=== PATIENT | female | born 1965 | race Caucasian/White ===

== ENCOUNTER → 2019-12-27 14:09 | Outpatient (BNVA) | payer MEDICAID, SELFPAY | PROVIDERS: Family Provider Nurse Practitioner Family; Visit Provider Surgery | DX: Z11.59 Encounter for screening for other viral diseases (principal); R11.0 Nausea | CPT/HCPCS: 87635 ==

== ENCOUNTER 2020-01-01 08:05 | Day surgery (SDC) | payer MEDICAID, SELFPAY ==
[2019-12-30 09:15] VITALS: BMI 38.9
[2020-01-01 08:18] VITALS: BP 136/70; PULSE 74; RESP 18; TEMP 36.1; O2SAT 96
--- NOTE | 2020-01-01 08:32 | ANES.PREANE2 ---
Pre-Anesthetic Assessment Pre-Anesthetic Assessment: Height/Weight: Height 1.78 m Weight 122.924 kg Temp Pulse Resp BP Pulse Ox 97.0 F L 74 18 136/70 96 01/01/20 08:18 01/01/20 08:18 01/01/20 08:18 01/01/20 08:18 01/01/20 08:18 Preop Diagnosis: Nausea and weight loss Proposed Procedure: Operation Date: 01/01/20 09:00 Proposed Procedures p EGD 37198 R11.0(Not Applicable) - Jamie Lerma MD Familial anesthetic complications: None Was Beta Brittnee taken within 24 hours: N/A Last intake: Intake Last Liquid Date 12/31/19 Last Liquid Time 21:00 Last Solid Date 12/31/19 Last Solid Time 21:00 Social: Social History: No alcohol and No tobacco Exam: Pre-Anes Outpt Exam: alert, oriented x 3, clear to auscultation bilaterally and regular rate & rhythm Airway: Cervical ROM: WNL MP: 3 Dentition: Other (missing) Additional comments: large neck Pulmonary: Pulmonary: Asthma and Sleep apnea (noncompliant w/ cpap) CV/HEM: CV/HEM: Arrythmia, HTN and Murmur GI: GI: GERD Metabolic: Metabolic: DM, Hyperlipidemia and Morbid obesity Musc/skel: Musc/skel: OA/DJD Neuropsych: Neuropsych: TIA (on plavix - last took a month ago (quit filling her perscription)) Anesthetic Plan: ASA status: 3 Anesthesia: MAC Risk of > 500 ml blood loss (7ml/kg in children): No Data Anesthesia Cardiac Studies: No Data to Display
[2020-01-01] MEDS: sodium chloride 0.9% 1,000 ML 30 ML IV (08:43)
[2020-01-01 08:44] LABS: Glucose Point of Care 150 mg/dL (70-110)
--- NOTE | 2020-01-01 09:21 | W.PM.OPSUD ---
Surgery/Procedure H&P Update DATE OF PROCEDURE: January 01, 2020 DATE H&P PERFORMED: 12/18/19 H&P UPDATE INFORMATION: I have reviewed H&P completed within last 30 days, I have examined patient prior to procedure and No changes to prior documentation PREOP DIAGNOSIS: Nausea and weight loss PRIMARY INDICATION FOR PROCEDURE: The same PLANNED PROCEDURE: Operation Date: 01/01/20 09:00 Proposed Procedures p EGD 74288 R11.0(Not Applicable) - Jamie Lerma MD
[2020-01-01 09:34] VITALS: BP 110/58; PULSE 69; RESP 18; TEMP 36.2; O2SAT 98
[2020-01-01 09:50] VITALS: BP 107/69; PULSE 68; RESP 18; O2SAT 98
--- NOTE | 2020-01-01 10:55 | ANE.PACU2 ---
Inpatient post-anesthesia follow up: Airway intact: Yes Vital signs: Temperature 97.2 F Pulse Rate 68 Respiratory Rate 18 Blood Pressure 107/69 Pulse Oximetry 98 Oxygen Delivery Me thod Room Air Oxygen Flow Rate Fraction of Inspir ed Oxygen Hydration adequate: Yes Nausea and vomiting: Yes Pain level: 1 Mental status: Baseline
[2020-01-02 06:09] LABS: H. Pylori / CLO Test Negative
== END 2020-01-01 09:59 | disposition home or self-care (01) ==
PROVIDERS: PCP Family Medicine; Visit Provider Surgery
PROC: 0DJ08ZZ Inspection of Upper Intestinal Tract, Via Natural or Artificial Opening Endoscopic (ICD-10-PCS; CPT 43235; principal; 2020-01-01 09:00)
DX: R11.0 Nausea (principal); R63.4 Abnormal weight loss; K21.00 Gastro-esophageal reflux disease with esophagitis, without bleeding; K29.70 Gastritis, unspecified, without bleeding; I10 Essential (primary) hypertension; G47.30 Sleep apnea, unspecified; E11.9 Type 2 diabetes mellitus without complications; E78.5 Hyperlipidemia, unspecified; E66.01 Morbid (severe) obesity due to excess calories; Z68.38 Body mass index [BMI] 38.0-38.9, adult; Z86.73 Personal history of transient ischemic attack (TIA), and cerebral infarction without residual deficits; Z79.02 Long term (current) use of antithrombotics/antiplatelets
CPT/HCPCS: 12345; 36416; 43239; 82962; 87077; J2704; J7030

== ENCOUNTER → 2021-02-18 14:54 | Outpatient (BNVA) | payer MEDICAID, SELFPAY | PROVIDERS: PCP Family Medicine; Visit Provider Internal Medicine | DX: E11.9 Type 2 diabetes mellitus without complications (principal); E78.5 Hyperlipidemia, unspecified; I63.9 Cerebral infarction, unspecified; G31.84 Mild cognitive impairment of uncertain or unknown etiology; Z98.890 Other specified postprocedural states; Z79.84 Long term (current) use of oral hypoglycemic drugs; Z79.4 Long term (current) use of insulin | CPT/HCPCS: 99214 ==

== ENCOUNTER → 2021-07-15 16:28 | Outpatient (BNVA) | payer MEDICAID, SELFPAY | PROVIDERS: PCP Family Medicine; Visit Provider Dermatology | DX: L43.9 Lichen planus, unspecified (principal) | CPT/HCPCS: 86705; 86706; 86709; 86803; 87340 ==

== ENCOUNTER 2021-07-29 14:35 | Emergency (ER) | payer MEDICAID, SELFPAY ==
[2021-07-29 14:40] VITALS: BP 160/81; PULSE 105; RESP 16; TEMP 36.7; O2SAT 97
--- NOTE | 2021-07-29 14:54 | CT_ITS ---
WS: [id number] CT HEAD TECHNIQUE: Noncontrast CT of the head obtained from the skullbase to the vertex. CLINICAL INFORMATION: Symptoms of Acute Stroke COMPARISON: CT 5 DLP: 851.[address] scans at [facility] use at least one of these dose optimization techniques: automated e xposure control; mA and/or kV adjustment per patient size (includes targeted exams where dose is matc hed to clinical indication); or iterative reconstruction. FINDINGS: No evidence of intracranial hemorrhage or mass effect. Ventricular system and basal cisterns are read nt. No extra-axial fluid collections. No evidence of mass or mass effect. Normal redman-white different iation. Cavernous carotid calcification. Paranasal sinuses and mastoid air cells are well aerated. .Normal visualized soft tissues. CT/CT head wo con* [id number] IMPRESSION: 1. No evidence of intracranial hemorrhage or mass effect. 2. Normal redman-white differentiation. 3. No acute intracranial findings. Notified Demetrio Younger DO at 07/29/2021 3:17 PM.
--- NOTE | 2021-07-29 14:54 | ECG_ITS ---
[facility] Test Date: 2021-07-29 Pat Name: Paradise Samano Department: Room: Gender: Female Medical Coordinator Pesticide Use: : 1965 Requested By: Demetrio Anaya Order Number: [id number] Kris MD: Navneet Vo M.D. Measurements Intervals [place] Rate: 103 P: 44 CT: 137 QRS: 57 QRSD: 87 T: 55 QT: 335 QTc: 441 Interpretive Statements SINUS TACHYCARDIA NONSPECIFIC T-WAVE ABNORMALITY Compared to ECG 07/18/2018 14:43:26 Sinus rhythm no longer present T-wave abnormality still present Electronically Signed On 07-29-2021 17:14:41 CDT by Navneet Vo M.D. [id number]
[2021-07-29 14:55] VITALS: BP 136/83; PULSE 97; RESP 16; O2SAT 95
--- NOTE | 2021-07-29 14:57 | ED_ITS ---
HPI - General Adult General: Chief complaint: General Medical Stated complaint: possible stroke Time Seen by Provider: 07/29/21 14:45 Source: patient Mode of arrival: ambulatory Limitations: no limitations History of Present Illness: 55-year-old female presents to the emergency room withLeft-sided weakness for the last 3 days. Patient reports she has a history of migraines with hemiplegia with migraine resolved her symptoms resolved she has had this multiple times in the past. She was seen at her primary care clinic and referred here. She denies any chest pain no difficulty with vision. She is awake and alert answers questions appropriately. Onset (ago): minute(s) Location: head Relieving factors: none Exacerbating factors: none Associated symptoms: Deny chest pain, confusion, cough, diaphoresis, decreased appetite, dyspnea, fevers/chills, headache(s), malaise, nausea, rash, palpitations, seizures, short of breath, syncope, vomiting or weakness Treatments prior to arrival: none Review of Systems Const: Denies: malaise or diaphoresis ENMT: Denies: throat pain, ear or mastoid pain, nasal discharge or nasal con gestion Card: Denies: chest pain, palpitations or syncope Resp: Denies: dyspnea GI: Denies: nausea or vomiting : Denies: flank pain, difficulty voiding, dysuria, urinary frequency or urinary urgency Skin/Breast: Denies: rash Neuro: Denies: headache(s) or confusion PFS ED PFSH: Medical History Abdominal pain Anemia Asthma Depression Diabetes Duodenitis without bleeding GERD (gastroesophageal reflux disease) Gout Hypertension Morbid obesity with BMI of 40.0-44.9, adult Nausea & vomiting PTSD (post-traumatic stress disorder) RLS (restless legs syndrome) Surgical History History of esophagogastroduodenoscopy (EGD) Family History Other Hypertension Social History Smoking and tobacco status: never smoked Alcohol intake: current Physical Exam Const: COMMON NORMALS: no acute distress GENERAL APPEARANCE: cooperative and comfortable ORIENTATION/CONSCIOUSNESS: Yes awake, Yes oriented to person, Yes oriented to place and Yes oriented to time HENMT: COMMON NORMALS: normocephalic, atraumatic and hearing grossly normal bilaterally HEAD & SCALP: normocephalic and atraumatic Neck/C-Spine: COMMON NORMALS: no JVD Resp: COMMON NORMALS: normal respiratory effort, No retractions, No use of accessory muscles and clear to auscultation bilaterally AUSCULTATION: clear to auscultation bilaterally Cardio: COMMON NORMALS: no JVD, regular rate, regular rhythm and No murmurs present (Cardio) RATE: regular rate RHYTHM: regular rhythm GI: COMMON NORMALS: Soft to palpation and No hepatosplenomegaly present AUSCULTATION: Yes normoactive bowel sounds PALPATION: Yes Soft to palpation, No Tenderness to palpation present (GI), No Guarding due to palpation present (GI) and Yes No hepatosplenomegaly present Extremity: COMMON NORMALS: normal to inspection, capillary refill normal, no clubbing, cyanosis or edema, no calf tenderness and no pedal edema Neuro: SENSORIUM/ORIENTATION: Yes oriented to person, Yes oriented to place and Yes oriented to time OTHER: Weakness on the left side but with encouragement patient is able to perform all tasks Skin: COMMON NORMALS: no rashes or lesions noted GENERAL SKIN EXAM: no rashes or lesions noted Course Vital Signs: Vital signs: Vital Signs Temperature 98.1 F 07/29/21 14:40 Pulse Rate 85 07/29/21 17:40 Respiratory Rate 18 07/29/21 17:40 Blood Pressure 120/83 07/29/21 17:40 Pulse Oximetry 95 07/29/21 17:40 [facility] - General Adult Medical Decision Making For the time work-up was complete patient's symptoms had completely resolved. She preferred to go home. No further deficits. Repeat examination patient has full range of motion full-strength no deficits at all. She reports this is gayla lar to what she has had in the past with her migraine headaches. She has not seen neurology recommend that she does see them in the future. Medical Records I reviewed the patient's medical records. Lab Data I reviewed the patient's lab results. : 07/29/21 15:18 07/29/21 15:[address] 07/29/21 14:54 IMPRESSION: 1. No evidence of intracranial hemorrhage or mass effect. 2. Normal redman-white differentiation. 3. No acute intracranial findings. Notified Demetrio Younger DO at 07/29/2021 3:17 PM. Laboratory Results WBC 10.8 10^3/uL (4.0-10.0) H 07/29/21 15:18 RBC 5.74 10^6/uL (4.1-5.3) H 07/29/21 15:18 Hgb 14.4 g/dL (11.5-15.3) 07/29/21 15:18 Hct 46.4 % (37.0-47.0) 07/29/21 15:18 MCV 80.8 fl (81-99) L 07/29/21 15:18 MCH 25.1 pg (28.0-34.0) L 07/29/21 15:18 MCHC 31.0 g/dL (30.0-36.0) 07/29/21 15:18 RDW 15.7 % (12.1-15.1) H 07/29/21 15:18 Plt Count 204 10^3/cmm (130-400) 07/29/21 15:18 MPV 12.5 fL (7.4-10.4) H 07/29/21 15:18 Neut % (Auto) 73.6 % 07/29/21 15:18 Lymph % (Auto) 20.3 % 07/29/21 15:18 [place] % (Auto) 3.4 % 07/29/21 15:18 Eos % (Auto) 2.0 % 07/29/21 15:18 Baso % (Auto) 0.4 % 07/29/21 15:18 Neut # (Auto) 7.92 10^3/uL (1.8-7.7) H 07/29/21 15:18 Lymph # (Auto) 2.2 10^3/uL (0.8-4.8) 07/29/21 15:18 [place] # (Auto) 0.4 10^3/uL (0.2-0.9) 07/29/21 15:18 Eos # (Auto) 0.2 10^3/uL (0.0-0.8) 07/29/21 15:18 Baso # (Auto) 0.0 10^3/uL (0.0-0.1) 07/29/21 15:18 Nucleated RBC % (auto) 0 % 07/29/21 15:18 Nucleated RBCs # 0.0 /100WBC 07/29/21 15:18 PT 13.60 SECONDS (12.1-14.9) 07/29/21 16:35 INR 1.01 (0.8-1.2) 07/29/21 16:35 APTT 27.1 SECONDS (23.9-36.7) 07/29/21 16:35 Sodium 137 mmol/L (136-145) 07/29/21 15:18 Potassium 3.2 mmol/L (3.5-5.1) L 07/29/21 15:18 Chloride 99 mmol/L (98-107) 07/29/21 15:18 Carbon Dioxide 23 mmol/L (22-29) 07/29/21 15:18 Anion Gap 18.2 (5-19) 07/29/21 15:18 BUN 15 mg/dL (6-20) 07/29/21 15:18 Creatinine 0.8 mg/dL (0.5-0.9) 07/29/21 15:18 GFR Calculation 74.7 mL/min (90-130) L 07/29/21 15:18 Glucose 181 mg/dL (65-115) H 07/29/21 15:18 POC Glucose 180 mg/dL (70-110) H 07/29/21 16:09 Calculated Osmolality 289 mOsm/kg (285-295) 07/29/21 15:18 Calcium 8.9 mg/dL (8.5-10.5) 07/29/21 15:18 Total Bilirubin 0.3 mg/dL (0.15-1.2) 07/29/21 15:18 AST 33 U/L (0-32) H 07/29/21 15:18 ALT 43 U/L (0-33) H 07/29/21 15:18 Alkaline Phosphatase 130 IU/L (35-105) H 07/29/21 15:18 Total Protein 8.4 g/dL (6.6-8.7) 07/29/21 15:18 Albumin 4.4 g/dL (3.5-5.2) 07/29/21 15:18 Globulin 4.0 g/dL (1.3-4.6) 07/29/21 15:18 Urine Color Yellow (Yellow) 07/29/21 14:45 Urine Appearance Clear (CLEAR) 07/29/21 14:45 Urine pH 5 (5-7) 07/29/21 14:45 Ur Specific [place] 1.005 (1.005-1.030) 07/29/21 14:45 Urine Protein Neg (Negative) 07/29/21 14:45 Urine Glucose (UA) Norm (Normal) 07/29/21 14:45 Urine Ketones Negative (Negative) 07/29/21 14:45 Urine Blood Neg (Negative) 07/29/21 14:45 Urine Nitrate Negative (Negative) 07/29/21 14:45 Urine Bilirubin Neg (Negative) 07/29/21 14:45 Urine Urobilinogen Norm mg/dL (Negative) 07/29/21 14:45 Ur Leukocyte Esterase Negative (Negative) 07/29/21 14:45 Urine Opiates Screen Negative ng/mL (Negative) 07/29/21 14:45 Ur Barbiturates Screen Negative ng/mL (Negative) 07/29/21 14:45 Ur Phencyclidine Scrn Negative ng/mL (Negative) 07/29/21 14:45 Ur Amphetamines Screen Negative ng/mL (Negative) 07/29/21 14:45 U Benzodiazepines Scrn Negative ng/mL (Negative) 07/29/21 14:45 Urine Cocaine Screen Negative ng/mL (Negative) 07/29/21 14:45 U Marijuana (THC) Screen Negative ng/mL (Negative) 07/29/21 14:45 Discharge Plan Discharge Patient Disposition: Home Clinical Impression: Hemiplegic migraine Condition: Stable Prescriptions: No Action Dulera 200-5 mcg/actuation HFA aerosol inhaler 2 puff INHALATION BID 0RF furosemide [Lasix] 20 mg tablet 20 mg PO DAILY 0RF ropinirole 2 mg tablet 2 mg PO DAILY 0RF pramipexole [Mirapex] 0.5 mg tablet 0.5 mg PO DAILY 0RF hydrochlorothiazide 25 mg tablet 25 mg PO DAILY 0RF dicyclomine 10 mg capsule 10 mg PO BID 0RF citalopram [Celexa] 40 mg tablet 40 mg PO DAILY 0RF prazosin 1 mg capsule 1 mg PO BID 0RF azelastine 137 mcg (0.1 %) aerosol,spray 1 spray INTRANASAL BID 0RF Rx Instructions: administer into each nostril venlafaxine [Effexor XR] 150 mg capsule,extended release 24hr 150 mg PO DAILY 0RF ipratropium-albuterol 0.5 mg-3 mg(2.5 mg base)/3 mL solution for nebulization 3 ml INHALATION QID PRN (Reason: Dyspnea) 0RF albuterol sulfate [ProAir HFA] 90 mcg/actuation HFA aerosol inhaler 2 puff INHALATION Q6H PRN (Reason: Dyspnea) 0RF sucralfate 1 gram tablet 1 gm PO BID 0RF magnesium oxide 400 mg magnesium capsule 400 mg PO DAILY 0RF gabapentin 400 mg capsule 800 mg PO DAILY 0RF hydroxyzine HCl 25 mg tablet 25 mg PO BID PRN (Reason: Itching) 0RF topiramate 50 mg capsule,extended release 24hr 50 mg PO DAILY 0RF allopurinol 300 mg tablet 300 mg PO DAILY 0RF baclofen 10 mg tablet 10 mg PO DAILY 0RF metformin 1,000 mg tablet 1,000 mg PO DAILY 0RF atorvastatin 20 mg tablet 20 mg PO DAILY 0RF clopidogrel [Plavix] 75 mg tablet 75 mg PO DAILY 0RF Hold Instructions: Resume on 01/06/20. meclizine 25 mg tablet 25 mg PO DAILY 0RF (DME) Dexcom G6 Sensor Device See Rx Instructions .Route Qty: 3 3RF Rx Instructions: As directed (DME) Dexcom G6 Deck[employer] Misc See Rx Instructions .Route Qty: 1 3RF Rx Instructions: Check BS 4 times a day. (DME) Dexcom G6 Transmitter Device See Rx Instructions .Route Qty: 1 3RF Rx Instructions: As directed clobetasol 0.05 % ointment 1 applic topical BID 14 Days Qty: 60 1RF Rx Instructions: Start: to affected areas no more than 2 weeks/mo prn alternating with triamcinolone triamcinolone acetonide 0.1 % ointment 1 applic topical BID Qty: 80 1RF Rx Instructions: Apply to affected areas twice daily for 2 weeks alternating with clobetasol pantoprazole 40 mg tablet,delayed release (DR/EC) See Rx Instructions .ROUTE .COMPLEX Qty: 30 2RF Dose Instruction: Take 1 tablet by mouth once daily for 30 days Rx Instructions: Take 1 tablet by mouth once daily for 30 days (DME) insulin syringe-needle U-100 [BD Veo Insulin Syringe UF] 0.3 mL 31 gauge x 15/64 syringe See Rx Instructions .ROUTE .MEDSUPPLY Qty: 100 3RF Rx Instructions: As directed insulin aspart U-100 [Novolog Flexpen U-100 Insulin] 100 unit/mL (3 mL) insulin pen 10 unit SUBCUT TID Qty: 30 3RF Rx Instructions: Inject 10 units subcut three times a day with meals. Tresiba FlexTouch U-200 200 unit/mL (3 mL) insulin pen 70 unit SUBCUT DAILY Qty: 9 3RF Rx Instructions: Inject 70 units subcut daily. mupirocin 2 % ointment 1 applic topical BID Qty: 22 1RF Rx Instructions: Apply to affected area(s) until healed Discharge Orders: Discharge ED (Routine); Ordered 07/29/21 Ordered By: Demetrio Younger Referrals: Hong Jara [Primary Care Provider] - Discharge Diet: Usual diet Discharge Activity: Increase activity as tolerated Patient Instructions: Opioid Safety Activity Restrictions/Additional Instructions: Follow-up with your primary care doctor as needed. Case management make arrangements for you to follow-up with neurology as well. Coding Level of Care Code ED Roastmaster for Carlos León
[2021-07-29 15:20] VITALS: BP 122/73; PULSE 107; RESP 16; O2SAT 97
[2021-07-29 15:20] LABS: Add Urine Microscopic? NO; Charge for UA Resulting for Rev
[2021-07-29 15:26] LABS: Bilirubin Urine Neg (Negative); Blood Urine Neg (Negative); Glucose Urine UA Norm (Normal); Ketones Urine Negative (Negative); Leukocyte Esterase Urine Negative (Negative); Nitrate Urine Negative (Negative); Protein Urine Neg (Negative); Specific Gravity, Urine 1.005 (1.005-1.030); Urine Appearance Clear (CLEAR); Urine Color Yellow (Yellow); Urobilinogen Urine Norm (Negative); pH Urine 5 (5-7)
[2021-07-29 15:31] LABS: Basophils % 0.4 %; Eosinophils # 0.2 10^3/uL (0.0-0.8); Hematocrit 46.4 % (37.0-47.0); Hemoglobin 14.4 g/dL (11.5-15.3); Lymphocytes # 2.2 10^3/uL (0.8-4.8); Lymphocytes % 20.3 %; Mean Corpuscular Hemoglobin 25.1 pg (28.0-34.0); Mean Corpuscular Volume 80.8 fl (81-99); Mean Platelet Volume 12.5 fL (7.4-10.4); Monocytes # 0.4 10^3/uL (0.2-0.9); Monocytes % 3.4 %; Neutrophils # 7.92 10^3/uL (1.8-7.7); Neutrophils % 73.6 %; Nucleated Red Blood Cells % 0 %; Platelet Count 204 10^3/cmm (130-400); Red Blood Count 5.74 10^6/uL (4.1-5.3); Red Cell Distribution Width 15.7 % (12.1-15.1); White Blood Count 10.8 10^3/uL (4.0-10.0)
[2021-07-29 15:54] LABS: Alanine Aminotransferase 43 U/L (0-33); Albumin Level 4.4 g/dL (3.5-5.2); Alkaline Phosphatase 130 IU/L (35-105); Anion Gap 18.2 (5-19); Aspartate Amino Transferase 33 U/L (0-32); Blood Urea Nitrogen 15 mg/dL (6-20); Calcium 8.9 mg/dL (8.5-10.5); Carbon Dioxide 23 mmol/L (22-29); Chloride 99 mmol/L (98-107); Glomerular Filtration Rate 74.7 mL/min (90-130); Glucose 181 mg/dL (65-115); Osmolality Calculated 289 mOsm/kg (285-295); Potassium 3.2 mmol/L (3.5-5.1); Sodium 137 mmol/L (136-145); Total Bilirubin 0.3 mg/dL (0.15-1.2); Total Protein 8.4 g/dL (6.6-8.7)
[2021-07-29 16:02] LABS: Amphetamines Screen Urine Negative (Negative); Barbiturates Screen Urine Negative (Negative); Benzodiazepines Screen Urine Negative (Negative); Cocaine Screen Urine Negative (Negative); Opiate Screen Urine Negative (Negative); PCP Screen Urine Negative (Negative); THC Screen Urine Negative (Negative)
[2021-07-29 16:04] VITALS: BP 160/100; PULSE 97; RESP 16; O2SAT 95
[2021-07-29] MEDS: ketorolac 30 mg/mL INJ IVP (16:15)
[2021-07-29] MEDS: promethazine 25 mg/mL SDV 1 mL IM (16:15)
[2021-07-29 16:52] LABS: INR 1.01 (0.8-1.2)
[2021-07-29 16:53] LABS: Partial Thromboplastin Time 27.1 SECONDS (23.9-36.7)
[2021-07-29 17:07] VITALS: BP 121/79; PULSE 91; RESP 16; O2SAT 95
[2021-07-29 17:40] VITALS: BP 120/83; PULSE 85; RESP 18; O2SAT 95
[2021-07-30 01:02] LABS: Glucose Point of Care 180 mg/dL (70-110)
--- NOTE | 2021-07-30 09:44 | DCPLANNER ---
Addendum entered by Doretha Esposito 08/05/21 15:26: clerk manager was told that when clinic called patient to schedule an appointment, that patient declined appointment at this time. Original Note: clerk manager had message to schedule a follow up appointment for patient with neurology. clerk manager sent patients information to the front office staff at neurology. Patients information will be printed and reviewed. Clinic will call patient with appointment information.
== END 2021-07-29 17:43 | disposition home or self-care (01) ==
PROVIDERS: Emergency Provider Family Medicine; PCP Nurse Practitioner Family
DX: G43.409 Hemiplegic migraine, not intractable, without status migrainosus (principal); Z79.51 Long term (current) use of inhaled steroids; Z79.84 Long term (current) use of oral hypoglycemic drugs; Z79.4 Long term (current) use of insulin
CPT/HCPCS: 36416; 70450; 80053; 80306; 81003; 82962; 85025; 85610; 85730; 93005; 96372; 96374; 99285; J1885; J2550

== ENCOUNTER 2021-07-30 17:51 | Emergency (ER) | payer MEDICAID, SELFPAY ==
[2021-07-30 18:58] VITALS: BP 139/92; PULSE 100; RESP 18; TEMP 35.6; O2SAT 95; BMI 38.0
[2021-07-30 19:04] VITALS: BP 156/97; PULSE 92; RESP 14; O2SAT 97
--- NOTE | 2021-07-30 21:50 | CTR_ITS ---
PROCEDURE INFORMATION: Exam: CT Head Without Contrast Exam date and time: 07/30/2021 10:15 PM Age: 55 years old Clinical indication: Pain; Headache; Aura effect not specified; Does not respond to medication; Severity not specified; Patient HX: C/O migraine w L sided weakness; Additional info: Migraine w/ left arm and leg weakness TECHNIQUE: Imaging protocol: Computed tomography of the head without contrast. Radiation optimization: All CT scans at this facility use at least one of these dose optimization techniques: automated exposure control; mA and/or kV adjustment per patient size (includes targeted exams where dose is matched to clinical indication); or iterative reconstruction. COMPARISON: 1. CT head wo con* [id number] 07/29/2021 3:03 PM 2. MRI IAC'S w/wo* [id number] 05/19/2016 2:07 PM RADIATION DOSE METRICS: Total DLP (mGy-cm): 893.01 FINDINGS: Brain: The brain is unremarkable. There is no mass effect or significant white matter disease. There is no acute intracranial hemorrhage. Cerebral ventricles: No ventriculomegaly. Paranasal sinuses: The paranasal sinuses are clear. Mastoid air cells: The mastoid air cells are clear. 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 Bones/joints: The calvarium is intact. Soft tissues: The visible extracranial soft tissues are unremarkable. CT/CT head wo con* [id number] IMPRESSION: 1. No acute intracranial abnormality. 2. 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 The lesion is unchanged in size.
--- NOTE | 2021-07-30 21:51 | ED_ITS ---
Documented by User: ISSA Nieves 07/31/21 17:30 HPI - Headache General: Chief Complaint: Headache Stated Complaint: migraine Time Seen by Provider: 07/30/21 21:39 History of Present Illness: Patient is a 55-year-old female who comes to the ED with a migraine and left sided weakness. Patient was seen here in the ED for same symptoms yesterday. Her symptoms improved after meds and head CT showed no acute findings and she was discharged home. Patient says she has a history of hemiplegic migraines. Around mid day today she started feeling a bit off and then she developed her typical migraine that is located in the frontal part of her head. She rates her migraine a 7 out of 10. She also having some left arm and left leg weakness again which is the same as her migraine symptoms yesterday. Endorses having some nausea as well. She says lights make headache worse. Associated symptoms: Deny chest pain, fever(s), nausea, rash or vomiting Review of Systems Const: Denies: fever(s), chills or fatigue Eyes: Denies: change in vision or eye discomfort ENMT: Denies: throat pain, odynophagia, nasal discharge or nasal congestion Card: Denies: chest pain, palpitations, edema, swelling of feet/ankles, dyspnea on exertion or orthopnea Resp: Denies: dyspnea, productive cough or non-productive cough GI: Denies: abdominal pain, nausea, vomiting, diarrhea, constipation or hematochezia : Denies: flank pain, dysuria or hematuria Musc: Denies: neck pain, back pain or extremity swelling Skin/Breast: Denies: rash or new lesions Neuro: Reports: headache(s) and weakness in extremities (Left arm and left leg); Denies: numbness in extremities, sensory changes or seizure-like activity PFS ED PFSH: Medical History Abdominal pain Anemia Asthma Depression Diabetes Duodenitis without bleeding GERD (gastroesophageal reflux disease) Gout Hypertension Morbid obesity with BMI of 40.0-44.9, adult Nausea & vomiting PTSD (post-traumatic stress disorder) RLS (restless legs syndrome) Surgical History History of esophagogastroduodenoscopy (EGD) Family History Other Hypertension Social History Smoking and tobacco status: never smoked Alcohol intake: current Physical Exam Const: COMMON NORMALS: patient oriented x3 and alert GENERAL APPEARANCE: cooperative HENMT: COMMON NORMALS: normocephalic HEAD & SCALP: normocephalic MOUTH: Normal oral and palatal mucosa present THROAT: posterior oropharynx normal and uvula midline Eye: COMMON NORMALS: Equal, round and reactive pupils present, EOMs intact bilaterally and conjunctivae normal CONJUNCTIVA: Yes conjunctivae normal PUPIL: Yes Equal, round and reactive pupils present Neck/C-Spine: COMMON NORMALS: supple GENERAL: Yes normal visual inspection Resp: COMMON NORMALS: normal respiratory effort, No retractions, No use of accessory muscles and clear to auscultation bilaterally AUSCULTATION: clear to auscultation bilaterally Cardio: COMMON NORMALS: regular rate, regular rhythm, S1 normal heart sound present, S2 normal heart sound present, No gallops present (Cardio), No clicks present (Cardio), No murmurs present (Cardio) and Peripheral pulses 2+ throughout RATE: regular rate RHYTHM: regular rhythm HEART SOUNDS: S1 normal heart sound present and S2 normal heart sound present PERIPHERAL PULSES: Peripheral pulses 2+ throughout GI: COMMON NORMALS: Normal to inspection, nondistended, normoactive bowel sounds present, Soft to palpation, non-tender and no masses PALPATION: Yes Soft to palpation : COMMON NORMALS: Yes no CVA tenderness BLADDER/KIDNEY EXAM: Yes no CVA tenderness Back/Pelvis: COMMON NORMALS: no CVA tenderness Extremity: COMMON NORMALS: normal to inspection and no pedal edema Neuro: COMMON NORMALS: patient oriented x3, CN's II-XII intact bilaterally, moves all extremities and no sensory deficits noted SENSORIUM/ORIENTATION: Yes alert MOTOR EXAM: Abnormal motor strength present left distal 4 / 5 flexion and extension and Other motor observations present (Strength to right and left leg were 5/5) Skin: GENERAL SKIN EXAM: dry skin Course ED course: NIHS stroke scale--2 Pt had mild Left arm and left leg drift, but the rest of scale was normal. Reevaluation(s): Reevaluation #1: After patient received migraine cocktail meds here migraine improved. She rates her migraine now a 4 out of 10. She states that her left-sided weakness has improved as well. I reexamined the strength on her left side and it has improved significantly from initial exam. Time: 23:50 Vital Signs: Vital signs: Vital Signs Temperature 96.0 F L 07/30/21 18:58 Pulse Rate 80 07/31/21 00:04 Respiratory Rate 15 07/31/21 00:04 Blood Pressure 132/74 07/31/21 00:04 Pulse Oximetry 96 07/31/21 00:04 [facility] - Headache Medical Decision Making Patient is a 55-year-old female comes to the ED with hemiplegic migraines. She has a history of hemiplegic migraines and was seen here for same complaint yesterday. She is having exact same symptoms from yesterday that started again midday today. She is having some left leg and left arm weakness along with a migraine. Vitals are stable. NIH stroke score of 2. Rest of neuro exam and physical exam was normal. CT of head showed no acute findings. Labs are unremarkable. Patient was given IV migraine cocktail meds and her headache and left-sided weakness improved. She is currently taking a statin and is on Plavix as well. I talked with Dr. Lyman about patient case and agreed that she is stable for discharge home and I put an order with case management for her to be referred to neurologist. Return to ED precautions given. Patient is to agree with plan. Lab Data I reviewed the patient's lab results. : 07/30/21 22:30 07/30/21 22:[address] 07/30/21 21:50 IMPRESSION: 1. No acute intracranial abnormality. 2. 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 The lesion is unchanged in size. Laboratory Results WBC 10.1 10^3/uL (4.0-10.0) H 07/30/21 22:30 RBC 5.43 10^6/uL (4.1-5.3) H 07/30/21 22:30 Hgb 13.5 g/dL (11.5-15.3) 07/30/21 22:30 Hct 42.4 % (37.0-47.0) 07/30/21 22:30 MCV 78.1 fl (81-99) L 07/30/21: MCH 24.9 pg (28.0-34.0) L 07/30/21: MCHC 31.8 g/dL (30.0-36.0) 07/30/21: RDW 15.5 % (12.1-15.1) H 07/30/21: Plt Count 206 10^3/cmm (130-400) 07/30/21: MPV 11.4 fL (7.4-10.4) H 07/30/21: Neut % (Auto) 66.0 % 07/30/21: Lymph % (Auto) 25.9 % 07/30/21: Ross % (Auto) 5.7 % 07/30/21: Eos % (Auto) 1.7 % 07/30/21: Baso % (Auto) 0.4 % 07/30/21: Neut # (Auto) 6.66 10^3/uL (1.8-7.7) 07/30/21: Lymph # (Auto) 2.6 10^3/uL (0.8-4.8) 07/30/21: Ross # (Auto) 0.6 10^3/uL (0.2-0.9) 07/30/21: Eos # (Auto) 0.2 10^3/uL (0.0-0.8) 07/30/21 Baso # (Auto) 0.0 10^3/uL (0.0-0.1) 07/30/21: Nucleated RBC % (auto) 0 % 07/30/21 Nucleated RBCs # 0.0 /100WBC 07/30/21: PT 14.20 SECONDS (12.1-14.9) 07/30/21: INR 1.07 (0.8-1.2) 07/30/21: APTT 25.6 SECONDS (23.9-36.7) 07/30/21: Sodium 140 mmol/L (136-145) 07/30/21: Potassium 3.4 mmol/L (3.5-5.1) L 07/30/21 22:30 Chloride 101 mmol/L (98-107) 07/30/21 22:30 Carbon Dioxide 26 mmol/L (22-29) 07/30/21:30 Anion Gap 16.4 (5-19) 07/30/21 22:30 BUN 17 mg/dL (6-20) 07/30/21 22:30 Creatinine 0.8 mg/dL (0.5-0.9) 07/30/21:30 GFR Calculation 74.7 mL/min (90-130) L 07/30/21:30 Glucose 170 mg/dL (65-115) H 07/30/21 22:30 Calculated Osmolality 296 mOsm/kg (285-295) H 07/30/21:30 Calcium 9.5 mg/dL (8.5-10.5) 07/30/21:30 Total Bilirubin 0.4 mg/dL (0.15-1.2) 07/30/21: AST 29 U/L (0-32) 07/30/21:30 ALT 36 U/L (0-33) H 07/30/21 22:30 Alkaline Phosphatase 127 IU/L (35-105) H 07/30/21:30 Total Protein 9.0 g/dL (6.6-8.7) H 07/30/21:30 Albumin 4.5 g/dL (3.5-5.2) 07/30/21:30 Globulin 4.5 g/dL (1.3-4.6) 07/30/21 22:30 Discharge Plan Discharge Patient Disposition: Home Clinical Impression: Hemiplegic migraine Qualifiers: Status migrainosus presence: without status migrainosus Intractability: not intractable Qualified Code(s): G43.409 - Hemiplegic migraine, not intractable, without status migrainosus Condition: Stable Prescriptions: No Action Dulera 200-5 mcg/actuation HFA aerosol inhaler 2 puff INHALATION BID 0RF furosemide [Lasix] 20 mg tablet 20 mg PO DAILY 0RF ropinirole 2 mg tablet 2 mg PO DAILY 0RF pramipexole [Mirapex] 0.5 mg tablet 0.5 mg PO DAILY 0RF hydrochlorothiazide 25 mg tablet 25 mg PO DAILY 0RF dicyclomine 10 mg capsule 10 mg PO BID 0RF citalopram [Celexa] 40 mg tablet 40 mg PO DAILY 0RF prazosin 1 mg capsule 1 mg PO BID 0RF azelastine 137 mcg (0.1 %) aerosol,spray 1 spray INTRANASAL BID 0RF Rx Instructions: administer into each nostril venlafaxine [Effexor XR] 150 mg capsule,extended release 24hr 150 mg PO DAILY 0RF ipratropium-albuterol 0.5 mg-3 mg(2.5 mg base)/3 mL solution for nebulization 3 ml INHALATION QID PRN (Reason: Dyspnea) 0RF albuterol sulfate [ProAir HFA] 90 mcg/actuation HFA aerosol inhaler 2 puff INHALATION Q6H PRN (Reason: Dyspnea) 0RF sucralfate 1 gram tablet 1 gm PO BID 0RF magnesium oxide 400 mg magnesium capsule 400 mg PO DAILY 0RF gabapentin 400 mg capsule 800 mg PO DAILY 0RF hydroxyzine HCl 25 mg tablet 25 mg PO BID PRN (Reason: Itching) 0RF topiramate 50 mg capsule,extended release 24hr 50 mg PO DAILY 0RF allopurinol 300 mg tablet 300 mg PO DAILY 0RF baclofen 10 mg tablet 10 mg PO DAILY 0RF metformin 1,000 mg tablet 1,000 mg PO DAILY 0RF atorvastatin 20 mg tablet 20 mg PO DAILY 0RF clopidogrel [Plavix] 75 mg tablet 75 mg PO DAILY 0RF Hold Instructions: Resume on 01/06/20. meclizine 25 mg tablet 25 mg PO DAILY 0RF (DME) Dexcom G6 Sensor Device See Rx Instructions .Route Qty: 3 3RF Rx Instructions: As directed (DME) Dexcom G6 Political Aide Misc See Rx Instructions .Route Qty: 1 3RF Rx Instructions: Check BS 4 times a day. (DME) Dexcom G6 Transmitter Device See Rx Instructions .Route Qty: 1 3RF Rx Instructions: As directed clobetasol 0.05 % ointment 1 applic topical BID 14 Days Qty: 60 1RF Rx Instructions: Start: to affected areas no more than 2 weeks/mo prn alternating with triamcinolone triamcinolone acetonide 0.1 % ointment 1 applic topical BID Qty: 80 1RF Rx Instructions: Apply to affected areas twice daily for 2 weeks alternating with clobetasol pantoprazole 40 mg tablet,delayed release (DR/EC) See Rx Instructions .ROUTE .COMPLEX Qty: 30 2RF Dose Instruction: Take 1 tablet by mouth once daily for 30 days Rx Instructions: Take 1 tablet by mouth once daily for 30 days (DME) insulin syringe-needle U-100 [BD Veo Insulin Syringe UF] 0.3 mL 31 gauge x 15/64 syringe See Rx Instructions .ROUTE .MEDSUPPLY Qty: 100 3RF Rx Instructions: As directed insulin aspart U-100 [Novolog Flexpen U-100 Insulin] 100 unit/mL (3 mL) insulin pen 10 unit SUBCUT TID Qty: 30 3RF Rx Instructions: Inject 10 units subcut three times a day with meals. Tresiba FlexTouch U-200 200 unit/mL (3 mL) insulin pen 70 unit SUBCUT DAILY Qty: 9 3RF Rx Instructions: Inject 70 units subcut daily. mupirocin 2 % ointment 1 applic topical BID Qty: 22 1RF Rx Instructions: Apply to affected area(s) until healed Discharge Orders: Discharge ED (Routine); Ordered 07/30/21 Ordered By: Kerwin Calhoun Referrals: Hong Jara [Primary Care Provider] - Discharge Diet: Regular Discharge Activity: Increase activity as tolerated Patient Instructions: Headache - Migraine (Adult) Activity Restrictions/Additional Instructions: Follow-up with your primary care physician at your next scheduled appointment this coming Monday. Case management should be contacting you in the next several days to set up an appointment neurologist. Continue taking all home meds as previously prescribed. Return to the ER or your medical provider if condition worsens. Please read and understand discharge instructions. Thank you for choosing [facility] for your healthcare needs today. Please realize this is an emergency room and that we are providing you with a medical screening exam and this may not be complete and all inclusive of all the testing and or work up that you may need to determine your ailment or severity of your illness. It is very important that you follow up as instructed or that you return to the Emergency Department should you have concerns or if your condition changes or worsens in any way. 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 Documented by User: Gage Lyman MD 08/01/21 05:22 HPI - Headache General: Chief Complaint: Headache Stated Complaint: migraine Time Seen by Provider: 07/30/21 21:39 [facility] ED PFSH: Medical History Abdominal pain Anemia Asthma Depression Diabetes Duodenitis without bleeding GERD (gastroesophageal reflux disease) Gout Hypertension Morbid obesity with BMI of 40.0-44.9, adult Nausea & vomiting PTSD (post-traumatic stress disorder) RLS (restless legs syndrome) Surgical History History of esophagogastroduodenoscopy (EGD) Family History Other Hypertension Social History Smoking and tobacco status: never smoked Alcohol intake: current Course Vital Signs: Vital signs: Vital Signs Temperature 96.0 F L 07/30/21 18:58 Pulse Rate 80 07/31/21 00:04 Respiratory Rate 15 07/31/21 00:04 Blood Pressure 132/74 07/31/21 00:04 Pulse Oximetry 96 07/31/21 00:04 MDM - Headache Medical Decision Making Patient is a 55-year-old female comes to the ED with hemiplegic migraines. She has a history of hemiplegic migraines and was seen here for same complaint yesterday. She is having exact same symptoms from yesterday that started again midday today. She is having some left leg and left arm weakness along with a migraine. Vitals are stable. NIH stroke score of 2. Rest of neuro exam and physical exam was normal. CT of head showed no acute findings. Labs are unremarkable. Patient was given IV migraine cocktail meds and her headache and left-sided weakness improved. She is currently taking a statin and is on Plavix as well. I talked with Dr. Lyman about patient case and agreed that she is stable for discharge home and I put an order with case management for her to be referred to neurologist. Return to ED precautions given. Patient is to agree with plan. Patient care discussed with ISSA Nieves. I have reviewed documentation. Challenging situation, ultimately most likely etiology of symptoms is related to complex migraines. Gage Lyman MD Emergency Medicine Lab Data : 07/30/21 22:30 07/30/21 22:[address] 07/30/21 21:50 IMPRESSION: 1. No acute intracranial abnormality. 2. 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 The lesion is unchanged in size. Laboratory Results WBC 10.1 10^3/uL (4.0-10.0) H 07/30/21 22:30 RBC 5.43 10^6/uL (4.1-5.3) H 07/30/21 22:30 Hgb 13.5 g/dL (11.5-15.3) 07/30/21: Hct 42.4 % (37.0-47.0) 07/30/21: MCV 78.1 fl (81-99) L 07/30/21:30 MCH 24.9 pg (28.0-34.0) L 07/30/21: MCHC 31.8 g/dL (30.0-36.0) 07/30/21: RDW 15.5 % (12.1-15.1) H 07/30/21: Plt Count 206 10^3/cmm (130-400) 07/30/21: MPV 11.4 fL (7.4-10.4) H 07/30/21: Neut % (Auto) 66.0 % 07/30/21: Lymph % (Auto) 25.9 % 07/30/21 22:30 Ross % (Auto) 5.7 % 07/30/21: Eos % (Auto) 1.7 % 07/30/21: Baso % (Auto) 0.4 % 07/30/21:30 Neut # (Auto) 6.66 10^3/uL (1.8-7.7) 07/30/21 22: Lymph # (Auto) 2.6 10^3/uL (0.8-4.8) 07/30/21 22:30 Ross # (Auto) 0.6 10^3/uL (0.2-0.9) 07/30/21 22:30 Eos # (Auto) 0.2 10^3/uL (0.0-0.8) 07/30/21 22:30 Baso # (Auto) 0.0 10^3/uL (0.0-0.1) 07/30/21 22:30 Nucleated RBC % (auto) 0 % 07/30/21: Nucleated RBCs # 0.0 /100WBC 07/30/21: PT 14.20 SECONDS (12.1-14.9) 07/30/21: INR 1.07 (0.8-1.2) 07/30/21: APTT 25.6 SECONDS (23.9-36.7) 07/30/21 22:30 Sodium 140 mmol/L (136-145) 07/30/21: Potassium 3.4 mmol/L (3.5-5.1) L 07/30/21: Chloride 101 mmol/L (98-107) 07/30/21: Carbon Dioxide 26 mmol/L (22-29) 07/30/21: Anion Gap 16.4 (5-19) 07/30/21: BUN 17 mg/dL (6-20) 07/30/21: Creatinine 0.8 mg/dL (0.5-0.9) 07/30/21: GFR Calculation 74.7 mL/min (90-130) L 07/30/21: Glucose 170 mg/dL (65-115) H 07/30/21: Calculated Osmolality 296 mOsm/kg (285-295) H 07/30/21: Calcium 9.5 mg/dL (8.5-10.5) 07/30/21: Total Bilirubin 0.4 mg/dL (0.15-1.2) 07/30/21:30 AST 29 U/L (0-32) 07/30/21 22:30 ALT 36 U/L (0-33) H 07/30/21 22:30 Alkaline Phosphatase 127 IU/L (35-105) H 07/30/21 22:30 Total Protein 9.0 g/dL (6.6-8.7) H 07/30/21 22:30 Albumin 4.5 g/dL (3.5-5.2) 07/30/21 22:30 Globulin 4.5 g/dL (1.3-4.6) 07/30/21 22:30 Discharge Plan Discharge Patient Disposition: Home Clinical Impression: Hemiplegic migraine Qualifiers: Status migrainosus presence: without status migrainosus Intractability: not intractable Qualified Code(s): G43.409 - Hemiplegic migraine, not intractable, without status migrainosus Condition: Stable Prescriptions: No Action Dulera 200-5 mcg/actuation HFA aerosol inhaler 2 puff INHALATION BID 0RF furosemide [Lasix] 20 mg tablet 20 mg PO DAILY 0RF ropinirole 2 mg tablet 2 mg PO DAILY 0RF pramipexole [Mirapex] 0.5 mg tablet 0.5 mg PO DAILY 0RF hydrochlorothiazide 25 mg tablet 25 mg PO DAILY 0RF dicyclomine 10 mg capsule 10 mg PO BID 0RF citalopram [Celexa] 40 mg tablet 40 mg PO DAILY 0RF prazosin 1 mg capsule 1 mg PO BID 0RF azelastine 137 mcg (0.1 %) aerosol,spray 1 spray INTRANASAL BID 0RF Rx Instructions: administer into each nostril venlafaxine [Effexor XR] 150 mg capsule,extended release 24hr 150 mg PO DAILY 0RF ipratropium-albuterol 0.5 mg-3 mg(2.5 mg base)/3 mL solution for nebulization 3 ml INHALATION QID PRN (Reason: Dyspnea) 0RF albuterol sulfate [ProAir HFA] 90 mcg/actuation HFA aerosol inhaler 2 puff INHALATION Q6H PRN (Reason: Dyspnea) 0RF sucralfate 1 gram tablet 1 gm PO BID 0RF magnesium oxide 400 mg magnesium capsule 400 mg PO DAILY 0RF gabapentin 400 mg capsule 800 mg PO DAILY 0RF hydroxyzine HCl 25 mg tablet 25 mg PO BID PRN (Reason: Itching) 0RF topiramate 50 mg capsule,extended release 24hr 50 mg PO DAILY 0RF allopurinol 300 mg tablet 300 mg PO DAILY 0RF baclofen 10 mg tablet 10 mg PO DAILY 0RF metformin 1,000 mg tablet 1,000 mg PO DAILY 0RF atorvastatin 20 mg tablet 20 mg PO DAILY 0RF clopidogrel [Plavix] 75 mg tablet 75 mg PO DAILY 0RF Hold Instructions: Resume on 01/06/20. meclizine 25 mg tablet 25 mg PO DAILY 0RF (DME) Dexcom G6 Sensor Device See Rx Instructions .Route Qty: 3 3RF Rx Instructions: As directed (DME) Dexcom G6 Political Aide Misc See Rx Instructions .Route Qty: 1 3RF Rx Instructions: Check BS 4 times a day. (DME) Dexcom G6 Transmitter Device See Rx Instructions .Route Qty: 1 3RF Rx Instructions: As directed clobetasol 0.05 % ointment 1 applic topical BID 14 Days Qty: 60 1RF Rx Instructions: Start: to affected areas no more than 2 weeks/mo prn alternating with triamcinolone triamcinolone acetonide 0.1 % ointment 1 applic topical BID Qty: 80 1RF Rx Instructions: Apply to affected areas twice daily for 2 weeks alternating with clobetasol pantoprazole 40 mg tablet,delayed release (DR/EC) See Rx Instructions .ROUTE .COMPLEX Qty: 30 2RF Dose Instruction: Take 1 tablet by mouth once daily for 30 days Rx Instructions: Take 1 tablet by mouth once daily for 30 days (DME) insulin syringe-needle U-100 [BD Veo Insulin Syringe UF] 0.3 mL 31 gauge x 15/64 syringe See Rx Instructions .ROUTE .MEDSUPPLY Qty: 100 3RF Rx Instructions: As directed insulin aspart U-100 [Novolog Flexpen U-100 Insulin] 100 unit/mL (3 mL) insulin pen 10 unit SUBCUT TID Qty: 30 3RF Rx Instructions: Inject 10 units subcut three times a day with meals. Tresiba FlexTouch U-200 200 unit/mL (3 mL) insulin pen 70 unit SUBCUT DAILY Qty: 9 3RF Rx Instructions: Inject 70 units subcut daily. mupirocin 2 % ointment 1 applic topical BID Qty: 22 1RF Rx Instructions: Apply to affected area(s) until healed Discharge Orders: Discharge ED (Routine); Ordered 07/30/21 Ordered By: Kerwin Calhoun Referrals: Hong Jara [Primary Care Provider] - Discharge Diet: Regular Discharge Activity: Increase activity as tolerated Patient Instructions: Headache - Migraine (Adult) Activity Restrictions/Additional Instructions: Follow-up with your primary care physician at your next scheduled appointment this coming Monday. Case management should be contacting you in the next several days to set up an appointment neurologist. Continue taking all home meds as previously prescribed. Return to the ER or your medical provider if condition worsens. Please read and understand discharge instructions. Thank you for choosing [facility] for your healthcare needs today. Please realize this is an emergency room and that we are providing you with a medical screening exam and this may not be complete and all inclusive of all the testing and or work up that you may need to determine your ailment or severity of your illness. It is very important that you follow up as instructed or that you return to the Emergency Department should you have concerns or if your condition changes or worsens in any way. 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
[2021-07-30 22:04] VITALS: BP 153/98; PULSE 90; RESP 14; O2SAT 94
--- NOTE | 2021-07-30 22:04 | PC.NURSE ---
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
[2021-07-30] MEDS: ondansetron 2 mg/ML SDV 2 mL 4 MG IM (22:32)
[2021-07-30 22:37] LABS: Basophils % 0.4 %; Eosinophils # 0.2 10^3/uL (0.0-0.8); Eosinophils % 1.7 %; Hematocrit 42.4 % (37.0-47.0); Hemoglobin 13.5 g/dL (11.5-15.3); Lymphocytes # 2.6 10^3/uL (0.8-4.8); Lymphocytes % 25.9 %; Mean Corpuscular HGB Conc 31.8 g/dL (30.0-36.0); Mean Corpuscular Hemoglobin 24.9 pg (28.0-34.0); Mean Corpuscular Volume 78.1 fl (81-99); Mean Platelet Volume 11.4 fL (7.4-10.4); Monocytes # 0.6 10^3/uL (0.2-0.9); Monocytes % 5.7 %; Neutrophils # 6.66 10^3/uL (1.8-7.7); Nucleated Red Blood Cells % 0 %; Platelet Count 206 10^3/cmm (130-400); Red Blood Count 5.43 10^6/uL (4.1-5.3); Red Cell Distribution Width 15.5 % (12.1-15.1); White Blood Count 10.1 10^3/uL (4.0-10.0)
[2021-07-30] MEDS: ketorolac 30 mg/mL INJ IVP (22:40)
[2021-07-30] MEDS: diphenhydrAMINE 50 mg/mL SDV 1mL 25 MG IVP (22:43)
[2021-07-30] MEDS: dexamethasone 10 mg/mL INJ IVP (22:45)
[2021-07-30] MEDS: sodium chloride 0.9% 500 ML 999 ML IV (22:47)
[2021-07-30 22:50] LABS: INR 1.07 (0.8-1.2)
[2021-07-30 22:51] LABS: Partial Thromboplastin Time 25.6 SECONDS (23.9-36.7)
[2021-07-30 22:57] LABS: Anion Gap 16.4 (5-19); Blood Urea Nitrogen 17 mg/dL (6-20); Carbon Dioxide 26 mmol/L (22-29); Chloride 101 mmol/L (98-107); Glomerular Filtration Rate 74.7 mL/min (90-130); Glucose 170 mg/dL (65-115); Potassium 3.4 mmol/L (3.5-5.1); Sodium 140 mmol/L (136-145)
[2021-07-30 22:58] LABS: Alanine Aminotransferase 36 U/L (0-33); Albumin Level 4.5 g/dL (3.5-5.2); Alkaline Phosphatase 127 IU/L (35-105); Aspartate Amino Transferase 29 U/L (0-32); Calcium 9.5 mg/dL (8.5-10.5); Globulin 4.5 g/dL (1.3-4.6); Osmolality Calculated 296 mOsm/kg (285-295); Total Bilirubin 0.4 mg/dL (0.15-1.2)
[2021-07-31 00:04] VITALS: BP 132/74; PULSE 80; RESP 15; O2SAT 96
--- NOTE | 2021-08-02 12:32 | DCPLANNER ---
Addendum entered by Doretha Esposito 02/22/22 13:01: This appointment was cancelled Addendum entered by Doretha Esposito 08/20/21 09:33: Patient has a follow up appointment scheduled for Tuesday, January 18, 2022 at 11:[address] Valentino. Clinic will call patient with appointment information. Original Note: vocational case manager had message to schedule a follow up appointment for patient with neurology. vocational case manager sent patients information to the front office staff at neurology. Patients information will be printed and reviewed. Clinic will call patient with appointment information.
== END 2021-07-31 00:07 | disposition home or self-care (01) ==
PROVIDERS: Emergency Provider Physician Assistant; PCP Nurse Practitioner Family
DX: G43.409 Hemiplegic migraine, not intractable, without status migrainosus (principal); I10 Essential (primary) hypertension; Z79.899 Other long term (current) drug therapy; Z79.02 Long term (current) use of antithrombotics/antiplatelets
CPT/HCPCS: 70450; 80053; 85025; 85610; 85730; 96372; 96374; 96375; 99284; J1100; J1200; J1885; J2405; J7040

== ENCOUNTER 2021-08-01 22:54 | Emergency (ER) | payer MEDICAID, SELFPAY ==
[2021-08-01 23:29] VITALS: BP 129/78; PULSE 95; RESP 18; TEMP 36.2; O2SAT 97; BMI 38.0
[2021-08-02 01:33] LABS: Basophils # 0.1 10^3/uL (0.0-0.1); Basophils % 0.5 %; Eosinophils # 0.3 10^3/uL (0.0-0.8); Hemoglobin 13.3 g/dL (11.5-15.3); Lymphocytes # 4.4 10^3/uL (0.8-4.8); Lymphocytes % 34.5 %; Mean Corpuscular HGB Conc 30.2 g/dL (30.0-36.0); Mean Corpuscular Hemoglobin 24.4 pg (28.0-34.0); Mean Corpuscular Volume 80.9 fl (81-99); Mean Platelet Volume 12.4 fL (7.4-10.4); Monocytes # 0.5 10^3/uL (0.2-0.9); Monocytes % 4.2 %; Neutrophils # 7.49 10^3/uL (1.8-7.7); Neutrophils % 58.5 %; Nucleated Red Blood Cells % 0 %; Platelet Count 202 10^3/cmm (130-400); Red Blood Count 5.44 10^6/uL (4.1-5.3); Red Cell Distribution Width 15.7 % (12.1-15.1); White Blood Count 12.8 10^3/uL (4.0-10.0)
[2021-08-02 01:48] LABS: Glucose Urine UA Norm (Normal); Ketones Urine 1+ (Negative); Protein Urine Neg (Negative); Specific Gravity, Urine 1.015 (1.005-1.030); Urine Appearance Clear (CLEAR); Urine Color Yellow (Yellow); pH Urine 5 (5-7)
[2021-08-02 01:49] LABS: Add Urine Microscopic? YES; Bilirubin Urine 1+ (Negative); Blood Urine Neg (Negative); Leukocyte Esterase Urine Trace (Negative); Nitrate Urine Negative (Negative); Urobilinogen Urine 1 mg/dL (Negative)
[2021-08-02 01:50] LABS: Add Urine Culture? No; Bacteria Urine TRACE /hpf; RBC Urine 0-4 /hpf (0-2); Squamous Epithelial Cell Urine 0-4 /hpf (0-5); WBC Urine 0-4 /hpf (0-5)
--- NOTE | 2021-08-02 02:04 | ED_ITS ---
HPI - Abdominal Pain General: Chief Complaint: Abdominal Pain Stated Complaint: ABD/Rib Pain Time Seen by Provider: 08/02/21 02:04 History of Present Illness: Ms. Samano is a 55-year-old lady with complex past medical history including hypertension, hyperlipidemia, obesity, diabetes, history of complex migraines presenting to the emergency department due to abdominal pain. She reports onset of symptoms while she was getting ready for bed. She denies specific known provoking event however since that time has had a sharp pain which radiates across her upper abdomen. This does have some radiation into the chest. Symptoms are worse with movement but do not go with rest. No associated fevers, change in bowel movement, or urinary symptoms. No vomiting. Overall intensity symptoms is moderate. Course has persisted. Denies frequent similar episodes in past. No other specific changes in health, exacerbating, or alleviating factors identified. Onset (ago): hour(s) Pain Consistency: constant Location: Epigastric, LUQ and RUQ Severity: moderate Radiation: epigastric Exacerbating factors: movement Review of Systems General: Reports: 10 or more systems reviewed and unremarkable except in HPI and below PFSH ED PFSH: Medical History Abdominal pain Anemia Asthma Depression Diabetes Duodenitis without bleeding GERD (gastroesophageal reflux disease) Gout Hypertension Morbid obesity with BMI of 40.0-44.9, adult Nausea & vomiting PTSD (post-traumatic stress disorder) RLS (restless legs syndrome) Surgical History History of esophagogastroduodenoscopy (EGD) Family History Other Hypertension Social History Smoking and tobacco status: never smoked Alcohol intake: current Physical Exam Const: COMMON NORMALS: alert GENERAL APPEARANCE: cooperative and well developed HENMT: COMMON NORMALS: normocephalic and atraumatic HEAD & SCALP: normocephalic and atraumatic Eye: COMMON NORMALS: conjunctivae normal CONJUNCTIVA: Yes conjunctivae normal SCLERA: sclerae normal Neck/C-Spine: COMMON NORMALS: supple GENERAL: Yes trachea midline Resp: COMMON NORMALS: normal respiratory effort and clear to auscultation bilaterally EFFORT & INSPECTION: Yes able to speak in complete sentences AUSCULTATION: clear to auscultation bilaterally Cardio: COMMON NORMALS: regular rate and regular rhythm RATE: regular rate RHYTHM: regular rhythm GI: COMMON NORMALS: Soft to palpation PALPATION: Yes Soft to palpation, Yes Tenderness to palpation present (GI), No Guarding due to palpation present (GI) and No Rigid due to palpation PERCUSSION: normal to percussion Extremity: GENERAL: Yes normal exam except as noted and No edema Neuro: COMMON NORMALS: moves all extremities SENSORIUM/ORIENTATION: Yes alert and No Orientation impaired Psych: COMMON NORMALS: mental status grossly normal and Normal thought process present THOUGHT PROCESS: Normal thought process present Course ED course: - Patient was seen and evaluated by me at bedside - Patient placed on cardiac monitors, IV access obtained - Initial evaluation notable for exam as above. - Labs personally interpreted by me. EKGs notable for sinus rhythm with no STEMI. -Analgesia given - Labs notable for mild leukocytosis. Normal hemoglobin. Metabolic panel without acute derangement to explain symptoms. Urinalysis not concerning for urinary tract infection. - Imaging notable for thickening of the stomach which is question - Upon serial reexamination after treatment the patient was improved - Based on patient history, evaluation, and testing as interpreted the most likely cause of the patient's condition is gastritis - The results of ED evaluation were discussed with the patient including prescriptions and/or symptomatic cares (if applicable) including appropriate and responsible use, followup plan, and return precautions. The patient verbalized understanding and felt safe for discharge. - Patient discharged in satisfactory condition. Note: Click bubbles or prepopulated brewer in note writing are used for assistance with data collection and billing and are inherently more limited than narrative and other text portions of this note. Please use narrative for additional clinical history and defer to narrative/free test for any case of contradictory information. If information appears in only free text or click bubble it nela uld be considered present or absent as reported. Please contact note writer technical publications for clarifications of clinical information or contradictory information. MDM is a brief summary, contradictory or erroneous seeming information should be clarified and full note should be reviewed. Vital Signs: Vital signs: Vital Signs Temperature 97.9 F 08/02/21 04:20 Pulse Rate 74 08/02/21 04:20 Respiratory Rate 18 08/02/21 04:20 Blood Pressure 121/69 08/02/21 04:20 Pulse Oximetry 97 08/02/21 04:20 MDM - Abdominal Pain Medical Decision Making 55-year-old lady presenting with abdominal pain. Most likely gastritis as ident ified on CT scan. Patient improved with symptom treatment. Satisfactory for outpatient management. Medical Records I reviewed the patient's medical records. Lab Data I reviewed the patient's lab results. : 08/02/21 01:27 08/02/21 02:22 Labs/Radiology: Radiology Impressions Abdomen/Pelvis CT 08/02/21 02:10 IMPRESSION: 1. Normal appendix. 2. No hydronephrosis of either kidney. No visible renal or ureteral calculus. 3. Mild perinephric stranding bilaterally, see above discussion. 4. Possible diffuse mucosa/wall thickening involving the stomach, although this could be due to poor gastric distention. See above discussion. 5. No free air or bowel distention. 6. No visible gallstones by CT. 7. Other findings discussed above. Laboratory Results WBC 12.8 10^3/uL (4.0-10.0) H 08/02/21 01:27 RBC 5.44 10^6/uL (4.1-5.3) H 08/02/21 01:27 Hgb 13.3 g/dL (11.5-15.3) 08/02/21 01:27 Hct 44.0 % (37.0-47.0) 08/02/21 01:27 MCV 80.9 fl (81-99) L 08/02/21 01:27 MCH 24.4 pg (28.0-34.0) L 08/02/21 01:27 MCHC 30.2 g/dL (30.0-36.0) 08/02/21 01:27 RDW 15.7 % (12.1-15.1) H 08/02/21 01:27 Plt Count 202 10^3/cmm (130-400) 08/02/21 01:27 MPV 12.4 fL (7.4-10.4) H 08/02/21 01:27 Neut % (Auto) 58.5 % 08/02/21 01:27 Lymph % (Auto) 34.5 % 08/02/21 01:27 [place] % (Auto) 4.2 % 08/02/21: Eos % (Auto) 2.0 % 08/02/21 01: Baso % (Auto) 0.5 % 08/02/21 01: Neut # (Auto) 7.49 10^3/uL (1.8-7.7) 08/02/21 01: Lymph # (Auto) 4.4 10^3/uL (0.8-4.8) 08/02/21 01: [place] # (Auto) 0.5 10^3/uL (0.2-0.9) 08/02/21 01: Eos # (Auto) 0.3 10^3/uL (0.0-0.8) 08/02/21 01: Baso # (Auto) 0.1 10^3/uL (0.0-0.1) 08/02/21 01: Nucleated RBC % (auto) 0 % 08/02/21 01: Nucleated RBCs # 0.0 /100WBC 08/02/21 01: Sodium 139 mmol/L (136-145) 08/02/21 02:22 Potassium 3.6 mmol/L (3.5-5.1) 08/02/21 02: Chloride 101 mmol/L (98-107) 08/02/21 02:22 Carbon Dioxide 27 mmol/L (22-29) 08/02/21 02:22 Anion Gap 14.6 (5-19) 08/02/21 02:22 BUN 20 mg/dL (6-20) 08/02/21 02:22 Creatinine 0.9 mg/dL (0.5-0.9) 08/02/21 02:22 GFR Calculation 65.2 mL/min (90-130) L 08/02/21 02:22 Glucose 155 mg/dL (65-115) H 08/02/21 02:22 Calculated Osmolality 294 mOsm/kg (285-295) 08/02/21 02:22 Calcium 9.5 mg/dL (8.5-10.5) 08/02/21 02:22 Total Bilirubin 0.2 mg/dL (0.15-1.2) 08/02/21 02:22 AST 20 U/L (0-32) 08/02/21 02:22 ALT 28 U/L (0-33) 08/02/21 02:22 Alkaline Phosphatase 119 IU/L (35-105) H 08/02/21 02:22 Troponin T Baseline 8 ng/L (0-10) 08/02/21 02:22 Total Protein 8.3 g/dL (6.6-8.7) 08/02/21 02:22 Albumin 4.0 g/dL (3.5-5.2) 08/02/21 02: Globulin 4.3 g/dL (1.3-4.6) 08/02/21 02:22 Lipase 59 U/L (13-60) 08/02/21 02:22 Urine Color Yellow (Yellow) 08/02/21 01:00 Urine Appearance Clear (CLEAR) 08/02/21 01:00 Urine pH 5 (5-7) 08/02/21 01:00 Ur Specific [place] 1.015 (1.005-1.030) 08/02/21 01:00 Urine Protein Neg (Negative) 08/02/21 01:00 Urine Glucose (UA) Norm (Normal) 08/02/21 01:00 Urine Ketones 1+ (Negative) H 08/02/21 01:00 Urine Blood Neg (Negative) 08/02/21 01:00 Urine Nitrate Negative (Negative) 08/02/21 01:00 Urine Bilirubin 1+ (Negative) H 08/02/21 01:00 Urine Urobilinogen 1 mg/dL (Negative) H 08/02/21 01:00 Ur Leukocyte Esterase Trace (Negative) H 08/02/21 01:00 Urine RBC 0-4 /hpf (0-2) H 08/02/21 01:00 Urine WBC 0-4 /hpf (0-5) H 08/02/21 01:00 Ur Squamous Epith Cells 0-4 /hpf (0-5) H 08/02/21 01:00 Amorphous Sediment Not Reportable 08/02/21 01:00 Urine Bacteria Trace /hpf (NONE) 08/02/21 01:00 Discharge Plan Discharge Patient Disposition: Home Clinical Impression: Abdominal pain, Gastritis Condition: Stable Prescriptions: New pantoprazole [Protonix] 40 mg tablet,delayed release (DR/EC) 40 mg PO BID 14 Days Qty: 28 0RF ondansetron 4 mg tablet,disintegrating 4 mg PO Q8H PRN (Reason: nausea and vomiting) Qty: 15 0RF No Action Dulera 200-5 mcg/actuation HFA aerosol inhaler 2 puff INHALATION BID 0RF furosemide [Lasix] 20 mg tablet 20 mg PO DAILY 0RF ropinirole 2 mg tablet 2 mg PO DAILY 0RF pramipexole [Mirapex] 0.5 mg tablet 0.5 mg PO DAILY 0RF hydrochlorothiazide 25 mg tablet 25 mg PO DAILY 0RF dicyclomine 10 mg capsule 10 mg PO BID PRN (Reason: Stomach Cramps) 0RF citalopram [Celexa] 40 mg tablet 40 mg PO DAILY 0RF prazosin 1 mg capsule 1 mg PO BID 0RF azelastine 137 mcg (0.1 %) aerosol,spray 1 spray INTRANASAL BID 0RF Rx Instructions: administer into each nostril venlafaxine [Effexor XR] 150 mg capsule,extended release 24hr 150 mg PO DAILY 0RF ipratropium-albuterol 0.5 mg-3 mg(2.5 mg base)/3 mL solution for nebulization 3 ml INHALATION QID PRN (Reason: Dyspnea) 0RF albuterol sulfate [ProAir HFA] 90 mcg/actuation HFA aerosol inhaler 2 puff INHALATION Q6H PRN (Reason: Dyspnea) 0RF sucralfate 1 gram tablet 1 gm PO BID 0RF magnesium oxide 400 mg magnesium capsule 400 mg PO DAILY 0RF gabapentin 400 mg capsule 800 mg PO QID 0RF hydroxyzine HCl 25 mg tablet 25 mg PO BID PRN (Reason: Itching) 0RF topiramate 50 mg capsule,extended release 24hr 50 mg PO DAILY 0RF allopurinol 300 mg tablet 300 mg PO DAILY 0RF baclofen 10 mg tablet 10 mg PO DAILY PRN (Reason: Pain) 0RF metformin 1,000 mg tablet 1,000 mg PO BID 0RF atorvastatin 20 mg tablet 20 mg PO DAILY 0RF meclizine 25 mg tablet 25 mg PO DAILY PRN (Reason: Dizziness) 0RF (DME) Dexcom G6 Sensor Device See Rx Instructions .Route Qty: 3 3RF Rx Instructions: As directed (DME) Dexcom G6 Board Saw Runner Misc See Rx Instructions .Route Qty: 1 3RF Rx Instructions: Check BS 4 times a day. (DME) Dexcom G6 Transmitter Device See Rx Instructions .Route Qty: 1 3RF Rx Instructions: As directed clobetasol 0.05 % ointment 1 applic topical BID 14 Days Qty: 60 1RF Rx Instructions: Start: to affected areas no more than 2 weeks/mo prn alternating with triamcinolone triamcinolone acetonide 0.1 % ointment 1 applic topical BID Qty: 80 1RF Rx Instructions: Apply to affected areas twice daily for 2 weeks alternating with clobetasol (DME) insulin syringe-needle U-100 [BD Veo Insulin Syringe UF] 0.3 mL 31 gauge x 15/64 syringe See Rx Instructions .ROUTE .MEDSUPPLY Qty: 100 3RF Rx Instructions: As directed mupirocin 2 % ointment 1 applic topical BID Qty: 22 1RF Rx Instructions: Apply to affected area(s) until healed Novolog Flexpen U-100 Insulin 100 unit/mL (3 mL) insulin pen See Rx Instructions .ROUTE .COMPLEX 0RF Rx Instructions: PER SLIDING SCALE Tresiba FlexTouch U-200 200 unit/mL (3 mL) insulin pen 70 unit SUBCUT BID 0RF Rx Instructions: Inject 70 units subcut daily. Ajovy Autoinjector 225 mg/1.5 mL auto-injector 225 mg SUBCUT Q30D 0RF Discharge Orders: Discharge ED (Routine); Ordered 08/02/21 Ordered By: Gage Lyman Referrals: Hong Jara [Primary Care Provider] - Discharge Diet: Advance as tolerated and Clear Liquid Discharge Activity: Increase activity as tolerated Patient Instructions: Gastritis (ED), Abdominal Pain (ED), Opioid Safety Activity Restrictions/Additional Instructions: Thank you for visiting the emergency department. You were seen and evaluated for abdominal pain. The exact cause of your symptoms is unclear though likely related to gastritis. I will treat you with prescriptions for nausea and acid suppression. Please stick to a bland diet and avoid acidic or spicy foods. If symptoms fail to improve I recommend follow-up with your primary care provider for consideration of EGD as some other rare conditions such as lymphoma or other cancer can appear similar on imaging. Return to the emergency department for worsening symptoms, inability tolerate oral intake, or anything else that you are concerned about a feel needs emergency department evaluation. Coding Level of Care Code ED Yarn Washer for Carlos León
--- NOTE | 2021-08-02 02:10 | CTR_ITS ---
PROCEDURE INFORMATION: Exam: CT Abdomen And Pelvis Without Contrast Exam date and time: 08/02/2021 2:38 AM Age: 55 years old Clinical indication: Nausea; Abdominal pain; Epigastric; Additional info: Epigastric abd pain TECHNIQUE: Imaging protocol: Computed tomography of the abdomen and pelvis without contrast. Radiation optimization: All CT scans at this facility use at least one of these dose optimization techniques: automated exposure control; mA and/or kV adjustment per patient size (includes targeted exams where dose is matched to clinical indication); or iterative reconstruction. COMPARISON: No relevant prior studies available. RADIATION DOSE METRICS: Total DLP (mGy-cm): 1447.83 FINDINGS: Lungs: The lung bases are clear. Liver: Unremarkable. Gallbladder and bile ducts: No visible gallstones or other definite gallbladder abnormality by CT. Ultrasound would be more sensitive for detecting gallstones, if clinically needed. No biliary tree dilation. Pancreas: Unremarkable. Spleen: Unremarkable. Adrenal glands: Unremarkable. Kidneys and ureters: No hydronephrosis of either kidney. No visible renal or ureteral calculus. Mild perinephric stranding bilaterally. This is a nonspecific appearance and could well be chronic. Possibility of pyelonephritis is not entirely excluded, please correlate clinically. Stomach and bowel: Possibility of diffuse mucosa/wall thickening involving the stomach. This is a nonspecific appearance, and could well be transient on CT due to poor gastric distention. This might also represent evidence for some form of gastritis. Neoplasm such as lymphoma would be significantly less common. Please correlate clinically. No significant bowel distention. There are no CT findings to strongly suggest diverticulitis. Appendix: The appendix is visualized and appears normal. Intraperitoneal space: No free intraperitoneal air, or ascites. Vasculature: No evidence for abdominal aortic aneurysm. Lymph nodes: No retroperitoneal adenopathy. Urinary bladder: Unremarkable as visualized. Reproductive: Essentially unremarkable for age. Bones/joints: Moderate degenerative disc changes at L3-L4, and L5-S1. Soft tissues: No significant acute finding. CT/CT abdomen pelvis wo con [id number] IMPRESSION: 1. Normal appendix. 2. No hydronephrosis of either kidney. No visible renal or ureteral calculus. 3. Mild perinephric stranding bilaterally, see above discussion. 4. Possible diffuse mucosa/wall thickening involving the stomach, although this could be due to poor gastric distention. See above discussion. 5. No free air or bowel distention. 6. No visible gallstones by CT. 7. Other findings discussed above.
[2021-08-02 02:13] LABS: Slide Review Slide Review Perform
[2021-08-02 02:45] LABS: Alanine Aminotransferase 28 U/L (0-33); Alkaline Phosphatase 119 IU/L (35-105); Anion Gap 14.6 (5-19); Aspartate Amino Transferase 20 U/L (0-32); Blood Urea Nitrogen 20 mg/dL (6-20); Calcium 9.5 mg/dL (8.5-10.5); Carbon Dioxide 27 mmol/L (22-29); Chloride 101 mmol/L (98-107); Globulin 4.3 g/dL (1.3-4.6); Glomerular Filtration Rate 65.2 mL/min (90-130); Glucose 155 mg/dL (65-115); Lipase 59 U/L (13-60); Osmolality Calculated 294 mOsm/kg (285-295); Potassium 3.6 mmol/L (3.5-5.1); Sodium 139 mmol/L (136-145); Total Bilirubin 0.2 mg/dL (0.15-1.2); Total Protein 8.3 g/dL (6.6-8.7); Troponin(5th) Baseline 8 ng/L (0-10)
[2021-08-02] MEDS: lidocaine 2% viscous 15 ML, aluminum-mag hydrox-simethicon 30 ML, sucralfate oral liq 1 GM PO (03:30)
[2021-08-02 03:31] VITALS: RESP 16
[2021-08-02] MEDS: morphine 4 mg/mL SDV 1 mL IVP (03:31)
--- NOTE | 2021-08-02 04:11 | ECG_ITS ---
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 Measurements Intervals [place] Rate: 73 P: 56 NM: 133 QRS: 68 QRSD: 90 T: 93 QT: 375 QTc: 414 Interpretive Statements SINUS RHYTHM NONSPECIFIC T-WAVE ABNORMALITY Compared to ECG 07/29/2021 15:16:38 Sinus tachycardia no longer present T-wave abnormality still present Electronically Signed On 08-02-2021 8:05:41 CDT by Navneet Vo M.D. [id number]
[2021-08-02 04:20] VITALS: BP 121/69; PULSE 74; RESP 18; TEMP 36.6; O2SAT 97
== END 2021-08-02 04:22 | disposition home or self-care (01) ==
PROVIDERS: Physician Assistant; Emergency Provider Emergency Medicine; PCP Nurse Practitioner Family
DX: K29.70 Gastritis, unspecified, without bleeding (principal); E11.9 Type 2 diabetes mellitus without complications; I10 Essential (primary) hypertension; K21.9 Gastro-esophageal reflux disease without esophagitis; E66.01 Morbid (severe) obesity due to excess calories; Z68.38 Body mass index [BMI] 38.0-38.9, adult; Z79.4 Long term (current) use of insulin; Z79.84 Long term (current) use of oral hypoglycemic drugs
CPT/HCPCS: 74176; 80053; 81001; 83690; 84484; 85025; 93005; 96374; 99284; J2270

== ENCOUNTER 2021-08-15 16:40 | Inpatient (IN) | payer MEDICAID, SELFPAY ==
[2021-08-15] VITALS (25 sets, daily range): BP systolic 132–161; BP diastolic 80–103; PULSE 71–98; RESP 10–26; TEMP 36.6–37.1; O2SAT 80–99; BMI 38.0
--- NOTE | 2021-08-15 17:05 | CTR_ITS ---
PROCEDURE INFORMATION: Exam: CT Head Without Contrast Exam date and time: 08/15/2021 5:16 PM Age: 55 years old Clinical indication: Pain; Weakness, extremity; Left; Headache not specified; Additional info: JARA TECHNIQUE: Imaging protocol: Computed tomography of the head without contrast. Radiation optimization: All CT scans at this facility use at least one of these dose optimization techniques: automated exposure control; mA and/or kV adjustment per patient size (includes targeted exams where dose is matched to clinical indication); or iterative reconstruction. Other technique: STROKE PROTOCOL was implemented. COMPARISON: CT head wo con* [id number] 07/30/2021 10:15 PM RADIATION DOSE METRICS: Total DLP (mGy-cm): 874.31 FINDINGS: Brain: Normal. No hemorrhage. Unremarkable white matter. No mass effect. Cerebral ventricles: No ventriculomegaly. Paranasal sinuses: Visualized sinuses are unremarkable. No fluid levels. Mastoid air cells: Visualized mastoid air cells are well aerated. Orbital cavities: Bilateral cataract surgery. Bones/joints: Unremarkable. No acute fracture. Soft tissues: Unremarkable. CT/CT head wo con* [id number] IMPRESSION: No acute intracranial abnormality. ASSESSMENT: ASPECTS ([place] Stroke Program Early CT Score) is 10.
--- NOTE | 2021-08-15 17:10 | XRR_ITS ---
PROCEDURE INFORMATION: Exam: XR Chest Exam date and time: 08/15/2021 5:17 PM Age: 55 years old Clinical indication: Dyspnea; Additional info: Weakness TECHNIQUE: Imaging protocol: XR of the chest. Views: 1 view. COMPARISON: CR Chest 1 [place] [id number] 08/26/2017 12:49 PM FINDINGS: Lungs: Unremarkable. No consolidation. Pleural spaces: Unremarkable. No pleural effusion. No pneumothorax. Heart/Mediastinum: Unremarkable. No cardiomegaly. Bones/joints: Unremarkable. XR/XR chest 1V portable [id number] IMPRESSION: No acute findings.
--- NOTE | 2021-08-15 17:11 | ECG_ITS ---
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 Measurements Intervals [place] Rate: 95 P: 29 MS: 128 QRS: 37 QRSD: 90 T: 75 QT: 317 QTc: 400 Interpretive Statements SINUS RHYTHM NONSPECIFIC ST & T-WAVE ABNORMALITY Compared to ECG 08/02/2021 04:13:00 No significant changes Electronically Signed On 08-16-2021 16:20:33 CDT by Felix Turner M.D. [email or web address], [id number]
--- NOTE | 2021-08-15 17:12 | ED_ITS ---
HPI - Weakness General: Chief complaint: Weakness Stated complaint: [place] a sharp pain in her head, left side numb Time Seen by Provider: 08/15/21 17:06 Source: patient Mode of arrival: ambulatory Limitations: no limitations History of Present Illness: 55-year-old female states that she had a pop in her ear 1 hour ago at roughly 1545. She states that she had had numbness down her left side and left-sided weakness. Patient states she is having a very hard time walking cannot walk without exist and is having hard time moving her left arm. States she has numbness down her left side as well no facial droop no slurred speech here. Denies any headache currently denies any worsening proving factors. Associated symptoms: Denies chest pain, chills, dysuria, easy bruising, fever(s), nausea or vomiting Review of Systems Const: Denies: fever(s), chills, body aches or change in appetite Eyes: Denies: blurry vision or eye discomfort ENMT: Denies: throat pain or dental pain Card: Denies: chest pain Resp: Denies: dyspnea GI: Denies: abdominal pain, nausea, vomiting or diarrhea : Denies: dysuria Musc: Denies: neck pain or back pain Skin/Breast: Denies: rash Neuro: Reports: numbness in extremities and weakness in extremities Psych: Denies: depression Андрей/Lymph: Denies: easy bruising All/Imm: Denies: urticaria PFSH ED PFSH: Medical History Abdominal pain Anemia Asthma Depression Diabetes Duodenitis without bleeding GERD (gastroesophageal reflux disease) Gout Hypertension Morbid obesity with BMI of 40.0-44.9, adult Nausea & vomiting PTSD (post-traumatic stress disorder) RLS (restless legs syndrome) Surgical History History of esophagogastroduodenoscopy (EGD) Family History Other Hypertension Social History Smoking and tobacco status: never smoked Alcohol intake: current Physical Exam Const: COMMON NORMALS: patient oriented x3 and healthy appearing HENMT: COMMON NORMALS: normocephalic and atraumatic HEAD & SCALP: normoceph alic and atraumatic Eye: COMMON NORMALS: Equal, round and reactive pupils present and EOMs intact bilaterally PUPIL: Yes Equal, round and reactive pupils present Neck/C-Spine: COMMON NORMALS: full ROM and supple Chest: COMMONS NORMALS: normal inspection of the chest and normal palpation of entire chest wall Resp: COMMON NORMALS: normal respiratory effort, No retractions, No use of accessory muscles and clear to auscultation bilaterally AUSCULTATION: clear to auscultation bilaterally Cardio: COMMON NORMALS: regular rate, regular rhythm and No murmurs present (Cardio) RATE: regular rate RHYTHM: regular rhythm GI: COMMON NORMALS: Normal to inspection, nondistended, normoactive bowel sounds present, Soft to palpation, non-tender and no masses PALPATION: Yes Soft to palpation Extremity: COMMON NORMALS: normal to inspection and full ROM Neuro: COMMON NORMALS: patient oriented x3 CRANIAL NERVES: Yes CN normal except as noted COORDINATION/BALANCE: [id number] test normal GAIT: Yes Unable to assess gait MOTOR EXAM: No 5/5 motor strength present throughout COORDINATION: iigzok-zw-infp test normal Psych: COMMON NORMALS: mental status grossly normal, Normal thought process present and cooperative THOUGHT PROCESS: Normal thought process present Skin: COMMON NORMALS: no rashes or lesions noted and no wounds GENERAL SKIN EXAM: no rashes or lesions noted Course Vital Signs: Vital signs: Vital Signs Temperature 98.7 F 08/15/21 16:55 Pulse Rate 96 08/15/21 16:55 Respiratory Rate 18 08/15/21 16:55 Blood Pressure 149/87 08/15/21 16:55 Pulse Oximetry 97 08/15/21 16:55 MDM - Weakness Medical Decision Making Patient presents here with strokelike symptoms she does have left-sided weakness on exam. I did have Dr. Valentino consult and patient is a tPA candidate was given tPA I did consent her and explained her the risk tPA was given at 1733 patient's blood pressure here is within norms. Lab Data : 08/15/21 17:27 08/15/21 17:[address] 08/15/21 17:05 IMPRESSION: No acute intracranial abnormality. ASSESSMENT: ASPECTS ([place] Stroke Program Early CT Score) is 10. Laboratory Results POC Glucose 354 mg/dL (70-110) H 08/15/21 17:27 EKG Data EKG 1: I personally reviewed and interpreted this EKG as follows: EKG interpretation date: 08/15/21 EKG interpretation time: 17:31 Interpretation: nsr hr [address] or t wave abnormalities qrs 90 qtc 370 Critical Care Time Critical Care Time: Critical Care Time: Yes Total Critical Care Time: 40 Attestation: The high probability of a clinically significant, sudden or life threatening deterioration of the patient's neuro system(s) required my full and direct attention, intervention and personal management. The critical care time is as shown. This time is in addition to time spent performing any reported procedures but includes the following: [x] Data and vital sign review and interpretation [x] Patient assessment, examination and intervention [x] Documentation [x] Medication orders and management Discharge Plan Discharge Patient Disposition: Admitted As Inpatient Clinical Impression: Acute CVA (cerebrovascular accident) Condition: Stable Coding Level of Care Code ED Assemblies And Installations Inspector for Carlos León NIH stroke score NIHSS Level Of Consciousness - 1a: 0 Level Of Consciousness Questions - 1b: Both Correct Level Of Consciousness Commands - 1c: Both Correct Best Gaze - 2: Normal Visual Solorzano - 3: No Visual Loss Facial Palsy - 4: Normal Motor Arm Right - 5: No Drift Motor Arm Left - 5: Effort Against [place] Motor Leg Right - 6: No Drift Motor Leg Left - 6: Effort Against [place] Limb Ataxia - 7: Absent Sensory - 8: Mild To Moderate Loss Best Language - 9: No Aphasia Dysarthia - 10: Normal Extinction And Inattention - 11: 0 Score Total Score: 5
[2021-08-15 17:40] LABS: Glucose Point of Care 354 mg/dL (70-110)
[2021-08-15 17:46] LABS: Basophils % 0.3 %; Eosinophils # 0.1 10^3/uL (0.0-0.8); Eosinophils % 0.9 %; Hematocrit 42.3 % (37.0-47.0); Hemoglobin 13.1 g/dL (11.5-15.3); Lymphocytes # 2.8 10^3/uL (0.8-4.8); Mean Corpuscular Hemoglobin 25.1 pg (28.0-34.0); Mean Platelet Volume 11.9 fL (7.4-10.4); Monocytes # 0.5 10^3/uL (0.2-0.9); Monocytes % 3.8 %; Neutrophils # 8.53 10^3/uL (1.8-7.7); Neutrophils % 71.5 %; Nucleated Red Blood Cells % 0 %; Platelet Count 211 10^3/cmm (130-400); Red Blood Count 5.22 10^6/uL (4.1-5.3); Red Cell Distribution Width 15.9 % (12.1-15.1)
[2021-08-15 18:02] LABS: INR 1.03 (0.8-1.2)
[2021-08-15 18:15] LABS: Alanine Aminotransferase 35 U/L (0-33); Albumin Level 4.4 g/dL (3.5-5.2); Alkaline Phosphatase 121 IU/L (35-105); Anion Gap 16.6 (5-19); Aspartate Amino Transferase 20 U/L (0-32); Blood Urea Nitrogen 18 mg/dL (6-20); Calcium 9.5 mg/dL (8.5-10.5); Carbon Dioxide 24 mmol/L (22-29); Chloride 100 mmol/L (98-107); Globulin 4.4 g/dL (1.3-4.6); Glomerular Filtration Rate 74.7 mL/min (90-130); Glucose 376 mg/dL (65-115); Osmolality Calculated 301 mOsm/kg (285-295); Potassium 3.6 mmol/L (3.5-5.1); Sodium 137 mmol/L (136-145); Total Bilirubin 0.2 mg/dL (0.15-1.2); Total Protein 8.8 g/dL (6.6-8.7)
--- NOTE | 2021-08-15 18:18 | PC.NURSE ---
Pt began bleeding from top left molar. Dr. Schmidt spoke with Dr. Valentino and tPA infusion was stopped. Pt received a 9mg bolus and a total of 52 mg of the infusion. 10 mg was initially wasted prior to the bolus and 29 mg remained in bottle after infusion was stopped. These numbers = 100 mg in total. Surgicel was applied to left jaw and pt was told to bite down. Bleeding has stopped at this point.
--- NOTE | 2021-08-15 19:34 | PM.HP ---
Providers/Chief Complaint Admitting Physician: Ramón Sherman MD Primary Care Provider: Hong Jara Chief Complaint: [place] a sharp pain in her head, left side numb History of Present Illness Paradise Samano is a 55 year old female with past medical history of hypertension diabetes asthma, migraine, morbid obesity, was brought in with chief complaint of acute onset of left-sided ear pain as well as Left-sided numbness and weakness. Upon arrival in the ER she was managed for acute CVA s/p tPA. When I examined the patient she she had no gross neurological deficit, she was having scant amount of Blood-tinged sputum. Pertinent imaging studies done in the ER: Included CT head without contrast:No hemorrhage. EKG: Sinus rhythm with nonspecific ST-T wave abnormalities. Pertinent labs: WBC 12 H&H 13.1/ 42 PLT : 211, serum sodium 137 serum potassium 3.6, BUN/SCR: 18/0.8 , RBS: 376 Review of Systems General: Reports: 10 or more systems reviewed and unremarkable except in HPI and below Const: Denies: fever(s), chills, body aches, change in appetite or diaphoresis Card: Denies: palpitations, edema, swelling of feet/ankles, dyspnea on exertion, orthopnea or leg pain with exertion Resp: Denies: dyspnea, productive cough, wheezing or pain on inspiration GI: Denies: abdominal pain, nausea, vomiting, diarrhea or constipation : Denies: flank pain Musc: Denies: back pain, extremity pain or extremity swelling Neuro: Denies: headache(s), difficulty walking or confusion Medications/Allergies Home Medications Medication Instructions Recorded Confirmed Last Taken Type albuterol sulfate 90 mcg/actuation 2 puff INHALATION Q6H PRN 12/18/19 08/15/21 12/31/19 History aerosol inhaler (ProAir HFA) allopurinol 300 mg tablet 300 mg PO DAILY 12/18/19 08/15/21 08/15/21 History atorvastatin 20 mg tablet 20 mg PO DAILY 12/18/19 08/15/21 08/14/21 History azelastine 137 mcg (0.1 %) nasal 1 spray INTRANASAL BID 12/18/19 08/15/21 12/31/19 History spray aerosol baclofen 10 mg tablet 10 mg PO DAILY PRN 12/18/19 08/15/21 12/31/19 History citalopram 40 mg tablet (Celexa) 40 mg PO DAILY 12/18/19 08/15/21 08/15/21 History dicyclomine 10 mg capsule 10 mg PO BID PRN 12/18/19 08/15/21 12/31/19 History furosemide 20 mg tablet (Lasix) 20 mg PO DAILY 12/18/19 08/15/21 08/15/21 History gabapentin 400 mg capsule 800 mg PO QID cap 12/18/19 08/15/21 08/15/21 History hydrochlorothiazide 25 mg tablet 25 mg PO DAILY 12/18/19 08/15/21 08/15/21 History hydroxyzine HCl 25 mg tablet 25 mg PO BID PRN 12/18/19 08/15/21 12/31/19 History ipratropium 0.5 mg-albuterol 3 mg 3 ml INHALATION QID PRN 12/18/19 08/15/21 12/31/19 History (2.5 mg base)/3 mL nebulization soln magnesium oxide 400 mg PO DAILY 12/18/19 08/15/21 08/15/21 History meclizine 25 mg tablet 25 mg PO DAILY PRN 12/18/19 08/15/21 12/31/19 History metformin 1,000 mg tablet 1,000 mg PO BID 12/18/19 08/15/21 08/15/21 History mometasone-formoterol HFA 200 2 puff INHALATION BID 12/18/19 08/15/21 08/15/21 History mcg-5 mcg/actuation aerosol inhaler (Dulera) pramipexole 0.5 mg tablet (Mirapex) 0.5 mg PO DAILY 12/18/19 08/15/21 08/15/21 History prazosin 1 mg capsule 1 mg PO BID 12/18/19 08/15/21 08/15/21 History ropinirole 2 mg tablet 2 mg PO DAILY 12/18/19 08/15/21 08/15/21 History sucralfate 1 gram tablet 1 gm PO BID 12/18/19 08/15/21 08/15/21 History topiramate 50 mg capsule,extended 50 mg PO DAILY 12/18/19 08/15/21 08/15/21 History release 24 hr venlafaxine 150 mg 150 mg PO DAILY 12/18/19 08/15/21 08/15/21 History capsule,extended release 24 hr (Effexor XR) blood-glucose meter,continuous #1 ea 12/23/20 08/15/21 Unknown Rx (Dexcom G6 Dividend Deposit Voucher Clerk) blood-glucose sensor (Dexcom G6 #3 ea 12/23/20 08/15/21 Unknown Rx Sensor) blood-glucose transmitter (Dexcom #1 ea 12/23/20 08/15/21 Unknown Rx G6 Transmitter) insulin syringe-needle U-100 0.3 #100 ea 03/16/21 08/15/21 Unknown Rx mL 31 gauge x 15/64 (BD Veo Insulin Syringe Ultra-Fine) mupirocin 2 % topical ointment 1 applic TOPICAL BID #22 g 07/07/21 08/15/21 Unknown Rx clobetasol 0.05 % topical ointment 1 applic TOPICAL BID 14 Days #60 g 07/15/21 08/15/21 Unknown Rx triamcinolone acetonide 0.1 % 1 applic TOPICAL BID #80 g 07/15/21 08/15/21 Unknown Rx topical ointment ondansetron 4 mg disintegrating 4 mg PO Q8H PRN #15 tab 08/02/21 08/15/21 Unknown Rx tablet pantoprazole 40 mg tablet,delayed 40 mg PO BID 14 Days #28 tab 08/02/21 08/15/21 08/15/21 Rx release (Protonix) fremanezumab-vfrm 225 mg/1.5 mL 225 mg SUBCUT Q30D 08/15/21 08/15/21 Unknown History subcutaneous auto-injector (Ajovy) insulin aspart U-100 100 unit/mL See Rx Instructions .ROUTE .COMPLEX 08/15/21 08/15/21 Unknown History (3 mL) subcutaneous pen (Novolog Flexpen U-100 Insulin aspart) insulin degludec 200 unit/mL (3 70 unit SUBCUT BID 08/15/21 08/15/21 08/15/21 History mL) subcutaneous pen (Tresiba FlexTouch U-200 insulin) Allergies Allergy/AdvReac Type Severity Reaction Status Date / Time adhesive tape Allergy Severe ALGY-Hives Verified 07/29/21 14:42 amitriptyline Allergy Severe ALGY-Hives Verified 07/29/21 14:42 ciprofloxacin Allergy Severe ADR-Nausea Verified 07/29/21 14:42 exenatide [From Bydureon] Allergy Severe ALGY-Hives Verified 07/29/21 14:42 sumatriptan [From Imitrex] Allergy Severe ADR-Vomitin Verified 07/29/21 14:42 g PFSH Acute PFSH: Medical History (Updated 08/15/21 @ 19:37 by Soy Beauchamp MD) Abdominal pain Anemia Asthma Depression Diabetes Duodenitis without bleeding GERD (gastroesophageal reflux disease) Gout Hypertension Morbid obesity with BMI of 40.0-44.9, adult Nausea & vomiting PTSD (post-traumatic stress disorder) RLS (restless legs syndrome) Surgical History History of esophagogastroduodenoscopy (EGD) Family History Other Hypertension Social History Smoking and tobacco status: never smoked Alcohol intake: current Female Reproductive History: Date of last menstrual period: 03/13/15 Vitals/I&O/Wt Last Vital Signs Temp 98.7 F 08/15/21 16:55 Pulse 91 08/15/21 18:24 Resp 21 H 08/15/21 18:24 BP 153/98 08/15/21 18:24 Pulse Ox 96 08/15/21 18:24 08/15/21 08/15/21 08/15/21 06:59 14:59 22:59 Intake Total 42 / 42 Balance 42 / 42 Weight last 48 hrs Weight 110.767 kg Weight 113.398 kg Physical Exam Const: COMMON NORMALS: patient oriented x3 HENMT: COMMON NORMALS: normocephalic and atraumatic HEAD & SCALP: normocephalic and atraumatic Chest: CHEST: Yes Symmetrical chest wall rise Resp: COMMON NORMALS: normal respiratory effort, No retractions, No use of accessory muscles and clear to auscultation bilaterally EFFORT & INSPECTION: Yes symmetric chest movement AUSCULTATION: clear to auscultation bilaterally Cardio: COMMON NORMALS: regular rate, regular rhythm, S1 normal heart sound present, S2 normal heart sound present, No gallops present (Cardio), No murmurs present (Cardio), No rub (Cardio) and Peripheral pulses 2+ throughout RATE: regular rate RHYTHM: regular rhythm HEART SOUNDS: S1 normal heart sound present and S2 normal heart sound present PERIPHERAL PULSES: Peripheral pulses 2+ throughout GI: COMMON NORMALS: Normal to inspection, nondistended, normoactive bowel sounds present, Soft to palpation, non-tender, No hepatosplenomegaly present and no masses AUSCULTATION: Yes normoactive bowel sounds PALPATION: Yes Soft to palpation and Yes No hepatosplenomegaly present RECTAL EXAM: deferred Extremity: COMMON NORMALS: no clubbing, cyanosis or edema and no pedal edema Neuro: COMMON NORMALS: patient oriented x3 Data : 08/15/21 17:27 08/15/21 17:27 A&P Assessment and plan (1) Acute CVA (cerebrovascular accident): Status: Acute (2) Diabetes: Status: Acute (3) Obesity: Status: Acute (4) Hypertension: Status: Acute (5) Gout: Status: Acute (6) Asthma: Status: Acute Plan 55 year old female with past medical history of hypertension diabetes asthma, migraine, morbid obesity, was brought in with chief complaint of acute onset of left-sided ear pain as well as Left-sided numbness and weakness. Assessment: Acute CVA: Currently on stroke protocol Follow 2D echo Repeat CT head without contrast in the next 24 hours Telemetry monitoring PT Evaluation SPL Eval Aspirin 81 mg p.o. daily Lipitor 40 mg p.o. daily Current blood pressure goal is SBP < 180 AND DBP < 105 for Next 24 hours. Continue neurology follow-up as an outpatient #History of diabetes: Continue Lantus sliding scale insulin, carb consistent diet, monitor fingerstick glucose #History of hypertension: On hydrochlorothiazide at home #History of migraine: #History of asthma: Continue home inhalers #CODE STATUS: Full code #DVT prophylaxis: On SCDs Attestations Medical Necessity Statement*: Patient is to be in hospital for management of acute CVA. Anticipated length of stay greater than 2 midnights Time Spent in Patient Care: Greater than 35 minutes (>than 50% of time spent in counselling and/or direct pt care on unit). Critical Care Time: The high probability of a clinically significant, sudden or life threatening deterioration of the patient's [] system(s) required my full and direct attention, intervention and personal management. The critical care time is as shown. This time is in addition to time spent performing any reported procedures but includes the following: [x] Data and vital sign review and interpretation [x] Patient assessment, examination and intervention [x] Documentation [x] Medication orders and management Critical Care Time (min): 30 Coding Level of Care Code Acute Electrolog Operator for [facility] Fwd Exam Detailed Diagnoses Acute CVA (cerebrovascular accident) I63.9 Diabetes E11.9 Obesity E66.9 Hypertension I10 Gout M10.9 Asthma J45.909
[2021-08-15 19:49] LABS: Add Urine Microscopic? NO; Charge for UA Resulting for Rev
[2021-08-15 20:04] LABS: Bilirubin Urine Neg (Negative); Blood Urine Neg (Negative); Glucose Urine UA 4+ (Normal); Ketones Urine Negative (Negative); Leukocyte Esterase Urine Negative (Negative); Nitrate Urine Negative (Negative); Protein Urine Neg (Negative); Specific Gravity, Urine 1.015 (1.005-1.030); Urine Appearance Clear (CLEAR); Urine Color Yellow (Yellow); Urobilinogen Urine Norm (Negative); pH Urine 5 (5-7)
--- NOTE | 2021-08-15 20:24 | USCV_ITS ---
Paradise Samano Age: 55 Gender: F : 1965 Exam Date: 08/15/2021 22:25 Ordering Phys: Soy Beauchamp MD Technologist: Rodri Moyer [place] [facility] [place]: Cerebrovascular accident BP: 135 / 97 HR: 77 Rhythm: Sinus Technical Quality: Adequate MEASUREMENTS (Male / Female) Normal Values 2D ECHO LV Diastolic Diameter PLAX 3.8 cm 4.2 - 5.9 / 3.9 - 5.3 cm LV Systolic Diameter PLAX 2.9 cm IVS Diastolic Thickness 1.1 cm 0.6 - 1.0 / 0.6 - 0.9 cm IVS Systolic Thickness 1.3 cm LVPW Diastolic Thickness 1.8 cm 0.6 - 1.0 / 0.6 - 0.9 cm LVPW Systolic Thickness 2.4 cm LVOT Diameter 2.0 cm LV Ejection Fraction 2D Teich 47.1 % LV Ejection Fraction MOD 2C 57.1 % LV Ejection Fraction 2C AL 56.2 % LA Diameter 2.8 cm LA Width 4.9 cm LA Height 5.6 cm Aorta at Sinotubular Diameter 2.5 cm IVC Diameter 1.9 cm M-MODE Aortic Annulus Diameter 2.0 cm LA Ao Ratio MM 1.5 MV E Point Septal Separation 0.5 cm DOPPLER AV Peak Velocity 119.2 cm/s LVOT Peak Velocity 59.0 cm/s AV Area Cont Eq vti 2.3 cm squared AV Area Cont Eq pk 1.5 cm squared MV Area PHT 3.1 cm squared Mitral E to A Ratio 1.0 MV E' Velocity 49.5 cm/s Mitral E to MV E' Ratio 7.7 Mitral E to LV E' Lateral Ratio 6.7 Mitral E to LV E' Septal Ratio 9.2 Right Atrial Pressure 3.0 mmHg PV Peak Velocity 101.0 cm/s FINDINGS Left Ventricle Normal left ventricular size. LV systolic function is normal with EF of 55-60%. No regional wall motion abnormalities. Right Ventricle The right ventricle is normal in size and function. Right Atrium The right atrium is normal in size. Left Atrium The left atrium is normal in size. Mitral Valve Grossly normal. There is trace mitral regurgitation. Aortic Valve Grossly normal without significant stenosis. There is no aortic regurgitation. Tricuspid Valve Grossly normal Pulmonic Valve Not well visualized Pericardium Normal pericardium without effusion. Aorta Normal ascending aorta dimension. IVC CONCLUSIONS Technically limited quality echocardiogram because of poor ultrasonic windows. LV systolic function is normal with EF 55 to 60%. Trace mitral regurgitation seen. Compared to prior echocardiogram from 06/12/2014, no significant changes are seen Navneet Vo MD (Electronically Signed) Final Date: 16 August 2021 11:05 S
[2021-08-15 20:32] LABS: Glucose Point of Care 311 mg/dL (70-110)
[2021-08-15] MEDS: insulin lispro 100 unit/1 mL SUBCUT (20:58)
[2021-08-15] MEDS: insulin glargine 100 units/1 mL 40 UNIT SUBCUT (21:10)
[2021-08-15] MEDS: acetaminophen 325 mg Tablet 650 MG PO (22:02)
[2021-08-15] MEDS: ibuprofen 200 mg Tablet 400 MG PO (23:40)
[2021-08-16] VITALS (40 sets, daily range): BP systolic 120–163; BP diastolic 67–116; PULSE 56–91; RESP 10–24; TEMP 36.6–36.9; O2SAT 77–100
[2021-08-16 05:17] LABS: Basophils # 0.1 10^3/uL (0.0-0.1); Basophils % 0.5 %; Eosinophils # 0.2 10^3/uL (0.0-0.8); Eosinophils % 2.1 %; Hematocrit 40.9 % (37.0-47.0); Hemoglobin 12.8 g/dL (11.5-15.3); Lymphocytes # 4.4 10^3/uL (0.8-4.8); Lymphocytes % 39.9 %; Mean Corpuscular HGB Conc 31.3 g/dL (30.0-36.0); Mean Corpuscular Hemoglobin 24.8 pg (28.0-34.0); Mean Corpuscular Volume 79.3 fl (81-99); Mean Platelet Volume 11.9 fL (7.4-10.4); Monocytes # 0.6 10^3/uL (0.2-0.9); Monocytes % 5.3 %; Neutrophils # 5.67 10^3/uL (1.8-7.7); Neutrophils % 51.8 %; Nucleated Red Blood Cells % 0 %; Platelet Count 220 10^3/cmm (130-400); Red Blood Count 5.16 10^6/uL (4.1-5.3); White Blood Count 10.9 10^3/uL (4.0-10.0)
[2021-08-16 05:33] LABS: Alanine Aminotransferase 36 U/L (0-33); Albumin Level 3.9 g/dL (3.5-5.2); Alkaline Phosphatase 104 IU/L (35-105); Anion Gap 13.2 (5-19); Aspartate Amino Transferase 30 U/L (0-32); Blood Urea Nitrogen 25 mg/dL (6-20); Calcium 9.5 mg/dL (8.5-10.5); Carbon Dioxide 28 mmol/L (22-29); Chloride 105 mmol/L (98-107); Chol HDL Ratio 3.37 mg/dL (0.0-4.40); Cholesterol 138 mg/dL (0-200); Glomerular Filtration Rate 87.2 mL/min (90-130); Glucose 103 mg/dL (65-115); HDL Cholesterol 41 mg/dL (60-100); LDL Cholesterol Calculated 64 mg/dL (50-129); LDL HDL Ratio 1.56 RATIO (0.00-3.22); Osmolality Calculated 301 mOsm/kg (285-295); Potassium 3.2 mmol/L (3.5-5.1); Sodium 143 mmol/L (136-145); Total Bilirubin 0.3 mg/dL (0.15-1.2); Total Protein 7.9 g/dL (6.6-8.7); Triglycerides 166 mg/dL (0-150)
[2021-08-16 07:56] LABS: Glucose Point of Care 109 mg/dL (70-110)
--- NOTE | 2021-08-16 08:16 | PM.SAN ---
Stroke Alert Activation ED Arrival Date: 08/15/21 ED Arrival Time: 16:55 ED Physican at Bedside: 17:05 Other Last Known Well Infomation: She presented to triage complaining of hearing a pop in her left ear followed by numbness of her left side an hour prior to arrival at triage. She told the triage nurse that she already had numbness on her left side and for that she has an MRI scheduled this week in [place]. She was complaining of a headache 8 out of 10 that was already there. She was seen by Dr. Maik Gabriel as a possible stroke and on his exam she had a gross neurologic deficit with NIH stroke scale score of 5 because of motor weakness on her left side to the point that she could not move her left leg and had weakness in the left arm. He activated the stroke team. I looked at her CAT scan on the monitor with Dr. Gabriel and there was no abnormality. Telestroke was activated and I examined the patient on telemetry. She was not moving her left leg and she had drift of the left arm, although the left arm drifted below the right and did not drift below that level which is atypical. Hand movements were very slow on the left side. Her blood pressure was stable. Her uuqhs-fr-fpic glucose was normal. After timeout with Dr. Gabriel and the nurse we agreed to initiate tPA. She was placed in ICU and routine stroke orders were initiated. Stroke Alert Activated by: Dr. Gabriel Stroke Alert Activation Time: 17:13 Stroke MD @ Bedside Time: 17:13 NIH Stroke Scale Time: 17:13 NIH stroke score NIHSS: Level Of Consciousness - 1a: 0 Level Of Consciousness Questions - 1b: Both Correct Level Of Consciousness Commands - 1c: Both Correct Best Gaze - 2: Normal Visual Solorzano - 3: No Visual Loss Facial Palsy - 4: Normal Motor Arm Right - 5: No Drift Motor Arm Left - 5: Drift Motor Leg Right - 6: No Drift Motor Leg Left - 6: No Effort Against [place] Limb Ataxia - 7: Absent Sensory - 8: Mild To Moderate Loss Best Language - 9: No Aphasia Dysarthia - 10: Normal Extinction And Inattention - 11: 0 Score: Total Score: 5 Stroke Alert Data/Treatment Time to CT of Head: 17:00 CT Impression: Normal CT of the head Stroke Risk Factors: hypertension, obesity and diabetes mellitus tPA Started Time: tPA Started - Time: 17:33 tPA Admin Prior to Arrival: No Patient & Family Educated on: Treament Plan Standardized Stroke Orders Used: Yes Critical Care Time Critical Care Time: less than 30 mins A&P Assessment and plan (1) Acute CVA (cerebrovascular accident): Status: Acute Plan 55-year-old woman with acute onset of left hemiparesis with atypical findings. No cortical signs. There were some features of her exam that suggested nonphysiologic findings but Dr. Gabriel and I agreed that based upon [place] [employer] recommendations the patient should be treated with tPA. I was called later because the patient had bleeding into the oral cavity. Dr. Schmidt called me and we agreed that there was very little tPA still to be administered but we would stop the drip at that time. She had a loose molar that was the cause of bleeding. Coding Level of Care Code Acute Diagnostics Sales Developer for Carlos León Medical Decision Making High Complexity Diagnoses Acute CVA (cerebrovascular accident) I63.9 Time Spent (min) 30
--- NOTE | 2021-08-16 08:24 | PC.NURSE ---
this nurse clarified Lovenox on may, Dr. Letitia mcclellan v.o to hold dose, head ct will be ordered for this evening
[2021-08-16] MEDS: atorvastatin 40 mg Tablet PO (09:08)
[2021-08-16] MEDS: allopurinol 300 mg Tablet PO (09:08)
[2021-08-16] MEDS: venlafaxine ER (24HR) 150 mg Capsule PO (09:08)
[2021-08-16] MEDS: citalopram 20 mg Tablet 40 MG PO (09:08)
[2021-08-16] MEDS: gabapentin 400 mg Capsule 800 MG PO ×4 (09:08→20:42)
[2021-08-16] MEDS: insulin glargine 100 units/1 mL 40 UNIT SUBCUT ×2 (09:09→17:02)
--- NOTE | 2021-08-16 10:10 | PC.CHAP ---
Pastoral Care Encounter/Spiritual Assessment Type of Contact [] Declined envelope folding machine adjuster visit [] Patient/Family/Request visit [] Outpatient visit [] Follow-up visit [] Physician referral [] Code/Alert [x] Routine visit [] Staff referral [] Actively dying [] Patient sleeping [x] Family support [] [] Out of room [] Palliative care [] [] Receiving care in room [] Pre-surgical visit [] Trauma [] Long length of stay [x] ICU visit [] Other: Relational/Emotional Strength [] Patient feels connected with others/family/visitors/staff [] Distress [] Loneliness/isolation [] Abandonment Spirituality of Patient [] Person of Ariana [] Attends [employer]ybeterian of their Ariana [] Believes in Prayer [] Reads Bible or Mormon materials [] There are Spiritual issues to be addressed Talent Acquisition Specialist Interventions [x] Prayer [x] Active listening [x] Non-anxious presence [x] Spiritual/emotional support [] Crisis/trauma care [] Spiritual counseling [] Bereavement support [] Provided bereavement packet [] Provided Bible/devotional materials [] Provided toy/stuffed animal, coloring book to patient or family member [] Provided Communion [] Anointing/[place] [] Salvation [x] Completed spiritual assessment [] Other: Impact on Illness or Injury [] Angry [] Fearful [] Anxious [] Often cries [] Exhaustion [] Unable to work [] Unable to attend nondenominational [] Unable to walk/stand [] Unable to read [] Unable to drive [] Unable to eat/drink [] Unable to sleep [] Unable to be with family [] Patient intubated [] Other: Summary feeling so much better... stayed with her in the evening... felt safe Time spent with patient 10 min
[2021-08-16 11:26] LABS: Glucose Point of Care 255 mg/dL (70-110)
[2021-08-16 11:26] LABS: Glucose Point of Care 233 mg/dL (70-110)
[2021-08-16] MEDS: insulin lispro 100 unit/1 mL SUBCUT ×3 (11:30→20:41)
--- NOTE | 2021-08-16 15:06 | P.PN_ITS ---
Subjective Subjective: Seen this morning. Patient has no neurological deficits at this time. She states she feels better but does feel a little bit weak when she stands up. She will have her head CT today. Vitals/I&O/Wt Last Vital Signs Temp 98 F 08/16/21 04:00 Pulse 80 08/16/21 12:00 Resp 19 H 08/16/21 12:00 BP 127/88 08/16/21 12:00 Pulse Ox 95 08/16/21 12:00 08/16/21 08/16/21 08/16/21 06:59 14:59 22:59 Intake Total 450 / 450 Output Total 300 / 800 Balance -300 / 162 450 / 450 Weight last 48 hrs Weight 110.767 kg Weight 113.398 kg Physical Exam Narrative: General: Alert oriented x3, patient seen sitting up in bed with family member present at bedside. HEENT: Normocephalic, atraumatic, EOMI, breathing normally on room air Cardio: Regular rate rhythm, normal S1-S2, no murmurs rubs gallops, Respiratory: Good bilateral air entry, no wheezes no rhonchi appreciated, clear to auscultation bilaterally GI: Abdomen soft, nontender, nondistended, bowel sounds + Behavior: Appropriate and cooperative Extremities: Pulses 2+, no edema, no cyanosis Neuro: Cranial nerves II to XII intact, strength upper extremity 5 out of 5, lower extremity 5 out of 5, eldeij-fu-zarj normal, fvoa-oa-hakh normal, no dysd iadochokinesia, right upper and left upper quadrantanopsia present bilaterally. Rest of peripheral vision intact. No word finding difficulty. Generally normal neuro exam. Gait not tested Data : 08/16/21 04:18 08/16/21 04:18 A&P Assessment and plan (1) Asthma: Status: Acute (2) Gout: Status: Acute (3) Hypertension: Status: Acute (4) Acute CVA (cerebrovascular accident): Status: Acute (5) Stroke: Status: Acute (6) Hyperlipidemia: Status: Acute (7) Diabetes: Status: Acute Plan 55 year old female with past medical history of hypertension diabetes asthma, migraine, morbid obesity, was brought in with chief complaint of acute onset of left-sided ear pain as well as Left-sided numbness and weakness. #Acute CVA: Currently on stroke protocol #History of migraines with symptoms of neurological deficits Echo reviewed. Repeat head CT pending Continue to monitor on telemetry Aspirin 81, Lipitor 80, PT eval pending Patient does not have any swallowing issues. Continue neurology follow-up as an outpatient Will need event monitor at id. #History of diabetes: Continue Lantus sliding scale insulin, carb consistent diet, monitor fingerstick glucose #History of hypertension: On hydrochlorothiazide at home #History of asthma: Continue home inhalers #CODE STATUS: Full code #DVT prophylaxis: On SCDs Attestations Medical Necessity Statement*: Pending CT head. Coding Level of Care Code Acute Steward/Stewardess Second for g Fwd Diagnoses Asthma J45.909 Gout M10.9 Hypertension I10 Acute CVA (cerebrovascular accident) I63.9 Stroke I63.9 Hyperlipidemia E78.5 Diabetes E11.9
--- NOTE | 2021-08-16 15:10 | CTR_ITS ---
PROCEDURE INFORMATION: Exam: CT Head Without Contrast Exam date and time: 08/16/2021 4:27 PM Age: 55 years old Clinical indication: Other: S/P tpa; Patient HX: PT had CT head yesterday; Additional info: Rule out bleed. S/P tpa TECHNIQUE: Imaging protocol: Computed tomography of the head without contrast. Radiation optimization: All CT scans at this facility use at least one of these dose optimization techniques: automated exposure control; mA and/or kV adjustment per patient size (includes targeted exams where dose is matched to clinical indication); or iterative reconstruction. COMPARISON: CT head wo con* [id number] 08/15/2021 5:16 PM RADIATION DOSE METRICS: Total DLP (mGy-cm): 914.55 FINDINGS: Brain: Normal. No hemorrhage. Unremarkable white matter. No mass effect. Cerebral ventricles: No ventriculomegaly. Paranasal sinuses: Visualized sinuses are unremarkable. No fluid levels. Mastoid air cells: Visualized mastoid air cells are well aerated. Bones/joints: Unremarkable. No acute fracture. Soft tissues: Unremarkable. CT/CT head wo con* [id number] IMPRESSION: No acute intracranial abnormality.
[2021-08-16] MEDS: potassium chloride ER 20 mEq Tablet 40 MEQ PO (16:48)
[2021-08-16] MEDS: aspirin 81 mg EC Tablet PO (17:01)
[2021-08-16] MEDS: ropinirole 2 mg Tablet 4 MG PO (17:02)
[2021-08-16 20:08] LABS: Glucose Point of Care 254 mg/dL (70-110)
[2021-08-17] VITALS (9 sets, daily range): BP systolic 114–152; BP diastolic 77–92; PULSE 64–83; RESP 11–25; TEMP 36.9; O2SAT 93–98
[2021-08-17 04:12] LABS: Basophils # 0.1 10^3/uL (0.0-0.1); Basophils % 0.7 %; Eosinophils # 0.2 10^3/uL (0.0-0.8); Eosinophils % 2.5 %; Hematocrit 42.4 % (37.0-47.0); Hemoglobin 13.2 g/dL (11.5-15.3); Lymphocytes # 3.3 10^3/uL (0.8-4.8); Lymphocytes % 34.2 %; Mean Corpuscular HGB Conc 31.1 g/dL (30.0-36.0); Mean Corpuscular Hemoglobin 25.1 pg (28.0-34.0); Mean Corpuscular Volume 80.8 fl (81-99); Mean Platelet Volume 11.8 fL (7.4-10.4); Monocytes # 0.5 10^3/uL (0.2-0.9); Monocytes % 5.7 %; Neutrophils # 5.37 10^3/uL (1.8-7.7); Neutrophils % 56.6 %; Nucleated Red Blood Cells % 0 %; Platelet Count 204 10^3/cmm (130-400); Red Blood Count 5.25 10^6/uL (4.1-5.3); Red Cell Distribution Width 16.4 % (12.1-15.1); White Blood Count 9.5 10^3/uL (4.0-10.0)
[2021-08-17 04:37] LABS: Alanine Aminotransferase 45 U/L (0-33); Albumin Level 3.7 g/dL (3.5-5.2); Alkaline Phosphatase 106 IU/L (35-105); Anion Gap 13.8 (5-19); Aspartate Amino Transferase 40 U/L (0-32); Blood Urea Nitrogen 20 mg/dL (6-20); Calcium 9.2 mg/dL (8.5-10.5); Carbon Dioxide 25 mmol/L (22-29); Chloride 103 mmol/L (98-107); Globulin 3.8 g/dL (1.3-4.6); Glomerular Filtration Rate 104.2 mL/min (90-130); Glucose 243 mg/dL (65-115); Osmolality Calculated 297 mOsm/kg (285-295); Potassium 3.8 mmol/L (3.5-5.1); Sodium 138 mmol/L (136-145); Total Bilirubin 0.3 mg/dL (0.15-1.2); Total Protein 7.5 g/dL (6.6-8.7)
[2021-08-17] MEDS: acetaminophen 325 mg Tablet 650 MG PO (06:14)
[2021-08-17 08:12] LABS: Glucose Point of Care 206 mg/dL (70-110)
[2021-08-17] MEDS: atorvastatin 40 mg Tablet 80 MG PO (08:21)
[2021-08-17] MEDS: allopurinol 300 mg Tablet PO (08:21)
[2021-08-17] MEDS: enoxaparin 40 mg/0.4 mL Syringe SUBCUT (08:21)
[2021-08-17] MEDS: aspirin 81 mg EC Tablet PO (08:21)
[2021-08-17] MEDS: ropinirole 2 mg Tablet 4 MG PO (08:22)
[2021-08-17] MEDS: gabapentin 400 mg Capsule 800 MG PO (08:22)
[2021-08-17] MEDS: insulin lispro 100 unit/1 mL SUBCUT (08:22)
[2021-08-17] MEDS: citalopram 20 mg Tablet 40 MG PO (08:22)
[2021-08-17] MEDS: insulin glargine 100 units/1 mL 40 UNIT SUBCUT (08:22)
[2021-08-17] MEDS: venlafaxine ER (24HR) 150 mg Capsule PO (08:22)
--- NOTE | 2021-08-17 09:55 | PC.CHAP ---
Pastoral Care Encounter/Spiritual Assessment Type of Contact [] Declined hitcher visit [] Patient/Family/Request visit [] Outpatient visit [] Follow-up visit [] Physician referral [] Code/Alert [x] Routine visit [] Staff referral [] Actively dying [] Patient sleeping [x] Family support [] [x] Out of room [] Palliative care [] [] Receiving care in room [] Pre-surgical visit [] Trauma [] Long length of stay [x] ICU visit [] Other: Relational/Emotional Strength [] Patient feels connected with others/family/visitors/staff [] Distress [] Loneliness/isolation [] Abandonment Spirituality of Patient [] Person of Ariana [] Attends Moravian of their Ariana [] Believes in Prayer [] Reads Bible or Adventism materials [] There are Spiritual issues to be addressed Train Attendant Interventions [x] Prayer [] Active listening [] Non-anxious presence [] Spiritual/emotional support [] Crisis/trauma care [] Spiritual counseling [] Bereavement support [] Provided bereavement packet [] Provided Bible/devotional materials [] Provided toy/stuffed animal, coloring book to patient or family member [] Provided Communion [] Anointing/[place] [] Salvation [x] Completed spiritual assessment [] Other: Impact on Illness or Injury [] Angry [] Fearful [] Anxious [] Often cries [] Exhaustion [] Unable to work [] Unable to attend church [] Unable to walk/stand [] Unable to read [] Unable to drive [] Unable to eat/drink [] Unable to sleep [] Unable to be with family [] Patient intubated [] Other: Summary Time spent with patient
--- NOTE | 2021-08-17 10:52 | PM.DCS ---
Discharge Providers Date of Admission: 08/15/21 19:16 Date of Discharge: August 17, 2021 Attending Provider at Admission: Ramón Sherman MD Attending Provider at Discharge: Celeste Dong MD Primary Care Provider: Hong Jara Diagnoses at Discharge Discharge Diagnosis (1) Asthma: Status: Acute (2) Gout: Status: Acute (3) Hypertension: Status: Acute (4) Acute CVA (cerebrovascular accident): Status: Resolved (5) Stroke: Status: Resolved (6) Hyperlipidemia: Status: Acute (7) Diabetes: Status: Acute Reason for Visit Reason for Visit: [place] a sharp pain in her head, left side numb Brief History: Paradise Samano is a 55 year old female with past medical history of hypertension diabetes asthma, migraine, morbid obesity, was brought in with chief complaint of acute onset of left-sided ear pain as well as Left-sided numbness and weakness.? Upon arrival in the ER she was managed for acute CVA s/p tPA. When I examined the patient she she had no gross neurological deficit, she was having scant amount of Blood-tinged sputum. Pertinent imaging studies done in the ER: Included CT head without contrast:No hemorrhage. EKG: Sinus rhythm with nonspecific ST-T wave abnormalities. Pertinent labs: WBC 12 H&H 13.1/ 42? PLT : 211, serum sodium 137 serum potassium 3.6, BUN/SCR: 18/0.8 , RBS: 376 Hospital Course Hospital Course Patient was admitted for left-sided numbness and weakness. She was given tPA in the ER. She was seen by neurology. Echo completed. She was transferred to ICU for post tPA care. Repeat head CT was negative. He was placed on aspirin statin Plavix and discharged to follow-up with her neurologist as an outpatient in [place]. He was supposed to have an MRI done upcoming Monday which she will go for. I have also ordered event monitor for her for 21 days. Day of discharge she felt really well and had no neurological deficits. 08/20: I called the patient's phone number and left a message with her son for her to give us a call back regarding her heart monitor. Unfortunately could not be ordered at discharge and it was ordered today. I just wanted to notify the patient about it. I let her son know. We will have it set up to [facility] and we will give her a call when it is ready. I let the ICU clerk secretary know to fax over the monitor requisition to [facility] to have it setup. Physical Exam Narrative: General: Alert oriented x3, patient seen sitting up in bed with family member present at bedside. HEENT: Normocephalic, atraumatic, EOMI, breathing normally on room air Cardio: Regular rate rhythm, normal S1-S2, no murmurs rubs gallops, Respiratory: Good bilateral air entry, no wheezes no rhonchi appreciated, clear to auscultation bilaterally GI: Abdomen soft, nontender, nondistended, bowel sounds + Behavior: Appropriate and cooperative Extremities: Pulses 2+, no edema, no cyanosis Neuro: Cranial nerves II to XII intact, strength upper extremity 5 out of 5, lower extremity 5 out of 5, jqndfx-pj-jqsz normal, tzac-bc-fgzh normal, no dysdiadochokinesia, right upper and left upper quadrantanopsia present bilaterally.? Rest of peripheral vision intact.? No word finding difficulty.? Generally normal neuro exam.? Gait not tested Discharge Data Studies Completed and Pending Completed Studies During Hospitalization Category Date Time Status CT head wo con* [id number] Routine Cat Scan 08/16/21 15:[address] head wo con* [id number] Urgent Cat Scan 08/15/21 17:05 Completed XR chest 1V portable [id number] Urgent Exams 08/15/21 17:10 Completed US echo complete [CV. echo complete* [id number]] Routine Ultrasound 08/15/21 20:24 Completed Pending at discharge Category Date Time Status Complete Blood Count w/Auto AM LABS Lab 08/18/21 04:00 Ordered Comprehensive Metabolic Panel AM LABS Lab 08/18/21 04:00 Ordered Radiology Impressions Chest X-Ray 08/15/21 17:10 IMPRESSION: No acute findings. Head CT 08/16/21 15:10 IMPRESSION: No acute intracranial abnormality. Laboratory Results WBC 9.5 10^3/uL (4.0-10.0) 08/17/21 02:59 RBC 5.25 10^6/uL (4.1-5.3) 08/17/21 02:59 Hgb 13.2 g/dL (11.5-15.3) 08/17/21 02:59 Hct 42.4 % (37.0-47.0) 08/17/21 02:59 MCV 80.8 fl (81-99) L 08/17/21 02:59 MCH 25.1 pg (28.0-34.0) L 08/17/21 02:59 MCHC 31.1 g/dL (30.0-36.0) 08/17/21 02:59 RDW 16.4 % (12.1-15.1) H 08/17/21 02:59 Plt Count 204 10^3/cmm (130-400) 08/17/21 02:59 MPV 11.8 fL (7.4-10.4) H 08/17/21 02:59 Neut % (Auto) 56.6 % 08/17/21 02:59 Lymph % (Auto) 34.2 % 08/17/21 02:59 [place] % (Auto) 5.7 % 08/17/21 02:59 Eos % (Auto) 2.5 % 08/17/21 02:59 Baso % (Auto) 0.7 % 08/17/21 02:59 Neut # (Auto) 5.37 10^3/uL (1.8-7.7) 08/17/21 02:59 Lymph # (Auto) 3.3 10^3/uL (0.8-4.8) 08/17/21 02:59 [place] # (Auto) 0.5 10^3/uL (0.2-0.9) 08/17/21 02:59 Eos # (Auto) 0.2 10^3/uL (0.0-0.8) 08/17/21 02:59 Baso # (Auto) 0.1 10^3/uL (0.0-0.1) 08/17/21 02:59 Nucleated RBC % (auto) 0 % 08/17/21 02:59 Nucleated RBCs # 0.0 /100WBC 08/17/21 02:59 PT 13.80 SECONDS (12.1-14.9) 08/15/21 17:27 INR 1.03 (0.8-1.2) 08/15/21 17:27 Sodium 138 mmol/L (136-145) 08/17/21 02:59 Potassium 3.8 mmol/L (3.5-5.1) 08/17/21 02:59 Chloride 103 mmol/L (98-107) 08/17/21 02:59 Carbon Dioxide 25 mmol/L (22-29) 08/17/21 02:59 Anion Gap 13.8 (5-19) 08/17/21 02:59 BUN 20 mg/dL (6-20) 08/17/21 02:59 Creatinine 0.6 mg/dL (0.5-0.9) 08/17/21 02:59 GFR Calculation 104.2 mL/min (90-130) 08/17/21 02:59 Glucose 243 mg/dL (65-115) H 08/17/21 02:59 POC Glucose 206 mg/dL (70-110) H 08/17/21 08:01 Calculated Osmolality 297 mOsm/kg (285-295) H 08/17/21 02:59 Calcium 9.2 mg/dL (8.5-10.5) 08/17/21 02:59 Total Bilirubin 0.3 mg/dL (0.15-1.2) 08/17/21 02:59 AST 40 U/L (0-32) H 08/17/21 02:59 ALT 45 U/L (0-33) H 08/17/21 02:59 Alkaline Phosphatase 106 IU/L (35-105) H 08/17/21 02:59 Total Protein 7.5 g/dL (6.6-8.7) 08/17/21 02:59 Albumin 3.7 g/dL (3.5-5.2) 08/17/21 02:59 Globulin 3.8 g/dL (1.3-4.6) 08/17/21 02:59 Triglycerides 166 mg/dL (0-150) H 08/16/21 04:18 Cholesterol 138 mg/dL (0-200) 08/16/21 04:18 LDL Cholesterol, Calc 64 mg/dL (50-129) 08/16/21 04:18 HDL Cholesterol 41 mg/dL (60-100) L 08/16/21 04:18 LDL/HDL Ratio 1.56 RATIO (0.00-3.22) 08/16/21 04:18 Cholesterol/HDL Ratio 3.37 mg/dL (0.0-4.40) 08/16/21 04:18 Urine Color Yellow (Yellow) 08/15/21 19:30 Urine Appearance Clear (CLEAR) 08/15/21 19:30 Urine pH 5 (5-7) 08/15/21 19:30 Ur Specific [place] 1.015 (1.005-1.030) 08/15/21 19:30 Urine Protein Neg (Negative) 08/15/21 19:30 Urine Glucose (UA) 4+ (Normal) H 08/15/21 19:30 Urine Ketones Negative (Negative) 08/15/21 19:30 Urine Blood Neg (Negative) 08/15/21 19:30 Urine Nitrate Negative (Negative) 08/15/21 19:30 Urine Bilirubin Neg (Negative) 08/15/21 19:30 Urine Urobilinogen Norm mg/dL (Negative) 08/15/21 19:30 Ur Leukocyte Esterase Negative (Negative) 08/15/21 19:30 Vitals Last Vital Signs Temp 98.5 F 08/17/21 00:00 Pulse 83 08/17/21 09:00 Resp 17 08/17/21 09:00 BP 114/90 08/17/21 09:00 Pulse Ox 94 08/17/21 09:00 Discharge Plan Discharge Patient Disposition: Home Condition: Stable Prescriptions: New atorvastatin 40 mg Tablet 80 mg PO DAILY 30 Days Qty: 30 0RF aspirin 81 mg Tablet,Delayed Release (Dr/Ec) 81 mg PO DAILY 30 Days Qty: 30 0RF Plavix 75 mg tablet 75 mg PO DAILY 21 Days Qty: 21 0RF Continued Dulera 200-5 mcg/actuation HFA aerosol inhaler 2 puff INHALATION BID 0RF furosemide [Lasix] 20 mg tablet 20 mg PO DAILY 0RF ropinirole 2 mg tablet 2 mg PO DAILY 0RF pramipexole [Mirapex] 0.5 mg tablet 0.5 mg PO DAILY 0RF hydrochlorothiazide 25 mg tablet 25 mg PO DAILY 0RF dicyclomine 10 mg capsule 10 mg PO BID PRN (Reason: Stomach Cramps) 0RF citalopram [Celexa] 40 mg tablet 40 mg PO DAILY 0RF prazosin 1 mg capsule 1 mg PO BID 0RF azelastine 137 mcg (0.1 %) aerosol,spray 1 spray INTRANASAL BID 0RF Rx Instructions: administer into each nostril venlafaxine [Effexor XR] 150 mg capsule,extended release 24hr 150 mg PO DAILY 0RF ipratropium-albuterol 0.5 mg-3 mg(2.5 mg base)/3 mL solution for nebulization 3 ml INHALATION QID PRN (Reason: Dyspnea) 0RF albuterol sulfate [ProAir HFA] 90 mcg/actuation HFA aerosol inhaler 2 puff INHALATION Q6H PRN (Reason: Dyspnea) 0RF sucralfate 1 gram tablet 1 gm PO BID 0RF magnesium oxide 400 mg magnesium capsule 400 mg PO DAILY 0RF gabapentin 400 mg capsule 800 mg PO QID 0RF hydroxyzine HCl 25 mg tablet 25 mg PO BID PRN (Reason: Itching) 0RF topiramate 50 mg capsule,extended release 24hr 50 mg PO DAILY 0RF allopurinol 300 mg tablet 300 mg PO DAILY 0RF baclofen 10 mg tablet 10 mg PO DAILY PRN (Reason: Pain) 0RF metformin 1,000 mg tablet 1,000 mg PO BID 0RF meclizine 25 mg tablet 25 mg PO DAILY PRN (Reason: Dizziness) 0RF clobetasol 0.05 % ointment 1 applic topical BID 14 Days Qty: 60 1RF Rx Instructions: Start: to affected areas no more than 2 weeks/mo prn alternating with triamcinolone triamcinolone acetonide 0.1 % ointment 1 applic topical BID Qty: 80 1RF Rx Instructions: Apply to affected areas twice daily for 2 weeks alternating with clobetasol mupirocin 2 % ointment 1 applic topical BID Qty: 22 1RF Rx Instructions: Apply to affected area(s) until healed ondansetron 4 mg tablet,disintegrating 4 mg PO Q8H PRN (Reason: nausea and vomiting) Qty: 15 0RF Novolog Flexpen U-100 Insulin 100 unit/mL (3 mL) insulin pen See Rx Instructions .ROUTE .COMPLEX 0RF Rx Instructions: PER SLIDING SCALE Tresiba FlexTouch U-200 200 unit/mL (3 mL) insulin pen 70 unit SUBCUT BID 0RF Rx Instructions: Inject 70 units subcut daily. Ajovy Autoinjector 225 mg/1.5 mL auto-injector 225 mg SUBCUT Q30D 0RF Discontinued atorvastatin 20 mg tablet 20 mg PO DAILY 0RF No Action (DME) Dexcom G6 Sensor Device See Rx Instructions .Route Qty: 3 3RF Rx Instructions: As directed (DME) Dexcom G6 Child Protective Investigator Misc See Rx Instructions .Route Qty: 1 3RF Rx Instructions: Check BS 4 times a day. (DME) Dexcom G6 Transmitter Device See Rx Instructions .Route Qty: 1 3RF Rx Instructions: As directed (DME) insulin syringe-needle U-100 [BD Veo Insulin Syringe UF] 0.3 mL 31 gauge x 15/64 syringe See Rx Instructions .ROUTE .MEDSUPPLY Qty: 100 3RF Rx Instructions: As directed Discharge Orders: Discharge Order (Routine); Ordered 08/17/21 Ordered By: Celeste Dong Other Ambulatory Orders: MCT/Event Monitor 21 Days (Routine) Timeframe: 1 Day Facility: [facility] - Location: Radiology Ordered By: Celeste Dong Referrals: Hong Jara [Primary Care Provider] - 08/19/21 10:20 am Discharge Diet: Cardiac and Diabetic Discharge Activity: Resume usual activity and Increase activity as tolerated Patient Instructions: Aspirin (By mouth), Atorvastatin (By mouth) (Lipitor), Clopidogrel (By mouth) (Plavix), Heart Healthy Diet, Basic Carbohydrate Counting (DC), Opioid Safety Activity Restrictions/Additional Instructions: Please follow up with Dr. Soto in [place] for neurology. Please go for your scheduled MRI this upcoming Friday August 20, 2021. Please see neurology for deciding on further medication changes. Follow up with PCP within 4-7 days of discharge. Discharge Attestations Time Spent in Discharge Care*: less than 30 min Quality Metrics Clinical Quality Measures [ No reported AMI, CVA or VTE this stay] Coding Level of Care Code Acute Chg FW DC note Diagnoses Asthma J45.909 Gout M10.9 Hypertension I10 Acute CVA (cerebrovascular accident) I63.9 Stroke I63.9 Hyperlipidemia E78.5 Diabetes E11.9
--- NOTE | 2021-08-17 12:16 | PC.NURSE ---
all d/c info educated to patient and , patient signed d/c paperwork, INDY approximately 1120 transported by
[2021-08-21 07:42] LABS: Glucose Point of Care 195 mg/dL (70-110)
== END 2021-08-17 11:30 | disposition home or self-care (01) | DRG 62 ==
LOC: ER 17:37 → ICU 22:23
PROVIDERS: Internal Medicine; Admitting Provider Student in an Organized Health Care Education/Training Program; Emergency Provider Emergency Medicine; PCP Nurse Practitioner Family; Visit Provider Internal Medicine
DX: I63.9 Cerebral infarction, unspecified (principal); G81.94 Hemiplegia, unspecified affecting left nondominant side; R29.705 NIHSS score 5; J45.909 Unspecified asthma, uncomplicated; F32.A Depression, unspecified; E11.9 Type 2 diabetes mellitus without complications; K21.9 Gastro-esophageal reflux disease without esophagitis; M10.9 Gout, unspecified; I10 Essential (primary) hypertension; E66.9 Obesity, unspecified; Z68.37 Body mass index [BMI] 37.0-37.9, adult; F43.10 Post-traumatic stress disorder, unspecified; G25.81 Restless legs syndrome; H92.02 Otalgia, left ear; Z79.4 Long term (current) use of insulin
CPT/HCPCS: 36415; 36416; 70450; 71045; 80053; 80061; 81003; 82962; 85025; 85610; 93005; 93306; 94640; 96372; 96374; 97116; 97161; 99285; J1650; J1815 ×2; J2997

== ENCOUNTER → 2021-08-24 13:06 | Outpatient (BNVA) | payer MEDICAID, SELFPAY | PROVIDERS: PCP Nurse Practitioner Family; Visit Provider Internal Medicine | DX: I63.9 Cerebral infarction, unspecified (principal); I49.1 Atrial premature depolarization; I49.3 Ventricular premature depolarization | CPT/HCPCS: 93229 ==

== ENCOUNTER 2021-08-26 18:51 | Emergency (ER) | payer MEDICAID, SELFPAY ==
[2021-08-26 18:57] VITALS: BP 103/69; PULSE 96; RESP 12; TEMP 36.6; O2SAT 97; BMI 39.2
--- NOTE | 2021-08-26 19:04 | CTR_ITS ---
PROCEDURE INFORMATION: Exam: CT Head Without Contrast Exam date and time: 08/26/2021 9:16 PM Age: 55 years old Clinical indication: Pain; Headache; Other: Posterior, base of skull; Additional info: Headache, stroke like symptoms TECHNIQUE: Imaging protocol: Computed tomography of the head without contrast. Radiation optimization: All CT scans at this facility use at least one of these dose optimization techniques: automated exposure control; mA and/or kV adjustment per patient size (includes targeted exams where dose is matched to clinical indication); or iterative reconstruction. COMPARISON: CT head wo con* [id number] 08/16/2021 4:27 PM RADIATION DOSE METRICS: Total DLP (mGy-cm): 924.73 FINDINGS: Brain: Normal. No hemorrhage. Unremarkable white matter. No mass effect. Cerebral ventricles: No ventriculomegaly. Paranasal sinuses: Visualized sinuses are unremarkable. No fluid levels. Mastoid air cells: Visualized mastoid air cells are well aerated. Orbital cavities: Prior cataract surgery. Bones/joints: Unremarkable. No acute fracture. Soft tissues: Unremarkable. CT/CT head wo con* [id number] IMPRESSION: No acute intracranial finding.
--- NOTE | 2021-08-26 20:25 | XRR_ITS ---
PROCEDURE INFORMATION: Exam: XR Chest Exam date and time: 08/26/2021 9:06 PM Age: 55 years old Clinical indication: Chest pressure; Patient HX: Chest pain with left arm numbness. Wearing 21 day heart monitor. ; Additional info: Shoulder pain TECHNIQUE: Imaging protocol: Radiologic exam of the chest. Views: 1 view. COMPARISON: CR (CHEST, ) 08/15/2021 5:17 PM FINDINGS: Tubes, catheters and devices: Electronic recording device projects over the mid chest. Lungs: Minimal atelectasis in the left lung base. The lungs are otherwise clear. No consolidation. Pleural spaces: Unremarkable. No pleural effusion. No pneumothorax. Heart/Mediastinum: Unremarkable. No cardiomegaly. Bones/joints: Unremarkable. XR/XR chest 1V portable [id number] IMPRESSION: No acute findings.
--- NOTE | 2021-08-26 20:25 | W.ED.HA ---
HPI - Headache General: Chief Complaint: Headache Stated Complaint: poissible stroke Time Seen by Provider: 08/26/21 20:24 History of Present Illness: Ms. Samano is a 55-year-old lady with history of hypertension, hyperlipidemia, diabetes and history of stroke who presents to the emergency department due to concerns over strokelike symptoms. The patient reports earlier today being startled by a snake which caused her to tense and jump twisting her neck. This caused pain to left arm and shoulder radiated to the chest. Aching in quality and worse with palpation and movement. She subsequently decided to take a shower and noted right-sided headache which was sharp in nature. This feels similar to prior stroke, she did receive tPA /. Overall course of symptoms has persisted. Moderate in intensity. No other specific changes in health, exacerbating, or alleviating factors identified. Onset (ago): hour(s) Location: right and temporal Severity: moderate Quality & Timing: sharp Context: other Review of Systems General: Reports: 10 or more systems reviewed and unremarkable except in HPI and below PFSH ED PFSH: Medical History Abdominal pain Anemia Asthma Depression Diabetes Duodenitis without bleeding GERD (gastroesophageal reflux disease) Gout Hypertension Morbid obesity with BMI of 40.0-44.9, adult Nausea & vomiting PTSD (post-traumatic stress disorder) RLS (restless legs syndrome) Surgical History History of esophagogastroduodenoscopy (EGD) Family History Other Hypertension Social History Smoking and tobacco status: never smoked Alcohol intake: current Female Reproductive History: Date of last menstrual period: 03/13/15 Physical Exam Const: COMMON NORMALS: patient oriented x3 and alert GENERAL APPEARANCE: cooperative and well developed HENMT: COMMON NORMALS: normocephalic and atraumatic HEAD & SCALP: normocephalic and atraumatic THROAT: posterior oropharynx normal Eye: COMMON NORMALS: conjunctivae normal CONJUNCTIVA: Yes conjunctivae normal SCLERA: sclerae normal Neck/C-Spine: COMMON NORMALS: supple GENERAL: Yes trachea midline Resp: COMMON NORMALS: normal respiratory effort and clear to auscultation bilaterally EFFORT & INSPECTION: Yes able to speak in complete sentences AUSCULTATION: clear to auscultation bilaterally Cardio: COMMON NORMALS: regular rate and regular rhythm RATE: regular rate RHYTHM: regular rhythm GI: COMMON NORMALS: Soft to palpation PALPATION: Yes Soft to palpation and No Tenderness to palpation present (GI) PERCUSSION: normal to percussion Extremity: NARRATIVE EXTREMITY EXAM: L shoulder TTP anteriorly. Distal CMS intact. No rayna abnormality. ROM preserved GENERAL: Yes normal exam except as noted and No edema Neuro: COMMON NORMALS: patient oriented x3, CN's II-XII intact bilaterally, moves all extremities, no focal motor deficits, no sensory deficits noted and gait normal SENSORIUM/ORIENTATION: Yes alert and No Orientation impaired Psych: COMMON NORMALS: mental status grossly normal and Normal thought process present THOUGHT PROCESS: Normal thought process present Course ED course: - Patient was seen and evaluated by me at bedside - Patient placed on cardiac monitors, IV access obtained - Initial evaluation notable for exam as above. Nonfocal neurologic exam. Patient contraindicated regardless for tPA given prior use/stroke within 2 weeks. - Labs and xrays personally interpreted by me. EKG with sinus rhythm with no STEMI. -Fluids and analgesia given - Labs notable for no leukocytosis, normal hemoglobin. No acute metabolic abnormality to explain his symptoms. No evidence of UTI. - Imaging notable for no lobar consolidation or pneumothorax on chest x-ray. CT head negative for acute intracranial pathology. - Upon serial reexamination after treatment the patient was improved - Based on patient history, evaluation, and testing as interpreted the most likely cause of the patient's condition is musculoskeletal pain and symptoms of unclear etiology. - The results of ED evaluation were discussed with the patient including prescriptions and/or symptomatic cares (if applicable) including appropriate and responsible use, followup plan, and return precautions. The patient verbalized understanding and felt safe for discharge. - Patient discharged in satisfactory condition. Note: Click bubbles or prepopulated brewer in note writing are used for assistance with data collection and billing and are inherently more limited than narrative and other text portions of this note. Please use narrative for additional clinical history and defer to narrative/free test for any case of contradictory information. If information appears in only free text or click bubble it should be considered present or absent as reported. Please contact note technical proposal writer for clarifications of clinical information or contradictory information. MDM is a brief summary, contradictory or erroneous seeming information should be clarified and full note should be reviewed. Vital Signs: Vital signs: Vital Signs Temperature 97.9 F 08/26/21 18:57 Pulse Rate 89 08/27/21 00:21 Respiratory Rate 18 08/27/21 00:21 Blood Pressure 139/85 08/27/21 00:21 Pulse Oximetry 95 08/27/21 00:21 MDM - Headache Medical Decision Making 55-year-old lady with history of recent stroke/tPA presenting due to arm pain and headache. Arm pain precipitated by startle and headache was spontaneous. Patient concerned that this feels similar to prior stroke. NIHSS 0. Negative ED evaluation. Satisfactory for outpatient management. Medical Records I reviewed the patient's medical records. Lab Data I reviewed the patient's lab results. : 08/26/21 20:35 08/26/21 20:[address] 08/26/21 19:04 IMPRESSION: No acute intracranial finding. Chest X-Ray 08/26/21 20:25 IMPRESSION: No acute findings. Laboratory Results WBC 9.0 10^3/uL (4.0-10.0) 08/26/21 20:35 RBC 4.83 10^6/uL (4.1-5.3) 08/26/21 20:35 Hgb 12.4 g/dL (11.5-15.3) 08/26/21 20:35 Hct 38.0 % (37.0-47.0) 08/26/21 20:35 MCV 78.7 fl (81-99) L 08/26/21 20:35 MCH 25.7 pg (28.0-34.0) L 08/26/21 20:35 MCHC 32.6 g/dL (30.0-36.0) 08/26/21 20:35 RDW 16.2 % (12.1-15.1) H 08/26/21 20:35 Plt Count 217 10^3/cmm (130-400) 08/26/21 20:35 MPV 12.1 fL (7.4-10.4) H 08/26/21 20:35 Neut % (Auto) 63.0 % 08/26/21 20:35 Lymph % (Auto) 28.9 % 08/26/21 20:35 [place] % (Auto) 5.3 % 08/26/21 20:35 Eos % (Auto) 2.1 % 08/26/21 20:35 Baso % (Auto) 0.6 % 08/26/21 20:35 Neut # (Auto) 5.69 10^3/uL (1.8-7.7) 08/26/21 20:35 Lymph # (Auto) 2.6 10^3/uL (0.8-4.8) 08/26/21 20:35 [place] # (Auto) 0.5 10^3/uL (0.2-0.9) 08/26/21 20:35 Eos # (Auto) 0.2 10^3/uL (0.0-0.8) 08/26/21 20:35 Baso # (Auto) 0.1 10^3/uL (0.0-0.1) 08/26/21 20:35 Nucleated RBC % (auto) 0 % 08/26/21 20:35 Nucleated RBCs # 0.0 /100WBC 08/26/21 20:35 Sodium 136 mmol/L (136-145) 08/26/21 20:35 Potassium 3.7 mmol/L (3.5-5.1) 08/26/21 20:35 Chloride 100 mmol/L (98-107) 08/26/21 20:35 Carbon Dioxide 25 mmol/L (22-29) 08/26/21 20:35 Anion Gap 14.7 (5-19) 08/26/21 20:35 BUN 16 mg/dL (6-20) 08/26/21 20:35 Creatinine 0.8 mg/dL (0.5-0.9) 08/26/21 20:35 GFR Calculation 74.7 mL/min (90-130) L 08/26/21 20:35 Glucose 196 mg/dL (65-115) H 08/26/21 20:35 POC Glucose 200 mg/dL (70-110) H 08/26/21 20:33 Calculated Osmolality 289 mOsm/kg (285-295) 08/26/21 20:35 Calcium 9.5 mg/dL (8.5-10.5) 08/26/21 20:35 Total Bilirubin 0.4 mg/dL (0.15-1.2) 08/26/21 20:35 AST 25 U/L (0-32) 08/26/21 20:35 ALT 31 U/L (0-33) 08/26/21 20:35 Alkaline Phosphatase 127 IU/L (35-105) H 08/26/21 20:35 Troponin T Baseline 8 ng/L (0-10) 08/26/21 20:35 Troponin T 120 Minute 8.99 ng/L (0-10) 08/26/21 22:25 Delta Troponin T 0.99 ABS# (0-10) 08/26/21 22:25 NT-Pro-B Natriuret Pep 90 pg/mL (0-125) 08/26/21 20:35 Total Protein 8.5 g/dL (6.6-8.7) 08/26/21 20:35 Albumin 4.1 g/dL (3.5-5.2) 08/26/21 20:35 Globulin 4.4 g/dL (1.3-4.6) 08/26/21 20:35 Lipase 50 U/L (13-60) 08/26/21 20:35 TSH 2.91 uIU/mL (0.27-4.20) 08/26/21 20:35 Urine Color Yellow (Yellow) 08/26/21 21:05 Urine Appearance Clear (CLEAR) 08/26/21 21:05 Urine pH 5 (5-7) 08/26/21 21:05 Ur Specific [place] 1.015 (1.005-1.030) 08/26/21 21:05 Urine Protein Neg (Negative) 08/26/21 21:05 Urine Glucose (UA) Norm (Normal) 08/26/21 21:05 Urine Ketones Negative (Negative) 08/26/21 21:05 Urine Blood Neg (Negative) 08/26/21 21:05 Urine Nitrate Negative (Negative) 08/26/21 21:05 Urine Bilirubin Neg (Negative) 08/26/21 21:05 Urine Urobilinogen Norm mg/dL (Negative) 08/26/21 21:05 Ur Leukocyte Esterase Negative (Negative) 08/26/21 21:05 Critical Care Time Critical Care Time: Critical Care Time: Yes Total Critical Care Time: 35 Attestation: Due to a high probability of clinically significant, possibly life threatening deterioration, the patient required my highest level of attention and preparedness to intervene emergently and I personally spent this critical care time directly and personally managing the patient. This critical care time included obtaining a history; examining the patient; pulse oximetry; ordering and review of laboratory and imaging studies; arranging urgent treatment with development of a management plan; evaluation of patient's response to treatment; frequent reassessment; and, discussions with other providers as applicable. It was exclusive of separately billable procedures. Discharge Plan Discharge Patient Disposition: Home Clinical Impression: Headache, Acute shoulder pain, Chest pain Condition: Stable Prescriptions: No Action furosemide [Lasix] 20 mg tablet 20 mg PO DAILY 0RF ropinirole 2 mg tablet 2 mg PO DAILY 0RF pramipexole [Mirapex] 0.5 mg tablet 0.5 mg PO DAILY 0RF hydrochlorothiazide 25 mg tablet 25 mg PO DAILY 0RF dicyclomine 10 mg capsule 10 mg PO BID PRN (Reason: Stomach Cramps) 0RF prazosin 1 mg capsule 1 mg PO BID 0RF azelastine 137 mcg (0.1 %) aerosol,spray 1 spray INTRANASAL BID 0RF Rx Instructions: administer into each nostril venlafaxine [Effexor XR] 150 mg capsule,extended release 24hr 150 mg PO DAILY 0RF ipratropium-albuterol 0.5 mg-3 mg(2.5 mg base)/3 mL solution for nebulization 3 ml INHALATION QID PRN (Reason: Dyspnea) 0RF albuterol sulfate [ProAir HFA] 90 mcg/actuation HFA aerosol inhaler 2 puff INHALATION Q6H PRN (Reason: Dyspnea) 0RF sucralfate 1 gram tablet 1 gm PO BID 0RF magnesium oxide 400 mg magnesium capsule 400 mg PO DAILY 0RF gabapentin 400 mg capsule 800 mg PO QID 0RF hydroxyzine HCl 25 mg tablet 25 mg PO BID PRN (Reason: Itching) 0RF topiramate 50 mg capsule,extended release 24hr 50 mg PO DAILY 0RF allopurinol 300 mg tablet 300 mg PO DAILY 0RF baclofen 10 mg tablet 10 mg PO DAILY PRN (Reason: Pain) 0RF metformin 1,000 mg tablet 1,000 mg PO BID 0RF meclizine 25 mg tablet 25 mg PO DAILY PRN (Reason: Dizziness) 0RF (DME) Dexcom G6 Sensor Device See Rx Instructions .Route Qty: 3 3RF Rx Instructions: As directed (DME) Dexcom G6 Locomotive Engineer Electric Misc See Rx Instructions .Route Qty: 1 3RF Rx Instructions: Check BS 4 times a day. (DME) Dexcom G6 Transmitter Device See Rx Instructions .Route Qty: 1 3RF Rx Instructions: As directed clobetasol 0.05 % ointment 1 applic topical BID 14 Days Qty: 60 1RF Rx Instructions: Start: to affected areas no more than 2 weeks/mo prn alternating with triamcinolone triamcinolone acetonide 0.1 % ointment 1 applic topical BID Qty: 80 1RF Rx Instructions: Apply to affected areas twice daily for 2 weeks alternating with clobetasol (DME) insulin syringe-needle U-100 [BD Veo Insulin Syringe UF] 0.3 mL 31 gauge x 15/64 syringe See Rx Instructions .ROUTE .MEDSUPPLY Qty: 100 3RF Rx Instructions: As directed mupirocin 2 % ointment 1 applic topical BID Qty: 22 1RF Rx Instructions: Apply to affected area(s) until healed ondansetron 4 mg tablet,disintegrating 4 mg PO Q8H PRN (Reason: nausea and vomiting) Qty: 15 0RF insulin aspart U-100 [Novolog Flexpen U-100 Insulin] 100 unit/mL (3 mL) insulin pen See Rx Instructions .ROUTE .COMPLEX 0RF Rx Instructions: PER SLIDING SCALE Tresiba FlexTouch U-200 200 unit/mL (3 mL) insulin pen 70 unit SUBCUT BID 0RF Rx Instructions: Inject 70 units subcut daily. Ajovy Autoinjector 225 mg/1.5 mL auto-injector 225 mg SUBCUT Q30D 0RF atorvastatin 40 mg Tablet 80 mg PO DAILY 30 Days Qty: 30 0RF aspirin 81 mg Tablet,Delayed Release (Dr/Ec) 81 mg PO DAILY 30 Days Qty: 30 0RF potassium chloride 10 mEq Capsule, Extended Release 10 meq PO DAILY 0RF losartan 100 mg Tablet 100 mg PO DAILY 0RF bupropion HCl 150 mg Tablet Extended Release 24 Hr 150 mg PO QPM 0RF Vitamin D3 50 mcg (2,000 unit) Capsule 50 mcg PO DAILY 0RF Discharge Orders: Discharge ED (Routine); Ordered 08/26/21 Ordered By: Gage Lyman Referrals: Hong Jara [Primary Care Provider] - Discharge Diet: Usual diet Discharge Activity: Resume usual activity Patient Instructions: Chest Pain (ED), Acute Headache (ED), Shoulder Pain (ED) Activity Restrictions/Additional Instructions: Thank you for visiting the emergency department. You were seen and evaluated for shoulder/chest has had pain. The exact cause of your symptoms is unclear as discussed may be related to see 2 separate issues of musculoskeletal pain and headache. Please follow-up with your primary care provider. Please return to the emergency department for worsening symptoms or anything else that you are concerned about and feel needs emergency department evaluation. Coding Level of Care Code ED Sap Project Manager for Carlos León
--- NOTE | 2021-08-26 20:26 | ECG_ITS ---
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 Measurements Intervals [place] Rate: 83 P: -3 MN: 131 QRS: 42 QRSD: 86 T: 83 QT: 354 QTc: 416 Interpretive Statements SINUS RHYTHM NONSPECIFIC T-WAVE ABNORMALITY Compared to ECG 08/15/2021 17:31:42 No significant changes Electronically Signed On 08-27-2021 5:50:32 CDT by Cony Germain M.D. [id number]
[2021-08-26 20:37] LABS: Glucose Point of Care 200 mg/dL (70-110)
[2021-08-26 20:49] LABS: Basophils # 0.1 10^3/uL (0.0-0.1); Basophils % 0.6 %; Eosinophils # 0.2 10^3/uL (0.0-0.8); Eosinophils % 2.1 %; Hemoglobin 12.4 g/dL (11.5-15.3); Lymphocytes # 2.6 10^3/uL (0.8-4.8); Lymphocytes % 28.9 %; Mean Corpuscular HGB Conc 32.6 g/dL (30.0-36.0); Mean Corpuscular Hemoglobin 25.7 pg (28.0-34.0); Mean Corpuscular Volume 78.7 fl (81-99); Mean Platelet Volume 12.1 fL (7.4-10.4); Monocytes # 0.5 10^3/uL (0.2-0.9); Monocytes % 5.3 %; Neutrophils # 5.69 10^3/uL (1.8-7.7); Nucleated Red Blood Cells % 0 %; Platelet Count 217 10^3/cmm (130-400); Red Blood Count 4.83 10^6/uL (4.1-5.3); Red Cell Distribution Width 16.2 % (12.1-15.1)
[2021-08-26 21:06] LABS: Add Urine Microscopic? NO; Charge for UA Resulting for Rev
[2021-08-26 21:12] LABS: Urine Appearance Clear (CLEAR); Urine Color Yellow (Yellow)
[2021-08-26 21:13] LABS: Bilirubin Urine Neg (Negative); Blood Urine Neg (Negative); Glucose Urine UA Norm (Normal); Ketones Urine Negative (Negative); Leukocyte Esterase Urine Negative (Negative); Nitrate Urine Negative (Negative); Protein Urine Neg (Negative); Specific Gravity, Urine 1.015 (1.005-1.030); Urobilinogen Urine Norm (Negative); pH Urine 5 (5-7)
[2021-08-26 21:18] LABS: Troponin(5th) Baseline 8 ng/L (0-10)
[2021-08-26 21:25] LABS: Alanine Aminotransferase 31 U/L (0-33); Albumin Level 4.1 g/dL (3.5-5.2); Alkaline Phosphatase 127 IU/L (35-105); Anion Gap 14.7 (5-19); Aspartate Amino Transferase 25 U/L (0-32); Blood Urea Nitrogen 16 mg/dL (6-20); Calcium 9.5 mg/dL (8.5-10.5); Carbon Dioxide 25 mmol/L (22-29); Chloride 100 mmol/L (98-107); Globulin 4.4 g/dL (1.3-4.6); Glomerular Filtration Rate 74.7 mL/min (90-130); Glucose 196 mg/dL (65-115); Lipase 50 U/L (13-60); NT Pro B Type Natriuretic Pept 90 pg/mL (0-125); Osmolality Calculated 289 mOsm/kg (285-295); Potassium 3.7 mmol/L (3.5-5.1); Sodium 136 mmol/L (136-145); Thyroid Stimulating Hormone 2.91 uIU/mL (0.27-4.20); Total Bilirubin 0.4 mg/dL (0.15-1.2); Total Protein 8.5 g/dL (6.6-8.7)
[2021-08-26] MEDS: diphenhydrAMINE 50 mg/mL SDV 1mL 25 MG IVP (22:20)
[2021-08-26] MEDS: sodium chloride 0.9% 1,000 ML 999 ML IV (22:20)
[2021-08-26] MEDS: acetaminophen 500 mg Tablet 1000 MG PO (22:21)
[2021-08-26] MEDS: metoclopramide 5 mg/mL SDV 2 mL 10 MG IVP (22:21)
--- NOTE | 2021-08-26 22:26 | ECG_ITS ---
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 Measurements Intervals [place] Rate: 97 P: -5 ME: 145 QRS: 55 QRSD: 90 T: 76 QT: 357 QTc: 454 Interpretive Statements SINUS RHYTHM WITH OCCASIONAL SUPRAVENTRICULAR PREMATURE COMPLEXES NONSPECIFIC ST & T-WAVE ABNORMALITY Compared to ECG 08/26/2021 20:42:08 No significant changes Electronically Signed On 08-27-2021 20:48:47 CDT by Navneet Vo M.D. [id number]
[2021-08-26 22:53] LABS: Troponin 5 2HR 8.99 ng/L (0-10)
[2021-08-26 23:16] LABS: Troponin 5 2HR Delta 0.99 ABS# (0-10)
[2021-08-27 00:21] VITALS: BP 139/85; PULSE 89; RESP 18; O2SAT 95
== END 2021-08-27 00:20 | disposition home or self-care (01) ==
PROVIDERS: Emergency Provider Emergency Medicine; PCP Nurse Practitioner Family
DX: R51.9 Headache, unspecified (principal); M25.512 Pain in left shoulder; R07.9 Chest pain, unspecified; Z86.73 Personal history of transient ischemic attack (TIA), and cerebral infarction without residual deficits; I10 Essential (primary) hypertension; E11.9 Type 2 diabetes mellitus without complications; E78.5 Hyperlipidemia, unspecified; Z79.4 Long term (current) use of insulin
CPT/HCPCS: 36416; 70450; 71045; 80053; 81003; 82962; 83690; 83880; 84443; 84484; 85025; 93005; 96361; 96374; 96375; 99285; J1200; J2765; J7030

== ENCOUNTER → 2021-10-22 09:37 | Outpatient (BNVA) | payer MEDICAID, SELFPAY | PROVIDERS: PCP Nurse Practitioner Family; Referring Provider Dermatology; Visit Provider Podiatrist Foot & Ankle Surgery | DX: E11.8 Type 2 diabetes mellitus with unspecified complications (principal); B35.1 Tinea unguium; G62.9 Polyneuropathy, unspecified; L85.3 Xerosis cutis; M20.12 Hallux valgus (acquired), left foot; Z79.4 Long term (current) use of insulin; Z79.84 Long term (current) use of oral hypoglycemic drugs; L60.3 Nail dystrophy | CPT/HCPCS: 11055; 11721 ==

== ENCOUNTER → 2022-04-22 08:41 | Outpatient (BNVA) | payer MEDICAID, SELFPAY | PROVIDERS: PCP Nurse Practitioner Family; Visit Provider Podiatrist Foot & Ankle Surgery | DX: S90.851A Superficial foreign body, right foot, initial encounter (principal); B35.1 Tinea unguium; G62.9 Polyneuropathy, unspecified; L85.3 Xerosis cutis; M20.12 Hallux valgus (acquired), left foot; E11.9 Type 2 diabetes mellitus without complications; Z79.84 Long term (current) use of oral hypoglycemic drugs; Z79.4 Long term (current) use of insulin; X58.XXXA Exposure to other specified factors, initial encounter | CPT/HCPCS: 10120; 99213 ==

== ENCOUNTER → 2022-06-28 15:12 | Outpatient (BNVA) | payer MEDICAID, SELFPAY | PROVIDERS: PCP Nurse Practitioner Family; Visit Provider Podiatrist Foot & Ankle Surgery | DX: E11.9 Type 2 diabetes mellitus without complications (principal); G62.9 Polyneuropathy, unspecified; L85.3 Xerosis cutis; L84 Corns and callosities | CPT/HCPCS: 11056 ==

== ENCOUNTER → 2022-06-28 15:39 | Outpatient (BNVA) | payer MEDICAID, SELFPAY | PROVIDERS: PCP Nurse Practitioner Family; Visit Provider Nurse Practitioner Family | DX: B07.8 Other viral warts (principal); L85.3 Xerosis cutis; D18.01 Hemangioma of skin and subcutaneous tissue; L81.4 Other melanin hyperpigmentation | CPT/HCPCS: 17110; 99213 ==

== ENCOUNTER → 2022-07-27 14:11 | Outpatient (BNVA) | payer MEDICAID, SELFPAY | PROVIDERS: PCP Nurse Practitioner Family; Visit Provider Nurse Practitioner Family | DX: B07.8 Other viral warts (principal); L85.3 Xerosis cutis; D22.5 Melanocytic nevi of trunk; L81.4 Other melanin hyperpigmentation; L30.8 Other specified dermatitis | CPT/HCPCS: 17110; 99213 ==

== ENCOUNTER → 2022-07-29 11:28 | Outpatient (BNVA) | payer MEDICAID, SELFPAY | PROVIDERS: PCP Nurse Practitioner Family; Visit Provider Podiatrist Foot & Ankle Surgery | DX: E11.42 Type 2 diabetes mellitus with diabetic polyneuropathy (principal); Z79.84 Long term (current) use of oral hypoglycemic drugs; Z79.4 Long term (current) use of insulin; G62.9 Polyneuropathy, unspecified; L85.3 Xerosis cutis; L84 Corns and callosities | CPT/HCPCS: 11056; 99213 ==

== ENCOUNTER → 2022-08-18 13:59 | Outpatient (BNVA) | payer MEDICAID, SELFPAY | PROVIDERS: PCP Nurse Practitioner Family; Visit Provider Podiatrist Foot & Ankle Surgery | DX: L03.116 Cellulitis of left lower limb (principal); M79.5 Residual foreign body in soft tissue | CPT/HCPCS: 73630; 99214 ==

== ENCOUNTER 2022-08-22 05:42 | Day surgery (SDC) | payer MEDICAID, SELFPAY ==
[2022-08-19 11:23] VITALS: BMI 38.7
[2022-08-22] VITALS (7 sets, daily range): BP systolic 138–158; BP diastolic 72–93; PULSE 73–78; RESP 16–18; TEMP 36.1–36.8; O2SAT 94–97
--- NOTE | 2022-08-22 | XR_ITS ---
WS: [id number] XR foot LT 2V 09283 REASON FOR EXAM: OR PIC, Deep foreign body removal FINDINGS: The previously demonstrated needlelike metallic foreign body overlying the lateral aspect of the seco nd MP joint is no longer identifiable. XR/XR foot LT 2V 04371 IMPRESSION: Soft tissue foreign body removal as above.
[2022-08-22 06:22] LABS: Glucose Point of Care 127 mg/dL (70-110)
[2022-08-22] MEDS: acetaminophen 1,000 MG/100 ML PIGGYBACK 400 MG IV (06:24)
[2022-08-22] MEDS: gabapentin 300 mg Capsule PO (06:24)
[2022-08-22] MEDS: sodium chloride 0.9% 1,000 ML 30 ML IV (06:25)
--- NOTE | 2022-08-22 06:44 | W.PM.OPSUD ---
Surgery/Procedure H&P Update DATE OF PROCEDURE: August 22, 2022 DATE H&P PERFORMED: 08/18/22 CHANGES TO PREVIOUS DOCUMENTATION: No changes PLANNED PROCEDURE: Operation Date: 08/22/22 07:00 Proposed Procedures p Deep foreign body removal left foot CPT 92859, M79.5(Left) - Brandon Benjamin DPM
[2022-08-22 06:57] LABS: Blood Urea Nitrogen 12 mg/dL (6-20); Carbon Dioxide 25 mmol/L (22-29); Chloride 107 mmol/L (98-107); Glomerular Filtration Rate 86.9 mL/min (90-130); Glucose 116 mg/dL (65-115); Osmolality Calculated 293 mOsm/kg (285-295); Sodium 141 mmol/L (136-145)
[2022-08-22 06:58] LABS: Anion Gap 13.1 (5-19); Potassium 4.1 mmol/L (3.5-5.1)
[2022-08-22] MEDS: ceFAZolin 2,000 MG in sodium chloride 0.9% (plus) 50 ML 100 MG IV (06:58)
--- NOTE | 2022-08-22 07:14 | ANES.PREANE2 ---
Pre-Anesthetic Assessment Height/Weight: Height 1.73 m Weight 115.666 kg Temp Pulse Resp BP Pulse Ox O2 Del Method 98.3 F 78 18 145/78 97 Room Air 08/22/22 06:08 08/22/22 06:08 08/22/22 06:08 08/22/22 06:08 08/22/22 06:08 08/22/22 06:12 Operation Date: 08/22/22 07:00 Proposed Procedures p Deep foreign body removal left foot CPT 20492, M79.5(Left) - Brandon Benjamin DPM Familial anesthetic complications: none Was Beta Brittnee taken within 24 hours: N/A Was Clonidine taken within 24 hours: N/A Last intake: Intake Last Liquid Date 08/21/22 Last Liquid Time 19:00 Last Solid Date 08/21/22 Last Solid Time 18:00 Social No alcohol and No tobacco Exam alert, oriented x 3, clear to auscultation bilaterally and regular rate & rhythm Airway Submandibular: within normal limits Cervical ROM: within normal limits Mallampati: Class II Dentition: full Pulmonary Asthma CV/HEM Hypertension Metabolic Diabetes Mellitus, Hyperlipidemia and Morbid Obesity Neuropsych Cerebrovascular Accident and Neuropathy Anesthetic Plan ASA status: 3 Anesthesia: MAC Medications/Allergies Home Medications Medication Instructions Recorded Confirmed Last Taken Type albuterol sulfate 90 mcg/actuation 2 puff inhalation Q6H PRN Dyspnea 12/18/19 08/19/22 12/31/19 History aerosol inhaler (ProAir HFA) allopurinol 300 mg tablet 300 mg PO DAILY 12/18/19 08/22/22 08/17/22 History baclofen 10 mg tablet 10 mg PO DAILY PRN Pain 12/18/19 08/22/22 08/21/22 History dicyclomine 10 mg capsule 10 mg PO BID PRN Stomach Cramps 12/18/19 08/22/22 08/21/22 History furosemide 20 mg tablet (Lasix) 20 mg PO DAILY 12/18/19 08/22/22 08/21/22 History gabapentin 400 mg capsule 800 mg PO QID 12/18/19 08/22/22 08/21/22 History hydrochlorothiazide 25 mg tablet 25 mg PO DAILY 12/18/19 08/22/22 08/21/22 History ipratropium 0.5 mg-albuterol 3 mg 3 ml inhalation QID PRN Dyspnea 12/18/19 08/19/22 12/31/19 History (2.5 mg base)/3 mL nebulization soln magnesium oxide 400 mg PO DAILY 12/18/19 08/22/22 08/21/22 History meclizine 25 mg tablet 25 mg PO DAILY PRN Dizziness 12/18/19 08/19/22 12/31/19 History metformin 1,000 mg tablet 1,000 mg PO BID 12/18/19 08/22/22 08/21/22 History prazosin 1 mg capsule 1 mg PO BID 12/18/19 08/22/22 08/21/22 History ropinirole 2 mg tablet 4 mg PO BID 12/18/19 08/22/22 08/21/22 History sucralfate 1 gram tablet 1 gm PO BID 12/18/19 08/22/22 08/21/22 History topiramate 50 mg capsule,extended 50 mg PO DAILY 12/18/19 08/22/22 08/21/22 History release 24 hr venlafaxine 150 mg 150 mg PO DAILY 12/18/19 08/22/22 08/21/22 History capsule,extended release 24 hr (Effexor XR) blood-glucose meter,continuous #1 ea 12/23/20 08/18/22 Unknown Rx (Dexcom G6 Slitter Scorer Cut Off Operator) blood-glucose sensor (Dexcom G6 #3 ea 12/23/20 08/18/22 Unknown Rx Sensor device) blood-glucose transmitter (Dexcom #1 ea 12/23/20 08/18/22 Unknown Rx G6 Transmitter device) insulin syringe-needle U-100 0.3 #100 ea 03/16/21 08/18/22 Unknown Rx mL 31 gauge x 15/64 (BD Veo Insulin Syringe Ultra-Fine) triamcinolone acetonide 0.1 % 1 applic topical BID #80 grams 07/15/21 08/19/22 Unknown Rx topical ointment insulin aspart U-100 100 unit/mL See Rx Instructions .Route .COMPLEX 08/15/21 08/22/22 08/21/22 History (3 mL) subcutaneous pen (Novolog FlexPen U-100 Insulin aspart) insulin degludec 200 unit/mL (3 70 unit SUBCUT BID 08/15/21 08/22/22 08/22/22 History mL) subcutaneous pen (Tresiba FlexTouch U-200 insulin) bupropion HCl 150 mg 24 hr tablet, 150 mg PO QPM 08/26/21 08/22/22 08/21/22 History extended release cholecalciferol (vitamin D3) 50 50 mcg PO DAILY 08/26/21 08/22/22 08/21/22 History mcg (2,000 unit) capsule (Vitamin D3) losartan 100 mg tablet 100 mg PO DAILY 08/26/21 08/22/22 08/21/22 History diabetic shoes #1 ea 10/22/21 08/18/22 Unknown Rx Diabetic Shoes #1 ea 11/01/21 08/18/22 Unknown Rx Diabetic Shoes #1 ea 11/17/21 08/18/22 Unknown Rx clindamycin phosphate 1 % topical 1 applic topical BID #30 grams 02/08/22 08/19/22 Unknown Rx gel fremanezumab-vfrm 225 mg/1.5 mL 225 mg SUBCUT 08/19/22 08/11/22 History subcutaneous auto-injector (Ajovy) tramadol 50 mg tablet 50 mg PO Q6H #12 tabs 08/22/22 Unknown Rx Allergies Allergy/AdvReac Type Severity Reaction Status Date / Time adhesive tape Allergy Severe ALGY-Hives Verified 08/19/22 11:13 amitriptyline Allergy Severe ALGY-Hives Verified 08/19/22 11:13 ciprofloxacin Allergy Severe ADR-Nausea Verified 08/19/22 11:13 exenatide [From Bydureon] Allergy Severe ALGY-Hives Verified 08/19/22 11:13 sumatriptan [From Imitrex] Allergy Severe ADR-Vomitin Verified 08/19/22 11:13 g metoclopramide [From Reglan] Allergy Unknown Verified 08/22/22 06:55 Current Medications Generic Name Dose Route Start Last Admin Trade Name Freq PRN Reason Stop Dose Admin Sodium Chloride 1,000 mls @ 30 mls/hr 08/22/22 06:00 08/22/22 06:25 Sodium Chloride 0.9% IV 08/23/22 05:59 30 mls/hr .Q24H HEIDY Administration PFSH Anesthesia Medical History Abdominal pain Anemia Asthma Depression Diabetes Duodenitis without bleeding GERD (gastroesophageal reflux disease) Gout Hypertension Morbid obesity with BMI of 40.0-44.9, adult Nausea & vomiting PTSD (post-traumatic stress disorder) RLS (restless legs syndrome) Surgical History History of esophagogastroduodenoscopy (EGD) Family History Other Hypertension Social History Smoking and tobacco status: never smoked Alcohol intake: current Data Anesthesia 08/22/22 06:18 BMP 08/22/22 06:18 Sodium 141 Potassium 4.1 Chloride 107 Carbon Dioxide 25 BUN 12 Creatinine 0.7 Glucose 116 H Calcium 9.0 Cardiac Studies: Echocardiogram 08/15/21 Cardiac Event Monitor 08/24/21
--- NOTE | 2022-08-22 07:39 | PM.OP ---
Operative Report Date of procedure: August 22, 2022 Pre-op diagnosis: Deep foreign body left foot Post-op diagnosis: Same Post-op findings: Sewing needle removed from left foot to have migrated to dorsum of foot from plantar puncture Procedure done: Left foot deep foreign body removal CPT 00712 Specimens removed/disposition: Aerobic and anaerobic swabs of deep tissue taken and sent to micro for ID and sensitivity -Needle removed Surgeon: Dr. Brandon Benjamin, D.P.M. Estimated blood loss: Less than 5 cc No tourniquet used Complications: None Procedure: Patient is a 56-year-old female that has a history of foreign body left foot. The patient has had this needle in her foot for less than 1 week and has noted increasing erythema, warmth and pain. The extent of the foreign body necessitates removal. A lengthy discussion regarding the procedure, including risks and complications has been had with the patient and is noted in the recent clinic note. Written and verbal consent have been obtained. All patient questions have been answered to the patient?s satisfaction. No written or verbal guarantees have been given or implied. The patient has been NPO since midnight. The history has been reviewed and the history and physical is current. The signed consent was confirmed and placed in the patient chart. Patient imaging has been reviewed and is consistent with the diagnosis. Under mild sedation, the patient was brought into the operating room and placed on the table in the supine position. IV antibiotics were given by the anesthesia team as preoperative surgical prophylaxis. IV sedation was then performed by the anesthesiateam. A pneumatic tourniquet was then placed about the left ankle. The operative area was localized using 0.5% Marcaine plain. The operative extremity was then prepped and draped in the usual fashion. After prep, the following procedure was then performed. Attention was directed to the left foot where under C-arm fluoroscopy the foreign body was triangulated. The foreign body had noted migrate from the plantar aspect of the foot to the dorsal aspect of the foot. A #15 blade was used to make a percutaneous stab incision over the dorsum of the left foot just medial to the second metatarsal head. Blunt dissection Was carried down through subcutaneous and superficial fascia using a mosquito hemostat. No purulence or abscess formation was noted. The tissues appeared healthy and viable in nature. Under C-arm fluoroscopy mosquito hemostat was used to grasp the foreign body which measured approximately 3 cm in length with the appearance of a needle. After the needle was grasped under direct visualization using sterile fluoroscopy it was removed from the operative field. Again, was noted to be a portion of what appears to be a sewing needle. The site was then irrigated with copious amounts of sterile saline. C-arm images were taken to ensure complete removal of the foreign body and this was confirmed. After irrigation, cultures both aerobic and anaerobic were taken of the deep tissue and sent to micro for ID and sensitivity. The incision site was then closed with 3-0 nylon in horizontal mattress fashion. The incision site was dressed with Xeroform, 4 x 4 gauze, Kerlix and 4 inch Checo. The patient tolerated the procedure and anesthesia well and without complication. The patient was transported from the operating room to the recovery room with vital signs stable and vascular status intact to all digits of the left foot. The patient was given both written and verbal instructions to remain weightbearing as tolerated to the operative extremity, to keep dressings/splint clean, dry and intact and to take pain medication as directed. The patient will follow-up in the outpatient setting at their scheduled appointment. The patient was discharged with my personal number and was instructed to call if any questions or issues should arise. They were discharged home once anesthesia criteria was met.
--- NOTE | 2022-08-22 13:35 | ANE.PACU2 ---
Inpatient post-anesthesia follow up: Airway intact: Yes Vital signs: Temperature 97.1 F Pulse Rate 76 Respiratory Rate 18 Blood Pressure 140/72 Pulse Oximetry 96 Oxygen Delivery Me thod Room Air Oxygen Flow Rate Fraction of Inspir ed Oxygen Hydration adequate: Yes Nausea and vomiting: No Pain level: 2 Mental status: Baseline
== END 2022-08-22 08:29 | disposition home or self-care (01) ==
PROVIDERS: Anesthesiology; PCP Registered Nurse; Visit Provider Podiatrist Foot & Ankle Surgery
PROC: (CPT 28192; principal; 2022-08-22 07:00)
DX: S91.342A Puncture wound with foreign body, left foot, initial encounter (principal); I10 Essential (primary) hypertension; J45.909 Unspecified asthma, uncomplicated; E11.9 Type 2 diabetes mellitus without complications; E78.5 Hyperlipidemia, unspecified; E66.01 Morbid (severe) obesity due to excess calories; Z68.38 Body mass index [BMI] 38.0-38.9, adult; Z79.4 Long term (current) use of insulin; Z79.84 Long term (current) use of oral hypoglycemic drugs; W45.8XXA Other foreign body or object entering through skin, initial encounter
CPT/HCPCS: 28192; 36415; 36416; 73620; 76000; 80048; 82962; 87070; 87075; 87205; J0131; J0690; J2704; J3010; J3490; J7030

== ENCOUNTER → 2022-08-30 14:37 | Outpatient (BNVA) | payer MEDICAID, SELFPAY | PROVIDERS: PCP Registered Nurse; Visit Provider Nurse Practitioner Family | DX: B07.8 Other viral warts (principal); D22.5 Melanocytic nevi of trunk; L81.4 Other melanin hyperpigmentation; L85.3 Xerosis cutis; L30.8 Other specified dermatitis | CPT/HCPCS: 11900; 17110; 99213 ==

== ENCOUNTER → 2022-08-31 13:23 | Outpatient (BNVA) | payer MEDICAID, SELFPAY | PROVIDERS: PCP Registered Nurse; Visit Provider Podiatrist Foot & Ankle Surgery | DX: Z98.890 Other specified postprocedural states (principal) | CPT/HCPCS: 99024 ==

== ENCOUNTER → 2022-10-04 10:47 | Outpatient (BNVA) | payer MEDICAID, SELFPAY | PROVIDERS: PCP Registered Nurse; Visit Provider Surgery | DX: R22.41 Localized swelling, mass and lump, right lower limb (principal) | CPT/HCPCS: 99203 ==

== ENCOUNTER → 2022-10-17 10:51 | Outpatient (BNVA) | payer MEDICAID, SELFPAY | PROVIDERS: PCP Registered Nurse; Visit Provider Podiatrist Foot & Ankle Surgery | DX: B35.1 Tinea unguium (principal); G62.9 Polyneuropathy, unspecified; L85.3 Xerosis cutis; L84 Corns and callosities; E11.42 Type 2 diabetes mellitus with diabetic polyneuropathy; Z79.84 Long term (current) use of oral hypoglycemic drugs; Z79.4 Long term (current) use of insulin | CPT/HCPCS: 11721 ==

== ENCOUNTER 2022-10-27 08:35 | Day surgery (SDC) | payer MEDICAID, SELFPAY ==
[2022-10-26 12:00] VITALS: BMI 38.7
[2022-10-27] VITALS (9 sets, daily range): BP systolic 106–143; BP diastolic 69–82; PULSE 80–89; RESP 6–17; TEMP 36.3–36.9; O2SAT 95–99
[2022-10-27] MEDS: sodium chloride 0.9% 1,000 ML 30 ML IV (09:28)
--- NOTE | 2022-10-27 09:28 | W.PM.OPSUD ---
Surgery/Procedure H&P Update DATE OF PROCEDURE: October 27, 2022 DATE H&P PERFORMED: 10/04/22 H&P UPDATE INFORMATION: I have reviewed H&P completed within last 30 days, I have examined patient prior to procedure and No changes to prior documentation PLANNED PROCEDURE: Operation Date: 10/27/22 13:35 Proposed Procedures p 81500- excision of subcutaneous mass right hip R22.41(Right) - James Ely DO
--- NOTE | 2022-10-27 10:03 | ANES.PREANE2 ---
Pre-Anesthetic Assessment Height/Weight: Height 1.73 m Weight 115.666 kg O2 Del Method Room Air 10/27/22 09:06 Operation Date: 10/27/22 13:35 Proposed Procedures p 77940- excision of subcutaneous mass right hip R22.41(Right) - James Ely DO Familial anesthetic complications: none Was Beta Brittnee taken within 24 hours: N/A Was Clonidine taken within 24 hours: N/A Last intake: Intake Last Liquid Date 10/26/22 Last Liquid Time 20:00 Last Solid Date 10/26/22 Last Solid Time 20:00 Social No alcohol and No tobacco Exam alert, oriented x 3, clear to auscultation bilaterally and regular rate & rhythm Airway Submandibular: within normal limits Cervical ROM: within normal limits Mallampati: Class II Dentition: full Pulmonary Asthma CV/HEM Hypertension Metabolic Diabetes Mellitus, Hyperlipidemia and Morbid Obesity Neuropsych Cerebrovascular Accident and Neuropathy Anesthetic Plan ASA status: 3 Anesthesia: General Medications/Allergies Home Medications Medication Instructions Recorded Confirmed Last Taken Type albuterol sulfate 90 mcg/actuation 2 puff inhalation Q6H PRN Dyspnea 12/18/19 10/26/22 10/19/22 History aerosol inhaler (ProAir HFA) allopurinol 300 mg tablet 300 mg PO DAILY 12/18/19 10/26/22 10/26/22 History baclofen 10 mg tablet 10 mg PO DAILY PRN Pain 12/18/19 10/26/22 08/21/22 History dicyclomine 10 mg capsule 10 mg PO BID PRN Stomach Cramps 12/18/19 10/26/22 10/26/22 History furosemide 20 mg tablet (Lasix) 20 mg PO DAILY 12/18/19 10/26/22 10/26/22 History gabapentin 400 mg capsule 800 mg PO QID 12/18/19 10/26/22 10/26/22 History hydrochlorothiazide 25 mg tablet 25 mg PO DAILY 12/18/19 10/26/22 10/26/22 History ipratropium 0.5 mg-albuterol 3 mg 3 ml inhalation QID PRN Dyspnea 12/18/19 10/26/22 12/31/19 History (2.5 mg base)/3 mL nebulization soln magnesium oxide 400 mg PO DAILY 12/18/19 10/27/22 10/26/22 History meclizine 25 mg tablet 25 mg PO DAILY PRN Dizziness 12/18/19 10/26/22 12/31/19 History metformin 1,000 mg tablet 1,000 mg PO BID 12/18/19 10/27/22 10/24/22 History prazosin 1 mg capsule 1 mg PO BID 12/18/19 10/26/22 10/26/22 History ropinirole 2 mg tablet 4 mg PO BID 12/18/19 10/27/22 10/27/22 07:00 History sucralfate 1 gram tablet 1 gm PO BID 12/18/19 10/26/22 10/26/22 History topiramate 50 mg capsule,extended 50 mg PO DAILY 12/18/19 10/27/22 10/26/22 History release 24 hr venlafaxine 150 mg 150 mg PO DAILY 12/18/19 10/26/22 10/26/22 History capsule,extended release 24 hr (Effexor XR) insulin syringe-needle U-100 0.3 #100 ea 03/16/21 10/17/22 Unknown Rx mL 31 gauge x 15/64 (BD Veo Insulin Syringe Ultra-Fine) insulin aspart U-100 100 unit/mL See Rx Instructions .Route .COMPLEX 08/15/21 10/26/22 10/26/22 History (3 mL) subcutaneous pen (Novolog FlexPen U-100 Insulin aspart) insulin degludec 200 unit/mL (3 70 unit SUBCUT BID 08/15/21 10/26/22 10/26/22 History mL) subcutaneous pen (Tresiba FlexTouch U-200 insulin) bupropion HCl 150 mg 24 hr tablet, 150 mg PO QPM 08/26/21 10/27/22 10/26/22 History extended release cholecalciferol (vitamin D3) 50 50 mcg PO DAILY 08/26/21 10/26/22 09/26/22 History mcg (2,000 unit) capsule (Vitamin D3) losartan 100 mg tablet 100 mg PO DAILY 08/26/21 10/26/22 10/26/22 History diabetic shoes #1 ea 10/22/21 10/17/22 Unknown Rx Diabetic Shoes #1 ea 11/01/21 10/17/22 Unknown Rx Diabetic Shoes #1 ea 11/17/21 10/17/22 Unknown Rx clindamycin phosphate 1 % topical 1 applic topical BID #30 grams 02/08/22 10/26/22 Unknown Rx gel tramadol 50 mg tablet 50 mg PO Q6H #12 tabs 08/22/22 10/26/22 10/25/22 Rx dapagliflozin 10 mg tablet 10 mg PO DAILY 10/26/22 10/26/22 10/26/22 History (Farxiwi) Allergies Allergy/AdvReac Type Severity Reaction Status Date / Time adhesive tape Allergy Severe ALGY-Hives Verified 10/17/22 11:12 amitriptyline Allergy Severe ALGY-Hives Verified 10/17/22 11:12 ciprofloxacin Allergy Severe ADR-Nausea Verified 10/17/22 11:12 exenatide [From Bydureon] Allergy Severe ALGY-Hives Verified 10/17/22 11:12 sumatriptan [From Imitrex] Allergy Severe ADR-Vomitin Verified 10/17/22 11:12 g metoclopramide [From Reglan] Allergy Unknown Verified 10/17/22 11:12 shrimp Allergy ALGY-Rash Verified 10/26/22 11:51 Current Medications Generic Name Dose Route Start Last Admin Trade Name Freq PRN Reason Stop Dose Admin Sodium Chloride 1,000 mls @ 30 mls/hr 10/27/22 09:00 10/27/22 09:28 Sodium Chloride 0.9% IV 10/28/22 08:59 30 mls/hr .Q24H HEIDY Administration PFSH Anesthesia Medical History (Updated 10/23/22 @ 17:06 by James Ely DO) Abdominal pain Anemia Asthma Depression Diabetes Duodenitis without bleeding GERD (gastroesophageal reflux disease) Gout HX: benign breast biopsy off tongue Dr. Adan Hypertension Morbid obesity with BMI of 40.0-44.9, adult Nausea & vomiting PTSD (post-traumatic stress disorder) RLS (restless legs syndrome) Surgical History (Updated 10/23/22 @ 17:06 by James Ely DO) History of esophagogastroduodenoscopy (EGD) Hx of dilation and curettage x3 Family History Other Hypertension Social History Smoking and tobacco status: never smoked Alcohol intake: current Data Anesthesia Cardiac Studies: Echocardiogram 08/15/21 Cardiac Event Monitor 08/24/21
[2022-10-27] MEDS: ceFAZolin 2,000 MG in sodium chloride 0.9% (plus) 50 ML 100 MG IV (11:18)
--- NOTE | 2022-10-27 11:39 | P.OP_ITS ---
Operative Report Date of procedure: October 27, 2022 Pre-op diagnosis: Subcutaneous mass right lower extremity Post-op diagnosis: same Procedure done: Excision subcutaneous mass right lower extremity Specimens removed/disposition: Subcutaneous mass right lower extremity Surgeon: Dr. James Ely DO Anesthesia: General Estimated blood loss (mL): 2 Complications: None apparent Brief History: This very pleasant 56-year-old female came my office with a growing subcutaneous mass on her right hip/lower extremity. She desired excision. The risk benefits were explained and documented. Procedure: Patient is well in operative room placed on the OR table in supine position. General trach intubation was achieved by department anesthesia. Patient was then placed into the left lateral decubitus position. Right hip was inspected prepped and draped in usual sterile fashion. Timeout was performed. All present were in agreement. 2% lidocaine with epinephrine was used to anesthetize the area over the subcutaneous mass. A 15 blade scalpel was then used to make an S shaped incision, and effort to keep the incision small, using blunt manipulation and electrocautery to cut alveolar tissue a large subcutaneous mass consistent with a lipoma was expelled. Mass measured approximately 12 cm x 10 cm x 9 cm. Specimen was passed off. Hemostasis was achieved with electrocautery. The wound was then irrigated with normal saline. Dermis was closed with 3-0 Vicryl in a subcuticular fashion. Skin was closed w ith 4-0 Monocryl in a running subcuticular fashion. Dermabond was applied. Patient tolerated the procedure well
--- NOTE | 2022-10-27 13:44 | ANE.PACU2 ---
Inpatient post-anesthesia follow up: Airway intact: Yes Vital signs: Temperature 97.3 F Pulse Rate 85 Respiratory Rate 16 Blood Pressure 122/75 Pulse Oximetry 99 Oxygen Delivery Me thod Room Air Oxygen Flow Rate 6 Fraction of Inspir ed Oxygen Hydration adequate: Yes Nausea and vomiting: No Pain level: 1 Mental status: Baseline
[2022-10-28 06:40] LABS: Glucose Point of Care 156 mg/dL (70-110)
== END 2022-10-27 14:30 | disposition home or self-care (01) ==
PROVIDERS: PCP Registered Nurse; Visit Provider Surgery
PROC: (CPT 11406; principal; 2022-10-27 13:25)
DX: D17.23 Benign lipomatous neoplasm of skin and subcutaneous tissue of right leg (principal); I10 Essential (primary) hypertension; E11.9 Type 2 diabetes mellitus without complications; E78.5 Hyperlipidemia, unspecified; E66.01 Morbid (severe) obesity due to excess calories; Z68.38 Body mass index [BMI] 38.0-38.9, adult; Z86.73 Personal history of transient ischemic attack (TIA), and cerebral infarction without residual deficits; Z79.4 Long term (current) use of insulin
CPT/HCPCS: 11406; 12034; 36416; 82962; 88304; J0690; J2704; J3010; J7030

== ENCOUNTER 2022-10-31 06:15 | Emergency (ER) | payer MEDICAID, SELFPAY ==
[2022-10-31 06:16] VITALS: BP 146/82; PULSE 89; RESP 18; TEMP 36.8; O2SAT 95; BMI 38.7
--- NOTE | 2022-10-31 06:55 | XRR_ITS ---
PROCEDURE INFORMATION: Exam: XR Chest Exam date and time: 10/31/2022 7:28 AM Age: 56 years old Clinical indication: Cough and dyspnea; Additional info: Dyspnea/cough TECHNIQUE: Imaging protocol: Radiologic exam of the chest. Views: 1 view. Total images: 1 COMPARISON: CR XR chest 1V portable [id number] 08/26/2021 9:06 PM FINDINGS: Lungs: Benign granulomatous disease of the lung is noted. Pleural spaces: Unremarkable. No pleural effusion. No pneumothorax. Heart/Mediastinum: Unremarkable. No cardiomegaly. Bones/joints: Unremarkable. XR/XR chest 1V portable [id number] IMPRESSION: No acute cardiopulmonary process.
--- NOTE | 2022-10-31 06:55 | ECG_ITS ---
[facility] Test Date: 2022-10-31 Pat Name: Paradise Samano Department: Room: Gender: Female Platform Stapler: : 1965 Requested By: Demetrio Anaya Order Number: [id number] Kris MD: Rasheeda Mcguire M.D. Measurements Intervals [place] Rate: 82 P: 4 IA: 143 QRS: 52 QRSD: 91 T: 85 QT: 389 QTc: 455 Interpretive Statements SINUS RHYTHM Compared to ECG 08/26/2021 21:27:52 T-wave abnormality no longer present Electronically Signed On 10-31-2022 11:08:18 CDT by Rasheeda Mcguire M.D. [email or web address] [id number]
[2022-10-31 07:01] LABS: Basophils % 0.3 %; Eosinophils # 0.3 10^3/uL (0.0-0.8); Eosinophils % 2.7 %; Hematocrit 37.7 % (37.0-47.0); Hemoglobin 11.6 g/dL (11.5-15.3); Lymphocytes # 3.1 10^3/uL (0.8-4.8); Lymphocytes % 28.8 %; Mean Corpuscular HGB Conc 30.8 g/dL (30.0-36.0); Mean Corpuscular Hemoglobin 25.6 pg (28.0-34.0); Mean Platelet Volume 11.8 fL (7.4-10.4); Monocytes # 0.6 10^3/uL (0.2-0.9); Monocytes % 5.2 %; Neutrophils # 6.83 10^3/uL (1.8-7.7); Neutrophils % 62.7 %; Nucleated Red Blood Cells % 0 %; Platelet Count 225 10^3/cmm (130-400); Red Blood Count 4.54 10^6/uL (4.1-5.3); White Blood Count 10.9 10^3/uL (4.0-10.0)
[2022-10-31] MEDS: sodium chloride 0.9% 1,000 ML 999 ML IV (07:10)
[2022-10-31 07:11] VITALS: BP 146/82; PULSE 83; RESP 18; O2SAT 94
--- NOTE | 2022-10-31 07:13 | ED_ITS ---
HPI - Seizure General: Chief Complaint: Seizure Stated Complaint: Confusion/Seizure Time Seen by Provider: 10/31/22 06:19 Source: patient Mode of arrival: EMS History of Present Illness: HPI Narrative: 56-year-old female presents to the emergency room with a complaint of generally not feeling well. Patient is 4 days postop excision of a hip lipoma from her right hip. She denies chest pain or shortness of breath. She does have some mild dysuria. No nausea vomiting or diarrhea. She had an episode this morning where she thought she was having a headache then became slightly confused she described as foggy. This lasted very briefly in the order of minutes and then resolved. On arrival here she is emotional but does not have any focal complaints. Her strength is symmetrical no facial asymmetry or weakness noted. MD complaint: possible seizure Onset (ago): minute(s) Trauma: No Seizure History: No Place: Home Possible Precipitating Event: none Associated symptoms: Deny chest pain, chills, confusion, cough, diaphoresis, fever(s), anorexia, malaise, rash, short of breath, syncope or weakness Treatments prior to arrival: none Review of Systems Const: Denies: fever(s), chills, malaise or diaphoresis Card: Denies: chest pain or syncope Neuro: Denies: confusion PFSH ED PFSH: Medical History Abdominal pain Anemia Asthma Depression Diabetes Duodenitis without bleeding GERD (gastroesophageal reflux disease) Gout HX: benign breast biopsy off tongue Dr. Adan Hypertension Morbid obesity with BMI of 40.0-44.9, adult Nausea & vomiting PTSD (post-traumatic stress disorder) RLS (restless legs syndrome) Surgical History History of esophagogastroduodenoscopy (EGD) Hx of dilation and curettage x3 S/P excision of lipoma Right hip 12 x 10 x 9 cm Family History Other Hypertension Social History Smoking and tobacco status: never smoked Alcohol intake: current Physical Exam Const: GENERAL APPEARANCE: cooperative and comfortable ORIENTATION/CONSCIOUSNESS: Yes awake, Yes oriented to person, Yes oriented to place and Yes oriented to time HENMT: COMMON NORMALS: normocephalic, atraumatic and hearing grossly normal bilaterally HEAD & SCALP: normocephalic and atraumatic Resp: COMMON NORMALS: normal respiratory effort, No retractions, No use of accessory muscles and clear to auscultation bilaterally AUSCULTATION: clear to auscultation bilaterally Cardio: COMMON NORMALS: regular rate, regular rhythm and No murmurs present (Cardio) RATE: regular rate RHYTHM: regular rhythm GI: COMMON NORMALS: Soft to palpation and No hepatosplenomegaly present AUSCULTATION: Yes normoactive bowel sounds PALPATION: Yes Soft to palpation, No Tenderness to palpation present (GI), No Guarding due to palpation present (GI) and Yes No hepatosplenomegaly present OTHER: Ecchymosis over the right hip at the site of the recent lipoma excision no drainage no erythema no induration no sign of infection Extremity: COMMON NORMALS: normal to inspection, capillary refill normal, no clubbing, cyanosis or edema, no calf tenderness and no pedal edema Neuro: SENSORIUM/ORIENTATION: Yes oriented to person, Yes oriented to place and Yes oriented to time Skin: COMMON NORMALS: no rashes or lesions noted GENERAL SKIN EXAM: no rashes or lesions noted Course Vital Signs: Vital signs: Vital Signs Temperature 98.3 F 10/31/22 06:16 Pulse Rate 83 10/31/22 08:15 Respiratory Rate 20 H 10/31/22 08:15 Blood Pressure 123/55 10/31/22 08:15 Pulse Oximetry 96 10/31/22 08:15 Oxygen Delivery Me thod Room Air 10/31/22 08:14 MDM - Seizure MDM Narrative Medical decision making narrative: Patient has mild cystitis given Rocephin in the emergency room and will discharge patient home with Macrobid for 7 days. No focal neurologic deficits no postictal state. She was concerned she may have had a seizure clinically does not appear so CPK and lactic were normal. We will schedule outpatient EEG and neurology follow-up. Medical Records Attestation: I reviewed the patient's medical records. Lab Data Attestation: I reviewed the patient's lab results. 10/31/22 05:25 10/31/22 05:25 Labs: Radiology Impressions Chest X-Ray 10/31/22 06:55 IMPRESSION: No acute cardiopulmonary process. Laboratory Results WBC 10.9 10^3/uL (4.0-10.0) H 10/31/22 05:25 RBC 4.54 10^6/uL (4.1-5.3) 10/31/22 05:25 Hgb 11.6 g/dL (11.5-15.3) 10/31/22 05:25 Hct 37.7 % (37.0-47.0) 10/31/22 05:25 MCV 83.0 fl (81-99) 10/31/22 05:25 MCH 25.6 pg (28.0-34.0) L 10/31/22 05:25 MCHC 30.8 g/dL (30.0-36.0) 10/31/22 05:25 RDW 15.0 % (12.1-15.1) 10/31/22 05:25 Plt Count 225 10^3/cmm (130-400) 10/31/22 05:25 MPV 11.8 fL (7.4-10.4) H 10/31/22 05:25 Neut % (Auto) 62.7 % 10/31/22 05:25 Lymph % (Auto) 28.8 % 10/31/22 05:25 Clay % (Auto) 5.2 % 10/31/22 05:25 Eos % (Auto) 2.7 % 10/31/22 05:25 Baso % (Auto) 0.3 % 10/31/22 05:25 Neut # (Auto) 6.83 10^3/uL (1.8-7.7) 10/31/22 05:25 Lymph # (Auto) 3.1 10^3/uL (0.8-4.8) 10/31/22 05:25 Clay # (Auto) 0.6 10^3/uL (0.2-0.9) 10/31/22 05:25 Eos # (Auto) 0.3 10^3/uL (0.0-0.8) 10/31/22 05:25 Baso # (Auto) 0.0 10^3/uL (0.0-0.1) 10/31/22 05:25 Nucleated RBC % (auto) 0 % 10/31/22 05:25 Nucleated RBCs # 0.0 /100WBC 10/31/22 05:25 Sodium 137 mmol/L (136-145) 10/31/22 05:25 Potassium 3.5 mmol/L (3.5-5.1) 10/31/22 05:25 Chloride 99 mmol/L (98-107) 10/31/22 05:25 Carbon Dioxide 28 mmol/L (22-29) 10/31/22 05:25 Anion Gap 13.5 (5-19) 10/31/22 05:25 BUN 14 mg/dL (6-20) 10/31/22 05:25 Creatinine 0.8 mg/dL (0.5-0.9) 10/31/22 05:25 GFR Calculation 74.5 mL/min (90-130) L 10/31/22 05:25 Glucose 153 mg/dL (65-115) H 10/31/22 05:25 Calculated Osmolality 288 mOsm/kg (285-295) 10/31/22 05:25 Lactic Acid 2.0 mmol/L (0.5-2.2) 10/31/22 05:25 Calcium 8.8 mg/dL (8.5-10.5) 10/31/22 05:25 Total Bilirubin 0.5 mg/dL (0.15-1.2) 10/31/22 05:25 AST 17 U/L (0-32) 10/31/22 05:25 ALT 21 U/L (0-33) 10/31/22 05:25 Alkaline Phosphatase 122 U/L (35-105) H 10/31/22 05:25 Creatine Kinase 60 U/L (26-192) 10/31/22 05:25 Total Protein 8.0 g/dL (6.6-8.7) 10/31/22 05:25 Albumin 4.0 g/dL (3.5-5.2) 10/31/22 05:25 Globulin 4.0 g/dL (1.3-4.6) 10/31/22 05:25 Lipase 44 U/L (13-60) 10/31/22 05:25 Urine Color Yellow (Yellow) 10/31/22 06:31 Urine Appearance Clear (CLEAR) 10/31/22 06:31 Urine pH 7 (5-7) 10/31/22 06:31 Ur Specific [place] 1.010 (1.005-1.030) 10/31/22 06:31 Urine Protein Neg (Negative) 10/31/22 06:31 Urine Glucose (UA) 4+ (Normal) H 10/31/22 06:31 Urine Ketones Negative (Negative) 10/31/22 06:31 Urine Blood Neg (Negative) 10/31/22 06:31 Urine Nitrate Negative (Negative) 10/31/22 06:31 Urine Bilirubin Neg (Negative) 10/31/22 06:31 Urine Urobilinogen Norm mg/dL (Negative) 10/31/22 06:31 Ur Leukocyte Esterase 2+ (Negative) H 10/31/22 06:31 Urine RBC 0-4 /hpf (0-2) H 10/31/22 06:31 Urine WBC 15-25 /hpf (0-5) H 10/31/22 06:31 Ur Squamous Epith Cells 5-10 /hpf (0-5) H 10/31/22 06:31 Amorphous Sediment Not Reportable 10/31/22 06:31 Urine Bacteria 1+ /hpf (NONE) H 10/31/22 06:31 Discharge Plan Discharge Patient Disposition: Home Clinical Impression: Cystitis, Seizure Condition: Stable Prescriptions: New Macrobid 100 mg capsule 100 mg PO BID 7 Days Qty: 14 0RF Rx Instructions: must administer with a meal/food No Action furosemide [Lasix] 20 mg tablet 20 mg PO DAILY ropinirole 2 mg tablet 4 mg PO BID hydrochlorothiazide 25 mg tablet 25 mg PO DAILY dicyclomine 10 mg capsule 10 mg PO BID PRN (Reason: Stomach Cramps) prazosin 1 mg capsule 1 mg PO BID venlafaxine [Effexor XR] 150 mg capsule,extended release 24hr 150 mg PO DAILY ipratropium-albuterol 0.5 mg-3 mg(2.5 mg base)/3 mL solution for nebulization 3 ml INHALATION QID PRN (Reason: Dyspnea) albuterol sulfate [ProAir HFA] 90 mcg/actuation HFA aerosol inhaler 2 puff INHALATION Q6H PRN (Reason: Dyspnea) sucralfate 1 gram tablet 1 gm PO BID magnesium oxide 400 mg magnesium capsule 400 mg PO DAILY gabapentin 400 mg capsule 800 mg PO QID topiramate 50 mg capsule,extended release 24hr 50 mg PO DAILY allopurinol 300 mg tablet 300 mg PO DAILY baclofen 10 mg tablet 10 mg PO DAILY PRN (Reason: Pain) metformin 1,000 mg tablet 1,000 mg PO BID meclizine 25 mg tablet 25 mg PO DAILY PRN (Reason: Dizziness) (DME) diabetic shoes See Rx Instructions .Route .MEDSUPPLY Qty: 1 0RF Rx Instructions: As directed clindamycin phosphate 1 % gel 1 applic topical BID Qty: 30 2RF (DME) insulin syringe-needle U-100 [BD Veo Insulin Syringe UF] 0.3 mL 31 gauge x 15/64 syringe See Rx Instructions .ROUTE .MEDSUPPLY Qty: 100 3RF Rx Instructions: As directed (DME) Diabetic Shoes See Rx Instructions .Route .MEDSUPPLY Qty: 1 0RF Rx Instructions: As directed (DME) Diabetic Shoes See Rx Instructions .Route .MEDSUPPLY Qty: 1 0RF Rx Instructions: As directed insulin aspart U-100 [Novolog FlexPen U-100 Insulin] 100 unit/mL (3 mL) insulin pen See Rx Instructions .ROUTE .COMPLEX Rx Instructions: PER SLIDING SCALE insulin degludec [Tresiba FlexTouch U-200] 200 unit/mL (3 mL) insulin pen 70 unit SUBCUT BID Rx Instructions: Inject 70 units subcut daily. losartan 100 mg Tablet 100 mg PO DAILY bupropion HCl 150 mg Tablet Extended Release 24 Hr 150 mg PO QPM cholecalciferol (vitamin D3) [Vitamin D3] 50 mcg (2,000 unit) Capsule 50 mcg PO DAILY Farxiga 10 mg tablet 10 mg PO DAILY hydrocodone-acetaminophen 10-325 mg tablet 1 tab PO Q6H PRN (Reason: pain) Qty: 15 0RF Rx Instructions: May take half of a tab at a time Colace 100 mg capsule 100 mg PO BID Qty: 14 0RF tramadol 50 mg tablet 50 mg PO Q6H Qty: 12 0RF Hold Instructions: Resume on 11/01/22. Discharge Orders: Discharge ED (Routine); Ordered 10/31/22 Ordered By: Demetrio Younegr Referrals: Cheryl Purcell [Primary Care Provider] - Discharge Diet: As Directed Discharge Activity: Increase activity as tolerated Patient Instructions: Opioid Safety, Pain Management Activity Restrictions/Additional Instructions: You are seen in the emergency room for possible seizure and generally not feeling well. You did have a UTI which you were given IV antibiotics start the oral antibiotics tomorrow. We will set you up for an outpatient EEG and follow- up with neurology to evaluate further for seizure do not recommend initiating any antiseizure medicines at this time. Return if you have further problems. Coding Level of Care Code ED [employer] Designer for Carlos León
[2022-10-31 07:17] LABS: Alanine Aminotransferase 21 U/L (0-33); Alkaline Phosphatase 122 U/L (35-105); Anion Gap 13.5 (5-19); Aspartate Amino Transferase 17 U/L (0-32); Blood Urea Nitrogen 14 mg/dL (6-20); Calcium 8.8 mg/dL (8.5-10.5); Carbon Dioxide 28 mmol/L (22-29); Chloride 99 mmol/L (98-107); Creatine Phosphokinase 60 U/L (26-192); Glomerular Filtration Rate 74.5 mL/min (90-130); Glucose 153 mg/dL (65-115); Lipase 44 U/L (13-60); Osmolality Calculated 288 mOsm/kg (285-295); Potassium 3.5 mmol/L (3.5-5.1); Sodium 137 mmol/L (136-145); Total Bilirubin 0.5 mg/dL (0.15-1.2)
[2022-10-31 07:18] LABS: Blood Urine Neg (Negative); Glucose Urine UA 4+ (Normal); Ketones Urine Negative (Negative); Nitrate Urine Negative (Negative); Protein Urine Neg (Negative); Urine Appearance Clear (CLEAR); Urine Color Yellow (Yellow); pH Urine 7 (5-7)
[2022-10-31 07:19] LABS: Add Urine Culture? Yes; Add Urine Microscopic? YES; Bacteria Urine 1+ /hpf; Bilirubin Urine Neg (Negative); Leukocyte Esterase Urine 2+ (Negative); RBC Urine 0-4 /hpf (0-2); Urobilinogen Urine Norm (Negative); WBC Urine 15-25 /hpf (0-5)
[2022-10-31] MEDS: acetaminophen 500 mg Tablet 1000 MG PO (07:34)
[2022-10-31] MEDS: cefTRIAXone 1,000 MG in sodium chloride 0.9% (plus) 50 ML 100 MG IV (07:34)
[2022-10-31 07:37] VITALS: BP 123/55; PULSE 86; RESP 13; O2SAT 95
[2022-10-31 08:14] VITALS: BP 123/55; PULSE 83; RESP 20; O2SAT 96
[2022-10-31 08:15] VITALS: BP 123/55; PULSE 83; RESP 20; O2SAT 96
--- NOTE | 2022-10-31 10:51 | DCPLANNER ---
food safety manager had message to schedule an outpatient EEG for patient and a follow up appointment with neurology. food safety manager sent patients information to the front office staff at neurology, and faxed the signed order to neurology. Patients information will be reviewed, clinic will call patient with appointment information.
== END 2022-10-31 08:16 | disposition home or self-care (01) ==
PROVIDERS: Emergency Provider Family Medicine; PCP Registered Nurse
DX: R56.9 Unspecified convulsions (principal); N30.90 Cystitis, unspecified without hematuria; Z79.4 Long term (current) use of insulin; Z79.84 Long term (current) use of oral hypoglycemic drugs; E11.9 Type 2 diabetes mellitus without complications; I10 Essential (primary) hypertension
CPT/HCPCS: 36415; 71045; 80053; 81001; 82550; 83605; 83690; 85025; 87040; 87086; 93005; 99285; J0696; J7030

== ENCOUNTER → 2022-11-09 14:21 | Outpatient (BNVA) | payer MEDICAID, SELFPAY | PROVIDERS: PCP Registered Nurse; Visit Provider Surgery | DX: Z98.890 Other specified postprocedural states (principal); Z86.018 Personal history of other benign neoplasm | CPT/HCPCS: 99213 ==

== ENCOUNTER → 2022-11-17 11:02 | Outpatient (BNVA) | payer MEDICAID, SELFPAY | PROVIDERS: PCP Registered Nurse; Visit Provider Surgery | DX: T81.31XA Disruption of external operation (surgical) wound, not elsewhere classified, initial encounter (principal); T14.8XXA Other injury of unspecified body region, initial encounter; X58.XXXA Exposure to other specified factors, initial encounter | CPT/HCPCS: 99213 ==

== ENCOUNTER 2022-11-19 22:58 | Emergency (ER) | payer MEDICAID, SELFPAY ==
[2022-11-19 23:02] VITALS: BP 148/84; PULSE 83; RESP 18; TEMP 36.6; O2SAT 97; BMI 38.7
[2022-11-20 01:06] LABS: Basophils % 0.4 %; Eosinophils # 0.2 10^3/uL (0.0-0.8); Hematocrit 40.3 % (36-47); Lymphocytes % 13.9 %; Mean Corpuscular HGB Conc 30.8 g/dL (30-55); Mean Corpuscular Hemoglobin 25.5 pg (27-33); Mean Corpuscular Volume 82.8 fl (85-98); Mean Platelet Volume 10.6 fL (7.4-10.4); Monocytes # 0.5 10^3/uL (0.2-0.9); Monocytes % 6.8 %; Neutrophils # 5.65 10^3/uL (1.8-7.7); Neutrophils % 76.5 %; Nucleated Red Blood Cells % 0 %; Platelet Count 211 10^3/cmm (157-399); Red Blood Count 4.87 10^6/uL (3.85-5.65); Red Cell Distribution Width 15.1 % (12.1-15.1); White Blood Count 7.39 10^3/uL (3.29-11.43)
[2022-11-20 01:24] LABS: Blood Urea Nitrogen 26 mg/dL (6-20); Calcium 9.4 mg/dL (8.5-10.5); Carbon Dioxide 27 mmol/L (22-29); Chloride 102 mmol/L (98-107); Glomerular Filtration Rate 42.5 mL/min (90-130); Glucose 121 mg/dL (65-115); Lactic Sepsis W/Reflex 1.2 mmol/L (0.5-2.2); Osmolality Calculated 294 mOsm/kg (285-295); Sodium 139 mmol/L (136-145)
[2022-11-20 02:05] LABS: Bilirubin Urine Neg (Negative); Blood Urine Neg (Negative); Glucose Urine UA 4+ (Normal); Ketones Urine Negative (Negative); Leukocyte Esterase Urine 1+ (Negative); Nitrate Urine Negative (Negative); Protein Urine Neg (Negative); Specific Gravity, Urine 1.005 (1.005-1.030); Urine Appearance Clear (CLEAR); Urine Color Yellow (Yellow); Urobilinogen Urine Neg (Negative); pH Urine 7 (5-7)
[2022-11-20 02:06] LABS: Add Urine Culture? No; Add Urine Microscopic? YES; Squamous Epithelial Cell Urine RARE /hpf (0-5); WBC Urine 0-4 /hpf (0-5)
[2022-11-20] MEDS: clindamycin 150 mg Capsule 300 MG PO (02:59)
--- NOTE | 2022-11-20 03:00 | ECG_ITS ---
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 Measurements Intervals [place] Rate: 80 P: -5 MI: 127 QRS: 56 QRSD: 86 T: 61 QT: 340 QTc: 392 Interpretive Statements SINUS RHYTHM Compared to ECG 10/31/2022 07:08:44 No significant changes Electronically Signed On 11-20-2022 10:54:23 CDT by Felix Turner M.D. [id number]
[2022-11-20 04:15] VITALS: BP 122/61; PULSE 92; O2SAT 98
--- NOTE | 2022-11-20 17:21 | ED_ITS ---
HPI - Skin/Abscess/Foreign Bdy General: Chief complaint: Skin/Abscess/Foreign Body Stated complaint: surgery, possible infection Time Seen by Provider: 11/20/22 01:07 Source: patient History of Present Illness: 56 year old female who had a lipoma removed from her right posterior hip. Surgical incision dehisced, and was left open. She was placed on cephalexin first, but it caused throat tightness, and then switched to bactrim. She has had four doses of bactrim. She has some pungent drainage from the wound she says. Mild increased redness. She is afraid it is getting infected. Associated symptoms: Deny chills, fever(s) or vomiting Review of Systems Const: Denies: fever(s) or chills Resp: Denies: dyspnea GI: Denies: abdominal pain or vomiting PFSH ED PFSH: Medical History Abdominal pain Anemia Asthma Depression Diabetes Duodenitis without bleeding GERD (gastroesophageal reflux disease) Gout HX: benign breast biopsy off tongue Dr. Adan Hypertension Morbid obesity with BMI of 40.0-44.9, adult Nausea & vomiting PTSD (post-traumatic stress disorder) RLS (restless legs syndrome) Surgical History History of esophagogastroduodenoscopy (EGD) Hx of dilation and curettage x3 S/P excision of lipoma Right hip 12 x 10 x 9 cm Family History Other Hypertension Social History Smoking and tobacco status: never smoked Alcohol intake: current Physical Exam Const: COMMON NORMALS: no acute distress GENERAL APPEARANCE: cooperative; not ill appearing and not frail appearing HENMT: COMMON NORMALS: normocephalic, atraumatic and Normal external nose present HEAD & SCALP: normocephalic and atraumatic FACE & SINUS: normal facial exam and face symmetric NOSE: Normal external nose present Eye: COMMON NORMALS: Equal, round and reactive pupils present and EOMs intact bilaterally PUPIL: Yes Equal, round and reactive pupils present Neck/C-Spine: GENERAL: Yes trachea midline Chest: CHEST: Yes Symmetrical chest wall rise Resp: COMMON NORMALS: normal respiratory effort, No retractions, No use of accessory muscles and clear to auscultation bilaterally AUSCULTATION: clear to auscultation bilaterally Cardio: COMMON NORMALS: regular rate and regular rhythm RATE: regular rate RHYTHM: regular rhythm GI: COMMON NORMALS: Normal to inspection, nondistended, normoactive bowel sounds present Extremity: COMMON NORMALS: no pedal edema Neuro: ELIA COMA SCALE: document GCS findings Elia coma scale eye opening: Spontaneous Elia coma scale verbal response: Orientated [place] coma scale motor response: Obey commands [place] coma scale total score: 15 SENSORY EXAM: Yes extremities (intact) Psych: COMMON NORMALS: speech normal SPEECH: Yes normal speech Skin: NARRATIVE SKIN EXAM: 6 centimeter clean bordered incision to the right posterior hip is open. Minimal redness surrounding incision. Serosanguinus drainage present. No streaking. The floor of the incision is in subcutaneous tissue. Course Vital Signs: Vital signs: Vital Signs Temperature 97.8 F 11/19/22 23:02 Pulse Rate 92 11/20/22 04:15 Respiratory Rate 18 11/19/22 23:02 Blood Pressure 122/61 11/20/22 04:15 Pulse Oximetry 98 11/20/22 04:15 MDM - Skin/Abscess/Foreign Bdy Medicial Decision Making Minimal drainage. She is not overly cellulitic. Wound will be packed with iodoform gauze, telfa pad placed over it. Supplies sent home with her to change dressing daily. Follow up for wound check in two to three days. We will switch her from bactrim to Clindamycin. Lab Data 11/20/22 00:55 11/20/22 00:55 Laboratory Results WBC 7.39 10^3/uL (3.29-11.43) 11/20/22 00:55 RBC 4.87 10^6/uL (3.85-5.65) 11/20/22 00:55 Hgb 12.40 g/dL (11.27-16.99) 11/20/22 00:55 Hct 40.3 % (36-47) 11/20/22 00:55 MCV 82.8 fl (85-98) L 11/20/22 00:55 MCH 25.5 pg (27-33) L 11/20/22 00:55 MCHC 30.8 g/dL (30-55) 11/20/22 00:55 RDW 15.1 % (12.1-15.1) 11/20/22 00:55 Plt Count 211 10^3/cmm (157-399) 11/20/22 00:55 MPV 10.6 fL (7.4-10.4) H 11/20/22 00:55 Neut % (Auto) 76.5 % 11/20/22 00:55 Lymph % (Auto) 13.9 % 11/20/22 00:55 [place] % (Auto) 6.8 % 11/20/22 00:55 Eos % (Auto) 2.0 % 11/20/22 00:55 Baso % (Auto) 0.4 % 11/20/22 00:55 Neut # (Auto) 5.65 10^3/uL (1.8-7.7) 11/20/22 00:55 Lymph # (Auto) 1.0 10^3/uL (0.8-4.8) 11/20/22 00:55 [place] # (Auto) 0.5 10^3/uL (0.2-0.9) 11/20/22 00:55 Eos # (Auto) 0.2 10^3/uL (0.0-0.8) 11/20/22 00:55 Baso # (Auto) 0.0 10^3/uL (0.0-0.1) 11/20/22 00:55 Nucleated RBC % (auto) 0 % 11/20/22 00:55 Nucleated RBCs # 0.0 /100WBC 11/20/22 00:55 Sodium 139 mmol/L (136-145) 11/20/22 00:55 Potassium 4.0 mmol/L (3.5-5.1) 11/20/22 00:55 Chloride 102 mmol/L (98-107) 11/20/22 00:55 Carbon Dioxide 27 mmol/L (22-29) 11/20/22 00:55 Anion Gap 14.0 (5-19) 11/20/22 00:55 BUN 26 mg/dL (6-20) H 11/20/22 00:55 Creatinine 1.3 mg/dL (0.5-0.9) H 11/20/22 00:55 GFR Calculation 42.5 mL/min (90-130) L 11/20/22 00:55 Glucose 121 mg/dL (65-115) H 11/20/22 00:55 Calculated Osmolality 294 mOsm/kg (285-295) 11/20/22 00:55 Lactic Acid 1.2 mmol/L (0.5-2.2) 11/20/22 00:55 Calcium 9.4 mg/dL (8.5-10.5) 11/20/22 00:55 Urine Color Yellow (Yellow) 11/20/22 Unknown Urine Appearance Clear (CLEAR) 11/20/22 Unknown Urine pH 7 (5-7) 11/20/22 Unknown Ur Specific [place] 1.005 (1.005-1.030) 11/20/22 Unknown Urine Protein Neg (Negative) 11/20/22 Unknown Urine Glucose (UA) 4+ (Normal) H 11/20/22 Unknown Urine Ketones Negative (Negative) 11/20/22 Unknown Urine Blood Neg (Negative) 11/20/22 Unknown Urine Nitrate Negative (Negative) 11/20/22 Unknown Urine Bilirubin Neg (Negative) 11/20/22 Unknown Urine Urobilinogen Neg mg/dL (Negative) 11/20/22 Unknown Ur Leukocyte Esterase 1+ (Negative) H 11/20/22 Unknown Urine RBC None /hpf (0-2) 11/20/22 Unknown Urine WBC 0-4 /hpf (0-5) H 11/20/22 Unknown Ur Squamous Epith Cells Rare /hpf (0-5) 11/20/22 Unknown Amorphous Sediment Not Reportable 11/20/22 Unknown Urine Bacteria None /hpf (NONE) 11/20/22 Unknown Discharge Plan Discharge Patient Disposition: Home Clinical Impression: Postoperative dehiscence of skin wound Condition: Stable Prescriptions: New clindamycin HCl 300 mg capsule 300 mg PO Q6H 10 Days Qty: 40 0RF No Action furosemide [Lasix] 20 mg tablet 20 mg PO DAILY ropinirole 2 mg tablet 4 mg PO BID hydrochlorothiazide 25 mg tablet 25 mg PO DAILY dicyclomine 10 mg capsule 10 mg PO BID PRN (Reason: Stomach Cramps) prazosin 1 mg capsule 1 mg PO BID venlafaxine [Effexor XR] 150 mg capsule,extended release 24hr 150 mg PO DAILY ipratropium-albuterol 0.5 mg-3 mg(2.5 mg base)/3 mL solution for nebulization 3 ml INHALATION QID PRN (Reason: Dyspnea) albuterol sulfate [ProAir HFA] 90 mcg/actuation HFA aerosol inhaler 2 puff INHALATION Q6H PRN (Reason: Dyspnea) sucralfate 1 gram tablet 1 gm PO BID magnesium oxide 400 mg magnesium capsule 400 mg PO DAILY gabapentin 400 mg capsule 800 mg PO QID topiramate 50 mg capsule,extended release 24hr 50 mg PO DAILY allopurinol 300 mg tablet 300 mg PO DAILY baclofen 10 mg tablet 10 mg PO DAILY PRN (Reason: Pain) metformin 1,000 mg tablet 1,000 mg PO BID meclizine 25 mg tablet 25 mg PO DAILY PRN (Reason: Dizziness) sulfamethoxazole-trimethoprim [Bactrim DS] 800-160 mg tablet 1 tab PO BID 14 Days Qty: 28 0RF (DME) diabetic shoes See Rx Instructions .Route .MEDSUPPLY Qty: 1 0RF Rx Instructions: As directed clindamycin phosphate 1 % gel 1 applic topical BID Qty: 30 2RF (DME) insulin syringe-needle U-100 [BD Veo Insulin Syringe UF] 0.3 mL 31 gauge x 15/64 syringe See Rx Instructions .ROUTE .MEDSUPPLY Qty: 100 3RF Rx Instructions: As directed (DME) Diabetic Shoes See Rx Instructions .Route .MEDSUPPLY Qty: 1 0RF Rx Instructions: As directed (DME) Diabetic Shoes See Rx Instructions .Route .MEDSUPPLY Qty: 1 0RF Rx Instructions: As directed insulin aspart U-100 [Novolog FlexPen U-100 Insulin] 100 unit/mL (3 mL) insulin pen See Rx Instructions .ROUTE .COMPLEX Rx Instructions: PER SLIDING SCALE insulin degludec [Tresiba FlexTouch U-200] 200 unit/mL (3 mL) insulin pen 70 unit SUBCUT BID Rx Instructions: Inject 70 units subcut daily. losartan 100 mg Tablet 100 mg PO DAILY bupropion HCl 150 mg Tablet Extended Release 24 Hr 150 mg PO QPM cholecalciferol (vitamin D3) [Vitamin D3] 50 mcg (2,000 unit) Capsule 50 mcg PO DAILY Farxiga 10 mg tablet 10 mg PO DAILY hydrocodone-acetaminophen 10-325 mg tablet 1 tab PO Q6H PRN (Reason: pain) Qty: 15 0RF Rx Instructions: May take half of a tab at a time Colace 100 mg capsule 100 mg PO BID Qty: 14 0RF tramadol 50 mg tablet 50 mg PO Q6H Qty: 12 0RF Hold Instructions: Resume on 11/01/22. Discharge Orders: Discharge ED (Routine); Ordered 11/20/22 Ordered By: Sd Schmidt Referrals: Cheryl Purcell [Primary Care Provider] - 1-3 days Patient Instructions: Wound Dehiscence (ED), Opioid Safety, Pain Management Activity Restrictions/Additional Instructions: Stop your Bactrim in favor of the antibiotic you were prescribed this morning. Pack your wound once daily as shown in the emergency department. Do this until the wound is closed. See your doctor in 2 days time for a wound check. Return for fever, vomiting, worsening redness, any other concerning symptoms. Coding Level of Care Code ED Dust Puller for Carlos León
== END 2022-11-20 04:12 | disposition home or self-care (01) ==
PROVIDERS: Emergency Provider Emergency Medicine; PCP Registered Nurse
DX: T81.31XA Disruption of external operation (surgical) wound, not elsewhere classified, initial encounter (principal); Y83.8 Other surgical procedures as the cause of abnormal reaction of the patient, or of later complication, without mention of misadventure at the time of the procedure
CPT/HCPCS: 36415; 80048; 81001; 83605; 85025; 93005; 99284

== ENCOUNTER → 2022-11-23 13:08 | Outpatient (BNVA) | payer MEDICAID, SELFPAY | PROVIDERS: PCP Registered Nurse; Visit Provider Surgery | DX: T81.31XA Disruption of external operation (surgical) wound, not elsewhere classified, initial encounter (principal); X58.XXXA Exposure to other specified factors, initial encounter | CPT/HCPCS: 99213 ==

== ENCOUNTER → 2022-12-09 12:17 | Outpatient (BNVA) | payer MEDICAID, SELFPAY | PROVIDERS: PCP Registered Nurse; Visit Provider Surgery | DX: Z09 Encounter for follow-up examination after completed treatment for conditions other than malignant neoplasm (principal) | CPT/HCPCS: 99213 ==

== ENCOUNTER → 2023-01-09 10:22 | Outpatient (BNVA) | payer MEDICAID, SELFPAY | PROVIDERS: PCP Registered Nurse; Visit Provider Podiatrist Foot & Ankle Surgery | DX: B35.1 Tinea unguium (principal); L85.3 Xerosis cutis; E11.9 Type 2 diabetes mellitus without complications; L84 Corns and callosities; Z79.4 Long term (current) use of insulin; Z79.84 Long term (current) use of oral hypoglycemic drugs | CPT/HCPCS: 99213 ==

== ENCOUNTER 2023-03-10 13:10 | Observation (INO) | payer MEDICAID, SELFPAY ==
[2023-03-10] VITALS (9 sets, daily range): BP systolic 114–165; BP diastolic 76–96; PULSE 79–102; RESP 16–18; TEMP 36.5–37.1; O2SAT 94–100; BMI 36.5; BMI 39.7
--- NOTE | 2023-03-10 13:59 | CTR_ITS ---
PROCEDURE INFORMATION: Exam: CT Head Without Contrast Exam date and time: 03/10/2023 2:17 PM Age: 57 years old Clinical indication: Weakness, extremity; Left; Additional info: JARA TECHNIQUE: Imaging protocol: Computed tomography of the head without contrast. REPORTING DATA: Count of CT and Cardiac NM exams in prior 12 months: This patient has received 0 known CTs and 0 known cardiac nuclear medicine studies in the 12 months prior to the current study. COMPARISON: CT head wo con* [id number] 08/26/2021 9:16 PM RADIATION DOSE METRICS: Total DLP (mGy-cm): 1078.38 FINDINGS: Brain: No midline shift. Ventricles, cisterns, and sulci are normal. No mass, acute infarct, hemorrhage, or extraaxial fluid collection. Cerebral ventricles: No ventriculomegaly. Paranasal sinuses: Visualized sinuses are unremarkable. No fluid levels. Mastoid air cells: Visualized mastoid air cells are well aerated. Bones/joints: Unremarkable. No acute fracture. Soft tissues: Unremarkable. CT/CT head wo con* [id number] IMPRESSION: No acute intracranial abnormality.
--- NOTE | 2023-03-10 13:59 | XRR_ITS ---
PROCEDURE INFORMATION: Exam: XR Chest Exam date and time: 03/10/2023 2:13 PM Age: 57 years old Clinical indication: Pain; Other: Headache; Additional info: JARA TECHNIQUE: Imaging protocol: Radiologic exam of the chest. Views: 1 view. COMPARISON: CR XR chest 1V portable [id number] 10/31/2022 7:28 AM FINDINGS: Lungs: Unremarkable. No consolidation. Lobe nodule is not changed in comparison to 08/26/2017. Pleural spaces: Unremarkable. No pleural effusion. No pneumothorax. Heart/Mediastinum: Unremarkable. No cardiomegaly. Bones/joints: Unremarkable. XR/XR chest 1V portable [id number] IMPRESSION: No acute findings.
--- NOTE | 2023-03-10 14:02 | ED_ITS ---
HPI - Headache 2 General: Chief Complaint: Headache Stated Complaint: head numbness Time Seen by Provider: 03/10/23 13:58 Source: patient Mode of arrival: ambulatory Limitations: no limitations History of Present Illness: 57-year-old female states she has had a history of hemiplegic migraines in the past she is also had a history of an intracranial hemorrhage. States that on the she was hit in the left side of her head by a bookshelf states since then she has had a headache along with left-sided weakness. She states her headaches currently 6 out of 10 states she has limited motion of her left arm is unable to move her left leg this been going on for 4 to 5 days. Denies any vision changes denies any vomiting Associated symptoms: Deny chest pain, fever(s), nausea, rash or vomiting Review of Systems 2 Const: Denies: fever(s), chills, body aches or change in appetite Eyes: Denies: blurry vision or eye discomfort ENMT: Denies: throat pain or dental pain Card: Denies: chest pain Resp: Denies: dyspnea GI: Denies: abdominal pain, nausea, vomiting or diarrhea Musc: Denies: neck pain or back pain Skin/Breast: Denies: rash Neuro: Reports: headache(s) and weakness in extremities PFSH ED 2 PFSH: Medical History HX: benign breast biopsy off tongue Dr. Adan Abdominal pain Nausea & vomiting GERD (gastroesophageal reflux disease) Hypertension Diabetes Anemia Duodenitis without bleeding Morbid obesity with BMI of 40.0-44.9, adult Depression PTSD (post-traumatic stress disorder) RLS (restless legs syndrome) Gout Asthma Surgical History History of esophagogastroduodenoscopy (EGD) Hx of dilation and curettage x3 S/P excision of lipoma Right hip 12 x 10 x 9 cm Family History Other Hypertension Social History Smoking and tobacco/nicotine status: never used tobacco/nicotine Alcohol intake: current Physical Exam 2 Const: COMMON NORMALS: no acute distress, patient oriented x3 and healthy appearing HENMT: COMMON NORMALS: normocephalic HEAD & SCALP: normocephalic Eye: COMMON NORMALS: Equal, round and reactive pupils present and EOMs intact bilaterally PUPIL: Yes Equal, round and reactive pupils present Neck/C-Spine: COMMON NORMALS: full ROM and supple Chest: COMMONS NORMALS: normal inspection of the chest and normal palpation of entire chest wall Resp: COMMON NORMALS: normal respiratory effort, No retractions, No use of accessory muscles and clear to auscultation bilaterally AUSCULTATION: clear to auscultation bilaterally Cardio: COMMON NORMALS: regular rate, regular rhythm and No murmurs present (Cardio) RATE: regular rate RHYTHM: regular rhythm GI: COMMON NORMALS: Normal to inspection, nondistended, normoactive bowel sounds present, Soft to palpation, non-tender and no masses PALPATION: Yes Soft to palpation Extremity: COMMON NORMALS: normal to inspection Neuro: COMMON NORMALS: patient oriented x3, moves all extremities and no focal motor deficits OTHER: Weakness noted to left arm and leg Psych: COMMON NORMALS: mental status grossly normal, Normal thought process present and cooperative THOUGHT PROCESS: Normal thought process present Skin: COMMON NORMALS: no rashes or lesions noted and no wounds GENERAL SKIN EXAM: no rashes or lesions noted Course 2 Vital Signs: Vital signs: Vital Signs Temperature 98.7 F 03/10/23 14:02 Pulse Rate 90 03/10/23 15:49 Respiratory Rate 18 03/10/23 13:51 Blood Pressure 138/77 03/10/23 15:49 Pulse Oximetry 100 03/10/23 15:49 Oxygen Delivery Me thod Room Air 03/10/23 15:49 MDM - Headache Medical Decision Making Patient presents here with migraine headache along with left-sided weakness. Weakness is likely a migraine variant still is having a hard time walking headache here is resolved head CT was normal with her symptoms going on for 3 days she is not a lytic candidate. I spoke to the hospitalist will admit at this time. Medical Records I reviewed the patient's medical records. Lab Data I reviewed the patient's lab results. 03/10/23 14:02 03/10/23 14:02 Radiology Impressions Chest X-Ray 03/10/23 13:59 IMPRESSION: No acute findings. ADDENDUM: 03/10/23 1437 Under the findings within the lungs section final sentence refers to a nodule in the left upper lung zone. Head CT 03/10/23 13:59 IMPRESSION: No acute intracranial abnormality. Laboratory Results WBC 8.86 10^3/uL (3.29-11.43) 03/10/23 14:02 RBC 6.14 10^6/uL (3.85-5.65) H 03/10/23 14:02 Hgb 15.00 g/dL (11.27-16.99) 03/10/23 14:02 Hct 48.5 % (36-47) H 03/10/23 14:02 MCV 79.0 fl (85-98) L 03/10/23 14:02 MCH 24.4 pg (27-33) L 03/10/23 14:02 MCHC 30.9 g/dL (30-55) 03/10/23 14:02 RDW 15.2 % (12.1-15.1) H 03/10/23 14:02 Plt Count 227 10^3/cmm (157-399) 03/10/23 14:02 MPV 11.2 fL (7.4-10.4) H 03/10/23 14:02 Neut % (Auto) 67.1 % 03/10/23 14:02 Lymph % (Auto) 25.7 % 03/10/23 14:02 [place] % (Auto) 4.7 % 03/10/23 14:02 Eos % (Auto) 1.9 % 03/10/23 14:02 Baso % (Auto) 0.5 % 03/10/23 14:02 Neut # (Auto) 5.94 10^3/uL (1.8-7.7) 03/10/23 14:02 Lymph # (Auto) 2.3 10^3/uL (0.8-4.8) 03/10/23 14:02 [place] # (Auto) 0.4 10^3/uL (0.2-0.9) 03/10/23 14:02 Eos # (Auto) 0.2 10^3/uL (0.0-0.8) 03/10/23 14:02 Baso # (Auto) 0.0 10^3/uL (0.0-0.1) 03/10/23 14:02 Nucleated RBC % (auto) 0 % 03/10/23 14:02 Nucleated RBCs # 0.0 /100WBC 03/10/23 14:02 PT 14.00 SECONDS (12.1-14.9) 03/10/23 14:02 INR 1.05 (0.8-1.2) 03/10/23 14:02 Sodium 137 mmol/L (136-145) 03/10/23 14:02 Potassium 4.0 mmol/L (3.5-5.1) 03/10/23 14:02 Chloride 101 mmol/L (98-107) 03/10/23 14:02 Carbon Dioxide 27 mmol/L (22-29) 03/10/23 14:02 Anion Gap 13.0 (5-19) 03/10/23 14:02 BUN 19 mg/dL (6-20) 03/10/23 14:02 Creatinine 0.9 mg/dL (0.5-0.9) 03/10/23 14:02 GFR Calculation 64.8 mL/min (90-130) L 03/10/23 14:02 Glucose 166 mg/dL (65-115) H 03/10/23 14:02 POC Glucose 196 mg/dL (70-110) H 03/10/23 14:11 Calculated Osmolality 290 mOsm/kg (285-295) 03/10/23 14:02 Calcium 9.9 mg/dL (8.5-10.5) 03/10/23 14:02 Total Bilirubin 0.3 mg/dL (0.15-1.2) 03/10/23 14:02 AST 20 U/L (0-32) 03/10/23 14:02 ALT 24 U/L (0-33) 03/10/23 14:02 Alkaline Phosphatase 131 U/L (35-105) H 03/10/23 14:02 Total Protein 9.0 g/dL (6.6-8.7) H 03/10/23 14:02 Albumin 4.1 g/dL (3.5-5.2) 03/10/23 14:02 Globulin 4.9 g/dL (1.3-4.6) H 03/10/23 14:02 Urine Color Yellow (Yellow) 03/10/23 15:03 Urine Appearance Clear (CLEAR) 03/10/23 15:03 Urine pH 6 (5-7) 03/10/23 15:03 Ur Specific [place] 1.010 (1.005-1.030) 03/10/23 15:03 Urine Protein Neg (Negative) 03/10/23 15:03 Urine Glucose (UA) 4+ (Normal) H 03/10/23 15:03 Urine Ketones Negative (Negative) 03/10/23 15:03 Urine Blood Neg (Negative) 03/10/23 15:03 Urine Nitrate Negative (Negative) 03/10/23 15:03 Urine Bilirubin Neg (Negative) 03/10/23 15:03 Urine Urobilinogen Norm mg/dL (Negative) 03/10/23 15:03 Ur Leukocyte Esterase Trace (Negative) H 03/10/23 15:03 Urine RBC 0-4 /hpf (0-2) H 03/10/23 15:03 Urine WBC 5-10 /hpf (0-5) H 03/10/23 15:03 Ur Squamous Epith Cells 0-4 /hpf (0-5) H 03/10/23 15:03 Amorphous Sediment Not Reportable 03/10/23 15:03 Urine Bacteria Trace /hpf (NONE) 03/10/23 15:03 All radiology interpretation(s) finalized by discharge EKG Data EKG 1: I personally reviewed and interpreted this EKG as follows: EKG interpretation date: 03/10/23 EKG interpretation time: 14:12 Interpretation: nsr hr [address] or t wave abnrmalities qrs 82 qtc 393 Discharge Plan Discharge Condition: Stable Prescriptions: No Action furosemide [Lasix] 20 mg tablet 20 mg PO DAILY hydrochlorothiazide 25 mg tablet 25 mg PO DAILY dicyclomine 10 mg capsule 10 mg PO BID PRN (Reason: Stomach Cramps) prazosin 1 mg capsule 1 mg PO BID venlafaxine [Effexor XR] 150 mg capsule,extended release 24hr 150 mg PO DAILY ipratropium-albuterol 0.5 mg-3 mg(2.5 mg base)/3 mL solution for nebulization 3 ml INHALATION QID PRN (Reason: Dyspnea) albuterol sulfate [ProAir HFA] 90 mcg/actuation HFA aerosol inhaler 2 puff INHALATION Q6H PRN (Reason: Dyspnea) sucralfate 1 gram tablet 1 gm PO BID magnesium oxide 400 mg magnesium capsule 400 mg PO DAILY topiramate 50 mg capsule,extended release 24hr 50 mg PO DAILY allopurinol 300 mg tablet 300 mg PO DAILY baclofen 10 mg tablet 10 mg PO DAILY PRN (Reason: Pain) metformin 1,000 mg tablet 1,000 mg PO BID (DME) diabetic shoes See Rx Instructions .Route .MEDSUPPLY Qty: 1 0RF Rx Instructions: As directed (DME) insulin syringe-needle U-100 [BD Veo Insulin Syringe UF] 0.3 mL 31 gauge x 15/64 syringe See Rx Instructions .ROUTE .MEDSUPPLY Qty: 100 3RF Rx Instructions: As directed (DME) Diabetic Shoes See Rx Instructions .Route .MEDSUPPLY Qty: 1 0RF Rx Instructions: As directed (DME) Diabetic Shoes See Rx Instructions .Route .MEDSUPPLY Qty: 1 0RF Rx Instructions: As directed insulin aspart U-100 [Novolog FlexPen U-100 Insulin] 100 unit/mL (3 mL) insulin pen See Rx Instructions .ROUTE .COMPLEX Rx Instructions: PER SLIDING SCALE insulin degludec [Tresiba FlexTouch U-200] 200 unit/mL (3 mL) insulin pen 70 unit SUBCUT BID bupropion HCl 150 mg Tablet Extended Release 24 Hr 150 mg PO QPM Farxiga 10 mg tablet 10 mg PO DAILY hydrocodone-acetaminophen 10-325 mg tablet 1 tab PO Q6H PRN (Reason: pain) Qty: 15 0RF losartan 25 mg tablet 25 mg PO DAILY atorvastatin 80 mg tablet 80 mg PO QPM venlafaxine 75 mg capsule,extended release 24hr 75 mg PO DAILY albuterol sulfate 2.5 mg /3 mL (0.083 %) solution for nebulization 2.5 mg inhalation Q6H PRN (Reason: Shortness Of Breath Or Wheezing) pramipexole 0.5 mg tablet 0.5 mg PO BEDTIME famotidine 20 mg tablet 20 mg PO BEDTIME gabapentin 800 mg Tablet 800 mg PO TID Miralax 17 gram/dose Powder 4 g PO DAILY ropinirole 4 mg Tablet 4 mg PO BID Symbicort 160-4.5 mcg/actuation HFA aerosol inhaler 2 puff INHALATION BID Trulicity 0.75 mg/0.5 mL pen injector 0.5 mg SUBCUT Q7D Rx Instructions: ON MONDAY Qulipta 60 mg tablet 60 mg PO DAILY tramadol 50 mg tablet 50 mg PO Q6H Qty: 12 0RF Hold Instructions: Resume on 11/01/22. Referrals: Cheryl Purcell [Primary Care Provider] - Coding Level of Care Code ED Blunger Loader for Carlos León NIH stroke score NIHSS Level Of Consciousness - 1a: 0 Level Of Consciousness Questions - 1b: Both Correct Level Of Consciousness Commands - 1c: Both Correct Best Gaze - 2: Normal Visual [place] - 3: No Visual Loss Facial Palsy - 4: Normal Motor Arm Right - 5: No Drift Motor Arm Left - 5: Drift Motor Leg Right - 6: No Drift Motor Leg Left - 6: Effort Against [place] Limb Ataxia - 7: Absent Sensory - 8: Mild To Moderate Loss Best Language - 9: No Aphasia Dysarthia - 10: Normal Extinction And Inattention - 11: 0 Score Total Score: 4
--- NOTE | 2023-03-10 14:12 | ECG_ITS ---
[facility] Test Date: 2023-03-10 Pat Name: Paradise Samano Department: Room: Gender: Female Pillowcase Folder: : 1965 Requested By: Jazzmine Gabriel Order Number: [id number] Kris MD: Navneet Vo M.D. Measurements Intervals [place] Rate: 91 P: 34 WV: 135 QRS: 46 QRSD: 82 T: 82 QT: 344 QTc: 425 Interpretive Statements SINUS RHYTHM NONSPECIFIC T-WAVE ABNORMALITY Compared to ECG 11/20/2022 00:49:12 T-wave abnormality now present Electronically Signed On 03-10-2023 14:55:09 MANPOWER DEVELOPMENT ADVISOR by Navneet Vo M.D. [email or web address]
[2023-03-10 14:14] LABS: Glucose Point of Care 196 mg/dL (70-110)
[2023-03-10 14:21] LABS: Basophils % 0.5 %; Eosinophils # 0.2 10^3/uL (0.0-0.8); Eosinophils % 1.9 %; Hematocrit 48.5 % (36-47); Lymphocytes # 2.3 10^3/uL (0.8-4.8); Lymphocytes % 25.7 %; Mean Corpuscular HGB Conc 30.9 g/dL (30-55); Mean Corpuscular Hemoglobin 24.4 pg (27-33); Mean Platelet Volume 11.2 fL (7.4-10.4); Monocytes # 0.4 10^3/uL (0.2-0.9); Monocytes % 4.7 %; Neutrophils # 5.94 10^3/uL (1.8-7.7); Neutrophils % 67.1 %; Nucleated Red Blood Cells % 0 %; Platelet Count 227 10^3/cmm (157-399); Red Blood Count 6.14 10^6/uL (3.85-5.65); Red Cell Distribution Width 15.2 % (12.1-15.1); White Blood Count 8.86 10^3/uL (3.29-11.43)
[2023-03-10 14:32] LABS: INR 1.05 (0.8-1.2)
[2023-03-10 14:35] LABS: Alanine Aminotransferase 24 U/L (0-33); Albumin Level 4.1 g/dL (3.5-5.2); Alkaline Phosphatase 131 U/L (35-105); Aspartate Amino Transferase 20 U/L (0-32); Blood Urea Nitrogen 19 mg/dL (6-20); Calcium 9.9 mg/dL (8.5-10.5); Carbon Dioxide 27 mmol/L (22-29); Chloride 101 mmol/L (98-107); Globulin 4.9 g/dL (1.3-4.6); Glomerular Filtration Rate 64.8 mL/min (90-130); Glucose 166 mg/dL (65-115); Osmolality Calculated 290 mOsm/kg (285-295); Sodium 137 mmol/L (136-145); Total Bilirubin 0.3 mg/dL (0.15-1.2)
[2023-03-10] MEDS: promethazine 25 mg/mL SDV 1 mL IM (15:02)
[2023-03-10] MEDS: ketorolac 30 mg/mL INJ 15 MG IVP (15:02)
[2023-03-10 15:30] LABS: Add Urine Microscopic? YES; Bilirubin Urine Neg (Negative); Blood Urine Neg (Negative); Glucose Urine UA 4+ (Normal); Ketones Urine Negative (Negative); Leukocyte Esterase Urine Trace (Negative); Nitrate Urine Negative (Negative); Protein Urine Neg (Negative); Urine Appearance Clear (CLEAR); Urine Color Yellow (Yellow); Urobilinogen Urine Norm (Negative); pH Urine 6 (5-7)
[2023-03-10 15:31] LABS: Add Urine Culture? No; Bacteria Urine TRACE /hpf; RBC Urine 0-4 /hpf (0-2); Squamous Epithelial Cell Urine 0-4 /hpf (0-5)
[2023-03-10 16:37] LABS: Procalcitonin 0.06 ng/mL (0-0.5)
--- NOTE | 2023-03-10 16:53 | P.HP_ITS ---
Providers/Chief Complaint 2 Primary Care Provider: Cheryl Purcell Chief Complaint: head numbness History of Present Illness Paradise Samano is a 57 year old female with past medical history of hypertension, type 2 diabetes mellitus, asthma, morbid obesity, vasogenic migraine, stroke for which she received tPA in August 2021 presents to the hospital today because of on and off numbness on the left side of her body including with lightheadedness for the last 3 to 4 days. She came to the ER today because the frequency of the episodes have been increasing for last 24 hours. Associated with headache. Episode started after she bumped her head on [place]. Review of Systems 2 General: Reports: 10 or more systems reviewed and unremarkable except in HPI and below Const: Denies: fever(s), chills, body aches, change in appetite, change in weight, malaise, night sweats, diaphoresis, change in sleep pattern, daytime sleepiness or snoring Eyes: Denies: change in vision, blurry vision, photophobia, eye discomfort or eye discharge ENMT: Denies: throat pain, enlarged tonsils, hoarseness, mouth pain, oral sores, dry mouth, tinnitus, nasal congestion or post nasal drip Card: Denies: chest pain, palpitations, irregular heart rhythm, edema, swelling of feet/ankles, lightheadedness, syncope, pre-syncope, dyspnea on exertion, orthopnea, leg pain with exertion or acrocyanosis Resp: Denies: dyspnea, productive cough, non-productive cough, wheezing, stridor, pain on inspiration, change in phlegm color, hemoptysis or chest congestion GI: Denies: abdominal pain, nausea, vomiting, hematemesis, coffee ground emesis, dysphagia, heartburn, diarrhea, constipation, bloating, GI cramping, change in bowel habits, pain on defecation, hematochezia or melena : Denies: flank pain, dysuria, urinary frequency, urinary urgency, urinary hesitancy, nocturia or hematuria Musc: Denies: neck pain, back pain, extremity pain, joint pain, joint swelling, joint redness, joint stiffness or limited range of motion Neuro: Denies: headache(s), numbness in extremities, weakness in extremities, sensory changes, lack of coordination, difficulty walking, frequent falls, dizziness, vertigo, confusion, Slurred speech present, difficulty communicating thoughts or seizure-like activity Psych: Denies: anxiety, depression, mood swings, panic attacks, hopelessness or irritability Endo: Denies: polyuria, polydipsia, tired all the time, cold intolerance, excessive sweating, flushing or heat intolerance Андрей/Lymph: Denies: easy bruising or easy bleeding All/Imm: Denies: tongue swelling, facial swelling or acute wheezing Medications/Allergies Home Medications Medication Instructions Recorded Confirmed Last Taken Type albuterol sulfate 90 mcg/actuation 2 puff inhalation Q6H PRN Dyspnea 12/18/19 03/10/23 03/10/23 History aerosol inhaler (ProAir HFA) allopurinol 300 mg tablet 300 mg PO DAILY 12/18/19 03/10/23 03/10/23 History baclofen 10 mg tablet 10 mg PO DAILY PRN Pain 12/18/19 03/10/23 08/21/22 History dicyclomine 10 mg capsule 10 mg PO BID PRN Stomach Cramps 12/18/19 03/10/23 03/10/23 History furosemide 20 mg tablet (Lasix) 20 mg PO DAILY 12/18/19 03/10/23 03/09/23 History hydrochlorothiazide 25 mg tablet 25 mg PO DAILY 12/18/19 03/10/23 03/10/23 History ipratropium 0.5 mg-albuterol 3 mg 3 ml inhalation QID PRN Dyspnea 12/18/19 03/10/23 12/31/19 History (2.5 mg base)/3 mL nebulization soln magnesium oxide 400 mg PO DAILY 12/18/19 03/10/23 03/10/23 History metformin 1,000 mg tablet 1,000 mg PO BID 12/18/19 03/10/23 03/10/23 History prazosin 1 mg capsule 1 mg PO BID 12/18/19 03/10/23 03/10/23 History sucralfate 1 gram tablet 1 gm PO BID 12/18/19 03/10/23 03/10/23 History topiramate 50 mg capsule,extended 50 mg PO DAILY 12/18/19 03/10/23 03/10/23 History release 24 hr venlafaxine 150 mg 150 mg PO DAILY 12/18/19 03/10/23 03/10/23 History capsule,extended release 24 hr (Effexor XR) insulin syringe-needle U-100 0.3 #100 ea 03/16/21 03/10/23 Unknown Rx mL 31 gauge x 15/64 (BD Veo Insulin Syringe Ultra-Fine) insulin aspart U-100 100 unit/mL See Rx Instructions .Route .COMPLEX 08/15/21 03/10/23 10/26/22 History (3 mL) subcutaneous pen (Novolog FlexPen U-100 Insulin aspart) insulin degludec 200 unit/mL (3 70 unit SUBCUT BID 08/15/21 03/10/23 03/10/23 History mL) subcutaneous pen (Tresiba FlexTouch U-200 insulin) bupropion HCl 150 mg 24 hr tablet, 150 mg PO QPM 08/26/21 03/10/23 03/09/23 History extended release diabetic shoes #1 ea 10/22/21 03/10/23 Unknown Rx Diabetic Shoes #1 ea 11/01/21 03/10/23 Unknown Rx Diabetic Shoes #1 ea 11/17/21 03/10/23 Unknown Rx tramadol 50 mg tablet 50 mg PO Q6H #12 tabs 08/22/22 03/10/23 10/25/22 Rx dapagliflozin propanediol 10 mg 10 mg PO DAILY 10/26/22 03/10/23 03/10/23 History tablet (Farxiga) hydrocodone 10 mg-acetaminophen 1 tab PO Q6H PRN pain #15 tabs 10/27/22 03/10/23 Unknown Rx 325 mg tablet albuterol sulfate 2.5 mg/3 mL 2.5 mg inhalation Q6H PRN 03/10/23 03/10/23 Unknown History (0.083 %) solution for nebulization Shortness Of Breath Or Wheezing atogepant 60 mg tablet (Qulipta) 60 mg PO DAILY 03/10/23 03/10/23 03/10/23 History atorvastatin 80 mg tablet 80 mg PO QPM 03/10/23 03/10/23 03/09/23 History budesonide-formoterol HFA 160 2 puff inhalation BID 03/10/23 03/10/23 Unknown History mcg-4.5 mcg/actuation aerosol inhaler (Symbicort) dulaglutide 0.75 mg/0.5 mL 0.5 mg SUBCUT Q7D 03/10/23 03/10/23 03/08/23 History subcutaneous pen injector (Trulicity) famotidine 20 mg tablet 20 mg PO BEDTIME 03/10/23 03/10/23 03/09/23 History gabapentin 800 mg tablet 800 mg PO TID 03/10/23 03/10/23 03/10/23 History losartan 25 mg tablet 25 mg PO DAILY 03/10/23 03/10/23 03/10/23 History polyethylene glycol 3350 17 4 g PO DAILY 03/10/23 03/10/23 03/10/23 History gram/dose oral powder (Miralax) pramipexole 0.5 mg tablet 0.5 mg PO BEDTIME 03/10/23 03/10/23 03/09/23 History ropinirole 4 mg tablet 4 mg PO BID 03/10/23 03/10/23 03/10/23 History venlafaxine 75 mg capsule,extended 75 mg PO DAILY 03/10/23 03/10/23 03/10/23 History release 24 hr Allergies Allergy/AdvReac Type Severity Reaction Status Date / Time adhesive tape Allergy Severe ALGY-Hives Verified 03/10/23 15:10 amitriptyline Allergy Severe ALGY-Hives Verified 03/10/23 15:10 ciprofloxacin Allergy Severe ADR-Nausea Verified 03/10/23 15:10 exenatide [From Bydureon] Allergy Severe ALGY-Hives Verified 03/10/23 15:10 sumatriptan [From Imitrex] Allergy Severe ADR-Vomitin Verified 03/10/23 15:10 g cephalexin Allergy ALGY-Swell Verified 03/10/23 15:10 Lip/Tongue/Throat metoclopramide [From Reglan] Allergy Unknown Verified 03/10/23 15:10 shrimp Allergy ALGY-Rash Verified 03/10/23 15:10 PFSH Acute 2 PFSH: Medical History (Updated 03/10/23 @ 17:02 by Ramón Sherman MD) 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 August 2021 MCI (mild cognitive impairment) HX: benign breast biopsy off tongue Dr. Adan Abdominal pain Nausea & vomiting GERD (gastroesophageal reflux disease) Hypertension Diabetes Anemia Duodenitis without bleeding Morbid obesity with BMI of 40.0-44.9, adult Depression PTSD (post-traumatic stress disorder) RLS (restless legs syndrome) Gout Asthma Surgical History S/P excision of lipoma Right hip 12 x 10 x 9 cm Hx of dilation and curettage x3 History of esophagogastroduodenoscopy (EGD) Family History Other Hypertension Social History Smoking and tobacco/nicotine status: never used tobacco/nicotine Alcohol intake: current Vitals/I&O/Wt Last Vital Signs Temp 98.7 F 03/10/23 14:02 Pulse 90 03/10/23 15:49 Resp 18 03/10/23 13:51 BP 138/77 03/10/23 15:49 Pulse Ox 100 03/10/23 15:49 O2 Del Method Room Air 03/10/23 15:49 Weight last 48 hrs Weight 108.862 kg Physical Exam 2 Narrative: General: No acute distress, AO x3, morbidly obese HEENT: PERRLA, pupils bilaterally equal and reactive Chest: Normal vesicular breath sounds, no added sounds, equal good air entry bilaterally CVS: S1-S2 regular, no murmurs, no tachycardia, no gallops, no rubs Abdomen: Soft, nontender, no organomegaly, bowel sounds present Neuro: No focal deficits, no facial deformity, AO x3, power 5/5 in all limbs Data 03/10/23 14:02 03/10/23 14:02 A&P Assessment and plan (1) Numbness: Most likely in setting of complex migraine. Patient has history of vasogenic migraine in the past. Does have history of stroke post tPA last year in August. MRI brain, MR angio brain. Check lipid panel, A1c. Seizure precaution. Continue home dose of statin. Start on baby aspirin. (2) Migraine aura occurring with and without headache: (3) Hypertension: Goal blood pressure less than 140/90 mmHg. Continue home antihypertensive. (4) Hyperlipidemia: (5) Diabetes: Check A1c. Continue home dose of Lantus. Add insulin sliding scale low-dose protocol. Plan Continue other chronic home medications. Full code Carb consistent diet Heparin 5000 every 12 hourly for DVT prophylaxis Famotidine for PUD prophylaxis Attestations 2 Medical Necessity Statement*: Admit under observation for further evaluation and management of numbness of left side of body with concerns for vasogenic migraine while stroke is ruled out Diagnoses Numbness R20.0 Migraine aura occurring with and without headache G43.109 Hypertension I10 Hyperlipidemia E78.5 Diabetes E11.9
[2023-03-10 17:59] LABS: Iron 34 ug/dL (37-145); Percent Saturation 9.6 % (20-50); Thyroid Stimulating Hormone 2.08 uIU/mL (0.27-4.20); Total Iron Binding Capacity 353 mcg/dl; Unsaturated Iron Binding 319 ug/dL (112-347); Vitamin B12 419 pg/mL (232-1245)
--- NOTE | 2023-03-10 18:22 | PC.NURSE ---
Report was called to [facility] on [place]. All questions and concerns addressed at time of report.
[2023-03-10] MEDS: ropinirole 2 mg Tablet 4 MG PO (20:57)
[2023-03-10] MEDS: atorvastatin 40 mg Tablet 80 MG PO (20:57)
[2023-03-10] MEDS: gabapentin 400 mg Capsule 800 MG PO (20:57)
[2023-03-10] MEDS: prazosin 1 mg Capsule PO (20:58)
[2023-03-10] MEDS: famotidine 20 mg Tablet PO (20:59)
[2023-03-10] MEDS: pramipexole 0.25 mg Tablet 0.5 MG PO (20:59)
[2023-03-10] MEDS: sucralfate 1 gm Tablet PO (20:59)
[2023-03-10] MEDS: buPROPion XL (24 HR) 150 mg Tablet PO (21:04)
[2023-03-10 21:16] LABS: Glucose Point of Care 147 mg/dL (70-110)
[2023-03-10] MEDS: heparin 5,000 unit/mL INJ 1 mL 5000 UNIT SUBCUT (21:55)
[2023-03-10] MEDS: insulin glargine 100 units/1 mL 70 UNIT SUBCUT (21:55)
--- NOTE | 2023-03-10 22:32 | CTR_ITS ---
PROCEDURE INFORMATION: Exam: CT Head Without Contrast Exam date and time: 03/10/2023 10:44 PM Age: 57 years old Clinical indication: Numbness / parasthesia and speech disturbance; Patient HX: New onset of slurred speech. States head feels numb. ; Additional info: Numbness all over, slurred speech TECHNIQUE: Imaging protocol: Computed tomography of the head without contrast. Radiation optimization: All CT scans at this facility use at least one of these dose optimization techniques: automated exposure control; mA and/or kV adjustment per patient size (includes targeted exams where dose is matched to clinical indication); or iterative reconstruction. REPORTING DATA: Count of CT and Cardiac NM exams in prior 12 months: This patient has received 0 known CTs and 0 known cardiac nuclear medicine studies in the 12 months prior to the current study. COMPARISON: CT head wo con* [id number] 03/10/2023 2:17 PM RADIATION DOSE METRICS: Other radiation dose metrics: Total DLP of mGy-cm): 1074.68 FINDINGS: Brain: No acute intra- or extra axial fluid collections are identified. The basal cisterns are patent. No mass effect or midline shift is seen. The redman-white matter differentiation is normal. Periventricular hypoattenuation are nonspecific but likely the sequela of chronic small vessel ischemic disease. There is a partially empty sella. Cerebral ventricles: The ventricles are of stable size, shape, and morphology. Paranasal sinuses: The paranasal sinuses appear grossly clear. Mastoid air cells: The mastoid air cells appear grossly clear. Orbital cavities: The patient is status post cataract extraction. Bones/joints: No acute calvarial fracture is identified. Soft tissues: No soft tissue abnormalities identified. Vasculature: There are atherosclerotic calcifications of the carotid siphons and the V4 segments of the vertebral arteries. CT/CT head wo con* [id number] IMPRESSION: 1. No evidence of acute intracranial hemorrhage, mass effect, or midline shift. 2. There is a partially empty sella. 3. Fundus examination is recommended to exclude papilledema and the possibility of idiopathic intracranial hypertension (IIH).
[2023-03-10] MEDS: sodium chloride 0.9% 1,000 ML 75 ML IV (23:43)
[2023-03-11] VITALS (11 sets, daily range): BP systolic 117–129; BP diastolic 71–74; PULSE 73–83; RESP 16–18; TEMP 36.6; O2SAT 94–96; BMI 39.2
[2023-03-11] MEDS: morphine 4 mg/mL SDV 1 mL 2 MG IVP ×2 (00:10→08:15)
[2023-03-11 04:15] LABS: Basophils % 0.4 %; Eosinophils # 0.2 10^3/uL (0.0-0.8); Hematocrit 43.8 % (36-47); Lymphocytes % 31.9 %; Mean Corpuscular HGB Conc 30.1 g/dL (30-55); Mean Corpuscular Hemoglobin 24.1 pg (27-33); Mean Corpuscular Volume 80.1 fl (85-98); Mean Platelet Volume 11.6 fL (7.4-10.4); Monocytes # 0.5 10^3/uL (0.2-0.9); Monocytes % 5.6 %; Neutrophils # 5.65 10^3/uL (1.8-7.7); Neutrophils % 59.9 %; Nucleated Red Blood Cells % 0 %; Platelet Count 200 10^3/cmm (157-399); Red Blood Count 5.47 10^6/uL (3.85-5.65); Red Cell Distribution Width 15.2 % (12.1-15.1); White Blood Count 9.44 10^3/uL (3.29-11.43)
[2023-03-11 04:33] LABS: Estmated Average Glucose 180; Hemoglobin A1C 7.9 % (4.0-6.0)
[2023-03-11 04:35] LABS: Chol HDL Ratio 2.65 mg/dL (0.0-4.40); Cholesterol 90 mg/dL (0-200); HDL Cholesterol 34 mg/dL (60-100); LDL Cholesterol Calculated 25 mg/dL (50-129); LDL HDL Ratio 0.74 RATIO (0.00-3.22); Triglycerides 156 mg/dL (0-150)
[2023-03-11 04:42] LABS: Alanine Aminotransferase 22 U/L (0-33); Albumin Level 3.7 g/dL (3.5-5.2); Alkaline Phosphatase 105 U/L (35-105); Anion Gap 12.6 (5-19); Aspartate Amino Transferase 19 U/L (0-32); Blood Urea Nitrogen 23 mg/dL (6-20); Calcium 8.9 mg/dL (8.5-10.5); Carbon Dioxide 26 mmol/L (22-29); Chloride 106 mmol/L (98-107); Globulin 4.1 g/dL (1.3-4.6); Glomerular Filtration Rate 57.4 mL/min (90-130); Glucose 104 mg/dL (65-115); Magnesium 2.1 mg/dL (1.7-2.3); Osmolality Calculated 296 mOsm/kg (285-295); Potassium 3.6 mmol/L (3.5-5.1); Sodium 141 mmol/L (136-145); Total Bilirubin 0.5 mg/dL (0.15-1.2); Total Protein 7.8 g/dL (6.6-8.7)
[2023-03-11 04:50] LABS: Folate Level 13.6 ng/mL (4.8-37.3)
[2023-03-11 06:28] LABS: Glucose Point of Care 101 mg/dL (70-110)
[2023-03-11] MEDS: venlafaxine ER (24HR) 75 mg Capsule PO (09:02)
[2023-03-11] MEDS: insulin glargine 100 units/1 mL 70 UNIT SUBCUT (09:02)
[2023-03-11] MEDS: ropinirole 2 mg Tablet 4 MG PO (09:03)
[2023-03-11] MEDS: venlafaxine ER (24HR) 150 mg Capsule PO (09:03)
[2023-03-11] MEDS: sucralfate 1 gm Tablet PO (09:03)
[2023-03-11] MEDS: allopurinol 300 mg Tablet PO (09:03)
[2023-03-11] MEDS: gabapentin 400 mg Capsule 800 MG PO (09:03)
[2023-03-11] MEDS: prazosin 1 mg Capsule PO (09:03)
[2023-03-11] MEDS: losartan 50 mg Tablet 25 MG PO (09:03)
[2023-03-11] MEDS: heparin 5,000 unit/mL INJ 1 mL 5000 UNIT SUBCUT (09:04)
--- NOTE | 2023-03-11 11:00 | MRR_ITS ---
PROCEDURE INFORMATION: Exam: MRA Head Without Contrast; Arteriography Exam date and time: 03/11/2023 12:31 PM Age: 57 years old Clinical indication: Pain; Headache; Additional info: Vasogenic migraine TECHNIQUE: Imaging protocol: Magnetic resonance angiography head without contrast. Qpma-uw-cwlkss (TOF) technique was utilized for this exam. Exam focused on the arteries. COMPARISON: MR head wo con* [id number] 03/11/2023 12:02 PM FINDINGS: ANTERIOR CIRCULATION: Right internal carotid artery: Intracranial segment is patent with no significant stenosis. No aneurysm. Right middle cerebral artery: No occlusion or significant stenosis. No aneurysm. Right anterior cerebral artery: No occlusion or significant stenosis. No aneurysm. Left internal carotid artery: Intracranial segment is patent with no significant stenosis. No aneurysm. Left middle cerebral artery: No occlusion or significant stenosis. No aneurysm. Left anterior cerebral artery: No occlusion or significant stenosis. No aneurysm. POSTERIOR CIRCULATION: Right vertebral artery: No occlusion or significant stenosis. No aneurysm. Left vertebral artery: No occlusion or significant stenosis. No aneurysm. Basilar artery: No occlusion or significant stenosis. No aneurysm. Right posterior cerebral artery: No occlusion or significant stenosis. No aneurysm. Left posterior cerebral artery: No occlusion or significant stenosis. No aneurysm. MR/MR angio head wo con [id number] IMPRESSION: No stenosis or occlusion.
--- NOTE | 2023-03-11 11:00 | MRR_ITS ---
PROCEDURE INFORMATION: Exam: MR Head Without Contrast Exam date and time: 03/11/2023 12:02 PM Age: 57 years old Clinical indication: Pain; Headache; Vascular; Patient HX: Facial and head numbness; Additional info: Stroke TECHNIQUE: Imaging protocol: Magnetic resonance imaging of the head without contrast. COMPARISON: CT head wo con* [id number] 03/10/2023 10:44 PM FINDINGS: Brain: No midline shift. Ventricles, cisterns, and sulci are normal. No mass, acute infarct, hemorrhage, or extraxial fluid collection. Cerebral ventricles: Normal. No ventriculomegaly. Bones/joints: Unremarkable. Paranasal sinuses: Normal as visualized. No acute sinusitis. Mastoid air cells: Normal as visualized. No mastoid effusion. Orbital cavities: Unremarkable. Soft tissues: Unremarkable. MR/MR head wo con* [id number] IMPRESSION: No acute findings.
[2023-03-11 11:04] LABS: Glucose Point of Care 139 mg/dL (70-110)
--- NOTE | 2023-03-11 13:18 | P.DS_ITS ---
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 She came to the ER today because the frequency of the episodes have been increasing for last 24 hours. Associated with headache. Episode started after she bumped her head on [place]. Patient was admitted to the hospital further evaluation and management. Patient underwent CT head which were negative for stroke. During hospitalization patient continued to have occasional episodes of numbness all over her body not associated with altered mental status, weakness or slurred speech. Patient complained of mild headache which was treated with pain medications. She underwent MRI and MRI of brain which were again negative for any acute stroke or acute abnormality. It is believed patient's symptoms are most likely in setting of complex vasogenic migraine. She has been discharged hemodynamic stable condition advised to follow-up with her outpatient neurologist. Physical Exam Narrative: General: No acute distress, AO x3, morbidly obese HEENT: PERRLA, pupils bilaterally equal and reactive Chest: Normal vesicular breath sounds, no added sounds, equal good air entry bilaterally CVS: S1-S2 regular, no murmurs, no tachycardia, no gallops, no rubs Abdomen: Soft, nontender, no organomegaly, bowel sounds present Neuro: No focal deficits, no facial deformity, AO x3, power 5/5 in all limbs Discharge Data Studies Completed and Pending Completed Studies During Hospitalization Category Date Time Status CT head wo con* [id number] Stat Cat Scan 03/10/23 13:[address] head wo con* [id number] Stat Cat Scan 03/10/23 22:32 Completed XR chest 1V portable [id number] Stat Exams 03/10/23 13:59 Completed MR angio head wo con [id number] Stat MRI 03/11/23 11:00 Completed MR head wo con* [id number] Stat MRI 03/11/23 11:00 Completed Radiology Impressions Chest X-Ray 03/10/23 13:59 IMPRESSION: No acute findings. ADDENDUM: 03/10/23 1437 Under the findings within the lungs section final sentence refers to a nodule in the left upper lung zone. Head CT 03/10/23 22:32 IMPRESSION: 1. No evidence of acute intracranial hemorrhage, mass effect, or midline shift. 2. There is a partially empty sella. 3. Fundus examination is recommended to exclude papilledema and the possibility of idiopathic intracranial hypertension (IIH). Head MRI 03/11/23 11:00 IMPRESSION: No acute findings. Head MRA 03/11/23 11:00 IMPRESSION: No stenosis or occlusion. Laboratory Results WBC 9.44 10^3/uL (3.29-11.43) 03/11/23 03:57 RBC 5.47 10^6/uL (3.85-5.65) 03/11/23 03:57 Hgb 13.20 g/dL (11.27-16.99) 03/11/23 03:57 Hct 43.8 % (36-47) 03/11/23 03:57 MCV 80.1 fl (85-98) L 03/11/23 03:57 MCH 24.1 pg (27-33) L 03/11/23 03:57 MCHC 30.1 g/dL (30-55) 03/11/23 03:57 RDW 15.2 % (12.1-15.1) H 03/11/23 03:57 Plt Count 200 10^3/cmm (157-399) 03/11/23 03:57 MPV 11.6 fL (7.4-10.4) H 03/11/23 03:57 Neut % (Auto) 59.9 % 03/11/23 03:57 Lymph % (Auto) 31.9 % 03/11/23 03:57 [place] % (Auto) 5.6 % 03/11/23 03:57 Eos % (Auto) 2.0 % 03/11/23 03:57 Baso % (Auto) 0.4 % 03/11/23 03:57 Neut # (Auto) 5.65 10^3/uL (1.8-7.7) 03/11/23 03:57 Lymph # (Auto) 3.0 10^3/uL (0.8-4.8) 03/11/23 03:57 [place] # (Auto) 0.5 10^3/uL (0.2-0.9) 03/11/23 03:57 Eos # (Auto) 0.2 10^3/uL (0.0-0.8) 03/11/23 03:57 Baso # (Auto) 0.0 10^3/uL (0.0-0.1) 03/11/23 03:57 Nucleated RBC % (auto) 0 % 03/11/23 03:57 Nucleated RBCs # 0.0 /100WBC 03/11/23 03:57 PT 14.00 SECONDS (12.1-14.9) 03/10/23 14:02 INR 1.05 (0.8-1.2) 03/10/23 14:02 Sodium 141 mmol/L (136-145) 03/11/23 03:57 Potassium 3.6 mmol/L (3.5-5.1) 03/11/23 03:57 Chloride 106 mmol/L (98-107) 03/11/23 03:57 Carbon Dioxide 26 mmol/L (22-29) 03/11/23 03:57 Anion Gap 12.6 (5-19) 03/11/23 03:57 BUN 23 mg/dL (6-20) H 03/11/23 03:57 Creatinine 1.0 mg/dL (0.5-0.9) H 03/11/23 03:57 GFR Calculation 57.4 mL/min (90-130) L 03/11/23 03:57 Glucose 104 mg/dL (65-115) 03/11/23 03:57 POC Glucose 139 mg/dL (70-110) H 03/11/23 10:47 Estimat Average Glucose 180 03/11/23 03:57 Hemoglobin A1c 7.9 % (4.0-6.0) H 03/11/23 03:57 Calculated Osmolality 296 mOsm/kg (285-295) H 03/11/23 03:57 Calcium 8.9 mg/dL (8.5-10.5) 03/11/23 03:57 Phosphorus 4.0 mg/dL (2.5-4.5) 03/11/23 03:57 Magnesium 2.1 mg/dL (1.7-2.3) 03/11/23 03:57 Iron 34 ug/dL (37-145) L 03/10/23 14:02 TIBC 353 mcg/dl 03/10/23 14:02 % Saturation 9.6 % (20-50) L 03/10/23 14:02 Unsat Iron Binding 319 ug/dL (112-347) 03/10/23 14:02 Total Bilirubin 0.5 mg/dL (0.15-1.2) 03/11/23 03:57 AST 19 U/L (0-32) 03/11/23 03:57 ALT 22 U/L (0-33) 03/11/23 03:57 Alkaline Phosphatase 105 U/L (35-105) 03/11/23 03:57 Total Protein 7.8 g/dL (6.6-8.7) 03/11/23 03:57 Albumin 3.7 g/dL (3.5-5.2) 03/11/23 03:57 Globulin 4.1 g/dL (1.3-4.6) 03/11/23 03:57 Triglycerides 156 mg/dL (0-150) H 03/11/23 03:57 Cholesterol 90 mg/dL (0-200) 03/11/23 03:57 LDL Cholesterol, Calc 25 mg/dL (50-129) L 03/11/23 03:57 HDL Cholesterol 34 mg/dL (60-100) L 03/11/23 03:57 LDL/HDL Ratio 0.74 RATIO (0.00-3.22) 03/11/23 03:57 Cholesterol/HDL Ratio 2.65 mg/dL (0.0-4.40) 03/11/23 03:57 Vitamin B12 419 pg/mL (232-1245) 03/10/23 14:02 Folate 13.6 ng/mL (4.8-37.3) 03/11/23 03:57 Procalcitonin 0.06 ng/mL (0-0.5) 03/10/23 14:02 TSH 2.08 uIU/mL (0.27-4.20) 03/10/23 14:02 Urine Color Yellow (Yellow) 03/10/23 15:03 Urine Appearance Clear (CLEAR) 03/10/23 15:03 Urine pH 6 (5-7) 03/10/23 15:03 Ur Specific [place] 1.010 (1.005-1.030) 03/10/23 15:03 Urine Protein Neg (Negative) 03/10/23 15:03 Urine Glucose (UA) 4+ (Normal) H 03/10/23 15:03 Urine Ketones Negative (Negative) 03/10/23 15:03 Urine Blood Neg (Negative) 03/10/23 15:03 Urine Nitrate Negative (Negative) 03/10/23 15:03 Urine Bilirubin Neg (Negative) 03/10/23 15:03 Urine Urobilinogen Norm mg/dL (Negative) 03/10/23 15:03 Ur Leukocyte Esterase Trace (Negative) H 03/10/23 15:03 Urine RBC 0-4 /hpf (0-2) H 03/10/23 15:03 Urine WBC 5-10 /hpf (0-5) H 03/10/23 15:03 Ur Squamous Epith Cells 0-4 /hpf (0-5) H 03/10/23 15:03 Amorphous Sediment Not Reportable 03/10/23 15:03 Urine Bacteria Trace /hpf (NONE) 03/10/23 15:03 Vitals Last Vital Signs Temp 97.8 F 03/11/23 07:09 Pulse 73 03/11/23 08:40 Resp 16 03/11/23 08:40 BP 123/71 03/11/23 12:00 Pulse Ox 96 03/11/23 08:40 O2 Del Method Room Air 03/11/23 08:40 Discharge Plan Discharge Patient Disposition: Home Condition: Stable Prescriptions: No Action furosemide [Lasix] 20 mg tablet 20 mg PO DAILY hydrochlorothiazide 25 mg tablet 25 mg PO DAILY dicyclomine 10 mg capsule 10 mg PO BID PRN (Reason: Stomach Cramps) prazosin 1 mg capsule 1 mg PO BID venlafaxine [Effexor XR] 150 mg capsule,extended release 24hr 150 mg PO DAILY ipratropium-albuterol 0.5 mg-3 mg(2.5 mg base)/3 mL solution for nebulization 3 ml INHALATION QID PRN (Reason: Dyspnea) albuterol sulfate [ProAir HFA] 90 mcg/actuation HFA aerosol inhaler 2 puff INHALATION Q6H PRN (Reason: Dyspnea) sucralfate 1 gram tablet 1 gm PO BID magnesium oxide 400 mg magnesium capsule 400 mg PO DAILY topiramate 50 mg capsule,extended release 24hr 50 mg PO DAILY allopurinol 300 mg tablet 300 mg PO DAILY baclofen 10 mg tablet 10 mg PO DAILY PRN (Reason: Pain) metformin 1,000 mg tablet 1,000 mg PO BID (DME) diabetic shoes See Rx Instructions .Route .MEDSUPPLY Qty: 1 0RF Rx Instructions: As directed (DME) insulin syringe-needle U-100 [BD Veo Insulin Syringe UF] 0.3 mL 31 gauge x 15/64 syringe See Rx Instructions .ROUTE .MEDSUPPLY Qty: 100 3RF Rx Instructions: As directed (DME) Diabetic Shoes See Rx Instructions .Route .MEDSUPPLY Qty: 1 0RF Rx Instructions: As directed (DME) Diabetic Shoes See Rx Instructions .Route .MEDSUPPLY Qty: 1 0RF Rx Instructions: As directed insulin aspart U-100 [Novolog FlexPen U-100 Insulin] 100 unit/mL (3 mL) insulin pen See Rx Instructions .ROUTE .COMPLEX Rx Instructions: PER SLIDING SCALE insulin degludec [Tresiba FlexTouch U-200] 200 unit/mL (3 mL) insulin pen 70 unit SUBCUT BID bupropion HCl 150 mg Tablet Extended Release 24 Hr 150 mg PO QPM Farxiga 10 mg tablet 10 mg PO DAILY hydrocodone-acetaminophen 10-325 mg tablet 1 tab PO Q6H PRN (Reason: pain) Qty: 15 0RF losartan 25 mg tablet 25 mg PO DAILY atorvastatin 80 mg tablet 80 mg PO QPM venlafaxine 75 mg capsule,extended release 24hr 75 mg PO DAILY albuterol sulfate 2.5 mg /3 mL (0.083 %) solution for nebulization 2.5 mg inhalation Q6H PRN (Reason: Shortness Of Breath Or Wheezing) pramipexole 0.5 mg tablet 0.5 mg PO BEDTIME famotidine 20 mg tablet 20 mg PO BEDTIME gabapentin 800 mg Tablet 800 mg PO TID Miralax 17 gram/dose Powder 4 g PO DAILY ropinirole 4 mg Tablet 4 mg PO BID Symbicort 160-4.5 mcg/actuation HFA aerosol inhaler 2 puff INHALATION BID Trulicity 0.75 mg/0.5 mL pen injector 0.5 mg SUBCUT Q7D Rx Instructions: ON MONDAY Qulipta 60 mg tablet 60 mg PO DAILY tramadol 50 mg tablet 50 mg PO Q6H Qty: 12 0RF Hold Instructions: Resume on 11/01/22. Discharge Orders: Discharge Order (Routine); Ordered 03/11/23 Ordered By: Ramón Sherman Referrals: Cheryl Purcell [Primary Care Provider] - Discharge Diet: Usual diet Discharge Activity: Resume usual activity and Increase activity as tolerated Patient Instructions: Opioid Safety Activity Restrictions/Additional Instructions: Follow-up with your outpatient neurologist. Discharge Attestations Time Spent in Discharge Care*: greater than 30 min Specific Discharge Activities: educating patient, educating and/or supporting family/caregiver, discussing with pcp/other providers, discussing with case leobardo tamez/social workers/dc planners, documenting/other paperwork and evaluating patient/reviewing data Status at Discharge: Cognitive status at discharge: cognitively intact , Behavioral status at discharge: cooperative , Functional status at discharge: independent ambulation , Overall status at discharge: patient is back to baseline Quality Metrics Clinical Quality Measures [ No reported AMI, CVA or VTE this stay] Coding Level of Care Code 24004 Total time (in minutes) for Discharge: 50 Diagnoses Numbness R20.0 Migraine aura occurring with and without headache G43.109 Hypertension I10 Hyperlipidemia E78.5 Diabetes E11.9
== END 2023-03-11 14:45 | disposition home or self-care (01) ==
LOC: ER 15:02 → MEDSURG 03-11 09:51
PROVIDERS: Admitting Provider Student in an Organized Health Care Education/Training Program; Emergency Provider Emergency Medicine; PCP Registered Nurse; Visit Provider Student in an Organized Health Care Education/Training Program
DX: R20.0 Anesthesia of skin (principal); G43.109 Migraine with aura, not intractable, without status migrainosus; I10 Essential (primary) hypertension; E78.5 Hyperlipidemia, unspecified; J45.909 Unspecified asthma, uncomplicated; E66.01 Morbid (severe) obesity due to excess calories; Z68.39 Body mass index [BMI] 39.0-39.9, adult; G43.809 Other migraine, not intractable, without status migrainosus; Z86.73 Personal history of transient ischemic attack (TIA), and cerebral infarction without residual deficits; K21.9 Gastro-esophageal reflux disease without esophagitis; E11.42 Type 2 diabetes mellitus with diabetic polyneuropathy; F32.A Depression, unspecified
CPT/HCPCS: 36415; 36416; 70450; 70544; 70551; 71045; 80053; 80061; 81001; 82607; 82746; 82962; 83036; 83540; 83550; 83735; 84100; 84145; 84443; 85025; 85610; 93005; 94664; 96372; 96374; 96375; 99285; G0378; J1644; J1815; J1885; J2270; J2550; J7030

== ENCOUNTER 2023-03-12 21:26 | Emergency (ER) | payer MEDICAID, SELFPAY ==
[2023-03-12 21:31] VITALS: BP 166/82; PULSE 94; RESP 16; TEMP 36.3; O2SAT 97; BMI 38.5
--- NOTE | 2023-03-12 21:52 | W.ED.NEUROSD ---
HPI - Neuro Symptoms/Deficit General: Chief Complaint: Neuro Symptoms/Deficit Stated Complaint: left numbness, possible stroke Time Seen by Provider: 03/12/23 21:40 Source: patient Mode of arrival: ambulatory Limitations: no limitations History of Present Illness: 57-year-old female has a history of complex migraines had seen her 2 nights ago for migraine she had had some left-sided weakness as well patient had been admitted she had an MRI along with MRA were both negative she states that she has had the same migraine and now numbness to the left side that has not really resolved and she was concerned. States the headaches are episodic she does see a neurologist and she has an appointment on March 15 she has no weakness or slurred speech here Associated symptoms: Reports headache(s); Deny chest pain, nausea or vomiting Review of Systems Const: Denies: fever(s) or chills Eyes: Denies: blurry vision or eye discomfort ENMT: Denies: throat pain or dental pain Card: Denies: chest pain Resp: Denies: dyspnea GI: Denies: abdominal pain, nausea, vomiting or diarrhea Musc: Denies: neck pain or back pain Skin/Breast: Denies: rash Neuro: Reports: headache(s) and numbness in extremities PFSH ED PFSH: Medical History 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 August 2021 MCI (mild cognitive impairment) HX: benign breast biopsy off tongue Dr. Adan Abdominal pain Nausea & vomiting GERD (gastroesophageal reflux disease) Hypertension Diabetes Anemia Duodenitis without bleeding Morbid obesity with BMI of 40.0-44.9, adult Depression PTSD (post-traumatic stress disorder) RLS (restless legs syndrome) Gout Asthma Surgical History S/P excision of lipoma Right hip 12 x 10 x 9 cm Hx of dilation and curettage x3 History of esophagogastroduodenoscopy (EGD) Family History Other Hypertension Social History Smoking and tobacco/nicotine status: never used tobacco/nicotine Alcohol intake: current Physical Exam Const: COMMON NORMALS: no acute distress, patient oriented x3 and healthy appearing HENMT: COMMON NORMALS: normocephalic and atraumatic HEAD & SCALP: normocephalic and atraumatic Eye: COMMON NORMALS: Equal, round and reactive pupils present and EOMs intact bilaterally PUPIL: Yes Equal, round and reactive pupils present Neck/C-Spine: COMMON NORMALS: full ROM and supple Chest: COMMONS NORMALS: normal inspection of the chest Resp: COMMON NORMALS: normal respiratory effort Cardio: COMMON NORMALS: regular rate, regular rhythm and No murmurs present (Cardio) RATE: regular rate RHYTHM: regular rhythm Extremity: COMMON NORMALS: normal to inspection and full ROM Neuro: COMMON NORMALS: patient oriented x3, moves all extremities and no focal motor deficits Psych: COMMON NORMALS: mental status grossly normal, Normal thought process present and cooperative THOUGHT PROCESS: Normal thought process present Skin: COMMON NORMALS: no rashes or lesions noted and no wounds GENERAL SKIN EXAM: no rashes or lesions noted Course Vital Signs: Vital signs: Vital Signs Temperature 97.4 F L 03/12/23 21:31 Pulse Rate 94 03/12/23 21:31 Respiratory Rate 16 03/12/23 21:31 Blood Pressure 166/82 03/12/23 21:31 Pulse Oximetry 97 03/12/23 21:31 Oxygen Delivery Me thod Room Air 03/12/23 21:31 MDM - Neuro Symptoms/Deficit Medical Decision Making Patient presents with a migraine headache with paresthesias she has no weakness here she is ambulatory she just had an MRI and an MRI that are negative she had no signs of stroke this is likely her migraine headache we will treat her migraine she is to follow-up with her neurologist as scheduled March 15 return if worsening. No radiology studies performed this visit Discharge Plan Discharge Patient Disposition: Home Clinical Impression: Numbness, Migraine Condition: Stable Prescriptions: No Action furosemide [Lasix] 20 mg tablet 20 mg PO DAILY hydrochlorothiazide 25 mg tablet 25 mg PO DAILY dicyclomine 10 mg capsule 10 mg PO BID PRN (Reason: Stomach Cramps) prazosin 1 mg capsule 1 mg PO BID venlafaxine [Effexor XR] 150 mg capsule,extended release 24hr 150 mg PO DAILY ipratropium-albuterol 0.5 mg-3 mg(2.5 mg base)/3 mL solution for nebulization 3 ml INHALATION QID PRN (Reason: Dyspnea) albuterol sulfate [ProAir HFA] 90 mcg/actuation HFA aerosol inhaler 2 puff INHALATION Q6H PRN (Reason: Dyspnea) sucralfate 1 gram tablet 1 gm PO BID magnesium oxide 400 mg magnesium capsule 400 mg PO DAILY topiramate 50 mg capsule,extended release 24hr 50 mg PO DAILY allopurinol 300 mg tablet 300 mg PO DAILY baclofen 10 mg tablet 10 mg PO DAILY PRN (Reason: Pain) metformin 1,000 mg tablet 1,000 mg PO BID (DME) diabetic shoes See Rx Instructions .Route .MEDSUPPLY Qty: 1 0RF Rx Instructions: As directed (DME) insulin syringe-needle U-100 [BD Veo Insulin Syringe UF] 0.3 mL 31 gauge x 15/64 syringe See Rx Instructions .ROUTE .MEDSUPPLY Qty: 100 3RF Rx Instructions: As directed (DME) Diabetic Shoes See Rx Instructions .Route .MEDSUPPLY Qty: 1 0RF Rx Instructions: As directed (DME) Diabetic Shoes See Rx Instructions .Route .MEDSUPPLY Qty: 1 0RF Rx Instructions: As directed insulin aspart U-100 [Novolog FlexPen U-100 Insulin] 100 unit/mL (3 mL) insulin pen See Rx Instructions .ROUTE .COMPLEX Rx Instructions: PER SLIDING SCALE insulin degludec [Tresiba FlexTouch U-200] 200 unit/mL (3 mL) insulin pen 70 unit SUBCUT BID bupropion HCl 150 mg Tablet Extended Release 24 Hr 150 mg PO QPM Farxiga 10 mg tablet 10 mg PO DAILY hydrocodone-acetaminophen 10-325 mg tablet 1 tab PO Q6H PRN (Reason: pain) Qty: 15 0RF losartan 25 mg tablet 25 mg PO DAILY atorvastatin 80 mg tablet 80 mg PO QPM venlafaxine 75 mg capsule,extended release 24hr 75 mg PO DAILY albuterol sulfate 2.5 mg /3 mL (0.083 %) solution for nebulization 2.5 mg inhalation Q6H PRN (Reason: Shortness Of Breath Or Wheezing) pramipexole 0.5 mg tablet 0.5 mg PO BEDTIME famotidine 20 mg tablet 20 mg PO BEDTIME gabapentin 800 mg Tablet 800 mg PO TID Miralax 17 gram/dose Powder 4 g PO DAILY ropinirole 4 mg Tablet 4 mg PO BID Symbicort 160-4.5 mcg/actuation HFA aerosol inhaler 2 puff INHALATION BID Trulicity 0.75 mg/0.5 mL pen injector 0.5 mg SUBCUT Q7D Rx Instructions: ON MONDAY Qulipta 60 mg tablet 60 mg PO DAILY tramadol 50 mg tablet 50 mg PO Q6H Qty: 12 0RF Hold Instructions: Resume on 11/01/22. Discharge Orders: Discharge ED (Routine); Ordered 03/12/23 Ordered By: Jazzmine Gabriel Referrals: Cheryl Purcell [Primary Care Provider] - Discharge Diet: Advance as tolerated Discharge Activity: Resume usual activity Patient Instructions: Migraine Headache (ED), Paresthesia (ED) Coding Level of Care Code ED Software Tools Build Engineer for Carlos León
[2023-03-12 22:04] VITALS: RESP 18; O2SAT 98
[2023-03-12] MEDS: morphine 4 mg/mL SDV 1 mL IM (22:04)
[2023-03-12] MEDS: ketorolac 30 mg/mL INJ IM (22:04)
[2023-03-12] MEDS: promethazine 25 mg/mL SDV 1 mL IM (22:05)
[2023-03-12 22:34] VITALS: BP 154/99; PULSE 82; RESP 18; O2SAT 98
== END 2023-03-12 22:35 | disposition home or self-care (01) ==
PROVIDERS: Emergency Provider Emergency Medicine; PCP Registered Nurse
DX: R20.0 Anesthesia of skin (principal); G43.909 Migraine, unspecified, not intractable, without status migrainosus; Z79.84 Long term (current) use of oral hypoglycemic drugs; Z79.4 Long term (current) use of insulin; Z86.73 Personal history of transient ischemic attack (TIA), and cerebral infarction without residual deficits; I10 Essential (primary) hypertension; E11.42 Type 2 diabetes mellitus with diabetic polyneuropathy
CPT/HCPCS: 96372; 99284; J1885; J2270; J2550

== ENCOUNTER → 2023-04-04 12:27 | Outpatient (BNVA) | payer MEDICAID, SELFPAY | PROVIDERS: PCP Registered Nurse; Visit Provider Podiatrist Foot & Ankle Surgery | DX: L60.0 Ingrowing nail (principal); Z51.89 Encounter for other specified aftercare; B35.1 Tinea unguium; L85.3 Xerosis cutis; L84 Corns and callosities; Z79.4 Long term (current) use of insulin; Z79.84 Long term (current) use of oral hypoglycemic drugs; E11.69 Type 2 diabetes mellitus with other specified complication | CPT/HCPCS: 11721; 99213 ==

== ENCOUNTER 2023-07-10 23:20 | Emergency (ER) | payer MEDICAID, SELFPAY ==
[2023-07-10 23:37] VITALS: BP 139/85; PULSE 81; TEMP 36.6; O2SAT 96
[2023-07-10 23:40] LABS: Glucose Point of Care 215 mg/dL (70-110)
--- NOTE | 2023-07-10 23:41 | CTR_ITS ---
PROCEDURE INFORMATION: Exam: CT Head Without Contrast Exam date and time: 07/10/2023 11:48 PM Age: 57 years old Clinical indication: Stroke-like symptoms; Left upper extremity numbness/paresthesia; Additional info: Symptoms of acute stroke TECHNIQUE: Imaging protocol: Computed tomography of the head without contrast. Radiation optimization: All CT scans at this facility use at least one of these dose optimization techniques: automated exposure control; mA and/or kV adjustment per patient size (includes targeted exams where dose is matched to clinical indication); or iterative reconstruction. Other technique: STROKE PROTOCOL was implemented. COMPARISON: 1. MR angio head wo con [id number] 03/11/2023 12:[address] head wo con* [id number] 08/16/2021 4:27 PM RADIATION DOSE METRICS: Total DLP (mGy-cm): 1141.6 FINDINGS: Brain: Normal. No hemorrhage. Unremarkable white matter. No mass effect. Cerebral ventricles: No ventriculomegaly. Paranasal sinuses: Visualized sinuses are unremarkable. No fluid levels. Mastoid air cells: Visualized mastoid air cells are well aerated. Bones/joints: Unremarkable. No acute fracture. Soft tissues: Unremarkable. CT/CT head thrombolytic [id number] IMPRESSION: No acute intracranial abnormality. ASSESSMENT: ASPECTS ([facility] Stroke Program Early CT Score) is 10.
--- NOTE | 2023-07-10 23:41 | ECG_ITS ---
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 Measurements Intervals [place] Rate: 76 P: 55 KS: 140 QRS: 73 QRSD: 88 T: 91 QT: 348 QTc: 392 Interpretive Statements SINUS RHYTHM NONSPECIFIC T-WAVE ABNORMALITY Compared to ECG 03/10/2023 14:12:24 No significant changes Electronically Signed On 07-11-2023 17:19:49 CDT by Navneet Vo M.D. [id number]
--- NOTE | 2023-07-10 23:46 | ED_ITS ---
HPI - Neuro Symptoms/Deficit 2 General: Chief Complaint: Neuro Symptoms/Deficit Stated Complaint: left sided weakness Time Seen by Provider: 07/10/23 23:51 History of Present Illness: Patient presents to the ER with complaints of left-sided weakness of her upper and lower extremities. Patient states she began to have these approximately 10 PM and has not been able to move her left side since then. Patient is unable to pick her left arm and leg up on her own but when picked up for her she holds up for a fraction of a second and then drop some. Upon further talking to her patient has had multiple mini strokes in the past. Patient is not on any type anticoagulation. states that patient was flown to [facility] on Monday with strokelike symptoms and diagnosed with mini strokes. He says they gave her no medicine at these just resolve on their own after a head CT and head MRI. Past records show patient had tPA at this facility back in 2021 Review of Systems 2 General: Reports: 10 or more systems reviewed and unremarkable except in HPI and below PFSH ED 2 PFSH: Medical History 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 August 2021 MCI (mild cognitive impairment) HX: benign breast biopsy off tongue Dr. Adan Abdominal pain Nausea & vomiting GERD (gastroesophageal reflux disease) Hypertension Diabetes Anemia Duodenitis without bleeding Morbid obesity with BMI of 40.0-44.9, adult Depression PTSD (post-traumatic stress disorder) RLS (restless legs syndrome) Gout Asthma Surgical History S/P excision of lipoma Right hip 12 x 10 x 9 cm Hx of dilation and curettage x3 History of esophagogastroduodenoscopy (EGD) Family History Other Hypertension Social History Smoking and tobacco/nicotine status: never used tobacco/nicotine Alcohol intake: current NIH stroke score 2 NIHSS: Level Of Consciousness - 1a: 0 Level Of Consciousness Questions - 1b: Both Correct Level Of Consciousness Commands - 1c: Both Correct Best Gaze - 2: Normal Visual Solorzano - 3: No Visual Loss Facial Palsy - 4: N ormal Motor Arm Right - 5: No Drift Motor Arm Left - 5: Drift Motor Leg Right - 6: No Drift Motor Leg Left - 6: Drift Limb Ataxia - 7: Absent S ensory - 8: Normal Best Language - 9: No Aphasia Dysarthia - 10: Normal Extinction And Inattention - 11: 0 Score: Total Score: 2 Physical Exam 2 Const: COMMON NORMALS: no acute distress, average body habitus, patient oriented x3, no limitations, healthy appearing, alert and well nourished HENMT: COMMON NORMALS: normocephalic, atraumatic, hearing grossly normal bilaterally, external ears normal, Normal external nose present, moist oral mucous membranes and oropharynx normal HEAD & SCALP: normocephalic and atraumatic NOSE: Normal external nose present EXTERNAL EAR: Yes external ears normal Eye: COMMON NORMALS: Equal, round and reactive pupils present, EOMs intact bilaterally, conjunctivae normal, no scleral icterus and normal visual solorzano by confrontation CONJUNCTIVA: Yes conjunctivae normal PUPIL: Yes Equal, round and reactive pupils present Neck/C-Spine: COMMON NORMALS: full ROM, no lymphadenopathy, supple, no meningeal signs, no JVD and Thyroid normal THYROID: Thyroid normal Chest: COMMONS NORMALS: normal inspection of the chest and normal palpation of entire chest wall Resp: COMMON NORMALS: normal respiratory effort, No retractions, No use of accessory muscles and clear to auscultation bilaterally AUSCULTATION: clear to auscultation bilaterally Cardio: COMMON NORMALS: no JVD, regular rate, regular rhythm, S1 normal heart sound present, S2 normal heart sound present, No gallops present (Cardio), No clicks present (Cardio), No murmurs present (Cardio) and No rub (Cardio) R ATE: regular rate RHYTHM: regular rhythm HEART SOUNDS: S1 normal heart sound present and S2 normal heart sound present GI: COMMON NORMALS: Normal to inspection, nondistended, normoactive bowel sounds present, Soft to palpation, non-tender, No hepatosplenomegaly present and no masses PALPATION: Yes Soft to palpation and Yes No hepatosplenomegaly present Extremity: OTHER: Full strength and range of motion in right upper and lower extremities, patient can move left upper and lower extremities against gravity and hold them in position when not directly asked to such as rotating and turning positions. However when she is asked to she will will not do this. And she will just drop them immediately. Neuro: COMMON NORMALS: patient oriented x3 SENSORIUM/ORIENTATION: Yes alert MENINGEAL SIGNS: Yes no meningeal signs Course 2 Vital Signs: Vital signs: Vital Signs Temperature 97.8 F 07/11/23 02:39 Pulse Rate 70 07/11/23 02:39 Respiratory Rate 16 07/11/23 02:39 Blood Pressure 147/101 07/11/23 02:39 Pulse Oximetry 95 07/11/23 02:39 Oxygen Delivery Me thod Room Air 07/10/23 23:37 MDM - Neuro Symptoms/Deficit Medical Decision Making Discussed case with Dr. Valentino after CT scan preliminary report was negative. When she wanted us to sit the patient up and observe her left side during the process. While patient was sitting up patient was able to move her left arm and hold it out against gravity but when he asked her about this she would drop it instantaneously when we lifted up she would not be able to hold it up. While returning to lay down she was able to lift her left leg up off the bed and hold it there for over 10 seconds while she repositioned the rest of her body. These findings are not suggestive of CVA or of at least an quickly improving CVA. Therefore is my in Dr. Valentino's opinion that the patient should not receive TNKase at this time. Once all lab work and imaging came back and talk with Dr. Haas who said since patient's rapidly improving and is possibly not cooperating with the tests and already has had a full workup over at [facility] we should just be able to send her home for further workup on an outpatient basis. Patient was seen ambulating to the bathroom in no acute distress and with no obvious weakness of her left upper or lower extremity. Patient will be discharged home to follow-up with PCP. Differential Diagnosis Unlikely carpal tunnel syndrome, convulsions, delirium, subarachnoid hemorrhage, peripheral neuropathy, cerebrovascular accident, multiple sclerosis or transient cerebral ischemia Medical Records I reviewed the patient's medical records. Lab Data I reviewed the patient's lab results. 07/10/23 23:39 07/10/23 23:[address] 07/10/23 23:41 IMPRESSION: No acute intracranial abnormality. ASSESSMENT: ASPECTS ([place] Stroke Program Early CT Score) is 10. Laboratory Results WBC 9.80 10^3/uL (3.29-11.43) 07/10/23 23:39 RBC 5.12 10^6/uL (3.85-5.65) 07/10/23 23:39 Hgb 12.80 g/dL (11.27-16.99) 07/10/23 23:39 Hct 42.2 % (36-47) 07/10/23 23:39 MCV 82.4 fl (85-98) L 07/10/23 23:39 MCH 25.0 pg (27-33) L 07/10/23 23:39 MCHC 30.3 g/dL (30-55) 07/10/23 23:39 RDW 15.8 % (12.1-15.1) H 07/10/23 23:39 Plt Count 202 10^3/cmm (157-399) 07/10/23 23:39 MPV 11.1 fL (7.4-10.4) H 07/10/23 23:39 Neut % (Auto) 65.2 % 07/10/23 23:39 Lymph % (Auto) 27.3 % 07/10/23 23:39 [place] % (Auto) 5.9 % 07/10/23 23:39 Eos % (Auto) 0.9 % 07/10/23 23:39 Baso % (Auto) 0.4 % 07/10/23 23:39 Neut # (Auto) 6.38 10^3/uL (1.8-7.7) 07/10/23 23:39 Lymph # (Auto) 2.7 10^3/uL (0.8-4.8) 07/10/23 23:39 [place] # (Auto) 0.6 10^3/uL (0.2-0.9) 07/10/23 23:39 Eos # (Auto) 0.1 10^3/uL (0.0-0.8) 07/10/23 23:39 Baso # (Auto) 0.0 10^3/uL (0.0-0.1) 07/10/23 23:39 Nucleated RBC % (auto) 0 % 07/10/23 23:39 Nucleated RBCs # 0.0 /100WBC 07/10/23 23:39 PT 12.70 SECONDS (12.1-14.9) 07/10/23 23:39 INR 0.92 (0.8-1.2) 07/10/23 23:39 APTT 25.2 SECONDS (23.9-36.7) 07/10/23 23:39 Sodium 137 mmol/L (136-145) 07/10/23 23:39 Potassium 3.9 mmol/L (3.5-5.1) 07/10/23 23:39 Chloride 103 mmol/L (98-107) 07/10/23 23:39 Carbon Dioxide 26 mmol/L (22-29) 07/10/23 23:39 Anion Gap 11.9 (5-19) 07/10/23 23:39 BUN 24 mg/dL (6-20) H 07/10/23 23:39 Creatinine 0.9 mg/dL (0.5-0.9) 07/10/23 23:39 GFR Calculation 64.8 mL/min (90-130) L 07/10/23 23:39 Glucose 237 mg/dL (65-115) H 07/10/23 23:39 POC Glucose 215 mg/dL (70-110) H 07/10/23 23:37 Calculated Osmolality 296 mOsm/kg (285-295) H 07/10/23 23:39 Calcium 9.4 mg/dL (8.5-10.5) 07/10/23 23:39 Magnesium 2.1 mg/dL (1.7-2.3) 07/10/23 23:39 Total Bilirubin 0.2 mg/dL (0.15-1.2) 07/10/23 23:39 AST 24 U/L (0-32) 07/10/23 23:39 ALT 42 U/L (0-33) H 07/10/23 23:39 Alkaline Phosphatase 109 U/L (35-105) H 07/10/23 23:39 C-Reactive Protein 5.3 mg/L (0.0-4.9) H 07/10/23 23:39 Total Protein 8.2 g/dL (6.6-8.7) 07/10/23 23:39 Albumin 3.9 g/dL (3.5-5.2) 07/10/23 23:39 Globulin 4.3 g/dL (1.3-4.6) 07/10/23 23:39 Urine Color Light yellow (Yellow) 07/11/23 00:02 Urine Appearance Clear (CLEAR) 07/11/23 00:02 Urine pH 6 (5-7) 07/11/23 00:02 Ur Specific [place] 1.010 (1.005-1.030) 07/11/23 00:02 Urine Protein Neg (Negative) 07/11/23 00:02 Urine Glucose (UA) 4+ (Normal) H 07/11/23 00:02 Urine Ketones Negative (Negative) 07/11/23 00:02 Urine Blood Neg (Negative) 07/11/23 00:02 Urine Nitrate Negative (Negative) 07/11/23 00:02 Urine Bilirubin Neg (Negative) 07/11/23 00:02 Urine Urobilinogen Neg mg/dL (Negative) 07/11/23 00:02 Ur Leukocyte Esterase Negative (Negative) 07/11/23 00:02 Urine Opiates Screen Negative ng/mL (Negative) 07/11/23 00:02 Ur Barbiturates Screen Negative ng/mL (Negative) 07/11/23 00:02 Ur Phencyclidine Scrn Negative ng/mL (Negative) 07/11/23 00:02 Ur Amphetamines Screen Negative ng/mL (Negative) 07/11/23 00:02 U Benzodiazepines Scrn Negative ng/mL (Negative) 07/11/23 00:02 Urine Cocaine Screen Negative ng/mL (Negative) 07/11/23 00:02 U Marijuana (THC) Screen Negative ng/mL (Negative) 07/11/23 00:02 All radiology interpretation(s) finalized by discharge Discharge Plan Discharge Patient Disposition: Home Clinical Impression: Transient weakness of lower extremity, Left arm weakness Condition: Stable Prescriptions: No Action furosemide [Lasix] 20 mg tablet 20 mg PO DAILY hydrochlorothiazide 25 mg tablet 25 mg PO DAILY dicyclomine 10 mg capsule 10 mg PO BID PRN (Reason: Stomach Cramps) prazosin 1 mg capsule 1 mg PO BID venlafaxine [Effexor XR] 150 mg capsule,extended release 24hr 150 mg PO DAILY ipratropium-albuterol 0.5 mg-3 mg(2.5 mg base)/3 mL solution for nebulization 3 ml INHALATION QID PRN (Reason: Dyspnea) albuterol sulfate [ProAir HFA] 90 mcg/actuation HFA aerosol inhaler 2 puff INHALATION Q6H PRN (Reason: Dyspnea) sucralfate 1 gram tablet 1 gm PO BID magnesium oxide 400 mg magnesium capsule 400 mg PO DAILY topiramate 50 mg capsule,extended release 24hr 50 mg PO DAILY allopurinol 300 mg tablet 300 mg PO DAILY baclofen 10 mg tablet 10 mg PO DAILY PRN (Reason: Pain) metformin 1,000 mg tablet 1,000 mg PO BID (DME) diabetic shoes See Rx Instructions .Route .MEDSUPPLY Qty: 1 0RF Rx Instructions: As directed clindamycin HCl 300 mg capsule 300 mg PO TID Qty: 21 0RF (DME) insulin syringe-needle U-100 [BD Veo Insulin Syringe UF] 0.3 mL 31 gauge x 15/64 syringe See Rx Instructions .ROUTE .MEDSUPPLY Qty: 100 3RF Rx Instructions: As directed (DME) Diabetic Shoes See Rx Instructions .Route .MEDSUPPLY Qty: 1 0RF Rx Instructions: As directed (DME) Diabetic Shoes See Rx Instructions .Route .MEDSUPPLY Qty: 1 0RF Rx Instructions: As directed insulin aspart U-100 [Novolog FlexPen U-100 Insulin] 100 unit/mL (3 mL) insulin pen See Rx Instructions .ROUTE .COMPLEX Rx Instructions: PER SLIDING SCALE insulin degludec [Tresiba FlexTouch U-200] 200 unit/mL (3 mL) insulin pen 70 unit SUBCUT BID bupropion HCl 150 mg Tablet Extended Release 24 Hr 150 mg PO QPM Farxiga 10 mg tablet 10 mg PO DAILY hydrocodone-acetaminophen 10-325 mg tablet 1 tab PO Q6H PRN (Reason: pain) Qty: 15 0RF losartan 25 mg tablet 25 mg PO DAILY atorvastatin 80 mg tablet 80 mg PO QPM venlafaxine 75 mg capsule,extended release 24hr 75 mg PO DAILY albuterol sulfate 2.5 mg /3 mL (0.083 %) solution for nebulization 2.5 mg inhalation Q6H PRN (Reason: Shortness Of Breath Or Wheezing) pramipexole 0.5 mg tablet 0.5 mg PO BEDTIME famotidine 20 mg tablet 20 mg PO BEDTIME gabapentin 800 mg Tablet 800 mg PO TID Miralax 17 gram/dose Powder 4 g PO DAILY ropinirole 4 mg Tablet 4 mg PO BID Symbicort 160-4.5 mcg/actuation HFA aerosol inhaler 2 puff INHALATION BID Trulicity 0.75 mg/0.5 mL pen injector 0.5 mg SUBCUT Q7D Rx Instructions: ON MONDAY Qulipta 60 mg tablet 60 mg PO DAILY tramadol 50 mg tablet 50 mg PO Q6H Qty: 12 0RF Hold Instructions: Resume on 11/01/22. Discharge Orders: Discharge ED (Routine); Ordered 07/11/23 Ordered By: Dioni Spence Referrals: Cheryl Purcell [Primary Care Provider] - 1 week Patient Instructions: Weakness (Generalized) Activity Restrictions/Additional Instructions: Your evaluation in your lab work showed that he had transient weakness of the left upper and lower extremities. Your strength came back quickly. It was not felt you are having a stroke. That is why you did not get TNKase. Please follow-up with your family practice physician for further evaluation and testing. Please get the results of all the testing you had done at [facility] approximately 3 days ago and take them with you to your family practice follow- up. Coding Level of Care Code ED Integration Software Engineer for Carlos León
[2023-07-10 23:47] LABS: Basophils % 0.4 %; Eosinophils # 0.1 10^3/uL (0.0-0.8); Eosinophils % 0.9 %; Hematocrit 42.2 % (36-47); Lymphocytes # 2.7 10^3/uL (0.8-4.8); Lymphocytes % 27.3 %; Mean Corpuscular HGB Conc 30.3 g/dL (30-55); Mean Corpuscular Volume 82.4 fl (85-98); Mean Platelet Volume 11.1 fL (7.4-10.4); Monocytes # 0.6 10^3/uL (0.2-0.9); Monocytes % 5.9 %; Neutrophils # 6.38 10^3/uL (1.8-7.7); Neutrophils % 65.2 %; Nucleated Red Blood Cells % 0 %; Platelet Count 202 10^3/cmm (157-399); Red Blood Count 5.12 10^6/uL (3.85-5.65); Red Cell Distribution Width 15.8 % (12.1-15.1)
[2023-07-10 23:57] LABS: INR 0.92 (0.8-1.2); Partial Thromboplastin Time 25.2 SECONDS (23.9-36.7)
[2023-07-11 00:04] VITALS: BP 167/111; PULSE 78; RESP 16; O2SAT 97
[2023-07-11 00:05] LABS: Alanine Aminotransferase 42 U/L (0-33); Albumin Level 3.9 g/dL (3.5-5.2); Alkaline Phosphatase 109 U/L (35-105); Anion Gap 11.9 (5-19); Aspartate Amino Transferase 24 U/L (0-32); Blood Urea Nitrogen 24 mg/dL (6-20); C Reactive Protein 5.3 mg/L (0.0-4.9); Calcium 9.4 mg/dL (8.5-10.5); Carbon Dioxide 26 mmol/L (22-29); Chloride 103 mmol/L (98-107); Globulin 4.3 g/dL (1.3-4.6); Glomerular Filtration Rate 64.8 mL/min (90-130); Glucose 237 mg/dL (65-115); Magnesium 2.1 mg/dL (1.7-2.3); Osmolality Calculated 296 mOsm/kg (285-295); Potassium 3.9 mmol/L (3.5-5.1); Sodium 137 mmol/L (136-145); Total Bilirubin 0.2 mg/dL (0.15-1.2); Total Protein 8.2 g/dL (6.6-8.7)
[2023-07-11 00:07] LABS: Add Urine Microscopic? NO; Charge for UA Resulting for Rev
[2023-07-11 00:10] LABS: Bilirubin Urine Neg (Negative); Blood Urine Neg (Negative); Glucose Urine UA 4+ (Normal); Ketones Urine Negative (Negative); Leukocyte Esterase Urine Negative (Negative); Nitrate Urine Negative (Negative); Protein Urine Neg (Negative); Urine Appearance Clear (CLEAR); Urine Color Light yellow (Yellow); Urobilinogen Urine Neg (Negative); pH Urine 6 (5-7)
[2023-07-11 00:18] LABS: Amphetamines Screen Urine Negative (Negative); Barbiturates Screen Urine Negative (Negative); Benzodiazepines Screen Urine Negative (Negative); Cocaine Screen Urine Negative (Negative); Opiate Screen Urine Negative (Negative); PCP Screen Urine Negative (Negative); THC Screen Urine Negative (Negative)
[2023-07-11 00:33] VITALS: BP 165/89; PULSE 75; RESP 16; O2SAT 98
[2023-07-11 02:39] VITALS: BP 147/101; PULSE 70; RESP 16; TEMP 36.6; O2SAT 95
== END 2023-07-11 02:57 | disposition home or self-care (01) ==
PROVIDERS: Emergency Provider Emergency Medicine; PCP Registered Nurse
DX: R53.1 Weakness (principal); Z79.84 Long term (current) use of oral hypoglycemic drugs; Z79.4 Long term (current) use of insulin; Z86.73 Personal history of transient ischemic attack (TIA), and cerebral infarction without residual deficits; I10 Essential (primary) hypertension
CPT/HCPCS: 36416; 70450; 80053; 80306; 81003; 82962; 83735; 85025; 85610; 85730; 86140; 93005; 99284

== ENCOUNTER 2023-07-21 04:07 | Emergency (ER) | payer MEDICAID, SELFPAY ==
[2023-07-21 04:21] VITALS: BP 146/90; PULSE 82; RESP 20; TEMP 36.6; O2SAT 96; BMI 30.4
--- NOTE | 2023-07-21 04:29 | XRR_ITS ---
PROCEDURE INFORMATION: Exam: XR Cervical Spine Exam date and time: 07/21/2023 4:38 AM Age: 57 years old Clinical indication: Neck pain; Additional info: Pain no trauma TECHNIQUE: Imaging protocol: Radiologic exam of the cervical spine. Views: 2 or 3 views. COMPARISON: CT angio headneck* [id number] 07/18/2018 3:08 PM FINDINGS: Bones/joints: Moderate to severe degenerative change of the cervical spine. Soft tissues: Unremarkable. XR/XR cervical spine 3V* [id number] IMPRESSION: Moderate to severe degenerative change of the cervical spine. No evidence for acute or aggressive osseous abnormality.
--- NOTE | 2023-07-21 04:30 | ED_ITS ---
HPI - Neck Pain/Injury General: Chief Complaint: Neck Pain/Injury Stated Complaint: Back of Neck Pain Time Seen by Provider: 07/21/23 04:20 History of Present Illness: Patient presents to the ER with complaints of neck pain. Patient says about an hour ago when she sat down in her chair her neck started hurting and continue to hurt more and more until she was unable to turn it left and right without pain. Patient says she does have arthritis in the neck and has had a shot in the neck earlier this year which seemed to help patient says she is not not traumatize her neck any this time nor has she tried any of her medicine. Patient denies any fever chills cough cold sore throats etc. Review of Systems General: Reports: 10 or more systems reviewed and unremarkable except in HPI and below PFSH ED PFSH: Medical History 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 August 2021 MCI (mild cognitive impairment) HX: benign breast biopsy off tongue Dr. Adan Abdominal pain Nausea & vomiting GERD (gastroesophageal reflux disease) Hypertension Diabetes Anemia Duodenitis without bleeding Morbid obesity with BMI of 40.0-44.9, adult Depression PTSD (post-traumatic stress disorder) RLS (restless legs syndrome) Gout Asthma Surgical History S/P excision of lipoma Right hip 12 x 10 x 9 cm Hx of dilation and curettage x3 History of esophagogastroduodenoscopy (EGD) Family History Other Hypertension Social History Smoking and tobacco/nicotine status: never used tobacco/nicotine Alcohol intake: current Physical Exam Const: COMMON NORMALS: no acute distress, average body habitus, patient oriented x3, no limitations, healthy appearing, alert and well nourished HENMT: COMMON NORMALS: normocephalic, atraumatic, hearing grossly normal bilaterally, external ears normal, Normal external nose present, moist oral mucous membranes and oropharynx normal HEAD & SCALP: normocephalic and atraumatic NOSE: Normal external nose present EXTERNAL EAR: Yes external ears normal Neck/C-Spine: COMMON NORMALS: no lymphadenopathy, supple, no meningeal signs and no JVD OTHER: Positive paraspinal muscular tenderness, limited range of motion secondary to pain Chest: COMMONS NORMALS: normal inspection of the chest and normal palpation of entire chest wall Resp: COMMON NORMALS: normal respiratory effort, No retractions, No use of accessory muscles and clear to auscultation bilaterally AUSCULTATION: clear to auscultation bilaterally Cardio: COMMON NORMALS: no JVD, regular rate, regular rhythm, S1 normal heart sound present, S2 normal heart sound present, No gallops present (Cardio), No clicks present (Cardio), No murmurs present (Cardio) and No rub (Cardio) RATE: regular rate RHYTHM: regular rhythm HEART SOUNDS: S1 normal heart sound present and S2 normal heart sound present GI: COMMON NORMALS: Normal to inspection, nondistended, normoactive bowel sounds present, Soft to palpation, non-tender, No hepatosplenomegaly present and no masses PALPATION: Yes Soft to palpation and Yes No hepatosplenomegaly present Neuro: COMMON NORMALS: patient oriented x3 SENSORIUM/ORIENTATION: Yes alert MENINGEAL SIGNS: Yes no meningeal signs Course Vital Signs: Vital signs: Vital Signs Temperature 97.8 F 07/21/23 04:21 Pulse Rate 82 07/21/23 04:21 Respiratory Rate 20 H 07/21/23 04:21 Blood Pressure 146/90 07/21/23 04:21 Pulse Oximetry 96 07/21/23 04:21 MDM - Neck Pain/Injury Medical Decision Making X-rays of the cervical spine was taken and preliminary reading by myself only showed significant arthritis no acute changes. Patient was given 60 mg Toradol IM and this helped with the pain. Patient be discharged home to follow-up with her PCP. Once the radiologist reads the x-rays if he sees anything different we will call her. Differential Diagnosis Likely cervical spondylosis Medical Records I reviewed the patient's medical records. Lab Data I reviewed the patient's lab results. All radiology interpretation(s) finalized by discharge Discharge Plan Discharge Patient Disposition: Home Clinical Impression: Cervical spondylosis Condition: Stable Prescriptions: No Action furosemide [Lasix] 20 mg tablet 20 mg PO DAILY hydrochlorothiazide 25 mg tablet 25 mg PO DAILY dicyclomine 10 mg capsule 10 mg PO BID PRN (Reason: Stomach Cramps) prazosin 1 mg capsule 1 mg PO BID venlafaxine [Effexor XR] 150 mg capsule,extended release 24hr 150 mg PO DAILY ipratropium-albuterol 0.5 mg-3 mg(2.5 mg base)/3 mL solution for nebulization 3 ml INHALATION QID PRN (Reason: Dyspnea) albuterol sulfate [ProAir HFA] 90 mcg/actuation HFA aerosol inhaler 2 puff INHALATION Q6H PRN (Reason: Dyspnea) sucralfate 1 gram tablet 1 gm PO BID magnesium oxide 400 mg magnesium capsule 400 mg PO DAILY topiramate 50 mg capsule,extended release 24hr 50 mg PO DAILY allopurinol 300 mg tablet 300 mg PO DAILY baclofen 10 mg tablet 10 mg PO DAILY PRN (Reason: Pain) metformin 1,000 mg tablet 1,000 mg PO BID (DME) diabetic shoes See Rx Instructions .Route .MEDSUPPLY Qty: 1 0RF Rx Instructions: As directed clindamycin HCl 300 mg capsule 300 mg PO TID Qty: 21 0RF (DME) insulin syringe-needle U-100 [BD Veo Insulin Syringe UF] 0.3 mL 31 gauge x 15/64 syringe See Rx Instructions .ROUTE .MEDSUPPLY Qty: 100 3RF Rx Instructions: As directed (DME) Diabetic Shoes See Rx Instructions .Route .MEDSUPPLY Qty: 1 0RF Rx Instructions: As directed (DME) Diabetic Shoes See Rx Instructions .Route .MEDSUPPLY Qty: 1 0RF Rx Instructions: As directed insulin aspart U-100 [Novolog FlexPen U-100 Insulin] 100 unit/mL (3 mL) insulin pen See Rx Instructions .ROUTE .COMPLEX Rx Instructions: PER SLIDING SCALE insulin degludec [Tresiba FlexTouch U-200] 200 unit/mL (3 mL) insulin pen 70 unit SUBCUT BID bupropion HCl 150 mg Tablet Extended Release 24 Hr 150 mg PO QPM Farxiga 10 mg tablet 10 mg PO DAILY hydrocodone-acetaminophen 10-325 mg tablet 1 tab PO Q6H PRN (Reason: pain) Qty: 15 0RF losartan 25 mg tablet 25 mg PO DAILY atorvastatin 80 mg tablet 80 mg PO QPM venlafaxine 75 mg capsule,extended release 24hr 75 mg PO DAILY albuterol sulfate 2.5 mg /3 mL (0.083 %) solution for nebulization 2.5 mg inhalation Q6H PRN (Reason: Shortness Of Breath Or Wheezing) pramipexole 0.5 mg tablet 0.5 mg PO BEDTIME famotidine 20 mg tablet 20 mg PO BEDTIME gabapentin 800 mg Tablet 800 mg PO TID Miralax 17 gram/dose Powder 4 g PO DAILY ropinirole 4 mg Tablet 4 mg PO BID Symbicort 160-4.5 mcg/actuation HFA aerosol inhaler 2 puff INHALATION BID Trulicity 0.75 mg/0.5 mL pen injector 0.5 mg SUBCUT Q7D Rx Instructions: ON MONDAY Qulipta 60 mg tablet 60 mg PO DAILY tramadol 50 mg tablet 50 mg PO Q6H Qty: 12 0RF Hold Instructions: Resume on 11/01/22. Discharge Orders: Discharge ED (Routine); Ordered 07/21/23 Ordered By: Dioni Spence Referrals: Cheryl Purcell [Primary Care Provider] - 1 week Patient Instructions: Neck Pain (ED) Activity Restrictions/Additional Instructions: The preliminary report of your x-rays of your neck did not show any acute cause of your pain other than significant arthritis when the radiologist looks at them if he sees anything different than this we will be giving you a call.. Please follow-up with your family practice doctor for further evaluation and treatment. 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
[2023-07-21] MEDS: ketorolac 60 mg/2 mL INJ IM (05:23)
[2023-07-21 05:44] VITALS: BP 156/81; PULSE 68; O2SAT 96
== END 2023-07-21 05:40 | disposition home or self-care (01) ==
PROVIDERS: Emergency Provider Emergency Medicine; PCP Registered Nurse
DX: M47.812 Spondylosis without myelopathy or radiculopathy, cervical region (principal); Z79.4 Long term (current) use of insulin; Z79.84 Long term (current) use of oral hypoglycemic drugs; Z86.73 Personal history of transient ischemic attack (TIA), and cerebral infarction without residual deficits; I10 Essential (primary) hypertension; E11.9 Type 2 diabetes mellitus without complications
CPT/HCPCS: 72040; 96372; 99284; J1885

== ENCOUNTER 2023-07-28 20:30 | Emergency (ER) | payer MEDICAID, SELFPAY ==
--- NOTE | 2023-07-28 20:34 | CTR_ITS ---
PROCEDURE INFORMATION: Exam: CT Head Without Contrast Exam date and time: 07/28/2023 8:41 PM Age: 57 years old Clinical indication: Stroke-like symptoms; Lt upper extremity and lt lower extremity weakness; Additional info: Sudden onset of left upper and lower ext weakness. History of prior CVA. Last known well time of 1930 hours. TECHNIQUE: Imaging protocol: Computed tomography of the head without contrast. Radiation optimization: All CT scans at this facility use at least one of these dose optimization techniques: automated exposure control; mA and/or kV adjustment per patient size (includes targeted exams where dose is matched to clinical indication); or iterative reconstruction. Other technique: STROKE PROTOCOL was implemented. COMPARISON: 1. CT head thrombolytic [id number] 07/10/2023 11:48 PM 2. MR head wo con* [id number] 03/11/2023 12:02 PM RADIATION DOSE METRICS: Total DLP (mGy-cm): 1081.48 FINDINGS: Brain: Normal. No hemorrhage. Unremarkable white matter. No mass effect. Cerebral ventricles: No ventriculomegaly. Paranasal sinuses: Visualized sinuses are unremarkable. No fluid levels. Mastoid air cells: Visualized mastoid air cells are well aerated. Bones: Unremarkable. No acute fracture. Soft tissues: Unremarkable. CT/CT head thrombolytic [id number] IMPRESSION: No acute intracranial abnormality. ASSESSMENT: ASPECTS ([place] Stroke Program Early CT Score) is 10.
[2023-07-28 20:37] VITALS: BP 171/97; PULSE 93; RESP 18; TEMP 36.7; O2SAT 93
--- NOTE | 2023-07-28 20:47 | ED_ITS ---
HPI - Neuro Symptoms/Deficit 2 General: Chief Complaint: Neuro Symptoms/Deficit Stated Complaint: Possible Stroke Time Seen by Provider: 07/28/23 20:34 Source: patient Mode of arrival: ambulatory Limitations: no limitations History of Present Illness: 57-year-old female who is very well-know n to the ER she states she is having strokelike symptoms starting at 730 send she had left-sided weakness along with slurred speech she has been seen here multiple times for possible strokes. Patient was able to ambulate to the room and she is able lift her arm she has some mild slurred speech at times no other deficits noted. She states she is also had a headache throughout the day as well and has had headaches with the symptoms in the past Associated symptoms: Deny chest pain, headache(s), nausea or vomiting Review of Systems 2 Const: Denies: fever(s), chills, body aches or change in appetite Eyes: Denies: blurry vision or eye discomfort ENMT: Denies: throat pain or dental pain Card: Denies: chest pain Resp: Denies: dyspnea GI: Denies: abdominal pain, nausea, vomiting or diarrhea Musc: Denies: neck pain or back pain Skin/Breast: Denies: rash Neuro: Reports: weakness in extremities and Slurred speech present; Denies: headache(s) PFSH ED 2 PFSH: Medical History 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 August 2021 MCI (mild cognitive impairment) HX: benign breast biopsy off tongue Dr. Adan Abdominal pain Nausea & vomiting GERD (gastroesophageal reflux disease) Hypertension Diabetes Anemia Duodenitis without bleeding Morbid obesity with BMI of 40.0-44.9, adult Depression PTSD (post-traumatic stress disorder) RLS (restless legs syndrome) Gout Asthma Surgical History S/P excision of lipoma Right hip 12 x 10 x 9 cm Hx of dilation and curettage x3 History of esophagogastroduodenoscopy (EGD) Family History Other Hypertension Social History Smoking and tobacco/nicotine status: never used tobacco/nicotine Alcohol intake: current NIH stroke score 2 NIHSS: Level Of Consciousness - 1a: 0 Level Of Consciousness Questions - 1b: Both Correct Level Of Consciousness Commands - 1c: Both Correct Best Gaze - 2: Normal Visual Solorzano - 3: No Visual Loss Facial Palsy - 4: N ormal Motor Arm Right - 5: No Drift Motor Arm Left - 5: No Drift Motor Leg Right - 6: No Drift Motor Leg Left - 6: No Drift Limb Ataxia - 7: A bsent Sensory - 8: Normal Best Language - 9: No Aphasia Dysarthia - 10: Mild/Moderate Dysarthia Extinction And Inattention - 11: 0 Score: Total Score: 1 Physical Exam 2 Const: COMMON NORMALS: no acute distress, patient oriented x3 and healthy appearing HENMT: COMMON NORMALS: normocephalic and atraumatic HEAD & SCALP: n ormocephalic and atraumatic Eye: COMMON NORMALS: Equal, round and reactive pupils present and EOMs intact bilaterally PUPIL: Yes Equal, round and reactive pupils present Neck/C-Spine: COMMON NORMALS: full ROM and supple Chest: COMMONS NORMALS: normal inspection of the chest Resp: COMMON NORMALS: normal respiratory effort Cardio: COMMON NORMALS: regular rate, regular rhythm and No murmurs present (Cardio) RATE: regular rate RHYTHM: regular rhythm Extremity: COMMON NORMALS: normal to inspection and full ROM Neuro: COMMON NORMALS: patient oriented x3 and moves all extremities C RANIAL NERVES: Yes CN normal except as noted GAIT: Yes Normal gait present MOTOR EXAM: 5/5 motor strength present throughout Psych: COMMON NORMALS: mental status grossly normal, Normal thought process present and cooperative THOUGHT PROCESS: Normal thought process present Skin: COMMON NORMALS: no rashes or lesions noted and no wounds GENERAL SKIN EXAM: no rashes or lesions noted Course 2 Vital Signs: Vital signs: Vital Signs Temperature 98.0 F 07/28/23 20:37 Pulse Rate 80 07/28/23 21:30 Respiratory Rate 20 H 07/28/23 21:30 Blood Pressure 136/83 07/28/23 21:30 Pulse Oximetry 97 07/28/23 21:30 Oxygen Delivery Me thod Room Air 07/28/23 20:37 MDM - Neuro Symptoms/Deficit Medical Decision Making Patient presents here with concern to having a stroke she also has a headache she likely is a migraine with aura her symptoms of completely resolved here with her headache resolving she is ambulatory not slurring her words her head CT is normal she stable for discharge she is to follow-up with neurology return if worsening she understands agrees to plan Medical Records I reviewed the patient's medical records. Lab Data I reviewed the patient's lab results. 07/28/23 20:50 07/28/23 20:[address] 07/28/23 20:34 IMPRESSION: No acute intracranial abnormality. ASSESSMENT: ASPECTS ([place] Stroke Program Early CT Score) is 10. Laboratory Results WBC 8.25 10^3/uL (3.29-11.43) 07/28/23 20:50 RBC 5.37 10^6/uL (3.85-5.65) 07/28/23 20:50 Hgb 13.70 g/dL (11.27-16.99) 07/28/23 20:50 Hct 44.2 % (36-47) 07/28/23 20:50 MCV 82.3 fl (85-98) L 07/28/23 20:50 MCH 25.5 pg (27-33) L 07/28/23 20:50 MCHC 31.0 g/dL (30-55) 07/28/23 20:50 RDW 15.6 % (12.1-15.1) H 07/28/23 20:50 Plt Count 190 10^3/cmm (157-399) 07/28/23 20:50 MPV 11.6 fL (7.4-10.4) H 07/28/23 20:50 Neut % (Auto) 66.4 % 07/28/23 20:50 Lymph % (Auto) 26.2 % 07/28/23 20:50 [place] % (Auto) 5.5 % 07/28/23 20:50 Eos % (Auto) 1.3 % 07/28/23 20:50 Baso % (Auto) 0.4 % 07/28/23 20:50 Neut # (Auto) 5.48 10^3/uL (1.8-7.7) 07/28/23 20:50 Lymph # (Auto) 2.2 10^3/uL (0.8-4.8) 07/28/23 20:50 [place] # (Auto) 0.5 10^3/uL (0.2-0.9) 07/28/23 20:50 Eos # (Auto) 0.1 10^3/uL (0.0-0.8) 07/28/23 20:50 Baso # (Auto) 0.0 10^3/uL (0.0-0.1) 07/28/23 20:50 Nucleated RBC % (auto) 0 % 07/28/23 20:50 Nucleated RBCs # 0.0 /100WBC 07/28/23 20:50 PT 13.40 SECONDS (12.1-14.9) 07/28/23 20:50 INR 0.99 (0.8-1.2) 07/28/23 20:50 APTT 25.8 SECONDS (23.9-36.7) 07/28/23 20:50 Sodium 137 mmol/L (136-145) 07/28/23 20:50 Potassium 4.5 mmol/L (3.5-5.1) 07/28/23 20:50 Chloride 99 mmol/L (98-107) 07/28/23 20:50 Carbon Dioxide 26 mmol/L (22-29) 07/28/23 20:50 Anion Gap 16.5 (5-19) 07/28/23 20:50 BUN 22 mg/dL (6-20) H 07/28/23 20:50 Creatinine 0.9 mg/dL (0.5-0.9) 07/28/23 20:50 GFR Calculation 64.8 mL/min (90-130) L 07/28/23 20:50 Glucose 186 mg/dL (65-115) H 07/28/23 20:50 Calculated Osmolality 292 mOsm/kg (285-295) 07/28/23 20:50 Calcium 10.0 mg/dL (8.5-10.5) 07/28/23 20:50 Total Bilirubin 0.3 mg/dL (0.15-1.2) 07/28/23 20:50 AST 32 U/L (0-32) 07/28/23 20:50 ALT 36 U/L (0-33) H 07/28/23 20:50 Alkaline Phosphatase 113 U/L (35-105) H 07/28/23 20:50 Total Protein 8.5 g/dL (6.6-8.7) 07/28/23 20:50 Albumin 3.9 g/dL (3.5-5.2) 07/28/23 20:50 Globulin 4.6 g/dL (1.3-4.6) 07/28/23 20:50 All radiology interpretation(s) finalized by discharge EKG Data EKG 1: I personally reviewed and interpreted this EKG as follows: EKG interpretation date: 07/28/23 EKG interpretation time: 20:54 Interpretation: nsr hr [address] or t wave abnormalities qrs 90 qtc 389 Discharge Plan Discharge Patient Disposition: Home Clinical Impression: Headache Condition: Stable Prescriptions: No Action furosemide [Lasix] 20 mg tablet 20 mg PO DAILY hydrochlorothiazide 25 mg tablet 25 mg PO DAILY dicyclomine 10 mg capsule 10 mg PO BID PRN (Reason: Stomach Cramps) prazosin 1 mg capsule 1 mg PO BID venlafaxine [Effexor XR] 150 mg capsule,extended release 24hr 150 mg PO DAILY ipratropium-albuterol 0.5 mg-3 mg(2.5 mg base)/3 mL solution for nebulization 3 ml INHALATION QID PRN (Reason: Dyspnea) albuterol sulfate [ProAir HFA] 90 mcg/actuation HFA aerosol inhaler 2 puff INHALATION Q6H PRN (Reason: Dyspnea) sucralfate 1 gram tablet 1 gm PO BID magnesium oxide 400 mg magnesium capsule 400 mg PO DAILY topiramate 50 mg capsule,extended release 24hr 50 mg PO DAILY allopurinol 300 mg tablet 300 mg PO DAILY baclofen 10 mg tablet 10 mg PO DAILY PRN (Reason: Pain) metformin 1,000 mg tablet 1,000 mg PO BID (DME) diabetic shoes See Rx Instructions .Route .MEDSUPPLY Qty: 1 0RF Rx Instructions: As directed clindamycin HCl 300 mg capsule 300 mg PO TID Qty: 21 0RF (DME) insulin syringe-needle U-100 [BD Veo Insulin Syringe UF] 0.3 mL 31 gauge x 15/64 syringe See Rx Instructions .ROUTE .MEDSUPPLY Qty: 100 3RF Rx Instructions: As directed (DME) Diabetic Shoes See Rx Instructions .Route .MEDSUPPLY Qty: 1 0RF Rx Instructions: As directed (DME) Diabetic Shoes See Rx Instructions .Route .MEDSUPPLY Qty: 1 0RF Rx Instructions: As directed insulin aspart U-100 [Novolog FlexPen U-100 Insulin] 100 unit/mL (3 mL) insulin pen See Rx Instructions .ROUTE .COMPLEX Rx Instructions: PER SLIDING SCALE insulin degludec [Tresiba FlexTouch U-200] 200 unit/mL (3 mL) insulin pen 70 unit SUBCUT BID bupropion HCl 150 mg Tablet Extended Release 24 Hr 150 mg PO QPM Farxiga 10 mg tablet 10 mg PO DAILY hydrocodone-acetaminophen 10-325 mg tablet 1 tab PO Q6H PRN (Reason: pain) Qty: 15 0RF losartan 25 mg tablet 25 mg PO DAILY atorvastatin 80 mg tablet 80 mg PO QPM venlafaxine 75 mg capsule,extended release 24hr 75 mg PO DAILY albuterol sulfate 2.5 mg /3 mL (0.083 %) solution for nebulization 2.5 mg inhalation Q6H PRN (Reason: Shortness Of Breath Or Wheezing) pramipexole 0.5 mg tablet 0.5 mg PO BEDTIME famotidine 20 mg tablet 20 mg PO BEDTIME gabapentin 800 mg Tablet 800 mg PO TID Miralax 17 gram/dose Powder 4 g PO DAILY ropinirole 4 mg Tablet 4 mg PO BID Symbicort 160-4.5 mcg/actuation HFA aerosol inhaler 2 puff INHALATION BID Trulicity 0.75 mg/0.5 mL pen injector 0.5 mg SUBCUT Q7D Rx Instructions: ON MONDAY Qulipta 60 mg tablet 60 mg PO DAILY tramadol 50 mg tablet 50 mg PO Q6H Qty: 12 0RF Hold Instructions: Resume on 11/01/22. Discharge Orders: Discharge ED (Routine); Ordered 07/28/23 Ordered By: Jazzmine Gabriel Referrals: Cheryl Purcell [Primary Care Provider] - Discharge Diet: Advance as tolerated Discharge Activity: Resume usual activity Patient Instructions: General Headache (ED) Coding Level of Care Code ED Technical [employer] Consultant for Carlos León
--- NOTE | 2023-07-28 20:54 | ECG_ITS ---
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 Measurements Intervals [place] Rate: 85 P: 44 NE: 139 QRS: 55 QRSD: 90 T: 80 QT: 347 QTc: 413 Interpretive Statements SINUS RHYTHM Compared to ECG 07/11/2023 00:08:02 T-wave abnormality no longer present Electronically Signed On 07-29-2023 12:13:58 CDT by Estrada Moyer M.D. [id number]
[2023-07-28 20:55] LABS: Basophils % 0.4 %; Eosinophils # 0.1 10^3/uL (0.0-0.8); Eosinophils % 1.3 %; Hematocrit 44.2 % (36-47); Lymphocytes # 2.2 10^3/uL (0.8-4.8); Lymphocytes % 26.2 %; Mean Corpuscular Hemoglobin 25.5 pg (27-33); Mean Corpuscular Volume 82.3 fl (85-98); Mean Platelet Volume 11.6 fL (7.4-10.4); Monocytes # 0.5 10^3/uL (0.2-0.9); Monocytes % 5.5 %; Neutrophils # 5.48 10^3/uL (1.8-7.7); Neutrophils % 66.4 %; Nucleated Red Blood Cells % 0 %; Platelet Count 190 10^3/cmm (157-399); Red Blood Count 5.37 10^6/uL (3.85-5.65); Red Cell Distribution Width 15.6 % (12.1-15.1); White Blood Count 8.25 10^3/uL (3.29-11.43)
[2023-07-28 21:00] VITALS: BP 164/96; PULSE 103; RESP 18; O2SAT 96
[2023-07-28 21:05] LABS: INR 0.99 (0.8-1.2)
[2023-07-28 21:06] LABS: Partial Thromboplastin Time 25.8 SECONDS (23.9-36.7)
[2023-07-28 21:10] LABS: Albumin Level 3.9 g/dL (3.5-5.2); Alkaline Phosphatase 113 U/L (35-105); Blood Urea Nitrogen 22 mg/dL (6-20); Carbon Dioxide 26 mmol/L (22-29); Chloride 99 mmol/L (98-107); Creatinine Clr Calc Pharmacy 90.6247; Globulin 4.6 g/dL (1.3-4.6); Glomerular Filtration Rate 64.8 mL/min (90-130); Glucose 186 mg/dL (65-115); Osmolality Calculated 292 mOsm/kg (285-295); Sodium 137 mmol/L (136-145); Total Bilirubin 0.3 mg/dL (0.15-1.2); Total Protein 8.5 g/dL (6.6-8.7)
[2023-07-28 21:13] LABS: Alanine Aminotransferase 36 U/L (0-33); Anion Gap 16.5 (5-19); Aspartate Amino Transferase 32 U/L (0-32); Potassium 4.5 mmol/L (3.5-5.1)
[2023-07-28] MEDS: ketorolac 30 mg/mL INJ 15 MG IVP (21:21)
[2023-07-28 21:30] VITALS: BP 136/83; PULSE 80; RESP 20; O2SAT 97
[2023-07-29 00:40] LABS: Glucose Point of Care 214 mg/dL (70-110)
--- NOTE | 2023-07-30 21:07 | DCPLANNER ---
Message sent to neurology for follow up on headache.
== END 2023-07-28 22:01 | disposition home or self-care (01) ==
PROVIDERS: Emergency Provider Emergency Medicine; PCP Registered Nurse
DX: R51.9 Headache, unspecified (principal); E11.9 Type 2 diabetes mellitus without complications; I10 Essential (primary) hypertension; Z79.84 Long term (current) use of oral hypoglycemic drugs; Z79.899 Other long term (current) drug therapy
CPT/HCPCS: 36416; 70450; 80053; 82962; 85025; 85610; 85730; 93005; 96374; 99285; J1885

== ENCOUNTER 2023-11-04 11:10 | Inpatient (IN) | payer MEDICAID, SELFPAY ==
[2023-11-04] VITALS (10 sets, daily range): BP systolic 118–169; BP diastolic 58–77; PULSE 85–113; RESP 14–22; TEMP 36.7–39.1; O2SAT 91–95; BMI 34.2
--- NOTE | 2023-11-04 11:16 | XRR_ITS ---
PROCEDURE INFORMATION: Exam: XR Chest Exam date and time: 11/04/2023 11:36 AM Age: 57 years old Clinical indication: Cough and fever; Patient HX: Weakness; Cough; Fever TECHNIQUE: Imaging protocol: Radiologic exam of the chest. Views: 1 view. COMPARISON: CR XR chest 1V portable [id number] 03/10/2023 2:13 PM FINDINGS: Lungs: Unremarkable. No consolidation. Pleural spaces: Unremarkable. No pleural effusion. No pneumothorax. Heart/Mediastinum: Unremarkable. No cardiomegaly. Bones/joints: Unremarkable. XR/XR chest 1V portable [id number] IMPRESSION: No acute findings.
[2023-11-04 11:35] LABS: Basophils % 0.2 %; Eosinophils % 0.2 %; Hematocrit 41.8 % (36-47); Lymphocytes # 0.7 10^3/uL (0.8-4.8); Lymphocytes % 5.2 %; Mean Corpuscular HGB Conc 31.3 g/dL (30-55); Mean Corpuscular Hemoglobin 25.8 pg (27-33); Mean Corpuscular Volume 82.4 fl (85-98); Mean Platelet Volume 11.8 fL (7.4-10.4); Monocytes # 0.3 10^3/uL (0.2-0.9); Monocytes % 2.7 %; Neutrophils # 11.37 10^3/uL (1.8-7.7); Neutrophils % 91.4 %; Nucleated Red Blood Cells % 0 %; Platelet Count 132 10^3/cmm (157-399); Red Blood Count 5.07 10^6/uL (3.85-5.65); Red Cell Distribution Width 14.8 % (12.1-15.1); White Blood Count 12.44 10^3/uL (3.29-11.43)
[2023-11-04 11:42] LABS: Ketone (Acetest) Serum Negative (Negative)
[2023-11-04] MEDS: sodium chloride 0.9% 1,000 ML 999 ML IV ×2 (11:44→14:43)
[2023-11-04] MEDS: ondansetron 2 mg/ML SDV 2 mL 8 MG IVP (11:45)
[2023-11-04 11:51] LABS: Troponin(5th) Baseline 11 ng/L (0-10)
[2023-11-04 11:52] LABS: Lactic Sepsis W/Reflex 3.4 mmol/L (0.5-2.2)
--- NOTE | 2023-11-04 11:52 | ECG_ITS ---
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 Measurements Intervals [place] Rate: 108 P: -8 VT: 125 QRS: 45 QRSD: 86 T: 69 QT: 314 QTc: 421 Interpretive Statements SINUS TACHYCARDIA NONSPECIFIC T-WAVE ABNORMALITY ABNORMAL RHYTHM ECG Compared to ECG 07/28/2023 20:54:27 T-wave abnormality now present Sinus rhythm no longer present Electronically Signed On 11-04-2023 18:48:37 CDT by Cony Germain M.D. [id number]
[2023-11-04 11:53] LABS: Alanine Aminotransferase 35 U/L (0-33); Albumin Level 3.8 g/dL (3.5-5.2); Alkaline Phosphatase 100 U/L (35-105); Anion Gap 16.7 (5-19); Aspartate Amino Transferase 24 U/L (0-32); Blood Urea Nitrogen 12 mg/dL (6-20); C Reactive Protein 27.4 mg/L (0.0-4.9); Calcium 8.5 mg/dL (8.5-10.5); Carbon Dioxide 21 mmol/L (22-29); Chloride 102 mmol/L (98-107); Creatinine Clr Calc Pharmacy 130.8392; Globulin 3.6 g/dL (1.3-4.6); Glomerular Filtration Rate 103.4 mL/min (90-130); Glucose 277 mg/dL (65-115); Lipase 32 U/L (13-60); Osmolality Calculated 292 mOsm/kg (285-295); Potassium 3.7 mmol/L (3.5-5.1); Sodium 136 mmol/L (136-145); Total Bilirubin 0.5 mg/dL (0.15-1.2); Total Protein 7.4 g/dL (6.6-8.7)
[2023-11-04 12:00] LABS: Procalcitonin 0.22 ng/mL (0-0.5)
[2023-11-04 12:04] LABS: Glucose Point of Care 325 mg/dL (70-110)
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
[2023-11-04 12:31] LABS: Bilirubin Urine Negative (Negative); Blood Urine Negative (Negative); Glucose Urine UA 3+ (Normal); Ketones Urine 1+ (Negative); Leukocyte Esterase Urine Trace (Negative); Nitrate Urine Negative (Negative); Protein Urine Trace (Negative); Specific Gravity, Urine 1.028 (1.005-1.030); Urine Appearance Clear (CLEAR); Urine Color Yellow (Yellow)
[2023-11-04 12:33] LABS: Bacteria Urine None Seen /hpf; Hyaline Casts Urine 0-4 /lpf; RBC Urine 0-2 /hpf (0-2)
[2023-11-04 13:17] LABS: Reflex Lactate Order REFLEX LACTIC ORDERD
--- NOTE | 2023-11-04 13:17 | ECG_ITS ---
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 Measurements Intervals [place] Rate: 106 P: -1 MI: 131 QRS: 56 QRSD: 86 T: 91 QT: 318 QTc: 423 Interpretive Statements SINUS TACHYCARDIA NONSPECIFIC T-WAVE ABNORMALITY ABNORMAL RHYTHM ECG Compared to ECG 07/28/2023 20:54:27 T-wave abnormality now present Sinus rhythm no longer present Electronically Signed On 11-04-2023 18:53:02 CDT by Cony Germain M.D. [id number]
[2023-11-04 13:41] LABS: Troponin 5 2HR 13.77 ng/L (0-10); Troponin 5 2HR Delta 2.77 ABS# (0-10)
[2023-11-04 13:42] LABS: Lactic Acid level (Lactate) 3.1 mmol/L (0.5-2.2)
[2023-11-04 13:56] LABS: Adenovirus Not Detected (NOT DETECT); Chlamydia Pneumoniae Not Detected (NOT DETECT); Coronavirus 229E,HKU1,NL63,OC4 Not Detected (NOT DETECT); Human Metapneumovirus Not Detected (NOT DETECT); Human Rhinovirus/Enterovirus Not Detected (NOT DETECT); Influenza A Not Detected (NOT DETECT); Influenza A H1 Not Detected (NOT DETECT); Influenza A H1-2009 Not Detected (NOT DETECT); Influenza A H3 Not Detected (NOT DETECT); Influenza B Not Detected (NOT DETECT); Mycoplasma Pneumoniae Not Detected (NOT DETECT); Parainfluenza Virus Type 1 Not Detected (NOT DETECT); Parainfluenza Virus Type 2 Not Detected (NOT DETECT); Parainfluenza Virus Type 3 Not Detected (NOT DETECT); Parainfluenza Virus Type 4 Not Detected (NOT DETECT); Respiratory Syncytial Virus A Not Detected (NOT DETECT); Respiratory Syncytial Virus B Not Detected (NOT DETECT)
[2023-11-04 14:06] LABS: SARS-COV-2 Detected (NOT DETECT)
--- NOTE | 2023-11-04 14:13 | P.HP_ITS ---
Providers/Chief Complaint 2 Primary Care Provider: Cheryl Purcell Chief Complaint: weakness History of Present Illness Paradise Samano is a 57 year old female with a past medical history significant for hypertension, type 2 diabetes mellitus, asthma, morbid obesity, vasogenic migraines, and stroke who presents to the emergency department with intractable nausea and vomiting. Patient reports onset of emesis this morning. She states she is thrown up about 4-5 times. She endorses associated symptoms of sore throat, generalized malaise, fatigue, myalgias, and arthralgias. Reports exertion worsens symptoms. Rest improves symptoms. Denies other alleviating or aggravating factors. In the emergency department, patient was found to have COVID-19 infection as well as urinary tract infection. Review of Systems 2 Narrative: A complete review of systems was obtained and is negative except as stated in HPI. Medications/Allergies Home Medications Medication Instructions Recorded Confirmed Last Taken Type albuterol sulfate 90 mcg/actuation 2 puff inhalation Q6H PRN Dyspnea 12/18/19 04/04/23 03/10/23 History aerosol inhaler (ProAir HFA) allopurinol 300 mg tablet 300 mg PO DAILY 12/18/19 04/04/23 03/10/23 History baclofen 10 mg tablet 10 mg PO DAILY PRN Pain 12/18/19 04/04/23 08/21/22 History dicyclomine 10 mg capsule 10 mg PO BID PRN Stomach Cramps 12/18/19 04/04/23 03/10/23 History furosemide 20 mg tablet (Lasix) 20 mg PO DAILY 12/18/19 04/04/23 03/09/23 History hydrochlorothiazide 25 mg tablet 25 mg PO DAILY 12/18/19 04/04/23 03/10/23 History ipratropium 0.5 mg-albuterol 3 mg 3 ml inhalation QID PRN Dyspnea 12/18/19 04/04/23 12/31/19 History (2.5 mg base)/3 mL nebulization soln magnesium oxide 400 mg PO DAILY 12/18/19 04/04/23 03/10/23 History metformin 1,000 mg tablet 1,000 mg PO BID 12/18/19 04/04/23 03/10/23 History prazosin 1 mg capsule 1 mg PO BID 12/18/19 04/04/23 03/10/23 History sucralfate 1 gram tablet 1 gm PO BID 12/18/19 04/04/23 03/10/23 History topiramate 50 mg capsule,extended 50 mg PO DAILY 12/18/19 04/04/23 03/10/23 History release 24 hr venlafaxine 150 mg 150 mg PO DAILY 12/18/19 04/04/23 03/10/23 History capsule,extended release 24 hr (Effexor XR) insulin syringe-needle U-100 0.3 #100 ea 03/16/21 04/04/23 Unknown Rx mL 31 gauge x 15/64 (BD Veo Insulin Syringe Ultra-Fine) insulin aspart U-100 100 unit/mL See Rx Instructions .Route .COMPLEX 08/15/21 04/04/23 10/26/22 History (3 mL) subcutaneous pen (Novolog FlexPen U-100 Insulin aspart) insulin degludec 200 unit/mL (3 70 unit SUBCUT BID 08/15/21 04/04/23 03/10/23 History mL) subcutaneous pen (Tresiba FlexTouch U-200 insulin) bupropion HCl 150 mg 24 hr tablet, 150 mg PO QPM 08/26/21 04/04/23 03/09/23 History extended release diabetic shoes #1 ea 10/22/21 04/04/23 Unknown Rx Diabetic Shoes #1 ea 11/01/21 04/04/23 Unknown Rx Diabetic Shoes #1 ea 11/17/21 04/04/23 Unknown Rx tramadol 50 mg tablet 50 mg PO Q6H #12 tabs 08/22/22 04/04/23 10/25/22 Rx dapagliflozin propanediol 10 mg 10 mg PO DAILY 10/26/22 04/04/23 03/10/23 History tablet (Farxiga) hydrocodone 10 mg-acetaminophen 1 tab PO Q6H PRN pain #15 tabs 10/27/22 04/04/23 Unknown Rx 325 mg tablet albuterol sulfate 2.5 mg/3 mL 2.5 mg inhalation Q6H PRN 03/10/23 04/04/23 Unknown History (0.083 %) solution for nebulization Shortness Of Breath Or Wheezing atogepant 60 mg tablet (Qulipta) 60 mg PO DAILY 03/10/23 04/04/2303/10/23 History atorvastatin 80 mg tablet 80 mg PO QPM 03/10/23 04/04/23 03/09/23 History budesonide-formoterol HFA 160 2 puff inhalation BID 03/10/23 04/04/23 Unknown History mcg-4.5 mcg/actuation aerosol inhaler (Symbicort) dulaglutide 0.75 mg/0.5 mL 0.5 mg SUBCUT Q7D 03/10/23 04/04/23 03/08/23 History subcutaneous pen injector (Trulicity) famotidine 20 mg tablet 20 mg PO BEDTIME 03/10/23 04/04/23 03/09/23 History gabapentin 800 mg tablet 800 mg PO TID 03/10/23 04/04/23 03/10/23 History losartan 25 mg tablet 25 mg PO DAILY 03/10/23 04/04/23 03/10/23 History polyethylene glycol 3350 17 4 g PO DAILY 03/10/23 04/04/23 03/10/23 History gram/dose oral powder (Miralax) pramipexole 0.5 mg tablet 0.5 mg PO BEDTIME 03/10/23 04/04/23 03/09/23 History ropinirole 4 mg tablet 4 mg PO BID 03/10/23 04/04/23 03/10/23 History venlafaxine 75 mg capsule,extended 75 mg PO DAILY 03/10/23 04/04/23 03/10/23 History release 24 hr clindamycin HCl 300 mg capsule 300 mg PO TID #21 caps 04/04/23 04/04/23 Unknown Rx Allergies Allergy/AdvReac Type Severity Reaction Status Date / Time adhesive tape Allergy Severe ALGY-Hives Verified 07/28/23 20:41 amitriptyline Allergy Severe ALGY-Hives Verified 07/28/23 20:41 ciprofloxacin Allergy Severe ADR-Nausea Verified 07/28/23 20:41 exenatide [From Bydureon] Allergy Severe ALGY-Hives Verified 07/28/23 20:41 sumatriptan [From Imitrex] Allergy Severe ADR-Vomitin Verified 07/28/23 20:41 g cephalexin Allergy ALGY-Swell Verified 07/28/23 20:41 Lip/Tongue/Throat metoclopramide [From Reglan] Allergy Unknown Verified 07/28/23 20:41 shrimp Allergy ALGY-Rash Verified 07/28/23 20:41 PFSH Acute 2 PFSH: Medical History (Updated 11/04/23 @ 16:44 by Kerwin Haas MD) 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 August 2021 MCI (mild cognitive impairment) HX: benign breast biopsy off tongue Dr. Adan Abdominal pain Nausea & vomiting GERD (gastroesophageal reflux disease) Hypertension Diabetes Anemia Duodenitis without bleeding Morbid obesity with BMI of 40.0-44.9, adult Depression PTSD (post-traumatic stress disorder) RLS (restless legs syndrome) Gout Asthma Surgical History S/P excision of lipoma Right hip 12 x 10 x 9 cm Hx of dilation and curettage x3 History of esophagogastroduodenoscopy (EGD) Family History Other Hypertension Social History Smoking and tobacco/nicotine status: never used tobacco/nicotine Alcohol intake: current Vitals/I&O/Wt Last Vital Signs Temp 102.3 F H 11/04/23 11:19 Pulse 105 H 11/04/23 12:45 Resp 18 11/04/23 12:45 BP 163/58 11/04/23 12:45 Pulse Ox 95 11/04/23 12:45 O2 Del Method Room Air 11/04/23 11:19 Weight last 48 hrs Weight 102.058 kg Physical Exam 2 Narrative: General: Patient is awake. Acutely ill-appearing. Febrile. Head: Normocephalic. Atraumatic. EOM intact. Dry mucous membranes. Neck: No JVD. Cardiovascular: No gallops. No murmurs. No peripheral edema. Tachycardic. Lungs: Breath sounds are diminished at bilateral bases, no use of accessory muscles, no crackles or wheezes. Skin: No jaundice. No rashes. Abdomen: Normal bowel sounds, abdomen soft and nontender. Genito Urinary: Genital exam not performed since complaints not related. Rectal: Rectal exam not performed since no symptoms indicated blood loss. Extremities: No cyanosis or clubbing. Musculoskeletal: No swollen or erythematous joints. Neurological: Moves all 4 extremities. No myoclonus. Data 11/04/23 11:26 11/04/23 11:26 Micro: Microbiology 11/04/23 13:19 Blood Culture - Preliminary Blood SPECIMEN COLLECTED 11/04/23 12:48 Blood Culture - Preliminary Blood SPECIMEN COLLECTED A&P Assessment and plan (1) Sepsis: Source: Acute complicated UTI and COVID-19 SIRS: Leukocytosis, tachycardia, febrile Metabolic/lactic acidosis present Status post IV fluids in ED Obtain blood cultures Start antibiotics (2) Urinary tract infection: Urinalysis reviewed Reflex urine culture Antibiotics as above (3) COVID: Acute COVID-19 infection Not hypoxic, no indication for steroids Take appropriate precautions Supportive care (4) Nausea & vomiting: Intractable nausea and vomiting likely secondary to underlying sepsis Antiemetics as needed Clear liquid diet as tolerated (5) Diabetes: Type 2 diabetes mellitus, uncontrolled with hyperglycemia Patient nonadherent to insulin treatment Sliding-scale insulin correction Avoid hypoglycemia (6) Hypertension: Hold oral antihypertensives due to sepsis Hydralazine as needed for markedly elevated blood pressures (7) Hyperlipidemia: Continue statin (8) Obesity: Patient would benefit from weight loss Plan DVT prophylaxis: Lovenox CODE STATUS: Full code Attestations 2 Medical Necessity Statement*: Patient presents with intractable nausea and vomiting, found to have sepsis with expected hospitalization not to cross 2 midnights for IV antibiotics, IV fluids, symptomatology management, and supportive care. Coding Level of Care Code Acute Code for [facility] Diagnoses Sepsis A41.9 Urinary tract infection N39.0 COVID U07.1 Nausea & vomiting R11.2 Diabetes E11.9 Hypertension I10 Hyperlipidemia E78.5 Obesity E66.9
[2023-11-04] MEDS: dexamethasone 10 mg/mL INJ IVP (14:42)
[2023-11-04] MEDS: insulin regular-human 100 units/1 mL 10 UNIT IVP (14:42)
[2023-11-04] MEDS: pantoprazole 40 mg SDV IVP (15:33)
[2023-11-04] MEDS: acetaminophen 500 mg Tablet 1000 MG PO (15:33)
[2023-11-04 17:32] LABS: Glucose Point of Care 325 mg/dL (70-110)
--- NOTE | 2023-11-04 17:32 | ECG_ITS ---
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 Measurements Intervals [place] Rate: 101 P: 37 RI: 135 QRS: 64 QRSD: 87 T: 129 QT: 320 QTc: 415 Interpretive Statements SINUS TACHYCARDIA WITH OCCASIONAL SUPRAVENTRICULAR PREMATURE COMPLEXES NONSPECIFIC ST & T-WAVE ABNORMALITY Compared to ECG 11/04/2023 13:23:13 No significant changes Electronically Signed On 11-04-2023 18:54:15 CDT by Cony Germain M.D. [id number]
[2023-11-04 17:45] LABS: Troponin 5 6HR 14.04 ng/L (0-10); Troponin 5 6HR Delta 3.04 ng/L (0-12)
[2023-11-04] MEDS: sodium chloride 0.9% 1,000 ML 100 ML IV (17:52)
[2023-11-04] MEDS: levofloxacin-dextrose 5 % 500 MG/100 ML PREMIX 100 MG IV (17:53)
[2023-11-04] MEDS: benzonatate 100 mg Capsule 200 MG PO (17:56)
[2023-11-04] MEDS: sucralfate 1 gm Tablet PO (17:56)
[2023-11-04] MEDS: cetylpyridinium Lozenge 1 EACH MUCOUS MEM (17:56)
[2023-11-04] MEDS: insulin lispro 100 unit/1 mL SUBCUT ×2 (17:56→21:36)
[2023-11-04] MEDS: famotidine 20 mg Tablet PO (21:33)
[2023-11-04] MEDS: insulin glargine 100 units/1 mL 20 UNIT SUBCUT (21:36)
[2023-11-05] VITALS (8 sets, daily range): BP systolic 106–137; BP diastolic 33–77; PULSE 74–83; RESP 15–18; TEMP 36.4–36.8; O2SAT 94–98
[2023-11-05] MEDS: acetaminophen 500 mg Tablet 1000 MG PO ×2 (01:26→20:01)
[2023-11-05] MEDS: pantoprazole 40 mg SDV IVP (03:08)
[2023-11-05] MEDS: HYDROcodone-acetaminophen 10-325 mg Tablet 1 TAB PO ×4 (03:30→21:43)
[2023-11-05] MEDS: sodium chloride 0.9% 1,000 ML 100 ML IV (04:38)
[2023-11-05 04:41] LABS: Bacillus cereus group Not Detected (NOT DETECT); Bacillus subtillis group Not Detected (NOT DETECT); Corynebacterium Not Detected (NOT DETECT); Cutibacterium acnes (P.acnes) Not Detected (NOT DETECT); Enterococcus Not Detected (NOT DETECT); Enterococcus faecalis Not Detected (NOT DETECT); Enterococcus faecium Not Detected (NOT DETECT); Lactobacillus species Not Detected (NOT DETECT); Listeria Not Detected (NOT DETECT); Listeria monocytogenes Not Detected (NOT DETECT); Micrococcus Not Detected (NOT DETECT); Pan Candida Not Detected (NOT DETECT); Pan Gram-Negative Not Detected (NOT DETECT); Staphylococcus epidermidis Not Detected (NOT DETECT); Staphylococcus lugdunensis Not Detected (NOT DETECT); Staphylococcus species Not Detected (NOT DETECT); Streptococcus agalactiae Not Detected (NOT DETECT); Streptococcus anginosus group Not Detected (NOT DETECT); Streptococcus pneumoniae Detected (NOT DETECT); Streptococcus pyogenes Not Detected (NOT DETECT); Streptococcus species Detected (NOT DETECT)
[2023-11-05 04:50] LABS: Basophils # 0.1 10^3/uL (0.0-0.1); Basophils % 0.2 %; Hematocrit 37.8 % (36-47); Lymphocytes # 1.7 10^3/uL (0.8-4.8); Lymphocytes % 8.3 %; Mean Corpuscular HGB Conc 30.2 g/dL (30-55); Mean Corpuscular Hemoglobin 25.8 pg (27-33); Mean Corpuscular Volume 85.5 fl (85-98); Mean Platelet Volume 12.4 fL (7.4-10.4); Monocytes # 1.1 10^3/uL (0.2-0.9); Monocytes % 5.4 %; Neutrophils # 17.08 10^3/uL (1.8-7.7); Neutrophils % 84.7 %; Nucleated Red Blood Cells % 0 %; Platelet Count 130 10^3/cmm (157-399); Red Blood Count 4.42 10^6/uL (3.85-5.65); Red Cell Distribution Width 15.2 % (12.1-15.1); White Blood Count 20.18 10^3/uL (3.29-11.43)
[2023-11-05 05:12] LABS: Anion Gap 13.9 (5-19); Blood Urea Nitrogen 14 mg/dL (6-20); Calcium 8.6 mg/dL (8.5-10.5); Carbon Dioxide 22 mmol/L (22-29); Chloride 106 mmol/L (98-107); Creatinine Clr Calc Pharmacy 134.8878; Glomerular Filtration Rate 103.4 mL/min (90-130); Glucose 295 mg/dL (65-115); Magnesium 1.7 mg/dL (1.7-2.3); Osmolality Calculated 297 mOsm/kg (285-295); Phosphorus 1.7 mg/dL (2.5-4.5); Potassium 3.9 mmol/L (3.5-5.1); Sodium 138 mmol/L (136-145)
[2023-11-05] MEDS: sucralfate 1 gm Tablet PO ×2 (06:01→17:00)
[2023-11-05 06:30] LABS: Glucose Point of Care 342 mg/dL (70-110)
[2023-11-05 06:33] LABS: Glucose Point of Care 232 mg/dL (70-110)
--- NOTE | 2023-11-05 07:02 | PHA.VACGOAL ---
Vancomycin Goal - Goal Vancomycin Indication:: Other (SUSPECTED INFECTION) - Therapy Current therapy:: Other Antibiotic (LEVOFLOXACIN) Day of therpy:: Day [1]of [] . Actual body weight (kg): 108.182 kg [place] body weight: 63.9 kg Dosing weight (kg): 108.18 - Data Labs: WBC 20.18 10^3/uL (3.29-11.43) H 11/05/23 04:11 RBC 4.42 10^6/uL (3.85-5.65) 11/05/23 04:11 Hgb 11.40 g/dL (11.27-16.99) 11/05/23 04:11 Hct 37.8 % (36-47) 11/05/23 04:11 MCV 85.5 fl (85-98) 11/05/23 04:11 MCH 25.8 pg (27-33) L 11/05/23 04:11 MCHC 30.2 g/dL (30-55) 11/05/23 04:11 RDW 15.2 % (12.1-15.1) H 11/05/23 04:11 Sodium 138 mmol/L (136-145) 11/05/23 04:11 Potassium 3.9 mmol/L (3.5-5.1) 11/05/23 04:11 Chloride 106 mmol/L (98-107) 11/05/23 04:11 Carbon Dioxide 22 mmol/L (22-29) 11/05/23 04:11 Anion Gap 13.9 (5-19) 11/05/23 04:11 BUN 14 mg/dL (6-20) 11/05/23 04:11 Creatinine 0.6 mg/dL (0.5-0.9) 11/05/23 04:11 GFR Calculation 103.4 mL/min (90-130) 11/05/23 04:11 Last dialysis session:: N/A Drug administration history:: Medications Levofloxacin/Dextrose (Levaquin-D5w) 500 mg in 100 mls @ 100 mls/hr IV Q24H [facility]; Protocol Last Admin: 11/04/23 19:22 Dose: Infused Vancomycin HCl (Vancocin) 1,500 mg in 300 mls @ 200 mls/hr IV Q12H [facility] Treatment plan:: new consult Regimen:: Vancomycin 1500 mg IVPB Q12H Follow up:: Scr daily with AM labs Vancomycin Trough before 4th dose Rationale:: Cmax 33.5 Cpeak 30.5 Cmin 13.3
[2023-11-05] MEDS: vancomycin 1,500 MG/300 ML PIGGYBACK 200 MG IV (07:08)
[2023-11-05] MEDS: albuterol 2.5 mg/3 mL Neb INHALATION (07:29)
[2023-11-05] MEDS: benzonatate 100 mg Capsule 200 MG PO (08:56)
[2023-11-05] MEDS: ropinirole 2 mg Tablet 4 MG PO ×2 (08:56→16:59)
[2023-11-05] MEDS: insulin glargine 100 units/1 mL 20 UNIT SUBCUT (08:57)
[2023-11-05] MEDS: insulin lispro 100 unit/1 mL SUBCUT ×5 (08:57→20:08)
[2023-11-05] MEDS: cetylpyridinium Lozenge 1 EACH MUCOUS MEM ×2 (11:55→16:59)
[2023-11-05 12:11] LABS: Glucose Point of Care 306 mg/dL (70-110)
--- NOTE | 2023-11-05 14:17 | P.PN_ITS ---
Subjective 2 Subjective: Patient reports severe sore throat. She reports her nausea and vomiting has shown some improvement. She is tolerating clear liquids. She is okay to try some solid foods today. She reports generalized malaise and fatigue. Overnight her blood cultures became positive for which she was started on vancomycin. We discussed culture results and plan of care. Medications: Reviewed: Yes Vitals/I&O/Wt Last Vital Signs Temp 98.2 F 11/05/23 11:56 Pulse 74 11/05/23 11:56 Resp 18 11/05/23 11:56 BP 123/33 11/05/23 11:56 Pulse Ox 97 11/05/23 11:56 O2 Del Method Room Air 11/05/23 11:56 11/04/23 11/05/23 11/05/23 22:59 06:59 14:59 Intake Total 1460 / 2460 1000 / 3460 1743.333 / 1743.333 Balance 1460 / 2460 1000 / 3460 1743.333 / 1743.333 Weight last 48 hrs Weight 108.182 kg Weight 102.058 kg Physical Exam 2 Narrative: General: Patient is awake. Acutely ill-appearing. Head: Normocephalic. Atraumatic. EOM intact. Dry mucous membranes. Pharyngeal erythema. Neck: No JVD. Cardiovascular: No gallops. No murmurs. No peripheral edema. Lungs: Adequate air movement. No use of accessory muscles, no crackles or wheezes. Skin: No jaundice. No rashes. Abdomen: Normal bowel sounds, abdomen soft and nontender. Extremities: No cyanosis or clubbing. Musculoskeletal: No swollen or erythematous joints. Neurological: Moves all 4 extremities. No myoclonus. 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, will avoid cephalosporins/penicillins Continue fluoroquinolone treatment (3) Urinary tract infection: Continue antibiotics as above (4) COVID: Acute COVID-19 infection Continue isolation precautions (5) Nausea & vomiting: Nausea and vomiting is improved, advance diet as tolerated (6) Diabetes: Type 2 diabetes mellitus, uncontrolled with hyperglycemia Patient nonadherent to insulin treatment Sliding-scale insulin correction Avoid hypoglycemia Blood sugars remain uncontrolled, increase Lantus Start scheduled mealtime insulin (7) Hypertension: Hold oral antihypertensives due to sepsis Hydralazine as needed for markedly elevated blood pressures (8) Hyperlipidemia: Continue statin (9) Obesity: Patient would benefit from weight loss (10) Homelessness: Patient and her partner are working on plans for getting home Case management/social work consult on Monday Plan DVT prophylaxis: Lovenox CODE STATUS: Full code Attestations 2 Medical Necessity Statement*: Patient is septic with strep pneumo bacteremia requiring ongoing hospitalization for repeat blood cultures to ensure clearance, IV antibiotics, titration of insulin, and supportive care. Coding Level of Care Code Acute Code for [facility] Diagnoses Sepsis A41.9 Bacteremia R78.81 Urinary tract infection N39.0 COVID U07.1 Nausea & vomiting R11.2 Diabetes E11.9 Hypertension I10 Hyperlipidemia E78.5 Obesity E66.9 Homelessness Z59.00
[2023-11-05] MEDS: levofloxacin-dextrose 5 % 750 MG/150 ML PREMIX 100 MG IV (14:48)
[2023-11-05 16:32] LABS: Glucose Point of Care 223 mg/dL (70-110)
[2023-11-05] MEDS: famotidine 20 mg Tablet PO (20:04)
[2023-11-05 20:11] LABS: Glucose Point of Care 194 mg/dL (70-110)
[2023-11-05] MEDS: sodium chloride 0.9% 1,000 ML 50 ML IV (21:49)
[2023-11-06] VITALS: BP 108/76; PULSE 74; RESP 16; TEMP 36.8; O2SAT 96
[2023-11-06 00:37] LABS: Glucose Point of Care 149 mg/dL (70-110)
[2023-11-06 04:00] VITALS: BP 152/84; PULSE 73; RESP 16; TEMP 37; O2SAT 97
[2023-11-06 05:03] LABS: Basophils % 0.3 %; Eosinophils # 0.1 10^3/uL (0.0-0.8); Eosinophils % 1.1 %; Hematocrit 36.6 % (36-47); Lymphocytes # 2.2 10^3/uL (0.8-4.8); Lymphocytes % 18.5 %; Mean Corpuscular HGB Conc 30.1 g/dL (30-55); Mean Corpuscular Volume 86.5 fl (85-98); Mean Platelet Volume 11.8 fL (7.4-10.4); Monocytes # 0.6 10^3/uL (0.2-0.9); Monocytes % 4.9 %; Neutrophils # 8.88 10^3/uL (1.8-7.7); Neutrophils % 74.6 %; Nucleated Red Blood Cells % 0 %; Platelet Count 113 10^3/cmm (157-399); Red Blood Count 4.23 10^6/uL (3.85-5.65); Red Cell Distribution Width 15.9 % (12.1-15.1)
[2023-11-06 05:42] LABS: Alanine Aminotransferase 23 U/L (0-33); Albumin Level 3.2 g/dL (3.5-5.2); Alkaline Phosphatase 68 U/L (35-105); Aspartate Amino Transferase 14 U/L (0-32); Blood Urea Nitrogen 13 mg/dL (6-20); Calcium 8.8 mg/dL (8.5-10.5); Carbon Dioxide 24 mmol/L (22-29); Chloride 106 mmol/L (98-107); Creatinine Clr Calc Pharmacy 134.8878; Globulin 3.5 g/dL (1.3-4.6); Glomerular Filtration Rate 103.4 mL/min (90-130); Glucose 158 mg/dL (65-115); Magnesium 1.7 mg/dL (1.7-2.3); Osmolality Calculated 289 mOsm/kg (285-295); Phosphorus 2.7 mg/dL (2.5-4.5); Sodium 138 mmol/L (136-145); Total Bilirubin 0.3 mg/dL (0.15-1.2); Total Protein 6.7 g/dL (6.6-8.7)
[2023-11-06 06:10] LABS: Glucose Point of Care 174 mg/dL (70-110)
[2023-11-06] MEDS: sucralfate 1 gm Tablet PO ×2 (06:10→16:08)
[2023-11-06] MEDS: insulin lispro 100 unit/1 mL SUBCUT ×7 (06:13→22:13)
[2023-11-06 07:53] VITALS: BP 132/84; PULSE 79; RESP 17; TEMP 37.1; O2SAT 97
--- NOTE | 2023-11-06 09:33 | PC.CHAP ---
Pastoral Care Encounter/Spiritual Assessment Type of Contact [] Declined director of residential services visit [] Patient/Family/Request visit [] Outpatient visit [] Follow-up visit [] Physician referral [] Code/Alert [x] Routine visit [] Staff referral [] Actively dying [] Patient sleeping [] Family support [] [] Out of room [] Palliative care [] [] Receiving care in room [] Pre-surgical visit [] Trauma [] Long length of stay [] ICU visit [] Other: Relational/Emotional Strength [] Patient feels connected with others/family/visitors/staff [] Distress [] Loneliness/isolation [] Abandonment Spirituality of Patient [] Person of Ariana [] Attends [employer] of their Ariana [] Believes in Prayer [] Reads Bible or Protestant materials [] There are Spiritual issues to be addressed Cider Press Operator Interventions [x] Prayer [] Active listening [] Non-anxious presence [] Spiritual/emotional support [] Crisis/trauma care [] Spiritual counseling [] Bereavement support [] Provided bereavement packet [] Provided Bible/devotional materials [] Provided toy/stuffed animal, coloring book to patient or family member [] Provided Communion [] Anointing/[place] [] Salvation [] Completed spiritual assessment [] Other: Impact on Illness or Injury [] Angry [] Fearful [] Anxious [] Often cries [] Exhaustion [] Unable to work [] Unable to attend synagogue [] Unable to walk/stand [] Unable to read [] Unable to drive [] Unable to eat/drink [] Unable to sleep [] Unable to be with family [] Patient intubated [] Other: Summary precaution Time spent with patient
[2023-11-06] MEDS: ropinirole 2 mg Tablet 4 MG PO ×2 (09:46→17:30)
[2023-11-06] MEDS: HYDROcodone-acetaminophen 10-325 mg Tablet 1 TAB PO ×3 (11:03→21:18)
[2023-11-06] MEDS: ondansetron 4 MG Tablet PO ×2 (11:03→20:21)
[2023-11-06 11:17] LABS: Glucose Point of Care 215 mg/dL (70-110)
[2023-11-06 11:18] VITALS: BP 157/88; PULSE 75; RESP 18; TEMP 37.1; O2SAT 95
[2023-11-06] MEDS: sodium chloride 0.9% 1,000 ML 50 ML IV (11:58)
[2023-11-06] MEDS: enoxaparin 30 mg/0.3 mL Syringe SUBCUT (12:09)
[2023-11-06] MEDS: levofloxacin-dextrose 5 % 750 MG/150 ML PREMIX 100 MG IV (14:33)
[2023-11-06 16:00] VITALS: BP 138/82; PULSE 65; RESP 17; RESP 18; TEMP 37.1; O2SAT 97
[2023-11-06 16:36] LABS: Glucose Point of Care 225 mg/dL (70-110)
--- NOTE | 2023-11-06 16:41 | USCV_ITS ---
Paradise Samano Age: 57 Gender: F : 1965 Exam Date: 11/06/2023 20:10 Ordering Phys: Cole Birmingham MD Technologist: JI Exam Location: [facility] [place] Indication: assess for any vegetation or perivalvular abscess. BP: 138 / 82 HR: 68 Rhythm: Sinus Technical Quality: Adequate MEASUREMENTS (Male / Female) Normal Values 2D ECHO LVOT Diameter 1.8 cm LV Ejection Fraction MOD 4C 55.3 % LV Ejection Fraction MOD 2C 57.9 % LV Ejection Fraction 2C AL 59.0 % LA Diameter 4.1 cm Aorta at Sinotubular Diameter 2.6 cm IVC Diameter 1.7 cm DOPPLER AV Peak Velocity 146.0 cm/s LVOT Peak Velocity 110.0 cm/s AV Area Cont Eq vti 2.4 cm squared AV Area Cont Eq pk 1.9 cm squared MV Peak Velocity 136.0 cm/s MV Area PHT 6.3 cm squared Mitral E to A Ratio 0.9 TV Peak Velocity 281.0 cm/s TR Peak Velocity 290.0 cm/s TR Peak Gradient 33.6 mmHg TV Peak E Velocity 51.0 cm/s Right Atrial Pressure 5.0 mmHg Pulmonary Artery Systolic Pressu 38.6 mmHg PV Peak Velocity 88.0 cm/s FINDINGS Left Ventricle Left ventricle is normal size. LV systolic function is normal with EF of 55 to 60%. No regional wall motion abnormalities are seen. Grade 1 diastolic dysfunction Right Ventricle Normal in size and function Right Atrium Normal in size Left Atrium Dilated Mitral Valve Mild mitral annular calcification. Mild mitral regurgitation. Aortic Valve Aortic valve is thickened. Mild aortic regurgitation. No significant stenosis. Tricuspid Valve Mild tricuspid regurgitation. Insufficient TR jet to calculate RVSP. Pulmonic Valve Trace pulmonic regurgitation. Pericardium Normal Aorta Normal in size IVC Appears to be normal CONCLUSIONS LV systolic function is normal with EF of 55-60% Grade 1 diastolic dysfunction Left atrial dilation Mild mitral regurgitation Mild tricuspid regurgitation Trace pulmonic regurgitation. Navneet Vo MD (Electronically Signed) Final Date: 07 November 2023 11:32 S
--- NOTE | 2023-11-06 18:36 | P.PN_ITS ---
Subjective 2 Subjective: She is overall doing okay. Still having some cough productive of phlegm. Having some nausea. No vomiting but did not have appetite for breakfast today. Vitals/I&O/Wt Last Vital Signs Temp 98.8 F 11/06/23 16:00 Pulse 65 11/06/23 16:00 Resp 18 11/06/23 16:00 BP 138/82 11/06/23 16:00 Pulse Ox 97 11/06/23 16:00 O2 Del Method Room Air 11/06/23 16:00 11/06/23 11/06/23 11/06/23 06:59 14:59 22:59 Intake Total 240 / 3210.000 1427.5 / 1427.5 150 / 1577.5 Balance 240 / 3210.000 1427.5 / 1427.5 150 / 1577.5 Weight last 48 hrs Weight 108.046 kg Weight 108.182 kg Physical Exam 2 Narrative: Sitting up in chair, accompanied by her . Const: COMMON NORMALS: patient oriented x3 and alert GENERAL APPEARANCE: c ooperative ORIENTATION/CONSCIOUSNESS: Yes awake HENMT: COMMON NORMALS: oropharynx normal Neck/C-Spine: COMMON NORMALS: no JVD Resp: COMMON NORMALS: normal respiratory effort and clear to auscultation bilaterally AUSCULTATION: clear to auscultation bilaterally Cardio: COMMON NORMALS: no JVD, regular rhythm, S1 normal heart sound present, S2 normal heart sound present and No murmurs present (Cardio) RHYTHM: regular rhythm HEART SOUNDS: S1 normal heart sound present and S2 normal heart sound present GI: COMMON NORMALS: Normal to inspection, nondistended, normoactive bowel sounds present, Soft to palpation and non-tender PALPATION: Yes Soft to palpation Extremity: COMMON NORMALS: no joint enlargement and no pedal edema Neuro: COMMON NORMALS: patient oriented x3 and moves all extremities S ENSORIUM/ORIENTATION: Yes alert Skin: COMMON NORMALS: no rashes or lesions noted GENERAL SKIN EXAM: no rashes or lesions noted Data 11/06/23 04:54 11/06/23 04:54 Micro: Microbiology 11/05/23 19:15 Blood Culture - Preliminary Blood SPECIMEN COLLECTED 11/05/23 19:12 Blood Culture - Preliminary Blood SPECIMEN COLLECTED A&P Assessment and plan (1) Bacteremia: Strep pneumo bacteremia. 3/4 bottles. Reviewed vitals, CBC, CMP, magnesium, phosphorus. Discussed with her regarding bacteremia. Discussed risk of endocarditis. Discussed obtaining additional imaging with TTE, she is agreeable. And if unremarkable FRANCIS. Requested TTE. In the meantime continue antibiotic treatment currently with Levaquin. She has anaphylaxis history to cephalosporin. Reviewed follow-up blood culture, negative. 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 Continue treatment of streptococcal bacteremia as above. Stop IV fluid. Source: Strep pneumoniae bacteremia SIRS: Leukocytosis, tachycardia, febrile (3) Urinary tract infection: Continue antibiotics as above (4) COVID: Acute COVID-19 infection. Continue Lovenox VTE prophylaxis. Continue isolation precautions (5) Nausea & vomiting: Still some nausea. Zofran as needed. No vomiting. Nausea and vomiting is improved, advance diet as tolerated (6) Diabetes: Discussed with nursing staff, blood glucose only 215 today, had not received Lantus. Will stop Lantus for now. Continue to manage with short acting insulin, she has 4 units Premeal and sliding scale. Likely will need to resume Lantus at lower dose. Continue consistent carbohydrate diet. At risk of hypoglycemia with insulin. Monitor POC glucose. Type 2 diabetes mellitus, uncontrolled with hyperglycemia Patient nonadherent to insulin treatment Sliding-scale insulin correction Avoid hypoglycemia Blood sugars remain uncontrolled, increase Lantus Start scheduled mealtime insulin (7) Hypertension: Hold oral antihypertensives due to sepsis Hydralazine as needed for markedly elevated blood pressures (8) Hyperlipidemia: Continue statin (9) Obesity: Patient would benefit from weight loss (10) Homelessness: Discussed with case management. Patient and her partner are working on plans for getting home Case management/social work consult on Monday Plan Hypomagnesemia: Magnesium 1.7. Will give 1 g magnesium. Recheck level. DVT prophylaxis: Lovenox CODE STATUS: Full code Attestations 2 Medical Necessity Statement*: Continue admission for assessment management of streptococcal bacteremia, assessment for endocarditis, optimization of diabetes control is at risk of hypoglycemia. and High MDM includes amount and/or complexity of data reviewed/ordered [ resulted lab(s)/test(s), ordered lab(s)/test(s) and other healthcare professional discussion] as documented Diagnoses Bacteremia R78.81 Sepsis A41.9 Urinary tract infection N39.0 COVID U07.1 Nausea & vomiting R11.2 Diabetes E11.9 Hypertension I10 Hyperlipidemia E78.5 Obesity E66.9 Homelessness Z59.00
[2023-11-06] MEDS: magnesium sulfate premix 1 GM/100 ML PIGGYBACK IV (18:49)
[2023-11-06] MEDS: acetaminophen 500 mg Tablet 1000 MG PO (18:49)
[2023-11-06 20:00] VITALS: BP 156/85; PULSE 66; RESP 15; TEMP 36.8; O2SAT 99
[2023-11-06] MEDS: famotidine 20 mg Tablet PO (20:21)
[2023-11-07] VITALS: BP 145/67; PULSE 82; RESP 12; TEMP 36.7; O2SAT 94
[2023-11-07] MEDS: HYDROcodone-acetaminophen 10-325 mg Tablet 1 TAB PO ×4 (02:00→21:14)
[2023-11-07 04:00] VITALS: BP 171/92; PULSE 75; RESP 97; TEMP 36.7; O2SAT 97
[2023-11-07 05:56] LABS: Basophils % 0.3 %; Eosinophils # 0.1 10^3/uL (0.0-0.8); Eosinophils % 1.5 %; Hematocrit 35.1 % (36-47); Lymphocytes # 1.8 10^3/uL (0.8-4.8); Lymphocytes % 27.3 %; Mean Corpuscular HGB Conc 31.1 g/dL (30-55); Mean Corpuscular Volume 83.6 fl (85-98); Mean Platelet Volume 11.8 fL (7.4-10.4); Monocytes # 0.4 10^3/uL (0.2-0.9); Monocytes % 6.3 %; Neutrophils # 4.32 10^3/uL (1.8-7.7); Neutrophils % 64.3 %; Nucleated Red Blood Cells % 0 %; Platelet Count 129 10^3/cmm (157-399); Red Cell Distribution Width 15.2 % (12.1-15.1); White Blood Count 6.71 10^3/uL (3.29-11.43)
[2023-11-07 06:15] LABS: Anion Gap 12.8 (5-19); Blood Urea Nitrogen 9 mg/dL (6-20); Calcium 8.8 mg/dL (8.5-10.5); Carbon Dioxide 23 mmol/L (22-29); Chloride 105 mmol/L (98-107); Creatinine Clr Calc Pharmacy 136.2669; Glomerular Filtration Rate 103.4 mL/min (90-130); Glucose 155 mg/dL (65-115); Magnesium 1.6 mg/dL (1.7-2.3); Osmolality Calculated 286 mOsm/kg (285-295); Potassium 3.8 mmol/L (3.5-5.1); Sodium 137 mmol/L (136-145)
[2023-11-07 06:50] LABS: Glucose Point of Care 165 mg/dL (70-110)
[2023-11-07 08:00] VITALS: BP 155/85; PULSE 84; RESP 18; TEMP 36.8; O2SAT 96
[2023-11-07] MEDS: sucralfate 1 gm Tablet PO (08:08)
[2023-11-07] MEDS: ropinirole 2 mg Tablet 4 MG PO ×2 (08:08→17:47)
[2023-11-07] MEDS: insulin lispro 100 unit/1 mL SUBCUT ×6 (08:09→17:46)
[2023-11-07] MEDS: ondansetron 2 mg/ML SDV 2 mL 4 MG IVP ×2 (09:37→17:46)
[2023-11-07 11:25] LABS: Glucose Point of Care 209 mg/dL (70-110)
[2023-11-07] MEDS: enoxaparin 30 mg/0.3 mL Syringe SUBCUT (11:31)
[2023-11-07] MEDS: magnesium sulfate premix 2 GM/50 ML PIGGYBACK IV (11:32)
--- NOTE | 2023-11-07 11:58 | P.PN_ITS ---
Subjective 2 Subjective: Infectious disease progress note. Patient states that her swallowing appears to be improving today. States that pain is also better. she she states that in hindsight she has been having sore neck for the past 3 to 4 weeks. Did not make much of her symptoms initially. Awaiting callback from her ENT physician in [place]. Medications: Reviewed: Yes Vitals/I&O/Wt Last Vital Signs Temp 98.0 F 11/09/23 11:49 Pulse 75 11/09/23 11:49 Resp 20 H 11/09/23 11:49 BP 180/82 11/09/23 11:49 Pulse Ox 96 11/09/23 11:49 O2 Del Method Room Air 11/09/23 11:49 11/08/23 11/09/23 11/09/23 22:59 06:59 14:59 Intake Total 1130 / 1850 400 / 2250 450 / 450 Balance 1130 / 1850 400 / 2250 450 / 450 Weight last 48 hrs Weight 107.774 kg Weight 109.633 kg Physical Exam 2 Narrative: General: No acute distress, AO x3 HEENT: PERRLA, pupils bilaterally equal and reactive, pallors not present, s/p uvulectomy, no gross lesions noted. Chest: Normal vesicular breath sounds, no added sounds, equal good air entry bilaterally CVS: S1-S2 regular, no murmurs, no tachycardia, no gallops, no rubs Abdomen: Soft, nontender, no organomegaly, bowel sounds present Neuro: No focal deficits, no facial deformity, AO x3, power 5/5 in all limbs PICC line placed 11/07 Data 11/09/23 03:40 11/09/23 03:40 Micro: 11/04/23 13:19 Blood Culture - Final Blood Streptococcus pneumoniae 11/04/23 12:48 Blood Culture - Final Blood Streptococcus pneumoniae S pneumoni M.I.C. RX --------- ------ * Amoxicillin/Clavulanate <=0.5/.25 S * Cefepime 0.5 S * Ceftriaxone <=0.25 S * Cefuroxime 0.5 S * Clindamycin >0.5 R * Erythromycin >0.5 R * Levofloxacin 0.5 S * Meropenem <=0.06 S * Penicillin 0.25 R * Tetracycline <=0.5 S * Trimethoprim/Sulfamethoxazole <=.25/4.7 S Vancomycin 0.5 S November 05, 2023. Blood culture negative to date. Picc placed 11/07 A&P Assessment and plan (1) Bacteremia due to Streptococcus pneumoniae: strep pneumo bacteremia on 11/03 upon admission CXR upon admission without consolidation or other infiltrates CT chest with mild right pneumonitis and small pleural effusion which may be related to COVID vs CAP - more likely COVID suspected upper respiratory source for strep pneumo bacteremia given recent surgery, persisting pain, difficulty swallowing and discomfort in oropharynx. MRi neck and C spine with possible developing abscess at the C4-5 level measuring 12 x 6 mm, Paravertebral edema and enhancement extends close to the jugular veins C4 focal enhancement with enhancement extending into the C3-4 disc space. There is loss of the normal superior endplate of C4. These findings are highly suspicious for C3-4 discitis and C4 osteomyelitis continue ceftriaxone to 2g iv every 24 hrs for treatment given PCN resistant strain. Chart notes allergy to cephalexin however patient has previously taken cefazolin without incidence- Currently also tolerating ceftriaxone without issues Recommend ENT evaluation for retropharyngeal abscess. Unfortunately we do not have ENT on-call at the hospital this week, November schedule is not currently available to us. Call placed to patient's ENT doctor in [place]- Dr. Staples office to discuss case- awaiting call back If surgical debridement/aspiration is indicated, patient will likely need to be transferred to a higher center where ENT services are available. AT least 6 weeks on iv abx indicated at this time (2) Osteomyelitis: MRi neck and C spine with possible developing abscess at the C4-5 level measuring 12 x 6 mm, Paravertebral edema and enhancement extends close to the jugular veins C4 focal enhancement with enhancement extending into the C3-4 disc space. There is loss of the normal superior endplate of C4. 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 There is loss of the normal superior endplate of C4. 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 tip of tongue continueValtrex 1g po BID for treatment x 5 days - rash is improving (6) COVID: rigth pneumonitis which may be related to viral pneumonitis saturating 94-97% on RA has h/o severe sleep apnea but unable to tolerate CPAP. has not been on steroids or antivirals this admission - can hold off given that she is clinically improving Plan will follow Attestations 2 Medical Necessity Statement*: per admitting Coding Level of Care Code Acute Code for Chg Fwd High MDM includes number and complexity of problems actively addressed during encounter, amount and/or complexity of data reviewed/ordered and described risk of complication, morbidity or mortality of management as documented Diagnoses Bacteremia due to Streptococcus pneumoniae R78.81; B95.3 Osteomyelitis M86.9 Pharyngeal abscess J39.1 Neck abscess L02.11 Herpes stomatitis B00.2 COVID U07.1
[2023-11-07 12:00] VITALS: BP 147/81; PULSE 71; RESP 17; TEMP 36.6; O2SAT 95
--- NOTE | 2023-11-07 13:10 | P.PN_ITS ---
Subjective 2 Subjective: She states she is doing all right. Appetite has been improving. No vomiting. No abdominal pain. No diarrhea. Has developed a cold sore in multiple spots on her lips. Vitals/I&O/Wt Last Vital Signs Temp 98.3 F 11/07/23 08:00 Pulse 84 11/07/23 08:00 Resp 18 11/07/23 08:00 BP 155/85 11/07/23 08:00 Pulse Ox 96 11/07/23 08:00 O2 Del Method Room Air 11/07/23 09:11 11/06/23 11/07/23 11/07/23 22:59 06:59 14:59 Intake Total 1250 / 2677.5 240 / 240 Balance 1250 / 2677.5 240 / 240 Weight last 48 hrs Weight 110.268 kg Weight 108.046 kg Physical Exam 2 Narrative: Sitting up in chair, accompanied by her . Const: COMMON NORMALS: patient oriented x3 and alert GENERAL APPEARANCE: c ooperative ORIENTATION/CONSCIOUSNESS: Yes awake HENMT: COMMON NORMALS: oropharynx normal Neck/C-Spine: COMMON NORMALS: no JVD Resp: COMMON NORMALS: normal respiratory effort and clear to auscultation bilaterally AUSCULTATION: clear to auscultation bilaterally Cardio: COMMON NORMALS: no JVD, regular rhythm, S1 normal heart sound present, S2 normal heart sound present and No murmurs present (Cardio) RHYTHM: regular rhythm HEART SOUNDS: S1 normal heart sound present and S2 normal heart sound present GI: COMMON NORMALS: Normal to inspection, nondistended, normoactive bowel sounds present, Soft to palpation and non-tender PALPATION: Yes Soft to palpation Extremity: COMMON NORMALS: no joint enlargement and no pedal edema Neuro: COMMON NORMALS: patient oriented x3 and moves all extremities S ENSORIUM/ORIENTATION: Yes alert Skin: COMMON NORMALS: no rashes or lesions noted GENERAL SKIN EXAM: no rashes or lesions noted Data 11/07/23 05:44 11/07/23 05:44 Micro: Microbiology 11/05/23 19:15 Blood Culture - Preliminary Blood NEGATIVE TO DATE 11/05/23 19:12 Blood Culture - Preliminary Blood NEGATIVE TO DATE A&P Assessment and plan (1) Bacteremia: TTE reviewed, without sign of vegetation. Reviewed vitals, CBC, CMP, repeat blood culture so far negative. Discussed with nursing, case management coordinator, discussed with infectious disease specialist, appreciate consultation. Will obtain plain CT chest to follow-up on possible pneumonia, rule out any pleural effusion, empyema. Hold off FRANCIS for now as per discussion. In the meantime continue antibiotic treatment currently with Levaquin. She has anaphylaxis history to cephalosporin. Also developed herpes labialis. Will check HIV. Discussed consideration of PICC line for continued IV antibiotic treatment after discharge. 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 Continue treatment of streptococcal bacteremia as above. Stop IV fluid. Source: Strep pneumoniae bacteremia SIRS: Leukocytosis, tachycardia, febrile (3) Urinary tract infection: Continue antibiotics as above (4) COVID: Acute COVID-19 infection. Continue Lovenox VTE prophylaxis. Continue isolation precautions (5) Nausea & vomiting: Still some nausea. Zofran as needed. No vomiting. Nausea and vomiting is improved, advance diet as tolerated (6) Diabetes: Glucose around 1 50-200 on POC glucose for review. Will add Lantus 5 units nightly. Continue SSI insulin, monitor POC glucose. Type 2 diabetes mellitus, uncontrolled with hyperglycemia Patient nonadherent to insulin treatment Sliding-scale insulin correction Avoid hypoglycemia Blood sugars remain uncontrolled, increase Lantus Start scheduled mealtime insulin (7) Hypertension: Hold oral antihypertensives due to sepsis Hydralazine as needed for markedly elevated blood pressures (8) Hyperlipidemia: Continue statin (9) Obesity: Patient would benefit from weight loss (10) Homelessness: Discussed with case management. Patient and her partner are working on plans for getting home Case management/social work consult on Monday (11) Herpes labialis: Developed episode of illness on upper and lower lip. Discussed with her we will add valacyclovir. Plan Hypomagnesemia: Magnesium 1.7. Will give 1 g magnesium. Recheck level. DVT prophylaxis: Lovenox CODE STATUS: Full code Attestations 2 Medical Necessity Statement*: Continue admission for assessment management of strep pneumonia bacteremia, postdischarge planning and arrangements. and High MDM includes amount and/or complexity of data reviewed/ordered [ resulted lab(s)/test(s), ordered lab(s)/test(s) and other healthcare professional discussion] as documented Diagnoses Bacteremia R78.81 Sepsis A41.9 Urinary tract infection N39.0 COVID U07.1 Nausea & vomiting R11.2 Diabetes E11.9 Hypertension I10 Hyperlipidemia E78.5 Obesity E66.9 Homelessness Z59.00 Herpes labialis B00.1
--- NOTE | 2023-11-07 13:18 | CT_ITS ---
WS: [id number] CT CHEST TECHNIQUE: Noncontrast CT of the chest with coronal and sagittal reformatted images. CLINICAL INFORMATION: Strep bacteremia COMPARISON: None. DLP: 729.[address] scans at [facility] use at least one of these dose optimization techniques: automated e xposure control; mA and/or kV adjustment per patient size (includes targeted exams where dose is matc hed to clinical indication); or iterative reconstruction. FINDINGS: Slight hazy infiltrate RIGHT lower lobe. Small RIGHT pleural effusion. Aortic calcification. Normal caliber thoracic aorta. No mediastinal or hilar lymphadenopathy. No axil giorgi lymphadenopathy. Adrenal glands are normal. Tiny esophageal hiatal hernia. Mild thoracic curve. CT/CT chest wo con [id number] IMPRESSION: 1. Slight hazy infiltrates RIGHT lower lobe. Small RIGHT pleural effusion. 2. No focal consolidation.
[2023-11-07 14:10] LABS: HIV 1 & 2 Antibody Non-Reactive (Non-Reactiv); HIV 1 & 2 Antigen Non-Reactive (Non-Reactiv)
[2023-11-07] MEDS: valACYclovir 1,000 mg Tablet 2000 MG PO (14:22)
[2023-11-07] MEDS: levofloxacin-dextrose 5 % 750 MG/150 ML PREMIX 100 MG IV (14:23)
[2023-11-07 16:00] VITALS: BP 162/93; PULSE 75; RESP 18; TEMP 36.7; O2SAT 95
[2023-11-07 16:20] LABS: Glucose Point of Care 205 mg/dL (70-110)
--- NOTE | 2023-11-07 17:07 | CTR_ITS ---
PROCEDURE INFORMATION: Exam: CT Neck Without Contrast Exam date and time: 11/07/2023 5:28 PM Age: 57 years old Clinical indication: Other: See exam info; Additional info: Streptococcal bacteremia, strep pneumo bacteremia with recent h/o tonsillectomy and TECHNIQUE: Imaging protocol: Computed tomography of the neck without contrast. Radiation optimization: All CT scans at this facility use at least one of these dose optimization techniques: automated exposure control; mA and/or kV adjustment per patient size (includes targeted exams where dose is matched to clinical indication); or iterative reconstruction. COMPARISON: CT angio headneck* [id number] 07/18/2018 3:08 PM RADIATION DOSE METRICS: Total DLP (mGy-cm): 344.86 FINDINGS: Brain: Visualized brain parenchyma is unremarkable. Unchanged ossification within the right internal acoustic canal. Salivary glands: Normal. Glands are normal in size. Pharynx: The nasopharynx and oropharynx are unremarkable. Prevertebral and retropharyngeal spaces: Mild retropharyngeal edema. No fluid collection. Larynx: Unremarkable. Epiglottis is normal. Thyroid: The thyroid gland is normal. Trachea: Scattered tracheal secretions. Lungs: Calcified granuloma in the left apex. . Pleural spaces: Partially imaged small right-sided pleural effusion and associated compressive atelectasis. Lymph nodes: Nonspecific enlarged superior mediastinal/right paratracheal lymph node measuring up to 1.2 cm in short axis. No enlarged cervical lymph nodes by size criteria. Bones/joints: The calvarium is intact. The spine demonstrates moderate degenerative changes at multiple levels. New 1.1 cm well-circumscribed lucency within the C4 vertebral body. Soft tissues: Soft tissues are unremarkable as visualized. CT/CT neck wo con [id number] IMPRESSION: 1. Mild retropharyngeal edema. No organized fluid collection. No airway compromise. 2. Well-circumscribed lucent lesion within the C4 vertebral body, new since 2019, possibly degenerative or an intraosseous hemangioma.
--- NOTE | 2023-11-07 17:09 | P.CONIM_ITS ---
Providers/Reason For Consult 2 Consulting Physician/Specialty*: Christie Boyer MD / Infectious disease Reason for Consult*: strep pneumo bacteremia Requesting Physician: Cole Birmingham Attending Physician: Cole Birmingham Primary Care Provider: Samuel Yao History of Present Illness History of Present Illness Paradise Samano is a 57 year old female who is currently admitted to the hospital since 11/04/23 after presenting with c/o generalized fatigue, weakness, fever and chills. She tested positive for COVID 19 and thereafter has also been found to have Strep pneumo bacteremia. Patient denies any cough or chest discomfort however reports a persistent sore throat, hoarse voice since undergoing B/L tonsillectomy and uvulectomy with ENT 5 weeks ago. She states she needed these procedures for severe sleep apnea and her inability to wear a Bipap. Immediate post op period was uneventful hwoever she has continued to have some discomfort since then. No recent dental work. She thinks she has been having post nasal drip and aspiration episodes with food since her surgery. CXR was without infiltartes on admission. Ct chest taken today per personal review shows mild right pneumonitis and small pleural effusion. She is currently on treatment with iv levofloxacin. Her chart notes an allergy to cephalexin but she is unsure about the reaction. Review of chart shows she had previously tolerated cefazolin for pre op ppx in 2022. Patient is vaccinated against COvid 19, influenza and pneumococcus. no past h/o recurrent bacteremias no h/o cardiac abnormalities or hardware L Review of Systems 2 General: Reports: 10 or more systems reviewed and unremarkable except in HPI and below Const: Denies: fever(s), chills or body aches Eyes: Denies: change in vision, blurry vision or photophobia ENMT: Reports: hoarseness; Denies: throat pain, enlarged tonsils, odynophagia or nasal congestion Card: Denies: chest pain, palpitations, irregular heart rhythm, edema, swelling of feet/ankles, lightheadedness, pre-syncope, dyspnea on exertion or orthopnea Resp: Denies: dyspnea, productive cough, non-productive cough, wheezing, stridor, pain on inspiration, change in phlegm color, hemoptysis or chest congestion GI: Denies: abdominal pain, nausea, vomiting, hematemesis, coffee ground emesis, dysphagia, heartburn, diarrhea, constipation, GI cramping, change in stool character, hematochezia or melena : Denies: flank pain, difficulty voiding, dysuria, urinary frequency, urinary urgency, urinary hesitancy or hematuria Musc: Denies: neck pain, back pain, extremity pain, joint swelling, joint warmth or deformity Neuro: Denies: headache(s), numbness in extremities, weakness in extremities, sensory changes, difficulty walking, frequent falls, dizziness, vertigo, behavioral changes, Slurred speech present or seizure-like activity Psych: Denies: anxiety, depression, suicidal ideation or homicidal ideation Endo: Denies: polyuria, polydipsia, tired all the time, cold intolerance or hot flashes Андрей/Lymph: Denies: easy bruising or easy bleeding Medications/Allergies Home Medications Medication Instructions Recorded Confirmed Last Taken Type dicyclomine 10 mg capsule 10 mg PO BID PRN Stomach Cramps 12/18/19 11/06/23 03/10/23 History hydrochlorothiazide 25 mg tablet 25 mg PO DAILY 12/18/19 11/06/23 11/04/23 History magnesium oxide 400 mg PO DAILY 12/18/19 11/06/23 11/04/23 History metformin 1,000 mg tablet 1,000 mg PO BID 12/18/19 11/06/23 11/04/23 History prazosin 1 mg capsule 1 mg PO BID 12/18/19 11/06/23 11/04/23 History sucralfate 1 gram tablet 1 gm PO BID 12/18/19 11/06/23 11/04/23 History venlafaxine 150 mg 150 mg PO DAILY 12/18/19 11/06/23 11/04/23 History capsule,extended release 24 hr (Effexor XR) insulin syringe-needle U-100 0.3 #100 ea 03/16/21 11/06/23 Unknown Rx mL 31 gauge x 15/64 (BD Veo Insulin Syringe Ultra-Fine) insulin aspart U-100 100 unit/mL See Rx Instructions .Route .COMPLEX 08/15/21 11/06/23 11/04/23 History (3 mL) subcutaneous pen (Novolog FlexPen U-100 Insulin aspart) insulin degludec 200 unit/mL (3 70 unit SUBCUT BID 08/15/21 11/06/23 11/04/23 History mL) subcutaneous pen (Tresiba FlexTouch U-200 insulin) bupropion HCl 150 mg 24 hr tablet, 150 mg PO QPM 08/26/21 11/06/23 11/04/23 History extended release diabetic shoes #1 ea 10/22/21 11/06/23 Unknown Rx Diabetic Shoes #1 ea 11/01/21 11/06/23 Unknown Rx Diabetic Shoes #1 ea 11/17/21 11/06/23 Unknown Rx dapagliflozin propanediol 10 mg 10 mg PO DAILY 10/26/22 11/06/23 11/04/23 History tablet (Farxiga) atorvastatin 80 mg tablet 80 mg PO QPM 03/10/23 11/06/23 03/09/23 History budesonide-formoterol HFA 160 2 puff inhalation BID 03/10/23 11/06/23 11/04/23 History mcg-4.5 mcg/actuation aerosol inhaler (Symbicort) dulaglutide 0.75 mg/0.5 mL 0.5 mg SUBCUT Q7D 03/10/23 11/06/23 11/01/23 History subcutaneous pen injector (Trulicity) famotidine 20 mg tablet 20 mg PO BEDTIME 03/10/23 11/06/23 11/04/23 History polyethylene glycol 3350 17 4 g PO DAILY 03/10/23 11/06/23 11/04/23 History gram/dose oral powder (Miralax) ropinirole 4 mg tablet 4 mg PO BID 03/10/23 11/06/23 11/04/23 History venlafaxine 75 mg capsule,extended 75 mg PO DAILY 03/10/23 11/06/23 11/04/23 History release 24 hr albuterol sulfate 90 mcg/actuation 2 puff inhalation Q6H PRN 11/06/23 11/06/23 Unknown History aerosol inhaler (Ventolin HFA) Shortness Of Breath Or Wheezing gabapentin 600 mg tablet 600 mg PO TID 11/06/23 11/06/23 11/04/23 History galcanezumab-gnlm 120 mg/mL 120 mg SUBCUT .Q30D 11/06/23 11/06/23 10/07/23 History subcutaneous pen injector (Emgality Pen) losartan 50 mg tablet 50 mg PO DAILY 11/06/23 11/06/23 11/04/23 History ondansetron HCl 4 mg tablet 4 mg PO Q8H PRN Nausea And Vomiting 11/06/23 11/06/23 Unknown History topiramate 25 mg tablet 25 mg PO BID 11/06/23 11/06/23 11/04/23 History Allergies Allergy/AdvReac Type Severity Reaction Status Date / Time adhesive tape Allergy Severe ALGY-Hives Verified 07/28/23 20:41 amitriptyline Allergy Severe ALGY-Hives Verified 07/28/23 20:41 ciprofloxacin Allergy Severe ADR-Nausea Verified 07/28/23 20:41 exenatide [From Bydureon] Allergy Severe ALGY-Hives Verified 07/28/23 20:41 sumatriptan [From Imitrex] Allergy Severe ADR-Vomitin Verified 07/28/23 20:41 g cephalexin Allergy ALGY-Swell Verified 07/28/23 20:41 Lip/Tongue/Throat metoclopramide [From Reglan] Allergy Unknown Verified 07/28/23 20:41 shrimp Allergy ALGY-Rash Verified 07/28/23 20:41 Current Medications Generic Name Dose Route Start Last Admin Trade Name Freq PRN Reason Stop Dose Admin Acetaminophen 1,000 mg 11/04/23 15:15 11/06/23 18:49 Acetaminophen 500 Mg Tablet PO 1,000 mg Q6H PRN Administration Mild/Mod Pain Or Temp >/= 101 Hydrocodone Bitart/Acetaminophen 1 tab 11/04/23 16:48 11/07/23 14:22 Hydrocodone-Acetaminophen 10-325 Mg Tablet PO 1 tab Q4H PRN Administration MODERATE PAIN Albuterol Sulfate 2.5 mg 11/04/23 16:47 11/05/23 07:29 Albuterol 2.5 Mg/3 Ml Neb INHALATION 2.5 mg Q4H.RESPIRATORY PRN Administration SHORTNESS OF BREATH Benzocaine 1 each 11/04/23 16:45 11/05/23 16:59 Cetylpyridinium Lozenge MUCOUS MEM 1 each Q2H PRN Administration SORE THROAT Benzonatate 200 mg 11/04/23 16:45 11/05/23 08:56 Benzonatate 100 Mg Capsule PO 200 mg TID PRN Administration COUGH Enoxaparin Sodium 30 mg 11/06/23 11:45 11/07/23 11:31 Enoxaparin 30 Mg/0.3 Ml Syringe SUBCUT 30 mg Q24H HEIDY Administration Famotidine 20 mg 11/04/23 21:00 11/06/23 20:21 Famotidine 20 Mg Tablet PO 20 mg BEDTIME HEIDY Administration Insulin Human Lispro 0 unit 11/04/23 18:00 11/07/23 11:31 Insulin Lispro 100 Unit/1 Ml SUBCUT 6 unit WM&BEDTIME HEIDY Administration Protocol Insulin Human Lispro 4 unit 11/05/23 17:00 11/07/23 11:32 Insulin Lispro 100 Unit/1 Ml SUBCUT 4 unit AC HEIDY Administration Ondansetron HCl 4 mg 11/04/23 15:15 11/07/23 09:37 Ondansetron 2 Mg/Ml Sdv 2 Ml IVP 4 mg Q8H PRN Administration vomiting, or N/V if npo Ondansetron HCl 4 mg 11/04/23 15:15 11/06/23 20:21 Ondansetron 4 Mg Tablet PO 4 mg Q8H PRN Administration NAUSEA Ropinirole HCl 4 mg 11/05/23 09:00 11/07/23 08:08 Ropinirole 2 Mg Tablet PO 4 mg BID HEIDY Administration Sucralfate 1 gm 11/04/23 17:00 11/07/23 08:08 Sucralfate 1 Gm Tablet PO 1 gm BIDAC HEIDY Administration PFSH Acute 2 PFSH: Medical History 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 August 2021 MCI (mild cognitive impairment) HX: benign breast biopsy off tongue Dr. Adan Abdominal pain Nausea & vomiting GERD (gastroesophageal reflux disease) Hypertension Diabetes Anemia Duodenitis without bleeding Morbid obesity with BMI of 40.0-44.9, adult Depression PTSD (post-traumatic stress disorder) RLS (restless legs syndrome) Gout Asthma Surgical History S/P excision of lipoma Right hip 12 x 10 x 9 cm Hx of dilation and curettage x3 History of esophagogastroduodenoscopy (EGD) Family History Other Hypertension Social History Smoking and tobacco/nicotine status: never used tobacco/nicotine Alcohol intake: current Vitals/I&O/Wt Last Vital Signs Temp 98.0 F 11/07/23 16:00 Pulse 75 11/07/23 16:00 Resp 18 11/07/23 16:00 BP 162/93 11/07/23 16:00 Pulse Ox 95 11/07/23 16:00 O2 Del Method Room Air 11/07/23 16:00 11/07/23 11/07/23 11/07/23 06:59 14:59 22:59 Intake Total 290 / 290 150 / 440 Balance 290 / 290 150 / 440 Weight last 48 hrs Weight 110.268 kg Weight 108.046 kg Physical Exam 2 Narrative: General: No acute distress, AO x3 HEENT: PERRLA, pupils bilaterally equal and reactive, pallors not present, s/p uvulectomy, no gross lesions noted. Chest: Normal vesicular breath sounds, no added sounds, equal good air entry bilaterally CVS: S1-S2 regular, no murmurs, no tachycardia, no gallops, no rubs Abdomen: Soft, nontender, no organomegaly, bowel sounds present Neuro: No focal deficits, no facial deformity, AO x3, power 5/5 in all limbs Data 11/08/23 03:47 11/08/23 03:47 Other Labs: [address] [address] [address] Scan Report Signed Patient: Paradise Samano Unit #: [id number] : 1965 Age/Sex: 57 / F ADM Date: 11/05/23 Loc: [facility] Room/Bed: [facility] Attending Dr: Cole Birmingham MD Ordering Provider/Ordering MD: Cole Birmingham MD Date of Service: 11/07/23 Procedure(s): CT chest [facility] [address] Accession Number(s): [id number] Report Number: [id number] WS: [id number] CT CHEST TECHNIQUE: Noncontrast CT of the chest with coronal and sagittal reformatted images. CLINICAL INFORMATION: Strep bacteremia COMPARISON: None. DLP: 729.[address] scans at [facility] use at least one of these dose optimization techniques: automated exposure control; mA and/or kV adjustment per patient size (includes targeted exams where dose is matched to clinical indication); or iterative reconstruction. FINDINGS: Slight hazy infiltrate RIGHT lower lobe. Small RIGHT pleural effusion. Aortic calcification. Normal caliber thoracic aorta. No mediastinal or hilar lymphadenopathy. No axillary lymphadenopathy. Adrenal glands are normal. Tiny esophageal hiatal hernia. Mild thoracic curve. CT/CT chest wo con [id number] IMPRESSION: 1. Slight hazy infiltrates RIGHT lower lobe. Small RIGHT pleural effusion. 2. [place] [address] XRay Report Signed Patient: Paradise Samano Alexandru Unit #: [id number] : 1965 Age/Sex: 57 / F ADM Date: 11/04/23 Loc: ER Room/Bed: Attending Dr: Ordering Provider/Ordering MD: Irma Cavazos MD Date of Service: 11/04/23 Procedure(s): XR chest 1V portable [id number] Accession Number(s): [id number] Report Number: [id number] PROCEDURE INFORMATION: Exam: XR Chest Exam date and time: 11/04/2023 11:36 AM Age: 57 years old Clinical indication: Cough and fever; Patient HX: Weakness; Cough; Fever TECHNIQUE: Imaging protocol: Radiologic exam of the chest. Views: 1 view. COMPARISON: CR XR chest 1V portable [id number] 03/10/2023 2:13 PM FINDINGS: Lungs: Unremarkable. No consolidation. Pleural spaces: Unremarkable. No pleural effusion. No pneumothorax. Heart/Mediastinum: Unremarkable. No cardiomegaly. Bones/joints: Unremarkable. XR/XR chest 1V portable [id number] IMPRESSION: [place] [address] XRay Report Signed Patient: Paradise Samano Unit #: [id number] : 1965 Age/Sex: 57 / F ADM Date: 11/04/23 Loc: ER Room/Bed: Attending Dr: Ordering Provider/Ordering MD: Irma Cavazos MD Date of Service: 11/04/23 Procedure(s): XR chest 1V portable [id number] Accession Number(s): [id number] Report Number: [id number] PROCEDURE INFORMATION: Exam: XR Chest Exam date and time: 11/04/2023 11:36 AM Age: 57 years old Clinical indication: Cough and fever; Patient HX: Weakness; Cough; Fever TECHNIQUE: Imaging protocol: Radiologic exam of the chest. Views: 1 view. COMPARISON: CR XR chest 1V portable [id number] 03/10/2023 2:13 PM FINDINGS: Lungs: Unremarkable. No consolidation. Pleural spaces: Unremarkable. No pleural effusion. No pneumothorax. Heart/Mediastinum: Unremarkable. No cardiomegaly. Bones/joints: Unremarkable. XR/XR chest 1V portable [id number] IMPRESSION: No acute findings. Micro: Microbiology 11/04/23 13:19 Blood Culture - Final Blood Streptococcus pneumoniae 11/04/23 12:48 Blood Culture - Final Blood Streptococcus pneumoniae 11/05/23 19:15 Blood Culture - Preliminary Blood NEGATIVE TO DATE 11/05/23 19:12 Blood Culture - Preliminary Blood NEGATIVE TO DATE A&P Assessment and plan (1) Bacteremia due to Streptococcus pneumoniae: strep pneumo bacteremia on 11/03 upon admission CXR upon admission without consolidation or other infiltrates CT chest with mild right pneumonitis and small pleural effusion which may be related to COVID vs CAP - more likely COVID suspect upper respiratory source for strep pneumo bacteremia given recent surgery, persisting pain and discomfort in oropharynx. Also reporst intermittent aspiration which may be contributing recommend CT neck to assess for any post op surgical bed abscess/retropharyngeal abscess d/c levofloxacin start ceftriaxone 1g iv every 24 hrs for treatment Chart notes allergy to cephalexin however patient has previously taken cefazolin without incidence- may not be a true cephalosporin allergy (2) Herpes stomatitis: herpes stomatitis affecting perioral area and ? tip of tongue Start Valtrex 1g po BID for treatment (3) COVID: rigth pneumonitis which may be related to viral pneumonitis saturating 94-97% on RA has h/o severe sleep apnea but unable to tolerate CPAP. has not been on steroids or antivirals this admission - can hold off given that she is clinically improving Plan will follow Coding Level of Care Code Acute Code for Chg Fwd High MDM includes number and complexity of problems actively addressed during encounter, amount and/or complexity of data reviewed/ordered and described risk of complication, morbidity or mortality of management as documented Diagnoses Bacteremia due to Streptococcus pneumoniae R78.81; B95.3 Herpes stomatitis B00.2 COVID U07.1
[2023-11-07] MEDS: cefTRIAXone 1,000 mg SDV 1000 MG IVP (17:46)
[2023-11-07 20:00] VITALS: BP 136/78; PULSE 71; RESP 18; TEMP 37.3; O2SAT 97
[2023-11-07 20:28] LABS: Glucose Point of Care 135 mg/dL (70-110)
[2023-11-07] MEDS: ondansetron 4 MG Tablet PO (21:11)
[2023-11-07] MEDS: famotidine 20 mg Tablet PO (21:11)
[2023-11-07] MEDS: insulin glargine 100 units/1 mL 5 UNIT SUBCUT (21:11)
[2023-11-08] VITALS (7 sets, daily range): BP systolic 146–163; BP diastolic 72–92; PULSE 65–81; RESP 17–18; TEMP 36.4–37.1; O2SAT 90–98
[2023-11-08] MEDS: acetaminophen 500 mg Tablet 1000 MG PO ×2 (00:15→18:09)
[2023-11-08 04:51] LABS: Basophils % 0.4 %; Eosinophils # 0.1 10^3/uL (0.0-0.8); Eosinophils % 1.8 %; Hematocrit 35.9 % (36-47); Lymphocytes # 1.3 10^3/uL (0.8-4.8); Lymphocytes % 26.6 %; Mean Corpuscular HGB Conc 30.1 g/dL (30-55); Mean Corpuscular Hemoglobin 25.1 pg (27-33); Mean Corpuscular Volume 83.3 fl (85-98); Monocytes # 0.4 10^3/uL (0.2-0.9); Monocytes % 8.3 %; Neutrophils # 3.08 10^3/uL (1.8-7.7); Neutrophils % 62.5 %; Nucleated Red Blood Cells % 0 %; Platelet Count 134 10^3/cmm (157-399); Red Blood Count 4.31 10^6/uL (3.85-5.65); Red Cell Distribution Width 14.8 % (12.1-15.1); White Blood Count 4.93 10^3/uL (3.29-11.43)
[2023-11-08 05:08] LABS: Blood Urea Nitrogen 8 mg/dL (6-20); Calcium 8.6 mg/dL (8.5-10.5); Carbon Dioxide 25 mmol/L (22-29); Chloride 103 mmol/L (98-107); Creatinine Clr Calc Pharmacy 135.8471; Glomerular Filtration Rate 103.4 mL/min (90-130); Glucose 164 mg/dL (65-115); Osmolality Calculated 286 mOsm/kg (285-295); Sodium 137 mmol/L (136-145)
[2023-11-08] MEDS: valACYclovir 1,000 mg Tablet 1000 MG PO ×2 (06:03→17:05)
[2023-11-08] MEDS: sucralfate 1 gm Tablet PO ×2 (06:04→17:06)
[2023-11-08 06:19] LABS: Glucose Point of Care 183 mg/dL (70-110)
[2023-11-08] MEDS: insulin lispro 100 unit/1 mL SUBCUT ×6 (07:42→22:00)
[2023-11-08] MEDS: ropinirole 2 mg Tablet 4 MG PO ×2 (09:35→17:05)
--- NOTE | 2023-11-08 10:06 | MR_ITS ---
WS: [id number] MRI C-SPINE WITH AND WITHOUT CONTRAST. COMPARISON: Noncontrast neck CT 11/07/2023 Multiplanar, multisequence imaging is performed with and without contrast. MultiHance 20 mL IV. History: Recent tonsillectomy and uvulectomy. Bacteremia and strep pneumonia. Throat pain. There is significant retropharyngeal enhancement extending from the upper cervical spine into the upp er thoracic spine. There is soft tissue enhancement but no well-circumscribed or localized fluid kimberly ection. There is one area of concern best seen on image 14 of series 03/13/2000 which could be a develo ping phlegmon. This is at the level of C4-5. Straightening of the normal cervical lordosis. Reidentified is the C4 abnormality that was recently d escribed by CT. In the LEFT lateral C4 vertebral body is an 8 mm area of increased T2 signal and decr eased signal on the T1 sequence. Mild anterior wedging of C4. On the postcontrast imaging there is en hancement within the C4 vertebral body and also within the C3-4 disc. No epidural abscess. No cord compression. Mild osteophytosis and disc protrusions in the cervical spine. No high-grade stenosis. MR/MR cervical spine wo/w [id number] IMPRESSION: 1. Extensive prevertebral soft tissue edema with enhancement from the upper ce rvical spine to the upper thoracic spine. Phlegmon and possible developing absc ess at the C4-5 level measuring 12 x 6 mm. 2. Paravertebral edema and enhancement extends close to the jugular veins. 3. C4 focal enhancement with enhancement extending into the C3-4 disc space. T here is loss of the normal superior endplate of C4. These findings are highly s uspicious for C3-4 discitis and C4 osteomyelitis. 4. No epidural abscess. Notified Christie Boyer MD at 11/08/2023 3:[address] Boyer was not availabl e to discuss report but I let her know the report was completed.
[2023-11-08] MEDS: enoxaparin 40 mg/0.4 mL Syringe SUBCUT (11:24)
[2023-11-08 11:54] LABS: Glucose Point of Care 190 mg/dL (70-110)
[2023-11-08] MEDS: ondansetron 2 mg/ML SDV 2 mL 4 MG IVP (12:21)
[2023-11-08] MEDS: gadobenate dimeglumine 20 mL vial IV (15:11)
[2023-11-08 16:41] LABS: Glucose Point of Care 106 mg/dL (70-110)
[2023-11-08] MEDS: cefTRIAXone 1,000 mg SDV 1000 MG IVP (17:04)
--- NOTE | 2023-11-08 17:38 | PM.PN ---
Subjective Subjective: infectious disease progress note Patient had CT scan which had shown C4 lucency and retropharyngeal edema. Due to concern for retropharyngeal abscess and osteomyelitis, she underwent MRI of the C-spine which had shown extensive prevertebral soft tissue edema with enhancement from the upper cervical spine to the upper thoracic spine. Phlegmon and possibly a developing abscess at the C4-C5 level 12 x 6 mm. Paravertebral edema and enhancement extending close to the jugular veins. There is C4 focal enhancement with enhancement extending into the C3-C4 disc space. There is loss of the normal superior endplate these findings highly suspicious for C3-C4 discitis and C4 osteomyelitis. Medications: Reviewed: Yes Vitals/I&O/Wt Last Vital Signs Temp 98.1 F 11/08/23 16:00 Pulse 66 11/08/23 16:00 Resp 18 11/08/23 16:00 BP 155/72 11/08/23 16:00 Pulse Ox 98 11/08/23 16:00 O2 Del Method Room Air 11/08/23 16:00 11/08/23 11/08/23 11/08/23 06:59 14:59 22:59 Intake Total 0 / 990 720 / 720 480 / 1200 Balance 0 / 990 720 / 720 480 / 1200 Weight last 48 hrs Weight 109.633 kg Weight 110.268 kg Physical Exam Narrative: General: No acute distress, AO x3 HEENT: PERRLA, pupils bilaterally equal and reactive, pallors not present, s/p uvulectomy, no gross lesions noted. Chest: Normal vesicular breath sounds, no added sounds, equal good air entry bilaterally CVS: S1-S2 regular, no murmurs, no tachycardia, no gallops, no rubs Abdomen: Soft, nontender, no organomegaly, bowel sounds present Neuro: No focal deficits, no facial deformity, AO x3, power 5/5 in all limbs Data 11/09/23 03:40 11/09/23 03:40 Micro: Microbiology 11/04/23 13:19 Blood Culture - Final Blood Streptococcus pneumoniae 11/04/23 12:48 Blood Culture - Final Blood Streptococcus pneumoniae S pneumoni M.I.C. RX --------- ------ * Amoxicillin/Clavulanate <=0.5/.25 S * Cefepime 0.5 S * Ceftriaxone <=0.25 S * Cefuroxime 0.5 S * Clindamycin >0.5 R * Erythromycin >0.5 R * Levofloxacin 0.5 S * Meropenem <=0.06 S * Penicillin 0.25 R * Tetracycline <=0.5 S * Trimethoprim/Sulfamethoxazole <=.25/4.7 S Vancomycin 0.5 S November 05, 2023. Blood culture negative to date. A&P Assessment and plan (1) Bacteremia due to Streptococcus pneumoniae: strep pneumo bacteremia on 11/03 upon admission CXR upon admission without consolidation or other infiltrates CT chest with mild right pneumonitis and small pleural effusion which may be related to COVID vs CAP - more likely COVID suspected upper respiratory source for strep pneumo bacteremia given recent surgery, persisting pain, difficulty swallowing and discomfort in oropharynx. MRi neck and C spine with possible developing abscess at the C4-5 level measuring 12 x 6 mm, Paravertebral edema and enhancement extends close to the jugular veins C4 focal enhancement with enhancement extending into the C3-4 disc space. There is loss of the normal superior endplate of C4. These findings are highly suspicious for C3-4 discitis and C4 osteomyelitis Increase ceftriaxone to 2g iv every 24 hrs for treatment given PCN resistant strain. Chart notes allergy to cephalexin however patient has previously taken cefazolin without incidence- Currently also tolerating ceftriaxone without issues Recommend ENT evaluation for retropharyngeal abscess. Unfortunately we do not have ENT on-call at the hospital this week, November schedule is not currently available to us. We will discuss the above findings on MRI with her ENT at [facility] in am . If surgical debridement/aspiration is indicated, patient will likely need to be transferred to a higher center where ENT services are available. AT least 6 weeks on iv abx indicated at this time (2) Herpes stomatitis: herpes stomatitis affecting perioral area and ? tip of tongue continueValtrex 1g po BID for treatment x 5 days - rash is improving (3) COVID: rigth pneumonitis which may be related to viral pneumonitis saturating 94-97% on RA has h/o severe sleep apnea but unable to tolerate CPAP. has not been on steroids or antivirals this admission - can hold off given that she is clinically improving Plan will follow Attestations Medical Necessity Statement*: per admitting Coding Level of Care Code Acute Code for Chg Fwd High MDM includes number and complexity of problems actively addressed during encounter, amount and/or complexity of data reviewed/ordered and described risk of complication, morbidity or mortality of management as documented Diagnoses Bacteremia due to Streptococcus pneumoniae R78.81; B95.3 Herpes stomatitis B00.2 COVID U07.1
[2023-11-08 20:39] LABS: Glucose Point of Care 202 mg/dL (70-110)
--- NOTE | 2023-11-08 21:53 | P.PN_ITS ---
Subjective 2 Subjective: She denies any additional symptoms. Herpes labialis is improving. Vitals/I&O/Wt Last Vital Signs Temp 98.7 F 11/08/23 20:00 Pulse 65 11/08/23 20:00 Resp 17 11/08/23 20:00 BP 155/76 11/08/23 20:00 Pulse Ox 97 11/08/23 20:00 O2 Del Method Room Air 11/08/23 16:00 11/08/23 11/08/23 11/08/23 06:59 14:59 22:59 Intake Total 0 / 990 720 / 720 480 / 1200 Balance 0 / 990 720 / 720 480 / 1200 Weight last 48 hrs Weight 109.633 kg Weight 110.268 kg Physical Exam 2 Const: COMMON NORMALS: patient oriented x3 and alert GENERAL APPEARANCE: c ooperative ORIENTATION/CONSCIOUSNESS: Yes awake HENMT: COMMON NORMALS: oropharynx normal OTHER: Herpes labialis of upper and lower lip. Neck/C-Spine: COMMON NORMALS: no JVD Resp: COMMON NORMALS: normal respiratory effort and clear to auscultation bilaterally AUSCULTATION: clear to auscultation bilaterally Cardio: COMMON NORMALS: no JVD, regular rhythm, S1 normal heart sound present, S2 normal heart sound present and No murmurs present (Cardio) RHYTHM: regular rhythm HEART SOUNDS: S1 normal heart sound present and S2 normal heart sound present GI: COMMON NORMALS: Normal to inspection, nondistended, normoactive bowel sounds present, Soft to palpation and non-tender PALPATION: Yes Soft to palpation Extremity: COMMON NORMALS: no joint enlargement and no pedal edema Neuro: COMMON NORMALS: patient oriented x3 and moves all extremities S ENSORIUM/ORIENTATION: Yes alert Skin: COMMON NORMALS: no rashes or lesions noted GENERAL SKIN EXAM: no rashes or lesions noted Data 11/08/23 03:47 11/08/23 03:47 A&P Assessment and plan (1) Bacteremia: Reviewed vitals, CBC, BMP, CT neck. Discussed with infectious disease specialist. Discussed with patient and case management manager. MRI has been requested for additional evaluation of noted circumscribed lucency in C4. Continues on ceftriaxone. Continued arrangements for IV antibiotics after discharge we will continue with ceftriaxone which she tolerated without issue. MRI returning with phlegmon around C4-5 level. Paravertebral edema and enhancement extending close to the jugular veins. C4 4. Heintzelman extending into C3-4 disc. Finding highly suspicious for C3-4 discitis and C4 osteomyelitis. Discussed with infectious disease specialist. At current time continues with IV antibiotics. 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 Will try to see if we can reach her ENT in [place] who had performed original surgery to further discuss her condition. Reviewed HIV. Negative. Discussed risks of PICC line for continued IV antibiotic treatment after discharge. 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 Continue treatment of streptococcal bacteremia as above. Source: Strep pneumoniae bacteremia SIRS: Leukocytosis, tachycardia, febrile (3) Urinary tract infection: Reviewed urine culture, 65 and 70,000 mixed urogenital yasir. (4) Nausea & vomiting: Resolved. Zofran as needed. No vomiting. Nausea and vomiting is improved, advance diet as tolerated (5) Diabetes: With improvement on POC glucose review. Continue Lantus 5 units nightly. Continue SSI insulin, monitor POC glucose. Type 2 diabetes mellitus, uncontrolled with hyperglycemia Patient nonadherent to insulin treatment Sliding-scale insulin correction Avoid hypoglycemia Blood sugars remain uncontrolled, increase Lantus Start scheduled mealtime insulin (6) Hypertension: Hold oral antihypertensives due to sepsis Hydralazine as needed for markedly elevated blood pressures (7) Hyperlipidemia: Continue statin (8) Obesity: Patient would benefit from weight loss (9) Homelessness: Discussed with case management. Patient and her partner are working on plans for getting home Case management/social work consult on Monday (10) Herpes labialis: Herpes labialis/stomatitis. Valacyclovir. Plan Hypomagnesemia: Recheck level. Attestations 2 Medical Necessity Statement*: Continue admission for assessment management of retropharyngeal phlegmon, C4 discitis and osteomyelitis, strep pneumonia bacteremia, postdischarge planning and arrangements. Diagnoses Bacteremia R78.81 Sepsis A41.9 Urinary tract infection N39.0 Nausea & vomiting R11.2 Diabetes E11.9 Hypertension I10 Hyperlipidemia E78.5 Obesity E66.9 Homelessness Z59.00 Herpes labialis B00.1
[2023-11-08] MEDS: famotidine 20 mg Tablet PO (21:59)
[2023-11-08] MEDS: insulin glargine 100 units/1 mL 5 UNIT SUBCUT (22:00)
[2023-11-08] MEDS: buPROPion XL (24 HR) 150 mg Tablet PO (23:50)
[2023-11-09] VITALS (8 sets, daily range): BP systolic 130–180; BP diastolic 63–83; PULSE 64–75; RESP 16–20; TEMP 36.6–37.4; O2SAT 96–99
[2023-11-09 03:55] LABS: Basophils % 0.2 %; Eosinophils # 0.1 10^3/uL (0.0-0.8); Eosinophils % 1.5 %; Lymphocytes # 1.2 10^3/uL (0.8-4.8); Lymphocytes % 26.5 %; Mean Corpuscular HGB Conc 31.6 g/dL (30-55); Mean Corpuscular Volume 82.4 fl (85-98); Mean Platelet Volume 11.5 fL (7.4-10.4); Monocytes # 0.4 10^3/uL (0.2-0.9); Monocytes % 9.2 %; Neutrophils # 2.88 10^3/uL (1.8-7.7); Nucleated Red Blood Cells % 0 %; Platelet Count 162 10^3/cmm (157-399); Red Blood Count 4.61 10^6/uL (3.85-5.65); Red Cell Distribution Width 14.5 % (12.1-15.1); White Blood Count 4.65 10^3/uL (3.29-11.43)
[2023-11-09 04:14] LABS: Magnesium 1.6 mg/dL (1.7-2.3)
[2023-11-09 04:18] LABS: Anion Gap 13.8 (5-19); Blood Urea Nitrogen 6 mg/dL (6-20); Calcium 8.8 mg/dL (8.5-10.5); Carbon Dioxide 26 mmol/L (22-29); Chloride 103 mmol/L (98-107); Creatinine Clr Calc Pharmacy 116.4404; Glomerular Filtration Rate 86.6 mL/min (90-130); Glucose 202 mg/dL (65-115); Osmolality Calculated 291 mOsm/kg (285-295); Potassium 3.8 mmol/L (3.5-5.1); Sodium 139 mmol/L (136-145)
[2023-11-09] MEDS: insulin lispro 100 unit/1 mL SUBCUT ×7 (06:29→21:18)
[2023-11-09] MEDS: valACYclovir 1,000 mg Tablet 1000 MG PO ×2 (06:29→17:05)
[2023-11-09] MEDS: sucralfate 1 gm Tablet PO ×2 (06:29→17:05)
[2023-11-09 06:32] LABS: Glucose Point of Care 176 mg/dL (70-110)
--- NOTE | 2023-11-09 08:17 | XR_ITS ---
WS: [id number] Exam: XR chest 1V portable [id number] Date/Time of Exam: 11/09/2023 8:40 AM Reason For Exam: Post PICC insertion Comparison 11/04/2023. A right-sided PICC line has been inserted and appears to end at the expected region of the cavoatrial junction. Heart size top limits normal. Pulmonary vascularity mildly prominent. No focal infiltrates . No pleural effusions. Bony thorax is unremarkable. The mediastinum is normal in contour. XR/XR chest 1V portable [id number] IMPRESSION: 1. Right-sided PICC line appearing to end at the expected region of the cavoatr ial junction.
[2023-11-09] MEDS: ropinirole 2 mg Tablet 4 MG PO ×2 (08:23→17:05)
--- NOTE | 2023-11-09 09:00 | PICC.NOTE ---
Single lumen PICC placed to right basilic vein. Referred to vascular access nurse for PICC placement due to need for IV antibiotics x 6 weeks. Risks and benefits discussed and informed consent obtained from pt. RIght arm assessed with right basilic vein measuring 4.3 mm, straight, and apparent best choice for placement. Using sterile technique and MST, right basilic vein accessed x 1 stick. Mid-arm circumference measured 10 cm from right AC 30 cm. Trimmed cath 44 cm with 1 cm external length noted. CXR shows tip in cavoatrial junction, in good position for use per radiologist. Line secured with stat-lock. Insertion site covered with Biopatch and TSM. Report given to bedside nurse, ERNST Monk.
--- NOTE | 2023-11-09 09:12 | PC.SLP ---
CORPORATE EVENT PLANNER attempted to assess. Pt unavaiable due to Picc line procedure. Pt's family reports initial difficulty swallowing after ENT procedure, but indicates swallowing is improving. The pt was able to consume breakfast without significant difficulty per his report.
[2023-11-09] MEDS: magnesium sulfate premix 2 GM/50 ML PIGGYBACK IV (09:48)
[2023-11-09 10:42] LABS: Glucose Point of Care 247 mg/dL (70-110)
--- NOTE | 2023-11-09 10:53 | PC.NURSE ---
Patient requested to be transferred to [facility] where her heart doctor, Dr. Yeung is. Dr. Cross notified.
[2023-11-09] MEDS: enoxaparin 40 mg/0.4 mL Syringe SUBCUT (13:01)
[2023-11-09] MEDS: cefTRIAXone 2,000 mg SDV 2000 MG IVP (13:03)
[2023-11-09] MEDS: dexamethasone 10 mg/mL INJ IVP ×2 (13:39→21:19)
[2023-11-09] MEDS: metroNIDAZOLE 500 MG Tablet PO ×2 (14:28→21:18)
[2023-11-09] MEDS: HYDROcodone-acetaminophen 10-325 mg Tablet 1 TAB PO (14:28)
--- NOTE | 2023-11-09 14:30 | P.PN_ITS ---
Subjective 2 Subjective: She is overall she feels improving. She has been eating and drinking with improved appetite. Minimal nausea. She has been getting up to ambulate in her room. Herpes stomatitis slowly improving. Vitals/I&O/Wt Last Vital Signs Temp 98.0 F 11/09/23 11:49 Pulse 75 11/09/23 11:49 Resp 20 H 11/09/23 11:49 BP 180/82 11/09/23 11:49 Pulse Ox 96 11/09/23 11:49 O2 Del Method Room Air 11/09/23 11:49 11/08/23 11/09/23 11/09/23 22:59 06:59 14:59 Intake Total 1130 / 1850 400 / 2250 690 / 690 Balance 1130 / 1850 400 / 2250 690 / 690 Weight last 48 hrs Weight 107.774 kg Weight 109.633 kg Physical Exam 2 Narrative: Sitting up in chair, accompanied by her . Const: COMMON NORMALS: patient oriented x3 and alert GENERAL APPEARANCE: c ooperative ORIENTATION/CONSCIOUSNESS: Yes awake HENMT: COMMON NORMALS: oropharynx normal OTHER: Herpes labialis of upper and lower lip. Neck/C-Spine: COMMON NORMALS: no JVD Resp: COMMON NORMALS: normal respiratory effort and clear to auscultation bilaterally AUSCULTATION: clear to auscultation bilaterally Cardio: COMMON NORMALS: no JVD, regular rhythm, S1 normal heart sound present, S2 normal heart sound present and No murmurs present (Cardio) RHYTHM: regular rhythm HEART SOUNDS: S1 normal heart sound present and S2 normal heart sound present GI: COMMON NORMALS: Normal to inspection, nondistended, normoactive bowel sounds present, Soft to palpation and non-tender PALPATION: Yes Soft to palpation Extremity: COMMON NORMALS: no joint enlargement and no pedal edema Neuro: COMMON NORMALS: patient oriented x3 and moves all extremities S ENSORIUM/ORIENTATION: Yes alert Skin: COMMON NORMALS: no rashes or lesions noted GENERAL SKIN EXAM: no rashes or lesions noted Data 11/09/23 03:40 11/09/23 03:40 A&P Assessment and plan (1) Pharyngeal abscess: Retropharyngeal phlegmon with discitis, osteomyelitis, findings discussed with her and her family due to severe illness that may pose threat to life or bodily function. Discussed with infectious ease provider who also discussed it with her ENT at [facility]. Recommendation for continued antibiotics, currently no intervention indicated, they will follow-up with her in clinic in 1 week. Repeat imaging will be obtained with MRI in 2 weeks. She has not had any restriction with swallowing, breathing. Reviewed vitals, CBC, BMP. Symptomatically she is doing well. Continue IV ceftriaxone. Ceftriaxone dose increased due to penicillin resistance and the organism. Flagyl was added for broader spectrum coverage. Will need 6 weeks of antibiotics given also concomitant osteomyelitis. Discussed with manager case management. PICC line placed. (2) Osteomyelitis: Will need 6 weeks of antibiotics with ceftriaxone 2 g daily. PICC line placed. (3) Bacteremia: Reviewed repeat culture, remains negative. Reviewed vitals, CBC, BMP, CT neck. Discussed with infectious disease specialist. Discussed with patient and manager case management. MRI has been requested for additional evaluation of noted circumscribed lucency in C4. MRI returning with phlegmon around C4-5 level. Paravertebral edema and enhancement extending close to the jugular veins. C4 focal enhancement extending into C3-4 disc. Finding highly suspicious for C3-4 discitis and C4 osteomyelitis. Discussed with infectious disease specialist. At current time continues with IV antibiotics. HIV negative. Discussed risks of PICC line for continued IV antibiotic treatment after discharge. PICC placed. Blood cultures are positive for Streptococcus pneumoniae Suspect source may be pharyngitis Replete blood cultures requested Patient has a history of anaphylaxis to second-generation cephalosporin, will avoid cephalosporins/penicillins Continue fluoroquinolone treatment (4) Sepsis: Sepsis resolved. Continue treatment of streptococcal bacteremia as above. Source: Strep pneumoniae bacteremia SIRS: Leukocytosis, tachycardia, febrile (5) Urinary tract infection: Reviewed urine culture, 65 and 70,000 mixed urogenital yasir. (6) Nausea & vomiting: Resolved. Zofran as needed. No vomiting. Nausea and vomiting is improved, advance diet as tolerated (7) Diabetes: With improvement on POC glucose review. Continue Lantus 5 units nightly. Continue SSI insulin, monitor POC glucose. Type 2 diabetes mellitus, uncontrolled with hyperglycemia Patient nonadherent to insulin treatment Sliding-scale insulin correction Avoid hypoglycemia Blood sugars remain uncontrolled, increase Lantus Start scheduled mealtime insulin (8) Hypertension: Hold oral antihypertensives due to sepsis Hydralazine as needed for markedly elevated blood pressures (9) Hyperlipidemia: Continue statin (10) Obesity: Patient would benefit from weight loss (11) Homelessness: Discussed with case management. Patient and her partner are working on plans for getting home Case management/social work consult on Monday (12) Herpes labialis: Herpes labialis/stomatitis. Valacyclovir for 5 days. Plan Hypomagnesemia: Magnesium rechecked. Reviewed, 1.6. Give additional 2 g. Recheck level. Attestations 2 Medical Necessity Statement*: Continue admission for assessment management of retropharyngeal phlegmon, C4 discitis and osteomyelitis, strep pneumonia bacteremia, postdischarge planning and arrangements. and High MDM includes number and complexity of problems actively addressed during encounter and amount and/or complexity of data reviewed/ordered [ resulted lab(s)/test(s), ordered lab(s)/test(s) and other healthcare professional discussion] as documented Diagnoses Pharyngeal abscess J39.1 Osteomyelitis M86.9 Bacteremia R78.81 Sepsis A41.9 Urinary tract infection N39.0 Nausea & vomiting R11.2 Diabetes E11.9 Hypertension I10 Hyperlipidemia E78.5 Obesity E66.9 Homelessness Z59.00 Herpes labialis B00.1
[2023-11-09 16:58] LABS: Glucose Point of Care 216 mg/dL (70-110)
[2023-11-09 20:36] LABS: Glucose Point of Care 329 mg/dL (70-110)
[2023-11-09] MEDS: insulin glargine 100 units/1 mL 5 UNIT SUBCUT (21:17)
[2023-11-09] MEDS: buPROPion XL (24 HR) 150 mg Tablet PO (21:18)
[2023-11-09] MEDS: famotidine 20 mg Tablet PO (21:19)
[2023-11-10] VITALS: BP 161/63; PULSE 60; RESP 17; TEMP 36.4; O2SAT 95
[2023-11-10] MEDS: HYDROcodone-acetaminophen 10-325 mg Tablet 1 TAB PO (03:18)
[2023-11-10 04:00] VITALS: BP 150/77; PULSE 51; RESP 16; TEMP 36.6; O2SAT 97
[2023-11-10] MEDS: dexamethasone 10 mg/mL INJ IVP (04:22)
[2023-11-10 04:24] LABS: Basophils % 0.1 %; Hematocrit 35.9 % (36-47); Lymphocytes # 0.9 10^3/uL (0.8-4.8); Lymphocytes % 12.5 %; Mean Corpuscular HGB Conc 31.8 g/dL (30-55); Mean Corpuscular Hemoglobin 25.7 pg (27-33); Mean Corpuscular Volume 80.9 fl (85-98); Mean Platelet Volume 11.9 fL (7.4-10.4); Monocytes # 0.2 10^3/uL (0.2-0.9); Monocytes % 2.9 %; Neutrophils # 5.65 10^3/uL (1.8-7.7); Neutrophils % 83.3 %; Nucleated Red Blood Cells % 0 %; Platelet Count 158 10^3/cmm (157-399); Red Blood Count 4.44 10^6/uL (3.85-5.65); Red Cell Distribution Width 14.3 % (12.1-15.1); White Blood Count 6.79 10^3/uL (3.29-11.43)
[2023-11-10 04:39] LABS: Magnesium 1.8 mg/dL (1.7-2.3)
[2023-11-10 04:43] LABS: Blood Urea Nitrogen 9 mg/dL (6-20); Calcium 8.8 mg/dL (8.5-10.5); Carbon Dioxide 22 mmol/L (22-29); Chloride 99 mmol/L (98-107); Creatinine Clr Calc Pharmacy 161.1093; Glomerular Filtration Rate 127.6 mL/min (90-130); Glucose 339 mg/dL (65-115); Osmolality Calculated 286 mOsm/kg (285-295); Sodium 132 mmol/L (136-145)
[2023-11-10 04:45] LABS: Anion Gap 15.6 (5-19); Potassium 4.6 mmol/L (3.5-5.1)
[2023-11-10] MEDS: insulin lispro 100 unit/1 mL SUBCUT ×3 (06:07→11:40)
[2023-11-10] MEDS: valACYclovir 1,000 mg Tablet 1000 MG PO (06:09)
[2023-11-10] MEDS: sucralfate 1 gm Tablet PO (06:09)
[2023-11-10 06:24] LABS: Glucose Point of Care 355 mg/dL (70-110)
[2023-11-10 07:40] VITALS: BP 184/81; PULSE 79; RESP 18; TEMP 36.5; O2SAT 97
[2023-11-10 07:41] VITALS: PULSE 63; RESP 16; O2SAT 96
--- NOTE | 2023-11-10 08:02 | PC.NURSE ---
This nurse was checking medications this AM. Previous nurse, LAURA Lauren, had scanned the 0700 insulin order under the sliding scale insulin. This nurse called Xin and verified how many units were given. This nurse talked with charge nurse, ERNST Santos. An order for 14 units of insulin lispro was put in one time to cover the sliding scale this morning since we are unable to undo/edit Xin's documentation and it would affect the rest of the SSI order during the day.
[2023-11-10] MEDS: ropinirole 2 mg Tablet 4 MG PO (08:38)
[2023-11-10] MEDS: insulin lispro 100 unit/1 mL 14 UNIT SUBCUT (08:38)
[2023-11-10] MEDS: metroNIDAZOLE 500 MG Tablet PO (08:38)
[2023-11-10 10:46] LABS: Glucose Point of Care 340 mg/dL (70-110)
[2023-11-10] MEDS: enoxaparin 40 mg/0.4 mL Syringe SUBCUT (11:39)
[2023-11-10] MEDS: magnesium sulfate premix 2 GM/50 ML PIGGYBACK IV (11:39)
[2023-11-10] MEDS: cefTRIAXone 2,000 mg SDV 2000 MG IVP (11:40)
[2023-11-10 11:43] VITALS: BP 176/66; PULSE 79; RESP 20; TEMP 36.6; O2SAT 95
--- NOTE | 2023-11-10 11:51 | PM.DCS ---
Discharge Providers Date of Admission: 11/05/23 12:26 Date of Discharge: November 10, 2023 Attending Provider at Admission: Kerwin Haas MD Attending Provider at Discharge: Cole Birmingham Primary Care Provider: Samuel Yao Diagnoses at Discharge Discharge Diagnosis (1) Pharyngeal abscess: Status: Acute (2) Osteomyelitis: Status: Acute (3) Bacteremia: Status: Acute (4) Sepsis: Status: Acute (5) Urinary tract infection: Status: Acute (6) Nausea & vomiting: Status: Acute (7) Diabetes: Status: Acute (8) Hypertension: Status: Acute (9) Hyperlipidemia: Status: Acute (10) Obesity: Status: Acute (11) Homelessness: Status: Acute (12) Herpes labialis: Status: Acute Reason for Visit Reason for Visit: weakness Hospital Course Hospital Course Pleasant 57-year-old lady with history of CVA, hemiplegic migraine, GERD, HTN, diabetes, anemia, PTSD, RLS, obesity, has been losing weight, gout, asthma, other medical problems, had uvulectomy surgery in September as well as COVID-19. She presented to the ER with generalized weakness, nausea and vomiting, with sore throat, malaise, myalgias, arthralgias. COVID-19 testing returned positive. Urine also suggestive of urinary tract infection. With leukocytosis, fever 102.3, sinus tachycardia, sepsis, was admitted and started on antibiotic treatment with Levaquin. Supportive measures for possibility of COVID-19, although reinfection less likely with her recent illness in September. Supportive measures, bowel rest, with regards to nausea and vomiting, PPI, sucralfate. Urine culture eventually unremarkable with normal yasir 60-70,000. Blood culture grew penicillin and erythromycin and clindamycin resistant Streptococcus pneumonia. Transthoracic echocardiogram did not reveal any vegetations. Source unclear possibly pharyngitis. No pneumonia on x-ray. Additional consultation sought with infectious disease provider. Further imaging obtained with CT of the neck which revealed well-circumscribed lucent lesion within C4 vertebral body per radiology possibly degenerative or intraosseous hemangioma on noncontrast study. Study followed up with C-spine MRI with finding of extensive prevertebral soft tissue edema with enhancement from the upper cervical spine to the upper thoracic spine. Phlegmon and possible developing abscess at C4-5 level measuring 12 x 6 mm. Paravertebral edema with enhancement extending close to jugular veins. C4 focal enhancement with enhancement extending to C3-4 disc space. Loss of normal superior endplate of C4. Findings highly suspicious for C3-4 discitis and C4 osteomyelitis. No Epidural abscess. Her antibiotics were transitioned to ceftriaxone at 2000 mg given penicillin resistance. Broadened with Flagyl. Imaging and her condition was discussed by infectious ease provider with patient's ENT in [place]. No invasive intervention found to be indicated at current time, she is to continue on antibiotic course for at least 6 weeks for treatment of retropharyngeal phlegmon, as well as osteomyelitis, discitis, for which a PICC line has been placed with discussion of risks; she is going to be seen by ENT in office in 1 week, is asked to follow-up also for repeat MRI in 2 weeks, as well as to follow-up regarding all these problems with primary provider. Please remove PICC line once no further antibiotics are needed. She knows to watch out for any symptoms of venous thrombosis or erythema swelling pain around PICC line suggestive of infection or other symptoms for which she should seek medical attention. She has continued to improve with resolution of sepsis, has not had any difficulty with swallowing or breathing. She understands to seek medical attention immediately in case of any increase in the size of phlegmon/organization or growth of abscess which could cause risk of airway obstruction, a life-threatening risk. She knows to call 911 immediately in case of any concern. She is also asked to follow-up with regards to her diabetes. She has not been taking insulin detemir 70 mg twice daily as she states could not afford it due to some sort of mistake with her Medicaid which seems has now been clarified. In the hospital she was on Lantus 5 units as well as short acting insulin as she had been taking it at home, 4 units Premeal and sliding scale. During hospitalization she did not have initially good appetite but this overall has improved. Her glucose now has increased up to 300s, she is instructed to increase continue to monitor glucose, try 10 units detemir dose at home and adjust from there. During hospitalization also treated for herpes stomatitis with valacyclovir and will complete a 5-day course. We discussed with her to avoid contamination of other areas of the face. Please revisit. HIV tested and negative. Continue to optimize other chronic conditions including diabetes, hypertension, hyperlipidemia, obesity. During hospitalization also received magnesium supplementation, continues with supplement after discharge. Please follow-up magnesium levels. Physical Exam Narrative: Accompanied by her . Ambulatory in the room. Reports she is feeling much better. Appetite has returned and she has been eating quite well. No difficulties with swallowing. No difficulty with breathing. Const: COMMON NORMALS: patient oriented x3 and alert GENERAL APPEARANCE: cooperative ORIENTATION/CONSCIOUSNESS: Yes awake HENMT: COMMON NORMALS: oropharynx normal OTHER: Herpes labialis. Additionally some lesions which are crusting over on the bridge of the nose. Neck/C-Spine: COMMON NORMALS: no JVD Resp: COMMON NORMALS: normal respiratory effort and clear to auscultation bilaterally AUSCULTATION: clear to auscultation bilaterally Cardio: COMMON NORMALS: no JVD, regular rhythm, S1 normal heart sound present, S2 normal heart sound present and No murmurs present (Cardio) RHYTHM: regular rhythm HEART SOUNDS: S1 normal heart sound present and S2 normal heart sound present GI: COMMON NORMALS: Normal to inspection, nondistended, normoactive bowel sounds present, Soft to palpation and non-tender PALPATION: Yes Soft to palpation Extremity: COMMON NORMALS: no joint enlargement and no pedal edema OTHER: R arm PICC Neuro: COMMON NORMALS: patient oriented x3 and moves all extremities SENSORIUM/ORIENTATION: Yes alert Skin: COMMON NORMALS: no rashes or lesions noted GENERAL SKIN EXAM: no rashes or lesions noted Discharge Data Studies Completed and Pending Completed Studies During Hospitalization Category Date Time Status CT chest wo con [id number] Routine Cat Scan 11/07/23 13:[address] neck wo con [id number] Routine Cat Scan 11/07/23 17:07 Completed CXRP [XR chest 1V portable [id number]] Routine Exams 11/09/23 08:17 Completed XR chest 1V portable [id number] Stat Exams 11/04/23 11:16 Completed MR cervical spine wo/w [id number] Routine MRI 11/08/23 10:06 Completed CV. echo complete* [id number] Routine Ultrasound 11/06/23 16:41 Completed Pending at discharge Category Date Time Status Basic Metabolic Panel AM LABS Lab 11/11/23 04:00 Ordered Basic Metabolic Panel AM LABS Lab 11/12/23 04:00 Ordered Blood Culture Stat Lab 11/05/23 19:15 Results Complete Blood Count w/Auto AM LABS Lab 11/11/23 04:00 Ordered Complete Blood Count w/Auto AM LABS Lab 11/12/23 04:00 Ordered Magnesium AM LABS Lab 11/11/23 04:00 Ordered Magnesium AM LABS Lab 11/12/23 04:00 Ordered Radiology Impressions Chest CT 11/07/23 13:18 IMPRESSION: 1. Slight hazy infiltrates RIGHT lower lobe. Small RIGHT pleural effusion. 2. No focal consolidation. Neck CT 11/07/23 17:07 IMPRESSION: 1. Mild retropharyngeal edema. No organized fluid collection. No airway compromise. 2. Well-circumscribed lucent lesion within the C4 vertebral body, new since 2019, possibly degenerative or an intraosseous hemangioma. Cervical Spine MRI 11/08/23 10:06 IMPRESSION: 1. Extensive prevertebral soft tissue edema with enhancement from the upper cervical spine to the upper thoracic spine. Phlegmon and possible developing abscess at the C4-5 level measuring 12 x 6 mm. 2. Paravertebral edema and enhancement extends close to the jugular veins. 3. C4 focal enhancement with enhancement extending into the C3-4 disc space. There is loss of the normal superior endplate of C4. These findings are highly suspicious for C3-4 discitis and C4 osteomyelitis. 4. No epidural abscess. Notified Christie MD Rosalind at 11/08/2023 3:[address] Boyer was not available to discuss report but I let her know the report was completed. Chest X-Ray 11/09/23 08:17 IMPRESSION: 1. Right-sided PICC line appearing to end at the expected region of the cavoatrial junction. Laboratory Results WBC 6.79 10^3/uL (3.29-11.43) 11/10/23 04:02 RBC 4.44 10^6/uL (3.85-5.65) 11/10/23 04:02 Hgb 11.40 g/dL (11.27-16.99) 11/10/23 04:02 Hct 35.9 % (36-47) L 11/10/23 04:02 MCV 80.9 fl (85-98) L 11/10/23 04:02 MCH 25.7 pg (27-33) L 11/10/23 04:02 MCHC 31.8 g/dL (30-55) 11/10/23 04:02 RDW 14.3 % (12.1-15.1) 11/10/23 04:02 Plt Count 158 10^3/cmm (157-399) 11/10/23 04:02 MPV 11.9 fL (7.4-10.4) H 11/10/23 04:02 Neut % (Auto) 83.3 % 11/10/23 04:02 Lymph % (Auto) 12.5 % 11/10/23 04:02 [place] % (Auto) 2.9 % 11/10/23 04:02 Eos % (Auto) 0.0 % 11/10/23 04:02 Baso % (Auto) 0.1 % 11/10/23 04:02 Neut # (Auto) 5.65 10^3/uL (1.8-7.7) 11/10/23 04:02 Lymph # (Auto) 0.9 10^3/uL (0.8-4.8) 11/10/23 04:02 [place] # (Auto) 0.2 10^3/uL (0.2-0.9) 11/10/23 04:02 Eos # (Auto) 0.0 10^3/uL (0.0-0.8) 11/10/23 04:02 Baso # (Auto) 0.0 10^3/uL (0.0-0.1) 11/10/23 04:02 Nucleated RBC % (auto) 0 % 11/10/23 04:02 Nucleated RBCs # 0.0 /100WBC 11/10/23 04:02 Sodium 132 mmol/L (136-145) L 11/10/23 04:02 Potassium 4.6 mmol/L (3.5-5.1) 11/10/23 04:02 Chloride 99 mmol/L (98-107) 11/10/23 04:02 Carbon Dioxide 22 mmol/L (22-29) 11/10/23 04:02 Anion Gap 15.6 (5-19) 11/10/23 04:02 BUN 9 mg/dL (6-20) 11/10/23 04:02 Creatinine 0.5 mg/dL (0.5-0.9) 11/10/23 04:02 GFR Calculation 127.6 mL/min (90-130) 11/10/23 04:02 Glucose 339 mg/dL (65-115) H 11/10/23 04:02 POC Glucose 340 mg/dL (70-110) H 11/10/23 10:42 Calculated Osmolality 286 mOsm/kg (285-295) 11/10/23 04:02 Lactic Acid 3.4 mmol/L (0.5-2.2) H 11/04/23 11:26 Lactic Acid (Sepsis) 3.1 mmol/L (0.5-2.2) H 11/04/23 13:19 Calcium 8.8 mg/dL (8.5-10.5) 11/10/23 04:02 Phosphorus 2.7 mg/dL (2.5-4.5) 11/06/23 04:54 Magnesium 1.8 mg/dL (1.7-2.3) 11/10/23 04:02 Total Bilirubin 0.3 mg/dL (0.15-1.2) 11/06/23 04:54 AST 14 U/L (0-32) 11/06/23 04:54 ALT 23 U/L (0-33) 11/06/23 04:54 Alkaline Phosphatase 68 U/L (35-105) 11/06/23 04:54 Troponin T Baseline 11 ng/L (0-10) H 11/04/23 11:26 Troponin T 120 Minute 13.77 ng/L (0-10) H 11/04/23 13:19 Delta Troponin T 2.77 ABS# (0-10) 11/04/23 13:19 Troponin T Hi Sens 6Hr 14.04 ng/L (0-10) H 11/04/23 17:22 Troponin T Hi Sens 6Hr Delta 3.04 ng/L (0-12) 11/04/23 17:22 C-Reactive Protein 27.4 mg/L (0.0-4.9) H 11/04/23 11:26 Total Protein 6.7 g/dL (6.6-8.7) 11/06/23 04:54 Albumin 3.2 g/dL (3.5-5.2) L 11/06/23 04:54 Globulin 3.5 g/dL (1.3-4.6) 11/06/23 04:54 Lipase 32 U/L (13-60) 11/04/23 11:26 Procalcitonin 0.22 ng/mL (0-0.5) 11/04/23 11:26 Urine Color Yellow (Yellow) 11/04/23 12:14 Urine Appearance Clear (CLEAR) 11/04/23 12:14 Urine pH 7.0 (5-7) 11/04/23 12:14 Ur Specific [place] 1.028 (1.005-1.030) 11/04/23 12:14 Urine Protein Trace (Negative) A 11/04/23 12:14 Urine Glucose (UA) 3+ (Normal) H 11/04/23 12:14 Urine Ketones 1+ (Negative) H 11/04/23 12:14 Urine Blood Negative (Negative) 11/04/23 12:14 Urine Nitrate Negative (Negative) 11/04/23 12:14 Urine Bilirubin Negative (Negative) 11/04/23 12:14 Urine Urobilinogen 1.0 mg/dL (Negative) 11/04/23 12:14 Ur Leukocyte Esterase Trace (Negative) A 11/04/23 12:14 Urine RBC 0-2 /hpf (0-2) 11/04/23 12:14 Urine WBC 11-20 /hpf (0-5) H 11/04/23 12:14 Ur Squamous Epith Cells 6-10 /hpf (0-5) 11/04/23 12:14 Amorphous Sediment Not Reportable 11/04/23 12:14 Urine Bacteria None seen /hpf (NONE) 11/04/23 12:14 Hyaline Casts 0-4 /lpf H 11/04/23 12:14 Serum Ketones Negative (Negative) 11/04/23 11:26 Adenovirus (PCR) Not detected (NOT DETECT) 11/04/23 11:56 C. pneumoniae DNA (PCR) Not detected (NOT DETECT) 11/04/23 11:56 Coronavirus 229E (PCR) Not detected (NOT DETECT) 11/04/23 11:56 HIV 1&2 Ab & HIV 1 Ag Non-reactive (Non-Reactiv) 11/07/23 05:44 HIV 1&2 Antibody Non-reactive (Non-Reactiv) 11/07/23 05:44 Human Metapneumovir PCR Not detected (NOT DETECT) 11/04/23 11:56 Influenza A (H1) PCR Not detected (NOT DETECT) 11/04/23 11:56 Influ A (H1/09) PCR Not detected (NOT DETECT) 11/04/23 11:56 Influenza A (H3) PCR Not detected (NOT DETECT) 11/04/23 11:56 Influenza Type A (PCR) Not detected (NOT DETECT) 11/04/23 11:56 Influenza Type B (PCR) Not detected (NOT DETECT) 11/04/23 11:56 M. pneumoniae (PCR) Not detected (NOT DETECT) 11/04/23 11:56 Parainfluenza 1 (PCR) Not detected (NOT DETECT) 11/04/23 11:56 Parainfluenza 2 (PCR) Not detected (NOT DETECT) 11/04/23 11:56 Parainfluenza 3 (PCR) Not detected (NOT DETECT) 11/04/23 11:56 Parainfluenza 4 (PCR) Not detected (NOT DETECT) 11/04/23 11:56 RSV Type A (PCR) Not detected (NOT DETECT) 11/04/23 11:56 RSV Type B (PCR) Not detected (NOT DETECT) 11/04/23 11:56 Entero/Rhino (PCR) Not detected (NOT DETECT) 11/04/23 11:56 SARS-CoV-2 (PCR) Detected (NOT DETECT) A 11/04/23 11:56 Vitals Last Vital Signs Temp 97.9 F 11/10/23 11:43 Pulse 79 11/10/23 11:43 Resp 20 H 11/10/23 11:43 BP 176/66 11/10/23 11:43 Pulse Ox 95 11/10/23 11:43 O2 Del Method Room Air 11/10/23 11:43 Discharge Plan Discharge Patient Disposition: Home Health Service Condition: Stable Prescriptions: New ceftriaxone 2 gram Recon Soln 2,000 mg IVP Q24H 42 Days Qty: 42 0RF metronidazole 500 mg Tablet 500 mg PO TID 42 Days Qty: 126 0RF valacyclovir 1 gram Tablet 1,000 mg PO Q12H 3 Days Qty: 6 0RF magnesium L-threonate 48 mg magnesium (667 mg) capsule 48 mg PO DAILY Qty: 90 0RF Continued hydrochlorothiazide 25 mg tablet 25 mg PO DAILY dicyclomine 10 mg capsule 10 mg PO BID PRN (Reason: Stomach Cramps) prazosin 1 mg capsule 1 mg PO BID venlafaxine [Effexor XR] 150 mg capsule,extended release 24hr 150 mg PO DAILY Rx Instructions: ALONG WITH 75MG TO= 225MG TOTAL sucralfate 1 gram tablet 1 gm PO BID magnesium oxide 400 mg magnesium capsule 400 mg PO DAILY metformin 1,000 mg tablet 1,000 mg PO BID (DME) diabetic shoes See Rx Instructions .Route .MEDSUPPLY Qty: 1 0RF Rx Instructions: As directed (DME) insulin syringe-needle U-100 [BD Veo Insulin Syringe UF] 0.3 mL 31 gauge x 15/64 syringe See Rx Instructions .ROUTE .MEDSUPPLY Qty: 100 3RF Rx Instructions: As directed (DME) Diabetic Shoes See Rx Instructions .Route .MEDSUPPLY Qty: 1 0RF Rx Instructions: As directed (DME) Diabetic Shoes See Rx Instructions .Route .MEDSUPPLY Qty: 1 0RF Rx Instructions: As directed insulin aspart U-100 [Novolog FlexPen U-100 Insulin] 100 unit/mL (3 mL) insulin pen See Rx Instructions .ROUTE .COMPLEX Rx Instructions: PER SLIDING SCALE bupropion HCl 150 mg Tablet Extended Release 24 Hr 150 mg PO QPM dapagliflozin propanediol [Farxiga] 10 mg tablet 10 mg PO DAILY atorvastatin 80 mg tablet 80 mg PO QPM venlafaxine 75 mg capsule,extended release 24hr 75 mg PO DAILY Rx Instructions: ALONG WITH 150MG TO= 225MG TOTAL famotidine 20 mg tablet 20 mg PO BEDTIME polyethylene glycol 3350 [Miralax] 17 gram/dose Powder 4 g PO DAILY ropinirole 4 mg Tablet 4 mg PO BID budesonide-formoterol [Symbicort] 160-4.5 mcg/actuation HFA aerosol inhaler 2 puff INHALATION BID Trulicity 0.75 mg/0.5 mL pen injector 0.5 mg SUBCUT Q7D Rx Instructions: ON MONDAY losartan 50 mg tablet 50 mg PO DAILY gabapentin 600 mg tablet 600 mg PO TID ondansetron HCl 4 mg tablet 4 mg PO Q8H PRN (Reason: Nausea And Vomiting) topiramate 25 mg tablet 25 mg PO BID Ventolin HFA 90 mcg/actuation HFA aerosol inhaler 2 puff INHALATION Q6H PRN (Reason: Shortness Of Breath Or Wheezing) Emgality Pen 120 mg/mL pen injector 120 mg SUBCUT .Q30D Changed Tresiba FlexTouch U-200 200 unit/mL (3 mL) insulin pen 10 unit SUBCUT BEDTIME Qty: 9 0RF Discharge Orders: Discharge Order (Routine); Ordered 11/10/23 Ordered By: Cole Birmingham Other Ambulatory Orders: MR cervical spine wo/w [id number] (Routine) Timeframe: 2 Weeks Facility: [facility] - Location: Radiology [facility] Ordered By: Cole Birmingham Referrals: Christie Boyer MD [Hospitalist] - 2 weeks (We have notified your physician's clinic of the need for a follow-up appointment to be scheduled. If you have not heard from them within the next 2 business days, please call them directly. ) Cheryl Purcell [Referring] - 11/14/23 9:20 am Jerardo Butler DO [Referring] - 1 week (We have notified your physician's clinic of the need for a follow-up appointment to be scheduled. If you have not heard from them within the next 2 business days, please call them directly. SENT REFERRAL) Discharge Diet: Diabetic Discharge Activity: Increase activity as tolerated Patient Instructions: Valacyclovir (By mouth), Ceftriaxone (By injection), Bacteremia (GEN), COVID-19 (Coronavirus Disease 2019) (GEN), Opioid Safety Activity Restrictions/Additional Instructions: Continue IV antibiotic with ceftriaxone and Flagyl for bacteremia and inflammatory/infectious fluid in the back of your throat as well as bone infection in the neck vertebra. Please watch for development of any symptoms of difficulty swallowing, or especially any difficulty breathing, in case developing these symptoms seek medical attention immediately, which may suggest growth of the fluid, possibly forming a collection which could put pressure or blocked airway. In case of the symptoms call 911 immediately. Seek medical attention in case of any worsening or new concerns. Follow-up with ENT as per plans in 1 week. You are also referred for repeat MRI in 2 weeks. Please also follow-up with infectious disease, Dr. Boyer after the MRI. Follow-up with your primary doctor for reassessment after COVID-19 infection and after herpes stomatitis. Avoid touching any infected areas to avoid spread to new areas, especially avoid your eyes or other parts of the face. Complete 5-day course with valacyclovir. Continue to monitor your blood sugars. Your long-acting insulin dose was decreased down to 5 units due to better blood glucoses here in the hospital. At discharge please continue 10 units long-acting insulin and continue short acting insulin as previously. Continue consistent carbohydrate diet. Target blood glucose 100-150. Increase insulin Lantus by 3-5 units/day in case her blood sugars are consistently above 200. Avoid any blood sugars that are 100 or less, in that case do not increase long-acting dose any further. If your blood sugars fall to 80 or below, decrease the long-acting insulin dose for next time by 5 units. If his sugars are 70 or less, take sugary snacks, recheck in 15 minutes, if they are not improving or worsening seek medical attention. Follow-up with your primary doctor for continued optimization of diabetes control, as well as follow-up with your primary provider regarding high blood pressure, high cholesterol, weight loss options, and any other chronic issues. You received magnesium supplementation while in the hospital, continue magnesium supplement at home. Discharge Attestations Time Spent in Discharge Care*: greater than 30 min Status at Discharge: Cognitive status at discharge: cognitively intact, Behavioral status at discharge: cooperative, Quality Metrics Clinical Quality Measures [ No reported AMI, CVA or VTE this stay] Coding Level of Care Code 18173 Total time (in minutes) for Discharge: 60 Diagnoses Pharyngeal abscess J39.1 Osteomyelitis M86.9 Bacteremia R78.81 Sepsis A41.9 Urinary tract infection N39.0 Nausea & vomiting R11.2 Diabetes E11.9 Hypertension I10 Hyperlipidemia E78.5 Obesity E66.9 Homelessness Z59.00 Herpes labialis B00.1
[2023-11-10 13:34] VITALS: BP 176/66; PULSE 79; RESP 20; TEMP 36.6; O2SAT 95
== END 2023-11-10 13:34 | disposition home health service (06) | DRG 871 ==
LOC: ER 14:17 → MEDSURG 14:41
PROVIDERS: Admitting Provider Internal Medicine; Emergency Provider Emergency Medicine; PCP Family Medicine; Visit Provider Internal Medicine
DX: A40.3 Sepsis due to Streptococcus pneumoniae (principal); U07.1 COVID-19; J39.0 Retropharyngeal and parapharyngeal abscess; Z59.00 Homelessness unspecified; E87.20 Acidosis, unspecified; N39.0 Urinary tract infection, site not specified; B00.2 Herpesviral gingivostomatitis and pharyngotonsillitis; L02.11 Cutaneous abscess of neck; M46.22 Osteomyelitis of vertebra, cervical region; E66.9 Obesity, unspecified; Z68.35 Body mass index [BMI] 35.0-35.9, adult; E11.42 Type 2 diabetes mellitus with diabetic polyneuropathy; E11.65 Type 2 diabetes mellitus with hyperglycemia; Z79.4 Long term (current) use of insulin; Z86.73 Personal history of transient ischemic attack (TIA), and cerebral infarction without residual deficits; I10 Essential (primary) hypertension; M10.9 Gout, unspecified; E83.42 Hypomagnesemia; E78.5 Hyperlipidemia, unspecified; J45.909 Unspecified asthma, uncomplicated; K21.9 Gastro-esophageal reflux disease without esophagitis; F32.A Depression, unspecified; F43.10 Post-traumatic stress disorder, unspecified; G25.81 Restless legs syndrome; G43.909 Migraine, unspecified, not intractable, without status migrainosus; E86.0 Dehydration; B00.1 Herpesviral vesicular dermatitis; M46.42 Discitis, unspecified, cervical region; E11.69 Type 2 diabetes mellitus with other specified complication; Z91.141 Patient's other noncompliance with medication regimen due to financial hardship
CPT/HCPCS: 36415; 36416; 36573; 36592; 70490; 71045; 71250; 72156; 80048; 80053; 81001; 82009; 82962; 83605; 83690; 83735; 84100; 84145; 84484; 85025; 86140; 87040; 87150; 87186; 87205; 87486; 87581; 87633; 87806; 92523; 92610; 93005; 93306; 94640; 96361; 96372; 96374; 96375; 99285; A9577; G0378; J0696; J1100; J1650; J1815; J1956; J2405; J2470; J3370; J3475; J7030; J7613; Q0162

== ENCOUNTER 2023-11-16 10:53 | Emergency (ER) | payer BC, MEDICAID, SELFPAY ==
[2023-11-16 11:30] VITALS: BP 151/84; PULSE 101; RESP 16; TEMP 36.8; O2SAT 100; BMI 36.1
--- NOTE | 2023-11-16 13:34 | W.ED.SKABFB ---
HPI - Skin/Abscess/Foreign Bdy General: Chief complaint: Skin/Abscess/Foreign Body Stated complaint: PicLine Issues Time Seen by Provider: 11/16/23 13:10 History of Present Illness: 57-year-old female recently hospitalized with a pharyngeal abscess and osteomyelitis bacteremia. She was discharged home with a PICC line and IV antibiotics. She has some redness moving antecubital fossa which is distal from the site of work the PICC line enters the skin. She has not had any fever sweats or chills. She has had problems with irritation reactions to adhesives in the past. Associated symptoms: Deny chills or fever(s) Related Data Home Medications Medication Instructions Recorded Confirmed dicyclomine 10 mg capsule 10 mg PO BID PRN Stomach Cramps 12/18/19 11/06/23 hydrochlorothiazide 25 mg tablet 25 mg PO DAILY 12/18/19 11/06/23 magnesium oxide 400 mg PO DAILY 12/18/19 11/06/23 metformin 1,000 mg tablet 1,000 mg PO BID 12/18/19 11/06/23 prazosin 1 mg capsule 1 mg PO BID 12/18/19 11/06/23 sucralfate 1 gram tablet 1 gm PO BID 12/18/19 11/06/23 venlafaxine 150 mg 150 mg PO DAILY 12/18/19 11/06/23 capsule,extended release 24 hr (Effexor XR) insulin aspart U-100 100 unit/mL See Rx Instructions .Route .COMPLEX 08/15/21 11/06/23 (3 mL) subcutaneous pen (Novolog FlexPen U-100 Insulin aspart) bupropion HCl 150 mg 24 hr tablet, 150 mg PO QPM 08/26/21 11/06/23 extended release dapagliflozin propanediol 10 mg 10 mg PO DAILY 10/26/22 11/06/23 tablet (Farxiga) atorvastatin 80 mg tablet 80 mg PO QPM 03/10/23 11/06/23 budesonide-formoterol HFA 160 2 puff inhalation BID 03/10/23 11/06/23 mcg-4.5 mcg/actuation aerosol inhaler (Symbicort) dulaglutide 0.75 mg/0.5 mL 0.5 mg SUBCUT Q7D 03/10/23 11/06/23 subcutaneous [facility] famotidine 20 mg tablet 20 mg PO BEDTIME 03/10/23 11/06/23 polyethylene glycol 3350 17 4 g PO DAILY 03/10/23 11/06/23 gram/dose oral powder (Miralax) ropinirole 4 mg tablet 4 mg PO BID 03/10/23 11/06/23 venlafaxine 75 mg capsule,extended 75 mg PO DAILY 03/10/23 11/06/23 release 24 hr albuterol sulfate 90 mcg/actuation 2 puff inhalation Q6H PRN 11/06/23 11/06/23 aerosol inhaler (Ventolin HFA) Shortness Of Breath Or Wheezing gabapentin 600 mg tablet 600 mg PO TID 11/06/23 11/06/23 galcanezumab-gnlm 120 mg/mL 120 mg SUBCUT .Q30D 11/06/23 11/06/23 subcutaneous pen injector (Emgality Pen) losartan 50 mg tablet 50 mg PO DAILY 11/06/23 11/06/23 ondansetron HCl 4 mg tablet 4 mg PO Q8H PRN Nausea And Vomiting 11/06/23 11/06/23 topiramate 25 mg tablet 25 mg PO BID 11/06/23 11/06/23 Previous Rx's Medication Instructions Recorded insulin syringe-needle U-100 0.3 #100 ea 03/16/21 mL 31 gauge x 15/64 (BD Veo Insulin Syringe Ultra-Fine) diabetic shoes #1 ea 10/22/21 Diabetic Shoes #1 ea 11/01/21 Diabetic Shoes #1 ea 11/17/21 ceftriaxone 2 gram solution for 2,000 mg IVP Q24H 6 weeks #42 ea 11/10/23 injection insulin degludec 200 unit/mL (3 10 unit (0.05 mL) SUBCUT BEDTIME 11/10/23 mL) subcutaneous pen (Tresiba #9 mL FlexTouch U-200 insulin) magnesium L-threonate 48 mg 48 mg PO DAILY #90 caps 11/10/23 magnesium (667 mg) capsule metronidazole 500 mg tablet 500 mg PO TID 6 weeks #126 tabs 11/10/23 triamcinolone acetonide 0.5 % 1 applic topical BID #15 grams 11/16/23 topical cream Allergies Allergy/AdvReac Type Severity Reaction Status Date / Time adhesive tape Allergy Severe ALGY-Hives Verified 07/28/23 20:41 amitriptyline Allergy Severe ALGY-Hives Verified 07/28/23 20:41 ciprofloxacin Allergy Severe ADR-Nausea Verified 07/28/23 20:41 exenatide [From Bydureon] Allergy Severe ALGY-Hives Verified 07/28/23 20:41 sumatriptan [From Imitrex] Allergy Severe ADR-Vomitin Verified 07/28/23 20:41 g cephalexin Allergy ALGY-Swell Verified 07/28/23 20:41 Lip/Tongue/Throat metoclopramide [From Reglan] Allergy Unknown Verified 07/28/23 20:41 shrimp Allergy ALGY-Rash Verified 07/28/23 20:41 Review of Systems Const: Denies: fever(s) or chills Card: Denies: chest pain Resp: Denies: dyspnea GI: Denies: abdominal pain : Denies: dysuria, urinary frequency or urinary urgency Musc: Denies: neck pain or back pain Skin/Breast: Reports: rash, pruritus and erythema PFSH ED PFSH: Medical History 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 August 2021 MCI (mild cognitive impairment) HX: benign breast biopsy off tongue Dr. Adan Abdominal pain Nausea & vomiting GERD (gastroesophageal reflux disease) Hypertension Diabetes Anemia Duodenitis without bleeding Morbid obesity with BMI of 40.0-44.9, adult Depression PTSD (post-traumatic stress disorder) RLS (restless legs syndrome) Gout Asthma Surgical History S/P excision of lipoma Right hip 12 x 10 x 9 cm Hx of dilation and curettage x3 History of esophagogastroduodenoscopy (EGD) Family History Other Hypertension Social History Smoking and tobacco/nicotine status: never used tobacco/nicotine Alcohol intake: current Physical Exam Const: COMMON NORMALS: no acute distress GENERAL APPEARANCE: cooperative and comfortable ORIENTATION/CONSCIOUSNESS: Yes awake, Yes oriented to person, Yes oriented to place and Yes oriented to time HENMT: COMMON NORMALS: normocephalic, atraumatic and hearing grossly normal bilaterally HEAD & SCALP: normocephalic and atraumatic Resp: COMMON NORMALS: normal respiratory effort, No retractions, No use of accessory muscles and clear to auscultation bilaterally AUSCULTATION: clear to auscultation bilaterally Cardio: COMMON NORMALS: regular rate, regular rhythm and No murmurs present (Cardio) RATE: regular rate RHYTHM: regular rhythm Extremity: COMMON NORMALS: capillary refill normal, no clubbing, cyanosis or edema, no calf tenderness and no pedal edema OTHER: Irritation with some scaly plaque in the antecubital fossa. No induration. The lesions are mildly erythematous they do not encompass the area at the insertion site of the PICC line. On palpation there is a small amount of soft tissue swelling but no induration at the insertion site of the PICC line minimal discomfort no purulent drainage. Palpation of the medial aspect of the distal right upper arm there is no redness or erythema about the PICC line insertion site Neuro: SENSORIUM/ORIENTATION: Yes oriented to person, Yes oriented to place and Yes oriented to time Course Vital Signs: Vital signs: Vital Signs Temperature 98.2 F 11/16/23 11:30 Pulse Rate 102 H 11/16/23 15:41 Respiratory Rate 16 11/16/23 15:41 Blood Pressure 123/91 11/16/23 15:41 Pulse Oximetry 97 11/16/23 15:41 Oxygen Delivery Me thod Room Air 11/16/23 15:38 MDM - Skin/Abscess/Foreign Bdy Medicial Decision Making There is mild redness and scaling of the plaques on the antecubital fossa ultrasound does not show any abscess is more of an appearance of an reaction to adhesive. No leukocytosis no abscess on ultrasound will discharge home with topical triamcinolone continue the previously prescribed IV antibiotics at home Medical Records I reviewed the patient's medical records. Lab Data I reviewed the patient's lab results. 11/16/23 14:07 11/16/23 14:07 Radiology Impressions Soft Tissue Ultrasound 11/16/23 13:43 IMPRESSION: No ultrasound abnormality along the RIGHT upper extremity PICC line. Laboratory Results WBC 9.87 10^3/uL (3.29-11.43) 11/16/23 14:07 RBC 5.18 10^6/uL (3.85-5.65) 11/16/23 14:07 Hgb 13.50 g/dL (11.27-16.99) 11/16/23 14:07 Hct 42.3 % (36-47) 11/16/23 14:07 MCV 81.7 fl (85-98) L 11/16/23 14:07 MCH 26.1 pg (27-33) L 11/16/23 14:07 MCHC 31.9 g/dL (30-55) 11/16/23 14:07 RDW 14.8 % (12.1-15.1) 11/16/23 14:07 Plt Count 197 10^3/cmm (157-399) 11/16/23 14:07 MPV 11.1 fL (7.4-10.4) H 11/16/23 14:07 Neut % (Auto) 69.4 % 11/16/23 14:07 Lymph % (Auto) 22.9 % 11/16/23 14:07 [place] % (Auto) 6.0 % 11/16/23 14:07 Eos % (Auto) 1.1 % 11/16/23 14:07 Baso % (Auto) 0.2 % 11/16/23 14:07 Neut # (Auto) 6.85 10^3/uL (1.8-7.7) 11/16/23 14:07 Lymph # (Auto) 2.3 10^3/uL (0.8-4.8) 11/16/23 14:07 [place] # (Auto) 0.6 10^3/uL (0.2-0.9) 11/16/23 14:07 Eos # (Auto) 0.1 10^3/uL (0.0-0.8) 11/16/23 14:07 Baso # (Auto) 0.0 10^3/uL (0.0-0.1) 11/16/23 14:07 Nucleated RBC % (auto) 0 % 11/16/23 14:07 Nucleated RBCs # 0.0 /100WBC 11/16/23 14:07 Sodium 139 mmol/L (136-145) 11/16/23 14:07 Potassium 3.5 mmol/L (3.5-5.1) 11/16/23 14:07 Chloride 102 mmol/L (98-107) 11/16/23 14:07 Carbon Dioxide 24 mmol/L (22-29) 11/16/23 14:07 Anion Gap 16.5 (5-19) 11/16/23 14:07 BUN 14 mg/dL (6-20) 11/16/23 14:07 Creatinine 0.7 mg/dL (0.5-0.9) 11/16/23 14:07 GFR Calculation 86.6 mL/min (90-130) L 11/16/23 14:07 Glucose 161 mg/dL (65-115) H 11/16/23 14:07 Calculated Osmolality 292 mOsm/kg (285-295) 11/16/23 14:07 Calcium 9.5 mg/dL (8.5-10.5) 11/16/23 14:07 Total Bilirubin 0.3 mg/dL (0.15-1.2) 11/16/23 14:07 AST 17 U/L (0-32) 11/16/23 14:07 ALT 21 U/L (0-33) 11/16/23 14:07 Alkaline Phosphatase 90 U/L (35-105) 11/16/23 14:07 Total Protein 8.2 g/dL (6.6-8.7) 11/16/23 14:07 Albumin 4.1 g/dL (3.5-5.2) 11/16/23 14:07 Globulin 4.1 g/dL (1.3-4.6) 11/16/23 14:07 All radiology interpretation(s) finalized by discharge Discharge Plan Discharge Patient Disposition: Home Clinical Impression: Contact dermatitis due to adhesive bandage Condition: Stable Prescriptions: New triamcinolone acetonide 0.5 % cream 1 applic topical BID Qty: 15 0RF No Action hydrochlorothiazide 25 mg tablet 25 mg PO DAILY dicyclomine 10 mg capsule 10 mg PO BID PRN (Reason: Stomach Cramps) prazosin 1 mg capsule 1 mg PO BID venlafaxine [Effexor XR] 150 mg capsule,extended release 24hr 150 mg PO DAILY Rx Instructions: ALONG WITH 75MG TO= 225MG TOTAL sucralfate 1 gram tablet 1 gm PO BID magnesium oxide 400 mg magnesium capsule 400 mg PO DAILY metformin 1,000 mg tablet 1,000 mg PO BID (DME) diabetic shoes See Rx Instructions .Route .MEDSUPPLY Qty: 1 0RF Rx Instructions: As directed (DME) insulin syringe-needle U-100 [BD Veo Insulin Syringe UF] 0.3 mL 31 gauge x 15/64 syringe See Rx Instructions .ROUTE .MEDSUPPLY Qty: 100 3RF Rx Instructions: As directed (DME) Diabetic Shoes See Rx Instructions .Route .MEDSUPPLY Qty: 1 0RF Rx Instructions: As directed (DME) Diabetic Shoes See Rx Instructions .Route .MEDSUPPLY Qty: 1 0RF Rx Instructions: As directed insulin aspart U-100 [Novolog FlexPen U-100 Insulin] 100 unit/mL (3 mL) insulin pen See Rx Instructions .ROUTE .COMPLEX Rx Instructions: PER SLIDING SCALE bupropion HCl 150 mg Tablet Extended Release 24 Hr 150 mg PO QPM dapagliflozin propanediol [Farxiga] 10 mg tablet 10 mg PO DAILY atorvastatin 80 mg tablet 80 mg PO QPM venlafaxine 75 mg capsule,extended release 24hr 75 mg PO DAILY Rx Instructions: ALONG WITH 150MG TO= 225MG TOTAL famotidine 20 mg tablet 20 mg PO BEDTIME polyethylene glycol 3350 [Miralax] 17 gram/dose Powder 4 g PO DAILY ropinirole 4 mg Tablet 4 mg PO BID budesonide-formoterol [Symbicort] 160-4.5 mcg/actuation HFA aerosol inhaler 2 puff INHALATION BID Trulicity 0.75 mg/0.5 mL pen injector 0.5 mg SUBCUT Q7D Rx Instructions: ON MONDAY losartan 50 mg tablet 50 mg PO DAILY gabapentin 600 mg tablet 600 mg PO TID ondansetron HCl 4 mg tablet 4 mg PO Q8H PRN (Reason: Nausea And Vomiting) topiramate 25 mg tablet 25 mg PO BID Ventolin HFA 90 mcg/actuation HFA aerosol inhaler 2 puff INHALATION Q6H PRN (Reason: Shortness Of Breath Or Wheezing) Emgality Pen 120 mg/mL pen injector 120 mg SUBCUT .Q30D ceftriaxone 2 gram Recon Soln 2,000 mg IVP Q24H 42 Days Qty: 42 0RF metronidazole 500 mg Tablet 500 mg PO TID 42 Days Qty: 126 0RF Tresiba FlexTouch U-200 200 unit/mL (3 mL) insulin pen 10 unit SUBCUT BEDTIME Qty: 9 0RF magnesium L-threonate 48 mg magnesium (667 mg) capsule 48 mg PO DAILY Qty: 90 0RF Discharge Orders: Discharge ED (Routine); Ordered 11/16/23 Ordered By: Demetrio Younger Referrals: Samuel Yao [Primary Care Provider] - Discharge Diet: Usual diet Discharge Activity: Resume usual activity Patient Instructions: Opioid Safety, Pain Management Activity Restrictions/Additional Instructions: Thank you for choosing [facility] for your healthcare needs today. It is very important that you follow up as instructed or that you return to the Emergency Department should you have concerns or if your condition changes or worsens in any way. You were seen emergency room for the concern of irritation of the skin adjacent to the PICC line site. Ultrasound showed no significant abnormality no abscess. The area appears to be reaction to the adhesive applied to the skin. Recommend topical triamcinolone twice a day until resolved. Continue your antibiotic infusions as previously scheduled follow-up with your primary care doctor Coding Level of Care Code ED Supervisor Steno Pool for Carlos León
--- NOTE | 2023-11-16 13:43 | US_ITS ---
WS: [id number] ULTRASOUND SOFT TISSUES RIGHT upper extremity HISTORY: PICC line irritation swelling COMPARISON: None available. TECHNIQUE: 2-D and color Doppler imaging is submitted. Ultrasound is directed along the RIGHT arm at the course of the PICC line. There is no free fluid or hematoma. No clot around the PICC line is identified by ultrasound. PICC line is well visualized. US/US soft tissue/extremity [id number] IMPRESSION: No ultrasound abnormality along the RIGHT upper extremity PICC line.
[2023-11-16 14:08] VITALS: BP 149/77; RESP 16; O2SAT 95
[2023-11-16 14:17] LABS: Basophils % 0.2 %; Eosinophils # 0.1 10^3/uL (0.0-0.8); Eosinophils % 1.1 %; Hematocrit 42.3 % (36-47); Lymphocytes # 2.3 10^3/uL (0.8-4.8); Lymphocytes % 22.9 %; Mean Corpuscular HGB Conc 31.9 g/dL (30-55); Mean Corpuscular Hemoglobin 26.1 pg (27-33); Mean Corpuscular Volume 81.7 fl (85-98); Mean Platelet Volume 11.1 fL (7.4-10.4); Monocytes # 0.6 10^3/uL (0.2-0.9); Neutrophils # 6.85 10^3/uL (1.8-7.7); Neutrophils % 69.4 %; Nucleated Red Blood Cells % 0 %; Platelet Count 197 10^3/cmm (157-399); Red Blood Count 5.18 10^6/uL (3.85-5.65); Red Cell Distribution Width 14.8 % (12.1-15.1); White Blood Count 9.87 10^3/uL (3.29-11.43)
[2023-11-16 14:42] LABS: Alanine Aminotransferase 21 U/L (0-33); Albumin Level 4.1 g/dL (3.5-5.2); Alkaline Phosphatase 90 U/L (35-105); Anion Gap 16.5 (5-19); Aspartate Amino Transferase 17 U/L (0-32); Blood Urea Nitrogen 14 mg/dL (6-20); Calcium 9.5 mg/dL (8.5-10.5); Carbon Dioxide 24 mmol/L (22-29); Chloride 102 mmol/L (98-107); Creatinine Clr Calc Pharmacy 115.4895; Globulin 4.1 g/dL (1.3-4.6); Glomerular Filtration Rate 86.6 mL/min (90-130); Glucose 161 mg/dL (65-115); Osmolality Calculated 292 mOsm/kg (285-295); Potassium 3.5 mmol/L (3.5-5.1); Sodium 139 mmol/L (136-145); Total Bilirubin 0.3 mg/dL (0.15-1.2); Total Protein 8.2 g/dL (6.6-8.7)
[2023-11-16 15:38] VITALS: PULSE 101; RESP 16; O2SAT 97
[2023-11-16 15:41] VITALS: BP 123/91; PULSE 102; RESP 16; O2SAT 97
== END 2023-11-16 15:48 | disposition home or self-care (01) ==
PROVIDERS: Emergency Provider Family Medicine; PCP Family Medicine
DX: L25.8 Unspecified contact dermatitis due to other agents (principal); Z79.84 Long term (current) use of oral hypoglycemic drugs; Z79.4 Long term (current) use of insulin; Z79.85 Long-term (current) use of injectable non-insulin antidiabetic drugs; Z86.73 Personal history of transient ischemic attack (TIA), and cerebral infarction without residual deficits; I10 Essential (primary) hypertension; E11.42 Type 2 diabetes mellitus with diabetic polyneuropathy
CPT/HCPCS: 76882; 80053; 85025; 87040; 99284

== ENCOUNTER 2023-11-19 09:23 | Emergency (ER) | payer BC, MEDICAID, SELFPAY ==
[2023-11-19 09:31] VITALS: BP 155/95; PULSE 99; TEMP 36.7; O2SAT 98; BMI 36.1
[2023-11-19 09:43] VITALS: BP 155/95; PULSE 95; RESP 18; O2SAT 100
--- NOTE | 2023-11-19 09:59 | ED_ITS ---
HPI - Skin/Abscess/Foreign Bdy General: Chief complaint: Skin/Abscess/Foreign Body Stated complaint: allergic reaction Time Seen by Provider: 11/19/23 09:33 Source: patient Mode of arrival: ambulatory Limitations: no limitations History of Present Illness: 57-year-old female is here for dressing change to her PICC line in her right arm. States she has had a slight rash has a history of eczema she is been seen before and before with this and is on a cream currently she is supposed to switch to a new dressing that she is going to use today. She denies any fever she denies any drainage Associated symptoms: Deny chills, fever(s), nausea or vomiting Related Data Home Medications Medication Instructions Recorded Confirmed dicyclomine 10 mg capsule 10 mg PO BID PRN Stomach Cramps 12/18/19 11/06/23 hydrochlorothiazide 25 mg tablet 25 mg PO DAILY 12/18/19 11/06/23 magnesium oxide 400 mg PO DAILY 12/18/19 11/06/23 metformin 1,000 mg tablet 1,000 mg PO BID 12/18/19 11/06/23 prazosin 1 mg capsule 1 mg PO BID 12/18/19 11/06/23 sucralfate 1 gram tablet 1 gm PO BID 12/18/19 11/06/23 venlafaxine 150 mg 150 mg PO DAILY 12/18/19 11/06/23 capsule,extended release 24 hr (Effexor XR) insulin aspart U-100 100 unit/mL See Rx Instructions .Route .COMPLEX 08/15/21 11/06/23 (3 mL) subcutaneous pen (Novolog FlexPen U-100 Insulin aspart) bupropion HCl 150 mg 24 hr tablet, 150 mg PO QPM 08/26/21 11/06/23 extended release dapagliflozin propanediol 10 mg 10 mg PO DAILY 10/26/22 11/06/23 tablet (Farxiga) atorvastatin 80 mg tablet 80 mg PO QPM 03/10/23 11/06/23 budesonide-formoterol HFA 160 2 puff inhalation BID 03/10/23 11/06/23 mcg-4.5 mcg/actuation aerosol inhaler (Symbicort) dulaglutide 0.75 mg/0.5 mL 0.5 mg SUBCUT Q7D 03/10/23 11/06/23 subcutaneous pen injector (Trulicity) famotidine 20 mg tablet 20 mg PO BEDTIME 03/10/23 11/06/23 polyethylene glycol 3350 17 4 g PO DAILY 03/10/23 11/06/23 gram/dose oral powder (Miralax) ropinirole 4 mg tablet 4 mg PO BID 03/10/23 11/06/23 venlafaxine 75 mg capsule,extended 75 mg PO DAILY 03/10/23 11/06/23 release 24 hr albuterol sulfate 90 mcg/actuation 2 puff inhalation Q6H PRN 11/06/23 11/06/23 aerosol inhaler (Ventolin HFA) Shortness Of Breath Or Wheezing gabapentin 600 mg tablet 600 mg PO TID 11/06/23 11/06/23 galcanezumab-gnlm 120 mg/mL 120 mg SUBCUT .Q30D 11/06/23 11/06/23 subcutaneous pen injector (Emgality Pen) losartan 50 mg tablet 50 mg PO DAILY 11/06/23 11/06/23 ondansetron HCl 4 mg tablet 4 mg PO Q8H PRN Nausea And Vomiting 11/06/23 11/06/23 topiramate 25 mg tablet 25 mg PO BID 11/06/23 11/06/23 Previous Rx's Medication Instructions Recorded insulin syringe-needle U-100 0.3 #100 ea 03/16/21 mL 31 gauge x 15/64 (BD Veo Insulin Syringe Ultra-Fine) diabetic shoes #1 ea 10/22/21 Diabetic Shoes #1 ea 11/01/21 Diabetic Shoes #1 ea 11/17/21 ceftriaxone 2 gram solution for 2,000 mg IVP Q24H 6 weeks #42 ea 11/10/23 injection insulin degludec 200 unit/mL (3 10 unit (0.05 mL) SUBCUT BEDTIME 11/10/23 mL) subcutaneous pen (Tresiba #9 mL FlexTouch U-200 insulin) magnesium L-threonate 48 mg 48 mg PO DAILY #90 caps 11/10/23 magnesium (667 mg) capsule metronidazole 500 mg tablet 500 mg PO TID 6 weeks #126 tabs 11/10/23 triamcinolone acetonide 0.5 % 1 applic topical BID #15 grams 11/16/23 topical cream Allergies Allergy/AdvReac Type Severity Reaction Status Date / Time adhesive tape Allergy Severe ALGY-Hives Verified 11/19/23 09:36 amitriptyline Allergy Severe ALGY-Hives Verified 11/19/23 09:36 ciprofloxacin Allergy Severe ADR-Nausea Verified 11/19/23 09:36 exenatide [From Bydureon] Allergy Severe ALGY-Hives Verified 11/19/23 09:36 sumatriptan [From Imitrex] Allergy Severe ADR-Vomitin Verified 11/19/23 09:36 g cephalexin Allergy ALGY-Swell Verified 11/19/23 09:36 Lip/Tongue/Throat metoclopramide [From Reglan] Allergy Unknown Verified 11/19/23 09:36 shrimp Allergy ALGY-Rash Verified 11/19/23 09:36 Review of Systems Const: Denies: fever(s), chills, body aches or change in appetite ENMT: Denies: throat pain Card: Denies: chest pain Resp: Denies: dyspnea GI: Denies: abdominal pain, nausea, vomiting or diarrhea Musc: Denies: neck pain or back pain Skin/Breast: Reports: rash and erythema Neuro: Denies: headache(s) PFSH ED PFSH: Medical History 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 August 2021 MCI (mild cognitive impairment) HX: benign breast biopsy off tongue Dr. Adan Abdominal pain Nausea & vomiting GERD (gastroesophageal reflux disease) Hypertension Diabetes Anemia Duodenitis without bleeding Morbid obesity with BMI of 40.0-44.9, adult Depression PTSD (post-traumatic stress disorder) RLS (restless legs syndrome) Gout Asthma Surgical History S/P excision of lipoma Right hip 12 x 10 x 9 cm Hx of dilation and curettage x3 History of esophagogastroduodenoscopy (EGD) Family History Other Hypertension Social History Smoking and tobacco/nicotine status: never used tobacco/nicotine Alcohol intake: current Physical Exam Const: COMMON NORMALS: no acute distress, patient oriented x3 and healthy appearing HENMT: COMMON NORMALS: normocephalic HEAD & SCALP: normocephalic Eye: COMMON NORMALS: Equal, round and reactive pupils present and EOMs intact bilaterally PUPIL: Yes Equal, round and reactive pupils present Neck/C-Spine: COMMON NORMALS: full ROM and supple Chest: COMMONS NORMALS: normal inspection of the chest Resp: COMMON NORMALS: normal respiratory effort Cardio: COMMON NORMALS: regular rate RATE: regular rate Extremity: NARRATIVE EXTREMITY EXAM: Eczema appearing rash to her right elbow PICC line as clean dry intact she has no signs of drainage erythema around the PICC Neuro: COMMON NORMALS: patient oriented x3, moves all extremities and no focal motor deficits Psych: COMMON NORMALS: mental status grossly normal, Normal thought process present and cooperative THOUGHT PROCESS: Normal thought process present Skin: COMMON NORMALS: no rashes or lesions noted and no wounds GENERAL SKIN EXAM: no rashes or lesions noted Course Vital Signs: Vital signs: Vital Signs Temperature 98.0 F 11/19/23 09:31 Pulse Rate 95 11/19/23 09:43 Respiratory Rate 18 11/19/23 09:43 Blood Pressure 155/95 11/19/23 09:43 Pulse Oximetry 100 11/19/23 09:43 Oxygen Delivery Me thod Room Air 11/19/23 09:43 MDM - Skin/Abscess/Foreign Bdy Medicial Decision Making Patient presents here for dressing change to PICC line or PICC line as well. He has no signs of infection did change the dressing she is to follow-up with PCP she is return if worsening she understands agrees to plan. Medical Records I reviewed the patient's medical records. No radiology studies performed this visit Discharge Plan Discharge Patient Disposition: Home Clinical Impression: Dressing change Condition: Stable Prescriptions: No Action hydrochlorothiazide 25 mg tablet 25 mg PO DAILY dicyclomine 10 mg capsule 10 mg PO BID PRN (Reason: Stomach Cramps) prazosin 1 mg capsule 1 mg PO BID venlafaxine [Effexor XR] 150 mg capsule,extended release 24hr 150 mg PO DAILY Rx Instructions: ALONG WITH 75MG TO= 225MG TOTAL sucralfate 1 gram tablet 1 gm PO BID magnesium oxide 400 mg magnesium capsule 400 mg PO DAILY metformin 1,000 mg tablet 1,000 mg PO BID (DME) diabetic shoes See Rx Instructions .Route .MEDSUPPLY Qty: 1 0RF Rx Instructions: As directed (DME) insulin syringe-needle U-100 [BD Veo Insulin Syringe UF] 0.3 mL 31 gauge x 15/64 syringe See Rx Instructions .ROUTE .MEDSUPPLY Qty: 100 3RF Rx Instructions: As directed (DME) Diabetic Shoes See Rx Instructions .Route .MEDSUPPLY Qty: 1 0RF Rx Instructions: As directed (DME) Diabetic Shoes See Rx Instructions .Route .MEDSUPPLY Qty: 1 0RF Rx Instructions: As directed insulin aspart U-100 [Novolog FlexPen U-100 Insulin] 100 unit/mL (3 mL) insulin pen See Rx Instructions .ROUTE .COMPLEX Rx Instructions: PER SLIDING SCALE bupropion HCl 150 mg Tablet Extended Release 24 Hr 150 mg PO QPM dapagliflozin propanediol [Farxiga] 10 mg tablet 10 mg PO DAILY atorvastatin 80 mg tablet 80 mg PO QPM venlafaxine 75 mg capsule,extended release 24hr 75 mg PO DAILY Rx Instructions: ALONG WITH 150MG TO= 225MG TOTAL famotidine 20 mg tablet 20 mg PO BEDTIME polyethylene glycol 3350 [Miralax] 17 gram/dose Powder 4 g PO DAILY ropinirole 4 mg Tablet 4 mg PO BID budesonide-formoterol [Symbicort] 160-4.5 mcg/actuation HFA aerosol inhaler 2 puff INHALATION BID Trulicity 0.75 mg/0.5 mL pen injector 0.5 mg SUBCUT Q7D Rx Instructions: ON MONDAY losartan 50 mg tablet 50 mg PO DAILY gabapentin 600 mg tablet 600 mg PO TID ondansetron HCl 4 mg tablet 4 mg PO Q8H PRN (Reason: Nausea And Vomiting) topiramate 25 mg tablet 25 mg PO BID Ventolin HFA 90 mcg/actuation HFA aerosol inhaler 2 puff INHALATION Q6H PRN (Reason: Shortness Of Breath Or Wheezing) Emgality Pen 120 mg/mL pen injector 120 mg SUBCUT .Q30D ceftriaxone 2 gram Recon Soln 2,000 mg IVP Q24H 42 Days Qty: 42 0RF metronidazole 500 mg Tablet 500 mg PO TID 42 Days Qty: 126 0RF Tresiba FlexTouch U-200 200 unit/mL (3 mL) insulin pen 10 unit SUBCUT BEDTIME Qty: 9 0RF magnesium L-threonate 48 mg magnesium (667 mg) capsule 48 mg PO DAILY Qty: 90 0RF triamcinolone acetonide 0.5 % cream 1 applic topical BID Qty: 15 0RF Discharge Orders: Discharge ED (Routine); Ordered 11/19/23 Ordered By: Jazzmine Gabriel Referrals: Samuel Yao [Primary Care Provider] - Discharge Diet: Advance as tolerated Discharge Activity: Resume usual activity Patient Instructions: How to Care for Your Child's PICC (Peripherally Inserted Central... (ED) Coding Level of Care Code ED Hadoop Java Developer for Carlos León
--- NOTE | 2023-11-19 10:15 | PC.NURSE ---
PICC LINE DRESSING CHANGED WITH TOBY Mcclain RN. PICC LINE DRESSING CHANGED USING STERILE TECHNIQUE. PATIENT TOLERATED PROCEDURE WELL AND STATED THAT ARM WAS LESS ITCHY.
[2023-11-19 10:21] VITALS: BP 142/79; PULSE 93; O2SAT 98
== END 2023-11-19 10:22 | disposition home or self-care (01) ==
PROVIDERS: Emergency Provider Emergency Medicine; PCP Family Medicine
DX: Z48.00 Encounter for change or removal of nonsurgical wound dressing (principal); Z79.84 Long term (current) use of oral hypoglycemic drugs; Z79.4 Long term (current) use of insulin; Z79.85 Long-term (current) use of injectable non-insulin antidiabetic drugs; Z86.73 Personal history of transient ischemic attack (TIA), and cerebral infarction without residual deficits; I10 Essential (primary) hypertension; E11.42 Type 2 diabetes mellitus with diabetic polyneuropathy
CPT/HCPCS: 99282

== ENCOUNTER 2023-11-22 10:46 | Outpatient (CLI) | payer BC, MEDICAID, SELFPAY ==
[2023-11-22 10:59] LABS: Basophils % 0.5 %; Eosinophils # 0.2 10^3/uL (0.0-0.8); Eosinophils % 2.4 %; Hematocrit 42.2 % (36-47); Mean Corpuscular HGB Conc 31.3 g/dL (30-55); Mean Corpuscular Hemoglobin 25.8 pg (27-33); Mean Corpuscular Volume 82.6 fl (85-98); Mean Platelet Volume 12.6 fL (7.4-10.4); Monocytes # 0.4 10^3/uL (0.2-0.9); Monocytes % 6.5 %; Neutrophils # 3.73 10^3/uL (1.8-7.7); Neutrophils % 59.3 %; Nucleated Red Blood Cells % 0 %; Platelet Count 183 10^3/cmm (157-399); Red Blood Count 5.11 10^6/uL (3.85-5.65); Red Cell Distribution Width 14.6 % (12.1-15.1); White Blood Count 6.29 10^3/uL (3.29-11.43)
[2023-11-22 11:32] LABS: Alanine Aminotransferase 26 U/L (0-33); Albumin Level 3.8 g/dL (3.5-5.2); Alkaline Phosphatase 98 U/L (35-105); Globulin 4.3 g/dL (1.3-4.6); Glomerular Filtration Rate 86.6 mL/min (90-130); Total Bilirubin 0.3 mg/dL (0.15-1.2); Total Protein 8.1 g/dL (6.6-8.7)
[2023-11-22 11:33] LABS: Aspartate Amino Transferase 32 U/L (0-32)
== END 2023-11-22 10:47 | disposition home or self-care (01) ==
LOC: LAB 10:47
PROVIDERS: PCP Family Medicine; Visit Provider Student in an Organized Health Care Education/Training Program
DX: R78.81 Bacteremia (principal)
CPT/HCPCS: 80076; 82565; 85025

== ENCOUNTER 2023-11-27 12:21 | Outpatient (CLI) | payer BC, MEDICAID, SELFPAY ==
[2023-11-27] MEDS: iohexol 350 mg/mL 500 mL Btl (per mL) IV (12:38)
--- NOTE | 2023-11-27 12:45 | CTR_ITS ---
PROCEDURE INFORMATION: Exam: CT Neck With Contrast Exam date and time: 11/27/2023 12:28 PM Age: 57 years old Clinical indication: Neck pain; history of streptococcal bacteremia in October 2023 after prior tonsillectomy on 09/28/23; follow-up of abnormal findings noted on MRI cervical spine on 11/08/[address] neck on 11/07/2023 (retropharyngeal/prevertebral edema concerning for phlegmon, 12 x 6 mm lucent enhancing focus within C4 vertebral body). TECHNIQUE: Imaging protocol: Computed tomography of the neck with contrast. Radiation optimization: All CT scans at this facility use at least one of these dose optimization techniques: automated exposure control; mA and/or kV adjustment per patient size (includes targeted exams where dose is matched to clinical indication); or iterative reconstruction. Contrast material: OMNI 350; Contrast volume: 100 ml; Contrast route: INTRAVENOUS (IV); COMPARISON: CT neck wo con [id number] 11/07/2023, MRI cervical spine 11/08/2023, CTA head and neck 07/18/2018 RADIATION DOSE METRICS: Total DLP (mGy-cm): 223.85 FINDINGS: Tubes, catheters and devices: Right PICC line is extending into the superior vena cava. Salivary glands: Normal. Glands are normal in size. Pharynx: Unremarkable. No significant tonsillar enlargement. Prevertebral and retropharyngeal spaces: Unremarkable. Larynx: Unremarkable. Epiglottis is normal. Thyroid: Normal in size. No nodules. Trachea: Visualized trachea is unremarkable. Lungs: Stable calcified granuloma in the left upper lobe. Lymph nodes: No lymphadenopathy. Bones/joints: Normal alignment of the cervical spine. Degenerative sclerosis and multiple Schmorl nodules around C3-C4, C4-C5 and C5-C6 discs progressive since 2019. Sharply-circumscribed 12 x 7 x 8 mm lucent focus in the left aspect of C4 vertebral body containing coarse trabeculation pattern typical for hemangioma stable since prior CT on 11/07/2023 corresponding to enhancing focus on MRI on 11/08/2023 is compatible with hemangioma. In retrospect the same lucency can be detected on the older exam on 07/18/2018 (series 2, image 220) confirming long-standing benign finding. This hemangioma became more conspicuous since 2019 due higher contrast with adjacent degenerative sclerosis. Soft tissues: Unremarkable. Prevertebral/retropharyngeal edema present on prior exams has completely resolved. CT/CT neck w con* [id number] IMPRESSION: No acute inflammatory findings on the current exam. Prevertebral/retropharyngeal edema present on prior exams has completely resolved. There is stable appearance of the cervical spine with no findings concerning for osteomyelitis. Stable lucent focus in C4 vertebral body represents a hemangioma.
== END 2023-11-27 12:22 | disposition home or self-care (01) ==
LOC: RAD 12:21
PROVIDERS: PCP Family Medicine; Visit Provider Student in an Organized Health Care Education/Training Program
DX: R78.81 Bacteremia (principal); B95.3 Streptococcus pneumoniae as the cause of diseases classified elsewhere; L02.11 Cutaneous abscess of neck; Z95.9 Presence of cardiac and vascular implant and graft, unspecified; J84.10 Pulmonary fibrosis, unspecified; M51.44 Schmorl's nodes, thoracic region; D18.09 Hemangioma of other sites
CPT/HCPCS: 70491

== ENCOUNTER 2023-11-28 12:51 | Emergency (ER) | payer BC, MEDICAID, SELFPAY ==
[2023-11-28 13:02] VITALS: BP 133/83; PULSE 99; RESP 16; TEMP 36.4; O2SAT 97; BMI 34.3
--- NOTE | 2023-11-28 13:13 | W.ED.SKABFB ---
HPI - Skin/Abscess/Foreign Bdy General: Chief complaint: Skin/Abscess/Foreign Body Stated complaint: Picc line Time Seen by Provider: 11/28/23 12:56 Source: patient and family Mode of arrival: ambulatory Limitations: no limitations History of Present Illness: Patient is a nice 57-year-old female here for evaluation of redness surrounding her PICC line site. She is receiving IV antibiotics through a PICC line for treatment of retropharyngeal phlegmon with cervical discitis/ osteomyelitis. She was hospitalized here recently for this. She is following up with infectious disease/Dr. Boyer. Patient has been seen here in our emergency department twice for redness surrounding her PICC site and it was felt this was secondary to contact dermatitis from her adhesive. Patient states she would just like it re-checked today. States redness is maybe a little worse-but not bad . States redness is itchy. She overall continues to feel well. PICC line is still functioning well. MD complaint: rash Onset (ago): day(s) Tetanus up to date: yes Location: RUE Severity: mild Quality: pruritic Relieving factors: none Exacerbating factors: none Context: none Associated symptoms: Reports no associated symptoms; Deny chills or fever(s) Treatments prior to arrival: none Related Data Home Medications Medication Instructions Recorded Confirmed dicyclomine 10 mg capsule 10 mg PO BID PRN Stomach Cramps 12/18/19 11/06/23 hydrochlorothiazide 25 mg tablet 25 mg PO DAILY 12/18/19 11/06/23 magnesium oxide 400 mg PO DAILY 12/18/19 11/06/23 metformin 1,000 mg tablet 1,000 mg PO BID 12/18/19 11/06/23 prazosin 1 mg capsule 1 mg PO BID 12/18/19 11/06/23 sucralfate 1 gram tablet 1 gm PO BID 12/18/19 11/06/23 venlafaxine 150 mg 150 mg PO DAILY 12/18/19 11/06/23 capsule,extended release 24 hr (Effexor XR) insulin aspart U-100 100 unit/mL See Rx Instructions .Route .COMPLEX 08/15/21 11/06/23 (3 mL) subcutaneous pen (Novolog FlexPen U-100 Insulin aspart) bupropion HCl 150 mg 24 hr tablet, 150 mg PO QPM 08/26/21 11/06/23 extended release dapagliflozin propanediol 10 mg 10 mg PO DAILY 10/26/22 11/06/23 tablet (Farxiga) atorvastatin 80 mg tablet 80 mg PO QPM 03/10/23 11/06/23 budesonide-formoterol HFA 160 2 puff inhalation BID 03/10/23 11/06/23 mcg-4.5 mcg/actuation aerosol inhaler (Symbicort) dulaglutide 0.75 mg/0.5 mL 0.5 mg SUBCUT Q7D 03/10/23 11/06/23 subcutaneous pen injector (Trulicity) famotidine 20 mg tablet 20 mg PO BEDTIME 03/10/23 11/06/23 polyethylene glycol 3350 17 4 g PO DAILY 03/10/23 11/06/23 gram/dose oral powder (Miralax) ropinirole 4 mg tablet 4 mg PO BID 03/10/23 11/06/23 venlafaxine 75 mg capsule,extended 75 mg PO DAILY 03/10/23 11/06/23 release 24 hr albuterol sulfate 90 mcg/actuation 2 puff inhalation Q6H PRN 11/06/23 11/06/23 aerosol inhaler (Ventolin HFA) Shortness Of Breath Or Wheezing gabapentin 600 mg tablet 600 mg PO TID 11/06/23 11/06/23 galcanezumab-gnlm 120 mg/mL 120 mg SUBCUT .Q30D 11/06/23 11/06/23 subcutaneous pen injector (Emgality Pen) losartan 50 mg tablet 50 mg PO DAILY 11/06/23 11/06/23 ondansetron HCl 4 mg tablet 4 mg PO Q8H PRN Nausea And Vomiting 11/06/23 11/06/23 topiramate 25 mg tablet 25 mg PO BID 11/06/23 11/06/23 Previous Rx's Medication Instructions Recorded insulin syringe-needle U-100 0.3 #100 ea 03/16/21 mL 31 gauge x 15/64 (BD Veo Insulin Syringe Ultra-Fine) diabetic shoes #1 ea 10/22/21 Diabetic Shoes #1 ea 11/01/21 Diabetic Shoes #1 ea 11/17/21 ceftriaxone 2 gram solution for 2,000 mg IVP Q24H 6 weeks #42 ea 11/10/23 injection insulin degludec 200 unit/mL (3 10 unit (0.05 mL) SUBCUT BEDTIME 11/10/23 mL) subcutaneous pen (Tresiba #9 mL FlexTouch U-200 insulin) magnesium L-threonate 48 mg 48 mg PO DAILY #90 caps 11/10/23 magnesium (667 mg) capsule metronidazole 500 mg tablet 500 mg PO TID 6 weeks #126 tabs 11/10/23 triamcinolone acetonide 0.5 % 1 applic topical BID #15 grams 11/16/23 topical cream Allergies Allergy/AdvReac Type Severity Reaction Status Date / Time adhesive tape Allergy Severe ALGY-Hives Verified 11/19/23 09:36 amitriptyline Allergy Severe ALGY-Hives Verified 11/19/23 09:36 ciprofloxacin Allergy Severe ADR-Nausea Verified 11/19/23 09:36 exenatide [From Bydureon] Allergy Severe ALGY-Hives Verified 11/19/23 09:36 sumatriptan [From Imitrex] Allergy Severe ADR-Vomitin Verified 11/19/23 09:36 g cephalexin Allergy ALGY-Swell Verified 11/19/23 09:36 Lip/Tongue/Throat metoclopramide [From Reglan] Allergy Unknown Verified 11/19/23 09:36 shrimp Allergy ALGY-Rash Verified 11/19/23 09:36 Review of Systems Const: Denies: fever(s), chills, body aches, fatigue or malaise Musc: Denies: extremity pain or extremity swelling Skin/Breast: Reports: rash and pruritus Neuro: Denies: headache(s), numbness in extremities, weakness in extremities or sensory changes PFSH ED PFSH: Medical History 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 August 2021 MCI (mild cognitive impairment) HX: benign breast biopsy off tongue Dr. Adan Abdominal pain Nausea & vomiting GERD (gastroesophageal reflux disease) Hypertension Diabetes Anemia Duodenitis without bleeding Morbid obesity with BMI of 40.0-44.9, adult Depression PTSD (post-traumatic stress disorder) RLS (restless legs syndrome) Gout Asthma Surgical History S/P excision of lipoma Right hip 12 x 10 x 9 cm Hx of dilation and curettage x3 History of esophagogastroduodenoscopy (EGD) Family History Other Hypertension Social History Smoking and tobacco/nicotine status: never used tobacco/nicotine Alcohol intake: current Physical Exam Const: COMMON NORMALS: no acute distress, average body habitus, patient oriented x3, no limitations, healthy appearing, alert and well nourished Resp: COMMON NORMALS: normal respiratory effort and clear to auscultation bilaterally AUSCULTATION: clear to auscultation bilaterally Cardio: COMMON NORMALS: regular rate and regular rhythm RATE: regular rate RHYTHM: regular rhythm Extremity: NARRATIVE EXTREMITY EXAM: irritation/plaque distal and medial to PICC site; no induration or abscess; no overlying warmth; clinically this does not appear cellulitic; site of PICC line insertion actually looks really well and all the redness seems to be more outlined where adhesive is; no edema to arm; no pain; PICC line is still functioning well GENERAL: Yes normal exam except as noted RIGHT UPPER EXTREMITY: Yes upper arm Neuro: COMMON NORMALS: patient oriented x3 SENSORIUM/ORIENTATION: Yes alert Skin: NARRATIVE SKIN EXAM: see above Course Vital Signs: Vital signs: Vital Signs Temperature 97.5 F L 11/28/23 13:02 Pulse Rate 99 11/28/23 13:02 Respiratory Rate 16 11/28/23 13:02 Blood Pressure 133/83 11/28/23 13:02 Pulse Oximetry 97 11/28/23 13:02 Oxygen Delivery Me thod Room Air 11/28/23 13:02 MDM - Skin/Abscess/Foreign Bdy Medicial Decision Making Redness appears more like a contact dermatitis from adhesive. Leia/PICC line RN will come and re-dress with a sensitive dressing to hopefully cut down on irritation. Return precautions given. Medical Records I reviewed the patient's medical records. No radiology studies performed this visit Discharge Plan Discharge Patient Disposition: Home Clinical Impression: Contact dermatitis due to adhesive bandage Condition: Stable Prescriptions: No Action hydrochlorothiazide 25 mg tablet 25 mg PO DAILY dicyclomine 10 mg capsule 10 mg PO BID PRN (Reason: Stomach Cramps) prazosin 1 mg capsule 1 mg PO BID venlafaxine [Effexor XR] 150 mg capsule,extended release 24hr 150 mg PO DAILY Rx Instructions: ALONG WITH 75MG TO= 225MG TOTAL sucralfate 1 gram tablet 1 gm PO BID magnesium oxide 400 mg magnesium capsule 400 mg PO DAILY metformin 1,000 mg tablet 1,000 mg PO BID (DME) diabetic shoes See Rx Instructions .Route .MEDSUPPLY Qty: 1 0RF Rx Instructions: As directed (DME) insulin syringe-needle U-100 [BD Veo Insulin Syringe UF] 0.3 mL 31 gauge x 15/64 syringe See Rx Instructions .ROUTE .MEDSUPPLY Qty: 100 3RF Rx Instructions: As directed (DME) Diabetic Shoes See Rx Instructions .Route .MEDSUPPLY Qty: 1 0RF Rx Instructions: As directed (DME) Diabetic Shoes See Rx Instructions .Route .MEDSUPPLY Qty: 1 0RF Rx Instructions: As directed insulin aspart U-100 [Novolog FlexPen U-100 Insulin] 100 unit/mL (3 mL) insulin pen See Rx Instructions .ROUTE .COMPLEX Rx Instructions: PER SLIDING SCALE bupropion HCl 150 mg Tablet Extended Release 24 Hr 150 mg PO QPM dapagliflozin propanediol [Farxiga] 10 mg tablet 10 mg PO DAILY atorvastatin 80 mg tablet 80 mg PO QPM venlafaxine 75 mg capsule,extended release 24hr 75 mg PO DAILY Rx Instructions: ALONG WITH 150MG TO= 225MG TOTAL famotidine 20 mg tablet 20 mg PO BEDTIME polyethylene glycol 3350 [Miralax] 17 gram/dose Powder 4 g PO DAILY ropinirole 4 mg Tablet 4 mg PO BID budesonide-formoterol [Symbicort] 160-4.5 mcg/actuation HFA aerosol inhaler 2 puff INHALATION BID Trulicity 0.75 mg/0.5 mL pen injector 0.5 mg SUBCUT Q7D Rx Instructions: ON MONDAY losartan 50 mg tablet 50 mg PO DAILY gabapentin 600 mg tablet 600 mg PO TID ondansetron HCl 4 mg tablet 4 mg PO Q8H PRN (Reason: Nausea And Vomiting) topiramate 25 mg tablet 25 mg PO BID Ventolin HFA 90 mcg/actuation HFA aerosol inhaler 2 puff INHALATION Q6H PRN (Reason: Shortness Of Breath Or Wheezing) Emgality Pen 120 mg/mL pen injector 120 mg SUBCUT .Q30D ceftriaxone 2 gram Recon Soln 2,000 mg IVP Q24H 42 Days Qty: 42 0RF metronidazole 500 mg Tablet 500 mg PO TID 42 Days Qty: 126 0RF Tresiba FlexTouch U-200 200 unit/mL (3 mL) insulin pen 10 unit SUBCUT BEDTIME Qty: 9 0RF magnesium L-threonate 48 mg magnesium (667 mg) capsule 48 mg PO DAILY Qty: 90 0RF triamcinolone acetonide 0.5 % cream 1 applic topical BID Qty: 15 0RF Discharge Orders: Discharge ED (Routine); Ordered 11/28/23 Ordered By: Thelma Beltran Referrals: Samuel Yao [Primary Care Provider] - Coding Level of Care Code ED Vocational Nurse for Jordong Romelia
[2023-11-28 13:59] VITALS: BP 136/70; PULSE 65; O2SAT 96
== END 2023-11-28 14:01 | disposition home or self-care (01) ==
PROVIDERS: Emergency Provider Physician Assistant; PCP Family Medicine
DX: L24.5 Irritant contact dermatitis due to other chemical products (principal); Z79.84 Long term (current) use of oral hypoglycemic drugs; Z79.4 Long term (current) use of insulin; Z79.85 Long-term (current) use of injectable non-insulin antidiabetic drugs; Z86.73 Personal history of transient ischemic attack (TIA), and cerebral infarction without residual deficits; I10 Essential (primary) hypertension; E11.9 Type 2 diabetes mellitus without complications
CPT/HCPCS: 99282

== ENCOUNTER 2023-11-29 10:40 | Outpatient (CLI) | payer BC, MEDICAID, SELFPAY ==
[2023-11-29 10:53] LABS: Basophils % 0.3 %; Eosinophils # 0.2 10^3/uL (0.0-0.8); Hematocrit 43.5 % (36-47); Lymphocytes # 1.9 10^3/uL (0.8-4.8); Lymphocytes % 31.5 %; Mean Corpuscular Hemoglobin 25.7 pg (27-33); Mean Corpuscular Volume 82.9 fl (85-98); Mean Platelet Volume 12.5 fL (7.4-10.4); Monocytes # 0.5 10^3/uL (0.2-0.9); Monocytes % 7.5 %; Neutrophils # 3.45 10^3/uL (1.8-7.7); Neutrophils % 57.5 %; Nucleated Red Blood Cells % 0 %; Platelet Count 206 10^3/cmm (157-399); Red Blood Count 5.25 10^6/uL (3.85-5.65); Red Cell Distribution Width 14.8 % (12.1-15.1)
[2023-11-29 11:49] LABS: Albumin Level 4.1 g/dL (3.5-5.2); Alkaline Phosphatase 91 U/L (35-105); Glomerular Filtration Rate 86.6 mL/min (90-130); Total Bilirubin 0.3 mg/dL (0.15-1.2); Total Protein 8.1 g/dL (6.6-8.7)
[2023-11-29 11:55] LABS: Aspartate Amino Transferase 32 U/L (0-32)
[2023-11-29 11:56] LABS: Alanine Aminotransferase 27 U/L (0-33)
== END 2023-11-29 10:41 | disposition home or self-care (01) ==
LOC: LAB 10:42
PROVIDERS: PCP Family Medicine; Visit Provider Student in an Organized Health Care Education/Training Program
DX: R78.81 Bacteremia (principal)
CPT/HCPCS: 80076; 82565; 85025

== ENCOUNTER 2023-12-04 12:37 | Outpatient (CLI) | payer BC, MEDICAID, SELFPAY ==
[2023-12-04 13:54] LABS: Basophils % 0.3 %; Eosinophils # 0.2 10^3/uL (0.0-0.8); Eosinophils % 2.7 %; Hematocrit 41.5 % (36-47); Lymphocytes # 1.7 10^3/uL (0.8-4.8); Lymphocytes % 28.4 %; Mean Corpuscular HGB Conc 31.6 g/dL (30-55); Mean Corpuscular Hemoglobin 26.1 pg (27-33); Mean Corpuscular Volume 82.8 fl (85-98); Mean Platelet Volume 12.9 fL (7.4-10.4); Monocytes # 0.3 10^3/uL (0.2-0.9); Monocytes % 5.4 %; Neutrophils # 3.78 10^3/uL (1.8-7.7); Neutrophils % 63.2 %; Nucleated Red Blood Cells % 0 %; Platelet Count 194 10^3/cmm (157-399); Red Blood Count 5.01 10^6/uL (3.85-5.65); Red Cell Distribution Width 14.8 % (12.1-15.1); White Blood Count 5.98 10^3/uL (3.29-11.43)
[2023-12-04 14:09] LABS: Alanine Aminotransferase 23 U/L (0-33); Albumin Level 3.8 g/dL (3.5-5.2); Alkaline Phosphatase 89 U/L (35-105); Globulin 3.7 g/dL (1.3-4.6); Glomerular Filtration Rate 103.4 mL/min (90-130); Total Bilirubin 0.3 mg/dL (0.15-1.2); Total Protein 7.5 g/dL (6.6-8.7)
[2023-12-04 14:22] LABS: Aspartate Amino Transferase 23 U/L (0-32)
== END 2023-12-04 12:38 | disposition home or self-care (01) ==
PROVIDERS: PCP Family Medicine; Visit Provider Internal Medicine
DX: R78.81 Bacteremia (principal)
CPT/HCPCS: 80076; 82565; 85025

== ENCOUNTER 2023-12-11 11:43 | Outpatient (CLI) | payer BC, MEDICAID, SELFPAY ==
[2023-12-11 12:01] LABS: Basophils % 0.4 %; Eosinophils # 0.1 10^3/uL (0.0-0.8); Eosinophils % 1.7 %; Hematocrit 44.8 % (36-47); Lymphocytes # 2.3 10^3/uL (0.8-4.8); Lymphocytes % 30.4 %; Mean Corpuscular Hemoglobin 25.8 pg (27-33); Mean Corpuscular Volume 83.3 fl (85-98); Mean Platelet Volume 12.5 fL (7.4-10.4); Monocytes # 0.5 10^3/uL (0.2-0.9); Monocytes % 6.1 %; Neutrophils # 4.54 10^3/uL (1.8-7.7); Neutrophils % 61.1 %; Nucleated Red Blood Cells % 0 %; Platelet Count 217 10^3/cmm (157-399); Red Blood Count 5.38 10^6/uL (3.85-5.65); Red Cell Distribution Width 14.8 % (12.1-15.1); White Blood Count 7.43 10^3/uL (3.29-11.43)
[2023-12-11 16:57] LABS: Albumin Level 4.1 g/dL (3.5-5.2); Alkaline Phosphatase 92 U/L (35-105); Globulin 4.3 g/dL (1.3-4.6); Glomerular Filtration Rate 74.2 mL/min (90-130); Total Bilirubin 0.3 mg/dL (0.15-1.2); Total Protein 8.4 g/dL (6.6-8.7)
[2023-12-11 17:16] LABS: Alanine Aminotransferase 34 U/L (0-33); Aspartate Amino Transferase 34 U/L (0-32)
== END 2023-12-11 11:44 | disposition home or self-care (01) ==
LOC: LAB 11:46
PROVIDERS: PCP Family Medicine; Visit Provider Student in an Organized Health Care Education/Training Program
DX: R78.81 Bacteremia (principal)
CPT/HCPCS: 80076; 82565; 85025

== ENCOUNTER 2023-12-18 11:13 | Outpatient (CLI) | payer BC, MEDICAID, SELFPAY ==
[2023-12-18 11:34] LABS: Basophils % 0.3 %; Eosinophils # 0.1 10^3/uL (0.0-0.8); Eosinophils % 2.1 %; Hematocrit 42.8 % (36-47); Lymphocytes # 1.7 10^3/uL (0.8-4.8); Lymphocytes % 26.8 %; Mean Corpuscular HGB Conc 31.1 g/dL (30-55); Mean Corpuscular Hemoglobin 25.6 pg (27-33); Mean Corpuscular Volume 82.5 fl (85-98); Mean Platelet Volume 12.1 fL (7.4-10.4); Monocytes # 0.3 10^3/uL (0.2-0.9); Monocytes % 4.7 %; Neutrophils # 4.16 10^3/uL (1.8-7.7); Neutrophils % 65.6 %; Nucleated Red Blood Cells % 0 %; Platelet Count 180 10^3/cmm (157-399); Red Blood Count 5.19 10^6/uL (3.85-5.65); Red Cell Distribution Width 14.5 % (12.1-15.1); White Blood Count 6.34 10^3/uL (3.29-11.43)
[2023-12-18 11:53] LABS: Albumin Level 3.9 g/dL (3.5-5.2); Alkaline Phosphatase 101 U/L (35-105); Globulin 4.1 g/dL (1.3-4.6); Glomerular Filtration Rate 86.2 mL/min (90-130); Total Bilirubin 0.2 mg/dL (0.15-1.2)
[2023-12-18 12:00] LABS: Alanine Aminotransferase 28 U/L (0-33); Aspartate Amino Transferase 27 U/L (0-32)
== END 2023-12-18 11:14 | disposition home or self-care (01) ==
LOC: LAB 11:14
PROVIDERS: PCP Family Medicine; Visit Provider Student in an Organized Health Care Education/Training Program
DX: R78.81 Bacteremia (principal)
CPT/HCPCS: 80076; 82565; 85025

== ENCOUNTER 2023-12-22 23:10 | Emergency (ER) | payer BC, MEDICAID, SELFPAY ==
[2023-12-22 23:20] VITALS: BP 126/71; PULSE 80; RESP 18; TEMP 36.6; O2SAT 97
--- NOTE | 2023-12-22 23:55 | W.ED.SKABFB ---
HPI - Skin/Abscess/Foreign Bdy General: Chief complaint: Skin/Abscess/Foreign Body Stated complaint: Rash around pic line in arm Time Seen by Provider: 12/22/23 23:52 History of Present Illness: Patient has PICC line in the right upper medial bicep area. She has had been having problems with adhesive making a contact dermatitis of this for about the last 6 weeks. Home health nurse come out today to change dressing and she notes it was worse today than before. She says it just peeled off the skin when she took it off. Patient finished her last round of antibiotics today. She has appointment with Dr. Boyer couple days but does not really know what to do with the PICC line Related Data Home Medications Medication Instructions Recorded Confirmed dicyclomine 10 mg capsule 10 mg PO BID PRN Stomach Cramps 12/18/19 11/06/23 hydrochlorothiazide 25 mg tablet 25 mg PO DAILY 12/18/19 11/06/23 magnesium oxide 400 mg PO DAILY 12/18/19 11/06/23 metformin 1,000 mg tablet 1,000 mg PO BID 12/18/19 11/06/23 prazosin 1 mg capsule 1 mg PO BID 12/18/19 11/06/23 sucralfate 1 gram tablet 1 gm PO BID 12/18/19 11/06/23 venlafaxine 150 mg 150 mg PO DAILY 12/18/19 11/06/23 capsule,extended release 24 hr (Effexor XR) insulin aspart U-100 100 unit/mL See Rx Instructions .Route .COMPLEX 08/15/21 11/06/23 (3 mL) subcutaneous pen (Novolog FlexPen U-100 Insulin aspart) bupropion HCl 150 mg 24 hr tablet, 150 mg PO QPM 08/26/21 11/06/23 extended release dapagliflozin propanediol 10 mg 10 mg PO DAILY 10/26/22 11/06/23 tablet (Farxiga) atorvastatin 80 mg tablet 80 mg PO QPM 03/10/23 11/06/23 budesonide-formoterol HFA 160 2 puff inhalation BID 03/10/23 11/06/23 mcg-4.5 mcg/actuation aerosol inhaler (Symbicort) dulaglutide 0.75 mg/0.5 mL 0.5 mg SUBCUT Q7D 03/10/23 11/06/23 subcutaneous pen injector (Trulicity) famotidine 20 mg tablet 20 mg PO BEDTIME 03/10/23 11/06/23 polyethylene glycol 3350 17 4 g PO DAILY 03/10/23 11/06/23 gram/dose oral powder (Miralax) ropinirole 4 mg tablet 4 mg PO BID 03/10/23 11/06/23 venlafaxine 75 mg capsule,extended 75 mg PO DAILY 03/10/23 11/06/23 release 24 hr albuterol sulfate 90 mcg/actuation 2 puff inhalation Q6H PRN 11/06/23 11/06/23 aerosol inhaler (Ventolin HFA) Shortness Of Breath Or Wheezing gabapentin 600 mg tablet 600 mg PO TID 11/06/23 11/06/23 galcanezumab-gnlm 120 mg/mL 120 mg SUBCUT .Q30D 11/06/23 11/06/23 subcutaneous pen injector (Emgality Pen) losartan 50 mg tablet 50 mg PO DAILY 11/06/23 11/06/23 ondansetron HCl 4 mg tablet 4 mg PO Q8H PRN Nausea And Vomiting 11/06/23 11/06/23 topiramate 25 mg tablet 25 mg PO BID 11/06/23 11/06/23 Previous Rx's Medication Instructions Recorded insulin syringe-needle U-100 0.3 #100 ea 03/16/21 mL 31 gauge x 15/64 (BD Veo Insulin Syringe Ultra-Fine) diabetic shoes #1 ea 10/22/21 Diabetic Shoes #1 ea 11/01/21 Diabetic Shoes #1 ea 11/17/21 insulin degludec 200 unit/mL (3 10 unit (0.05 mL) SUBCUT BEDTIME 11/10/23 mL) subcutaneous pen (Tresiba #9 mL FlexTouch U-200 insulin) magnesium L-threonate 48 mg 48 mg PO DAILY #90 caps 11/10/23 magnesium (667 mg) capsule triamcinolone acetonide 0.5 % 1 applic topical BID #15 grams 11/16/23 topical cream Allergies Allergy/AdvReac Type Severity Reaction Status Date / Time adhesive tape Allergy Severe ALGY-Hives Verified 12/22/23 23:25 amitriptyline Allergy Severe ALGY-Hives Verified 12/22/23 23:25 ciprofloxacin Allergy Severe ADR-Nausea Verified 12/22/23 23:25 exenatide [From Bydureon] Allergy Severe ALGY-Hives Verified 12/22/23 23:25 sumatriptan [From Imitrex] Allergy Severe ADR-Vomitin Verified 12/22/23 23:25 g cephalexin Allergy ALGY-Swell Verified 12/22/23 23:25 Lip/Tongue/Throat metoclopramide [From Reglan] Allergy Unknown Verified 12/22/23 23:25 shrimp Allergy ALGY-Rash Verified 12/22/23 23:25 Review of Systems General: Reports: 10 or more systems reviewed and unremarkable except in HPI and below PFSH ED PFSH: Medical History 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 August 2021 MCI (mild cognitive impairment) HX: benign breast biopsy off tongue Dr. Adan Abdominal pain Nausea & vomiting GERD (gastroesophageal reflux disease) Hypertension Diabetes Anemia Duodenitis without bleeding Morbid obesity with BMI of 40.0-44.9, adult Depression PTSD (post-traumatic stress disorder) RLS (restless legs syndrome) Gout Asthma Surgical History S/P excision of lipoma Right hip 12 x 10 x 9 cm Hx of dilation and curettage x3 History of esophagogastroduodenoscopy (EGD) Family History Other Hypertension Social History Smoking and tobacco/nicotine status: never used tobacco/nicotine Alcohol intake: current Physical Exam Const: COMMON NORMALS: no acute distress, average body habitus, patient oriented x3, no limitations, healthy appearing, alert and well nourished HENMT: COMMON NORMALS: normocephalic, atraumatic, hearing grossly normal bilaterally, external ears normal, Normal external nose present and moist oral mucous membranes HEAD & SCALP: normocephalic and atraumatic NOSE: Normal external nose present EXTERNAL EAR: Yes external ears normal Neck/C-Spine: COMMON NORMALS: no JVD Chest: COMMONS NORMALS: normal inspection of the chest and normal palpation of entire chest wall Resp: COMMON NORMALS: normal respiratory effort, No retractions, No use of accessory muscles and clear to auscultation bilaterally AUSCULTATION: clear to auscultation bilaterally Cardio: COMMON NORMALS: no JVD, regular rate, regular rhythm, S1 normal heart sound present, S2 normal heart sound present, No gallops present (Cardio), No clicks present (Cardio), No murmurs present (Cardio) and No rub (Cardio) RATE: regular rate RHYTHM: regular rhythm HEART SOUNDS: S1 normal heart sound present and S2 normal heart sound present GI: COMMON NORMALS: Normal to inspection, nondistended, normoactive bowel sounds present, Soft to palpation, non-tender, No hepatosplenomegaly present and no masses PALPATION: Yes Soft to palpation and Yes No hepatosplenomegaly present Neuro: COMMON NORMALS: patient oriented x3 SENSORIUM/ORIENTATION: Yes alert Skin: NARRATIVE SKIN EXAM: Excoriated irritated skin from adhesive surrounding PICC line no obvious odor purulent discharge or signs of infection. Course Vital Signs: Vital signs: Vital Signs Temperature 97.8 F 12/22/23 23:20 Pulse Rate 76 12/22/23 23:56 Respiratory Rate 16 12/22/23 23:56 Blood Pressure 126/69 12/22/23 23:56 Pulse Oximetry 97 12/22/23 23:56 Oxygen Delivery Me thod Room Air 12/22/23 23:56 MDM - Skin/Abscess/Foreign Bdy Medicial Decision Making Nursing change dressing with less adhesive tape and placed at all in a stockinette. Patient said he already feels better. Patient be discharged home. Medical Records I reviewed the patient's medical records. Lab Data I reviewed the patient's lab results. No radiology studies performed this visit Discharge Plan Discharge Patient Disposition: Home Clinical Impression: Change of dressing, Contact dermatitis due to adhesives Condition: Stable Prescriptions: No Action hydrochlorothiazide 25 mg tablet 25 mg PO DAILY dicyclomine 10 mg capsule 10 mg PO BID PRN (Reason: Stomach Cramps) prazosin 1 mg capsule 1 mg PO BID venlafaxine [Effexor XR] 150 mg capsule,extended release 24hr 150 mg PO DAILY Rx Instructions: ALONG WITH 75MG TO= 225MG TOTAL sucralfate 1 gram tablet 1 gm PO BID magnesium oxide 400 mg magnesium capsule 400 mg PO DAILY metformin 1,000 mg tablet 1,000 mg PO BID (DME) diabetic shoes See Rx Instructions .Route .MEDSUPPLY Qty: 1 0RF Rx Instructions: As directed (DME) insulin syringe-needle U-100 [BD Veo Insulin Syringe UF] 0.3 mL 31 gauge x 15/64 syringe See Rx Instructions .ROUTE .MEDSUPPLY Qty: 100 3RF Rx Instructions: As directed (DME) Diabetic Shoes See Rx Instructions .Route .MEDSUPPLY Qty: 1 0RF Rx Instructions: As directed (DME) Diabetic Shoes See Rx Instructions .Route .MEDSUPPLY Qty: 1 0RF Rx Instructions: As directed insulin aspart U-100 [Novolog FlexPen U-100 Insulin] 100 unit/mL (3 mL) insulin pen See Rx Instructions .ROUTE .COMPLEX Rx Instructions: PER SLIDING SCALE bupropion HCl 150 mg Tablet Extended Release 24 Hr 150 mg PO QPM dapagliflozin propanediol [Farxiga] 10 mg tablet 10 mg PO DAILY atorvastatin 80 mg tablet 80 mg PO QPM venlafaxine 75 mg capsule,extended release 24hr 75 mg PO DAILY Rx Instructions: ALONG WITH 150MG TO= 225MG TOTAL famotidine 20 mg tablet 20 mg PO BEDTIME polyethylene glycol 3350 [Miralax] 17 gram/dose Powder 4 g PO DAILY ropinirole 4 mg Tablet 4 mg PO BID budesonide-formoterol [Symbicort] 160-4.5 mcg/actuation HFA aerosol inhaler 2 puff INHALATION BID Trulicity 0.75 mg/0.5 mL pen injector 0.5 mg SUBCUT Q7D Rx Instructions: ON MONDAY losartan 50 mg tablet 50 mg PO DAILY gabapentin 600 mg tablet 600 mg PO TID ondansetron HCl 4 mg tablet 4 mg PO Q8H PRN (Reason: Nausea And Vomiting) topiramate 25 mg tablet 25 mg PO BID Ventolin HFA 90 mcg/actuation HFA aerosol inhaler 2 puff INHALATION Q6H PRN (Reason: Shortness Of Breath Or Wheezing) Emgality Pen 120 mg/mL pen injector 120 mg SUBCUT .Q30D Tresiba FlexTouch U-200 200 unit/mL (3 mL) insulin pen 10 unit SUBCUT BEDTIME Qty: 9 0RF magnesium L-threonate 48 mg magnesium (667 mg) capsule 48 mg PO DAILY Qty: 90 0RF triamcinolone acetonide 0.5 % cream 1 applic topical BID Qty: 15 0RF Discharge Orders: Discharge ED (Routine); Ordered 12/23/23 Ordered By: Dioni Spence Referrals: Samuel Yao [Primary Care Provider] - 1 week Patient Instructions: Dermatitis (ED) Activity Restrictions/Additional Instructions: Please keep area clean and dry, try to change dressings as needed and use the least amount of adhesive dressing that he can get by with. Please keep your appointment with Dr. Boyer as previously scheduled. Coding Level of Care Code ED Racking Machine Operator for Carlos León
[2023-12-22 23:56] VITALS: BP 126/69; PULSE 76; RESP 16; O2SAT 97
[2023-12-23 00:19] VITALS: BP 126/69; PULSE 78; O2SAT 97
== END 2023-12-23 00:22 | disposition home or self-care (01) ==
PROVIDERS: Emergency Provider Emergency Medicine; PCP Family Medicine
DX: T65.891A Toxic effect of other specified substances, accidental (unintentional), initial encounter (principal); L25.3 Unspecified contact dermatitis due to other chemical products; Z48.00 Encounter for change or removal of nonsurgical wound dressing; Z79.84 Long term (current) use of oral hypoglycemic drugs; Z79.4 Long term (current) use of insulin; Z79.85 Long-term (current) use of injectable non-insulin antidiabetic drugs; Z86.73 Personal history of transient ischemic attack (TIA), and cerebral infarction without residual deficits; I10 Essential (primary) hypertension; E11.9 Type 2 diabetes mellitus without complications
CPT/HCPCS: 99282

== ENCOUNTER 2024-10-10 09:11 | Oncology outpatient (recurring) (ONCR) | payer BC, MEDICAID, SELFPAY ==
--- NOTE | 2024-10-10 10:17 | XR_ITS ---
WS: [id number] Right shoulder, 3 views, 10/10/2024 Clinical Data: right shoulder pain Comparison: None. Findings: No fractures or dislocations are seen. The AC joint is normal. The adjacent right clavicle, right scapula and ribs are normal. The soft tissues are unremarkable. XR/XR shoulder RT min 2V* [id number] Impression: Negative right shoulder.
[2024-10-10 10:22] LABS: Hematocrit 40.7 % (36-47); Hemoglobin 12.70 g/dL (11.27-16.99); Mean Corpuscular HGB Conc 31.2 g/dL (30-55); Mean Corpuscular Hemoglobin 25.5 pg (27-33); Mean Corpuscular Volume 81.7 fl (85-98); Nucleated Red Blood Cells % 0 %; Platelet Count 179 10^3/cmm (157-399); Red Blood Count 4.98 10^6/uL (3.85-5.65); White Blood Count 5.85 10^3/uL (3.29-11.43)
[2024-10-10 10:38] LABS: Alanine Aminotransferase 31 U/L (0-33); Albumin Level 3.9 g/dL (3.5-5.2); Alkaline Phosphatase 112 U/L (35-105); Anion Gap 15.9 (5-19); Aspartate Amino Transferase 21 U/L (0-32); Blood Urea Nitrogen 15 mg/dL (6-20); Calcium 9.3 mg/dL (8.5-10.5); Carbon Dioxide 25 mmol/L (22-29); Chloride 103 mmol/L (98-107); Creatinine Clr Calc Pharmacy 90.9289; Globulin 4.4 g/dL (1.3-4.6); Glucose 213 mg/dL (65-115); Osmolality Calculated 297 mOsm/kg (285-295); Potassium 3.9 mmol/L (3.5-5.1); Sodium 140 mmol/L (136-145); Total Protein 8.3 g/dL (6.6-8.7)
[2024-10-11 08:05] LABS: PROTEIN, TOTAL 8.3 g/dL (6.1-8.1)
[2024-10-14 14:54] LABS: KAPPA LIGHT CHAIN, FREE, SERUM 14.2 mg/L (3.3-19.4); KAPPA/LAMBDA LIGHT CHAINS FREE 1.01 (0.26-1.65); LAMBDA LIGHT CHAIN, FREE, SERU 14.1 mg/L (5.7-26.3)
[2024-10-15 10:03] LABS: ALPHA 1 GLOBULIN 0.3 g/dL (0.2-0.3); ALPHA 2 GLOBULIN 0.8 g/dL (0.5-0.9); BETA 1 GLOBULIN 0.5 g/dL (0.4-0.6); BETA 2 GLOBULIN 0.3 g/dL (0.2-0.5)
== END 2024-10-10 23:59 | disposition home or self-care (01) ==
PROVIDERS: PCP Family Medicine; Visit Provider Internal Medicine
DX: G62.9 Polyneuropathy, unspecified (principal); R77.9 Abnormality of plasma protein, unspecified
CPT/HCPCS: 36415; 73030; 80053; 82784; 83883; 84155; 84165; 85025; 86334

== ENCOUNTER 2024-10-16 08:39 | Outpatient (CLI) | payer BC, MEDICAID, SELFPAY ==
[2024-10-17 08:30] LABS: Protein/Creatinine Ratio 0.143 (<0.150); Protein/Creatinine Ratio 143 mg/g creat (<150)
[2024-10-18 15:15] LABS: ALPHA-1-GLOBULINS 0 %; ALPHA-2-GLOBULINS 0 %; BETA GLOBULINS 0 %; GAMMA GLOBULINS 0 %
== END 2024-10-16 08:40 | disposition home or self-care (01) ==
LOC: LAB 08:41
PROVIDERS: PCP Family Medicine; Visit Provider Internal Medicine
DX: R77.9 Abnormality of plasma protein, unspecified (principal)
CPT/HCPCS: 82570; 84166; 86335

== ENCOUNTER 2024-11-07 14:01 | Oncology outpatient (recurring) (ONCR) | payer BC, MEDICAID, SELFPAY | END 2024-11-10 23:59 | disposition home or self-care (01) | PROVIDERS: PCP Family Medicine; Visit Provider Internal Medicine Medical Oncology | DX: Z53.9 Procedure and treatment not carried out, unspecified reason (principal) ==

== ENCOUNTER 2025-02-27 13:02 | Oncology outpatient (recurring) (ONCR) | payer BC, MEDICAID, SELFPAY ==
[2025-02-20 10:49] LABS: Hematocrit 42.4 % (36-47); Hemoglobin 13.30 g/dL (11.27-16.99); Mean Corpuscular HGB Conc 31.4 g/dL (30-55); Mean Corpuscular Hemoglobin 25.4 pg (27-33); Mean Corpuscular Volume 80.9 fl (85-98); Nucleated Red Blood Cells % 0 %; Platelet Count 174 10^3/cmm (157-399); Red Blood Count 5.24 10^6/uL (3.85-5.65); White Blood Count 6.01 10^3/uL (3.29-11.43)
[2025-02-20 11:16] LABS: Alanine Aminotransferase 39 U/L (0-33); Albumin Level 3.9 g/dL (3.5-5.2); Alkaline Phosphatase 102 U/L (35-105); Anion Gap 16.0 (5-19); Aspartate Amino Transferase 29 U/L (0-32); Blood Urea Nitrogen 16 mg/dL (6-20); Calcium 9.4 mg/dL (8.5-10.5); Carbon Dioxide 27 mmol/L (22-29); Chloride 102 mmol/L (98-107); Ferritin 59 ng/mL (15-150); Globulin 4.4 g/dL (1.3-4.6); Glucose 229 mg/dL (65-115); Iron 62 ug/dL (37-145); Osmolality Calculated 300 mOsm/kg (285-295); Potassium 4.0 mmol/L (3.5-5.1); Sodium 141 mmol/L (136-145); Total Iron Binding Capacity 316 mcg/dl; Total Protein 8.3 g/dL (6.6-8.7); Unsaturated Iron Binding 254 ug/dL (112-347)
[2025-02-20 11:30] LABS: Vitamin B12 553 pg/mL (232-1245)
[2025-02-21 07:35] LABS: PROTEIN, TOTAL 7.9 g/dL (6.1-8.1)
[2025-02-21 11:18] LABS: KAPPA LIGHT CHAIN, FREE, SERUM 14.4 mg/L (3.3-19.4); KAPPA/LAMBDA LIGHT CHAINS FREE 0.97 (0.26-1.65); LAMBDA LIGHT CHAIN, FREE, SERU 14.9 mg/L (5.7-26.3)
[2025-02-21 13:39] LABS: Protein/Creatinine Ratio 0.158 (<0.150); Protein/Creatinine Ratio 158 mg/g creat (<150)
[2025-02-22 10:58] LABS: ALPHA 1 GLOBULIN 0.3 g/dL (0.2-0.3); ALPHA 2 GLOBULIN 0.8 g/dL (0.5-0.9); BETA 1 GLOBULIN 0.4 g/dL (0.4-0.6); BETA 2 GLOBULIN 0.3 g/dL (0.2-0.5)
[2025-03-03 10:40] LABS: ALPHA-1-GLOBULINS 0 %; ALPHA-2-GLOBULINS 0 %; BETA GLOBULINS 0 %; GAMMA GLOBULINS 0 %
== END 2025-03-12 23:59 | disposition home or self-care (01) ==
PROVIDERS: Internal Medicine Medical Oncology; PCP Family Medicine; Visit Provider Internal Medicine
DX: Z53.9 Procedure and treatment not carried out, unspecified reason (principal)
CPT/HCPCS: 36415; 80053; 82570; 82607; 82728; 82746; 82784; 83540; 83550; 83883; 84155; 84165; 84166; 85025; 86334; 86335